=== PATIENT | female | born 1985 | race Caucasian/White ===

== ENCOUNTER 2023-02-14 16:03 | Outpatient (CLI) | payer OTHER, SELFPAY | END 2023-02-14 16:04 | disposition home or self-care (01) | PROVIDERS: PCP Internal Medicine; Visit Provider Internal Medicine | DX: R41.840 Attention and concentration deficit (principal); I10 Essential (primary) hypertension; E66.01 Morbid (severe) obesity due to excess calories; E11.9 Type 2 diabetes mellitus without complications; Z13.6 Encounter for screening for cardiovascular disorders | CPT/HCPCS: 80053; 80061; 82043; 82570; 84443 ==

== ENCOUNTER 2023-06-10 12:48 | Outpatient (CLI) | payer OTHER, SELFPAY | END 2023-06-10 12:49 | disposition home or self-care (01) | LOC: WOUND 12:49 | PROVIDERS: PCP Internal Medicine; Visit Provider Nurse Practitioner Family | DX: E11.621 Type 2 diabetes mellitus with foot ulcer (principal); L97.512 Non-pressure chronic ulcer of other part of right foot with fat layer exposed; L97.511 Non-pressure chronic ulcer of other part of right foot limited to breakdown of skin; Z89.411 Acquired absence of right great toe; Z79.4 Long term (current) use of insulin; Z79.84 Long term (current) use of oral hypoglycemic drugs | CPT/HCPCS: 97597; 99213 ==

== ENCOUNTER 2023-06-17 14:31 | Outpatient (CLI) | payer OTHER, SELFPAY | END 2023-06-17 14:32 | disposition home or self-care (01) | LOC: WOUND 14:31 | PROVIDERS: PCP Internal Medicine; Visit Provider Nurse Practitioner Family | DX: E11.621 Type 2 diabetes mellitus with foot ulcer (principal); L97.512 Non-pressure chronic ulcer of other part of right foot with fat layer exposed; Z79.4 Long term (current) use of insulin; Z79.84 Long term (current) use of oral hypoglycemic drugs | CPT/HCPCS: 97597 ==

== ENCOUNTER 2023-06-24 14:11 | Outpatient (CLI) | payer OTHER, SELFPAY | END 2023-06-24 14:12 | disposition home or self-care (01) | LOC: WOUND 14:11 | PROVIDERS: PCP Internal Medicine; Visit Provider Nurse Practitioner Family | DX: E11.621 Type 2 diabetes mellitus with foot ulcer (principal); L97.512 Non-pressure chronic ulcer of other part of right foot with fat layer exposed; Z79.4 Long term (current) use of insulin; Z79.84 Long term (current) use of oral hypoglycemic drugs | CPT/HCPCS: 97597 ==

== ENCOUNTER 2023-07-01 15:00 | Outpatient (CLI) | payer OTHER, SELFPAY ==
--- OUTSIDE RECORDS SUMMARY | 2023-07-01 15:02 | XMS_ITS | Continuity of Care Document ---
Author Name Unknown Organization [facility] Address [address] [place] [address] Phone Care Team Providers Care Obstetrics Technician Name Role Phone Avery Underwood MD Unavailable Unavailab le Allergies, Adverse Reactions, Alerts Substance Reaction Status Criticality azithromycin Active No Information vancomycin Active No Information trimethoprim Active No Information sulfamethoxazole Active No Informat ion adhesive Active No Information Medications Medication Instructions Dosage Effective Dates (start - stop) Status Comments TRAMADOL HCL (unknown strength) Not Available - Active SUMATRIPTAN (unknown strength) Not Available - Active MULTIVITAMINS (unknown strength) Not Available - Active LYRICA (unknown strength) Not Available - Active OXYCODONE HCL (unknown strength) Not Available - Active METFORMIN HCL (unknown strength) Not Available - Active MELATONIN (unknown strength) Not Available - Active LOSARTAN POTASSIUM (unknown strength) Not Available - Active LORAZEPAM (unknown strength) Not Available - Active HYDROXYZINE HCL (unknown strength) Not Available - Active GLIPIZIDE (unknown strength) Not Available - Active LEXAPRO (unknown strength) Not Available - Active JARDIANCE (unknown strength) Not Available - Active WELLBUTRIN XL (unknown strength) Not Available - Active CHILDREN'S ASPIRIN (unknown strength) Not Available - Active AMMONIUM LACTATE (unknown strength) Not Available - Active Procedures Procedure Date Postop Followup Visit Postop Followup Visit Postop Followup Visit Lami/Discectomy, Lumbar HNP - [place] 2019 Lami/Discectomy, Lumbar HNP I & D of Deep Abscess (Subfascial), Lumb ar / Sacral Postop Followup Visit Lami/Discectomy, Lumbar HNP - [place] 2019 Lami/Discectomy, Lumbar HNP Office/Outpatient Visit,[facility] 2019 Advance Directives Directive Yes / No Effective Date File Name No Information Encounters Encounter Description Practice Location Reason(s) For Visit Diagnoses Date Provider Providers Copied on Encounter [facility], [address], [place], [id number], [place] tel:[phone] [facility] No Information 0 Yasmine Smart er. [facility], [address] [place] [address], [address], [place], [address] , [place]. [phone] [facility], [address], [place], [address], [place] tel:[phone] [facility] Encounter for follow-up examination after completed treatment for conditions other than malignant neoplasm 0 Underwoodned Omeroph er. [facility], [address] [place] [address], [address], [place], [address] , [place]. [phone] Referring Provider: Mile Ni [employer] [address], [address]. tel:[phone] [facility], [address], [place], [address], [place] tel:[phone] [facility] Encounter for follow-up examination after completed treatment for conditions other than malignant neoplasm 0 Underwood Berry er. [facility], [address], [address], [place], [address] , [place]. tel:[phone] Referring Provider: Mile Ni enGene [address] [place] [address], [address]. tel:[phone] [facility], [address], [place], [address], [place] tel:[phone] [facility] Encounter for other specified surgical aftercare 0 Magnus Isi. [facility], [address], [place], [address], [place]. tel:[phone] Referring Provider: Mile Ni enGene [address] [place], [address]. tel:[phone] [facility], [address], [place], [address], [place] tel:[phone] [facility] No Information May-1 2- 0 Magnus Isi. [facility], [address] [facility] [address], [place], [address], [place]. tel:[phone] Referring Provider: Mile Ni enGene [address] [place] [address], [address]. tel:[phone] [facility], [address], [place], [address], [place] tel:[phone] [facility] No Information May-0 0 Yasmine gallego. [facility], [address] [place] [address], [address], [place], [address] , [place]. tel:[phone] Referring Provider: Mile Ni enGene [facility] [place], [address]. tel:[phone] [facility], [address], [place], [address], [place] tel:[phone] [facility] Encounter for other specified surgical aftercare Sep-3 0-202 0 Magnus Isi. [facility], [address] [place] [address] [address], [place], [address], [place]. tel:[phone] Referring Provider: Mile Ni enGene [address] [place] [address], [address]. tel:[phone] [facility], [address], [place], [address], [place] tel:[phone] [facility] No Information Sep-2 0 Magnus Snowden. [facility], [address], [place], [address], [place]. [phone] Referring Provider: Mile Ni, [employer] [address], [address]. tel:[phone] [facility], [address], [place], [address], [place] tel:[phone] [facility] No Information Sep-2 0 Yasmine gallego. [facility], [address] [place] [address], [address], [facility] [place], [address] , [place]. [phone] Referring Provider: Miel Ni, enGene [address] [place] [address], [address]. tel:[phone] Office/Outpat ient Visit,[facility], [facility], [address], [place], [address], [place] tel:[phone] [facility] Other intervertebral disc displacement, lumbar regionRadiculop athy, lumbar region Sep-1 0 Magnus Snowden. [facility], [address], [place], [address], [place]. [phone] Referring Provider: Mile Ni, enGene [address] [place] [address], [address]. tel:[phone] Family History Family Member Type Diagnosis Age At Onset No Information Payers Payer name Insurance type Covered republican ID jacquelyn yongzuri(s) [employer] [id number] Social History Type Description Quantity Date Captured Comments Sex Female Smoking Status No Information Chief Complaint And Reason For Visit No Information Reason For Referral Reason For Referral No Information History Of Present Illness Encounter Date Complaint History Of Prese nt Illness No Information Functional Status Date Functional Assessmen t No Information Instructions Date Instruction Additional Infor mation No Information Assessments Type Assessment Date No Information Patient Care Teams Name Effective Dates (start - stop) Status Members No Information
== END 2023-07-01 15:01 | disposition home or self-care (01) ==
LOC: WOUND 15:01
PROVIDERS: PCP Internal Medicine; Visit Provider Family Medicine
DX: E11.621 Type 2 diabetes mellitus with foot ulcer (principal); L97.512 Non-pressure chronic ulcer of other part of right foot with fat layer exposed; S91.301A Unspecified open wound, right foot, initial encounter; Z79.4 Long term (current) use of insulin; Z79.84 Long term (current) use of oral hypoglycemic drugs
CPT/HCPCS: 11042; 97597; 99212

== ENCOUNTER 2023-07-08 08:07 | Outpatient (CLI) | payer OTHER, SELFPAY ==
--- OUTSIDE RECORDS SUMMARY | 2023-07-08 08:09 | XMS_ITS | Continuity of Care Document ---
Author Name Unknown Organization [facility] Address [address] [place] [address] Phone Care Team Providers Care Patcher Name Role Phone Avery Underwood MD Unavailable [...] - [place] 2019 Lami/Discectomy, Lumbar HNP Office/Outpatient Visit,[facility] 2019 Advance Directives Directive Yes / No Effective Date File Name No Information Encounters Encounter Description Practice Location Reason(s) For Visit Diagnoses Date Provider Providers Copied on Encounter [facility], [address], [place], [address], [place] tel:[phone] [facility] No Information 0 Yasmine Smart er. [facility], [address] [place] [address], [address], [place], [address] , [place]. [phone] [facility], [address], [place], [address], [place] tel:[phone] [facility] Encounter for follow-up examination after completed treatment for conditions other than malignant neoplasm 0 Underwoodned Omeroph er. [facility], [address] [place] [address], [address], [place], [place], [address] , [place]. [phone] Referring Provider: Mile Ni [employer] [address], [address]. tel:[phone] [facility], [address], [place], [address], [place] tel:[phone] [facility] Encounter for follow-up examination after completed treatment for conditions other than malignant neoplasm 0 Underwood Berry er. [facility] [place], [address], [address], [place], [address] , [place]. tel:[phone] Referring Provider: Mile Ni [employer] [address] [place] [address], [address]. tel:[phone] [facility], [address], [place], [address], [place] tel:[phone] [facility] Encounter for other specified surgical aftercare 0 Magnus Isi. [facility], [address], [place], [address], [place]. tel:[phone] Referring Provider: Mile Ni [employer] [address] [place], [address]. tel:[phone] [facility], [address], [place], [address], [place] tel:[phone] [facility] No Information May-1 2- 0 Magnus Isi. [facility], [address] [facility] 600, [place], [address], [place]. tel:[phone] Referring Provider: Mile Ni [employer] [address] [place] [address], [address]. tel:[phone] [facility], [address], [place], [address], [place] tel:[phone] [facility] No Information May-0 0 Yasmine gallego. [facility], [address] [place] [address], [address], [place], [address] , [place]. tel:[phone] Referring Provider: Mile Ni [employer] [facility] [place], [address]. tel:[phone] [facility], [address], [place], [address], [place] tel:[phone] [facility] Encounter for other specified surgical aftercare Sep-3 0-202 0 Magnus Isi. [facility], [address] [place] [address] [address], [place], [address], [place]. tel:[phone] Referring Provider: Mile Ni [employer] [address] [place] [address], [address]. tel:[phone] [facility], [address], [place], [address], [place] tel:[phone] [facility] No Information Sep-2 0 Magnus Snowden. [facility], [address], [place], [address], [place]. [phone] Referring Provider: Mile Ni, [employer] [address], [address]. tel:[phone] [facility], [address], [place], [address], [place] tel:[phone] [facility] No Information Sep-2 0 Yasmine gallego. [facility], [address] [place] [address], [address], [facility] [place], [address] , [place]. [phone] Referring Provider: Mile Ni, [employer] [address] [place] [address], [address]. tel:[phone] Office/Outpat ient Visit,[facility], [facility], [address], [place], [address], [place] tel:[phone] [facility] Other intervertebral disc displacement, lumbar regionRadiculop athy, lumbar region Sep-1 0 Magnus Snowden. [facility], [address], [place], [address], [place]. [phone] Referring Provider: Mile Ni, [employer] [address] [place] [address], [address]. tel:[phone] Family History Family Member Type Diagnosis Age At Onset No Information Payers Payer name Insurance type Covered green party ID jacquelyn yongzuri(s) [employer] [id number] Social History Type Description Quantity Date Captured [...]
== END 2023-07-08 08:08 | disposition home or self-care (01) ==
LOC: WOUND 08:07
PROVIDERS: PCP Internal Medicine; Visit Provider Nurse Practitioner Family
DX: E11.621 Type 2 diabetes mellitus with foot ulcer (principal); L97.512 Non-pressure chronic ulcer of other part of right foot with fat layer exposed; Z79.4 Long term (current) use of insulin; Z79.84 Long term (current) use of oral hypoglycemic drugs
CPT/HCPCS: 97597

== ENCOUNTER 2023-07-22 08:12 | Outpatient (CLI) | payer OTHER, SELFPAY ==
--- OUTSIDE RECORDS SUMMARY | 2023-07-22 08:14 | XMS_ITS | Continuity of Care Document ---
Author Name Unknown Organization [facility] Address [address] [place] [address] Phone Care Team Providers Care Chuck Tender Name Role Phone Avery Underwood MD Unavailable [...] - [place] 2019 Lami/Discectomy, Lumbar HNP Office/Outpatient Visit,[facility] 2019 Advance Directives Directive Yes / No Effective Date File Name No Information Encounters Encounter Description Practice Location Reason(s) For Visit Diagnoses Date Provider Providers Copied on Encounter [facility], [address], [place], [address], [place] tel:[phone] [facility] No Information 0 Yasmine Smart er. [facility], [address] [place] [address], [address], [place], [address] , [place]. [phone] [facility], [address], [place], [address], [place] tel:[phone] [facility] Encounter for follow-up examination after completed treatment for conditions other than malignant neoplasm 0 Underwoodned Omeroph er. [facility], [address] [place] [address], [address], [place], [address] , [place]. [phone] Referring Provider: Mile Ni [employer] [address], [address]. tel:[phone] [facility], [address], [place], [address], [place] tel:[phone] [facility] Encounter for follow-up examination after completed treatment for conditions other than malignant neoplasm 0 Underwood Berry er. [facility] [place], [address], [address], [place], [address] , [place]. tel:[phone] Referring Provider: Mile Ni [employer] [address] [place] [address], [address]. tel:[phone] [facility], [address], [place], [address], [place] tel:[phone] [facility] Encounter for other specified surgical aftercare 0 Magnus Isi. [facility], [address], [place], [address], [place]. tel:[phone] Referring Provider: Mile Ni [employer] [address] [place], [address]. tel:[phone] [facility], [address], [place], [address], [place] tel:[phone] [facility] No Information May-1 2- 0 Magnus Isi. [facility], [address] [facility] 600, [place], [address], [place]. tel:[phone] Referring Provider: Mile Ni [employer] [address] [place] [address], [address]. tel:[phone] [facility], [address], [place], [address], [place] tel:[phone] [facility] No Information May-0 0 Yasmine gallego. [facility], [address] [place] [address], [address], [place], [address] , [place]. tel:[phone] Referring Provider: Mile Ni [employer] [facility] [place], [address]. tel:[phone] [facility], [address], [place], [address], [place] tel:[phone] [facility] Encounter for other specified surgical aftercare Sep-3 0-202 0 Magnus Isi. [facility], [address] [place] [address] [address], [place], [address], [place]. tel:[phone] Referring Provider: Mile Ni [employer] [address] [place] [address], [address]. tel:[phone] [facility], [address], [place], [address], [place] tel:[phone] [facility] No Information Sep-2 0 Magnus Snowden. [facility], [address], [place], [address], [place]. [phone] Referring Provider: Mile Ni, [employer] [address], [address]. tel:[phone] [facility], [address], [place], [address], [place] tel:[phone] [facility] No Information Sep-2 0 Yasmine gallego. [facility], [address] [place] [address], [address], [facility] [place], [address] , [place]. [phone] Referring Provider: Mile Ni, [employer] [address] [place] [address], [address]. tel:[phone] Office/Outpat ient Visit,[facility], [facility], [address], [place], [address], [place] tel:[phone] [facility] Other intervertebral disc displacement, lumbar regionRadiculop athy, lumbar region Sep-1 0 Magnus Snowden. [facility], [address], [place], [address], [place]. [phone] Referring Provider: Mile Ni, [employer] [address] [place] [address], [address]. tel:[phone] Family History Family Member Type Diagnosis Age At Onset No Information Payers Payer name Insurance type Covered constitution party ID jacquelyn yongzuri(s) [employer] [id number] Social History Type Description Quantity Date Captured [...]
== END 2023-07-22 08:13 | disposition home or self-care (01) ==
LOC: WOUND 08:12
PROVIDERS: PCP Internal Medicine; Visit Provider Nurse Practitioner Family
DX: E11.621 Type 2 diabetes mellitus with foot ulcer (principal); L97.512 Non-pressure chronic ulcer of other part of right foot with fat layer exposed; Z79.4 Long term (current) use of insulin; Z79.84 Long term (current) use of oral hypoglycemic drugs
CPT/HCPCS: 97597

== ENCOUNTER 2023-07-29 14:54 | Outpatient (CLI) | payer OTHER, SELFPAY ==
--- OUTSIDE RECORDS SUMMARY | 2023-07-29 14:56 | XMS_ITS | Continuity of Care Document ---
Author Name Unknown Organization [facility] Address [address] [place] [address] Phone Care Team Providers Care 1St Pressman On Web [employer] Name Role Phone Avery Underwood MD Unavailable [...] - [place] 2019 Lami/Discectomy, Lumbar HNP Office/Outpatient Visit,[facility] 2019 Advance Directives Directive Yes / No Effective Date File Name No Information Encounters Encounter Description Practice Location Reason(s) For Visit Diagnoses Date Provider Providers Copied on Encounter [facility], [address], [place], [address], [place] tel:[phone] [facility] No Information 0 Yasmine Smart er. [facility], [address] [place] [address], [address], [place], [address] , [place]. [phone] [facility], [address], [place], [address], [place] tel:[phone] [facility] Encounter for follow-up examination after completed treatment for conditions other than malignant neoplasm 0 Underwoodned Omeroph er. [facility], [address] [place] [address], [address], [place], [address] , [place]. [phone] Referring Provider: Mile Ni [email or web address] [address], [address]. tel:[phone] [facility], [address], [place], [address], [place] tel:[phone] [facility] Encounter for follow-up examination after completed treatment for conditions other than malignant neoplasm 0 Underwood Berry er. [facility] [place], [address], [address], [place], [address] , [place]. tel:[phone] Referring Provider: Mile Ni depict [address] [place] [address], [address]. tel:[phone] [facility], [address], [place], [address], [place] tel:[phone] [facility] Encounter for other specified surgical aftercare 0 Magnus Isi. [facility], [address], [place], [address], [place]. tel:[phone] Referring Provider: Mile Ni depict [address] [place], [address]. tel:[phone] [facility], [address], [place], [address], [place] tel:[phone] [facility] No Information May-1 2- 0 Magnus Isi. [facility], [address] [facility] 600, [place], [address], [place]. tel:[phone] Referring Provider: Mile Ni depict [address] [place] [address], [address]. tel:[phone] [facility], [address], [place], [address], [place] tel:[phone] [facility] No Information May-0 0 Yasmine gallego. [facility], [address] [place] [address], [address], [place], [address] , [place]. tel:[phone] Referring Provider: Mile Ni depict [facility] [place], [address]. tel:[phone] [facility], [address], [place], [address], [place] tel:[phone] [facility] Encounter for other specified surgical aftercare Sep-3 0-202 0 Magnus Isi. [facility], [address] [place] [address] 600, [place], [address], [place]. tel:[phone] Referring Provider: Mile Ni depict [address] [place] [address], [address]. tel:[phone] [facility], [address], [place], [address], [place] tel:[phone] [facility] No Information Sep-2 0 Magnus Snowden. [facility], [address], [place], [address], [place]. [phone] Referring Provider: Mile Ni, [email or web address] [address], [address]. tel:[phone] [facility], [address], [place], [address], [place] tel:[phone] [facility] No Information Sep-2 0 Yasmine gallego. [facility], [address] [place] [address], [address], [facility] [place], [address] , [place]. [phone] Referring Provider: Mile Ni, depict [address] [place] [address], [address]. tel:[phone] Office/Outpat ient Visit,[facility], [facility], [address], [place], [address], [place] tel:[phone] [facility] Other intervertebral disc displacement, lumbar regionRadiculop athy, lumbar region Sep-1 0 Magnus Snowden. [facility], [address], [place], [address], [place]. [phone] Referring Provider: Mile Ni, depict [address] [place] [address], [address]. tel:[phone] Family History Family Member Type Diagnosis Age At Onset No Information Payers Payer name Insurance type Covered green party ID jacquelyn yongzuri(s) [employer] [id number] Social History Type Description Quantity Date Captured [...]
== END 2023-07-29 14:55 | disposition home or self-care (01) ==
LOC: WOUND 14:54
PROVIDERS: PCP Internal Medicine; Visit Provider Family Medicine
DX: E11.621 Type 2 diabetes mellitus with foot ulcer (principal); L97.512 Non-pressure chronic ulcer of other part of right foot with fat layer exposed; Z79.4 Long term (current) use of insulin; Z79.84 Long term (current) use of oral hypoglycemic drugs
CPT/HCPCS: 11042

== ENCOUNTER 2023-08-05 08:13 | Outpatient (CLI) | payer OTHER, SELFPAY ==
--- OUTSIDE RECORDS SUMMARY | 2023-08-05 08:14 | XMS_ITS | Continuity of Care Document ---
Author Name Unknown Organization [facility] Address [address] [place] [address] Phone Care Team Providers Care Entry Driver Operator Name Role Phone Avery Underwood MD Unavailable [...] - [place] 2019 Lami/Discectomy, Lumbar HNP [facility]patient [facility] [place] Advance Directives Directive Yes / No Effective Date File Name No Information Encounters Encounter Description Practice Location Reason(s) For Visit Diagnoses Date Provider Providers Copied on Encounter [facility], [address], [place], [id number], [place] tel:[phone] [facility] No Information 0 Yasmine Smart er. [facility], [address] [place] [address], [address], [place], [address] , [place]. [phone] [facility], [address], [place], [address], [place] tel:[phone] [facility] Encounter for follow-up examination after completed treatment for conditions other than malignant neoplasm 0 Underwoodned Omeroph er. [facility], [address] [place] [address], [address], [place], [address] , [place]. [phone] Referring Provider: Mile Ni [facility] [address], [address]. tel:[phone] [facility], [address], [place], [address], [place] tel:[phone] [facility] Encounter for follow-up examination after completed treatment for conditions other than malignant neoplasm 0 Underwood Berry er. [facility] [place], [address], [address], [place], [address] , [place]. tel:[phone] Referring Provider: Mile Ni [facility] [address] [place] [address], [address]. tel:[phone] [facility], [address], [place], [address], [place] tel:[phone] [facility] Encounter for other specified surgical aftercare 0 Magnus Isi. [facility], [address], [place], [address], [place]. tel:[phone] Referring Provider: Mile Ni [facility] [address] [place], [address]. tel:[phone] [facility], [address], [place], [address], [place] tel:[phone] [facility] No Information May-1 2- 0 Magnus Isi. [facility], [address] [facility] [address], [place], [address], [place]. tel:[phone] Referring Provider: Mile Ni [facility] [address] [place] [address], [address]. tel:[phone] [facility], [address], [place], [address], [place] tel:[phone] [facility] No Information May-0 0 Yasmine gallego. [facility], [address] [place] [address], [address], [place], [address] , [place]. tel:[phone] Referring Provider: Mile Ni [facility] [place], [address]. tel:[phone] [facility], [address], [place], [address], [place] tel:[phone] [facility] Encounter for other specified surgical aftercare Sep-3 0-202 0 Magnus Isi. [facility], [address] [place] [address] [address], [place], [address], [place]. tel:[phone] Referring Provider: Mile Ni [facility] [address] [place] [address], [address]. tel:[phone] [facility], [address], [place], [address], [place] tel:[phone] [facility] No Information Sep-2 0 Magnus Snowden. [facility], [address], [place], [address], [place]. [phone] Referring Provider: Mile Ni, [facility] [address], [address]. tel:[phone] [facility], [address], [place], [address], [place] tel:[phone] [facility] No Information Sep-2 0 Yasmine gallego. [facility], [address] [place] [address], [address], [facility] [place], [address] , [place]. [phone] Referring Provider: Mile Ni, [facility] [address] [place] [address], [address]. tel:[phone] Office/Outpat ient Visit,[facility], [address], [place], [address], [place] tel:[phone] [facility] Other intervertebral disc displacement, lumbar regionRadiculop athy, lumbar region Sep-1 0 Magnus Snowden. [facility], [address], [facility] [place], [address], [place]. [phone] Referring Provider: Mile Ni, [facility] [address] [place] [address], [address]. tel:[phone] Family History Family Member Type Diagnosis Age At Onset No Information Payers Payer name Insurance type Covered alliance party ID jacquelyn yongzuri(s) [employer] [id number] Social History Type Description Quantity Date Captured [...]
== END 2023-08-05 08:14 | disposition home or self-care (01) ==
LOC: WOUND 08:13
PROVIDERS: PCP Internal Medicine; Visit Provider Nurse Practitioner Family
DX: E11.621 Type 2 diabetes mellitus with foot ulcer (principal); L97.512 Non-pressure chronic ulcer of other part of right foot with fat layer exposed; Z79.84 Long term (current) use of oral hypoglycemic drugs
CPT/HCPCS: 11042

== ENCOUNTER 2023-08-08 16:05 | Outpatient (REF) | payer OTHER, SELFPAY ==
--- OUTSIDE RECORDS SUMMARY | 2023-08-09 12:02 | XMS_ITS | Continuity of Care Document ---
Author Name Unknown Organization [facility] Address [address] [place] [address] Phone Care Team Providers Care Actionscript Developer Name Role Phone Avery Underwood MD Unavailable Unavailab le Allergies, Adverse Reactions, Alerts Substance Reaction Status Criticality azithromycin Active No Information vancomycin Active No Information trimethoprim Active No Information sulfamethoxazole Active No Informat ion adhesive Active No Information Medications Medication Instructions Dosage Effective Dates (start - stop) Status Comments AMMONIUM LACTATE (unknown strength) Not Available - Active CHILDREN'S ASPIRIN (unknown strength) Not Available - Active WELLBUTRIN XL (unknown strength) Not Available - Active JARDIANCE (unknown strength) Not Available - Active LEXAPRO (unknown strength) Not Available - Active GLIPIZIDE (unknown strength) Not Available - Active HYDROXYZINE HCL (unknown strength) Not Available - Active LORAZEPAM (unknown strength) Not Available - Active LOSARTAN POTASSIUM (unknown strength) Not Available - Active MELATONIN (unknown strength) Not Available - Active METFORMIN HCL (unknown strength) Not Available - Active OXYCODONE HCL (unknown strength) Not Available - Active LYRICA (unknown strength) Not Available - Active MULTIVITAMINS (unknown strength) Not Available - Active SUMATRIPTAN (unknown strength) Not Available - Active TRAMADOL HCL (unknown strength) Not Available - Active Procedures Procedure Date Postop Followup Visit Postop Followup Visit Postop Followup Visit Lami/Discectomy, Lumbar HNP - [place] 2019 Lami/Discectomy, Lumbar HNP I & D of Deep Abscess (Subfascial), Lumb ar / Sacral Postop Followup Visit Lami/Discectomy, Lumbar HNP - [place] 2019 Lami/Discectomy, Lumbar HNP Office/Outpatient Visit,[facility] [place] Advance Directives Directive Yes / No Effective Date File Name No Information Encounters Encounter Description Practice Location Reason(s) For Visit Diagnoses Date Provider Providers Copied on Encounter [facility], [address], [place], [address], [place] tel:[phone] [facility] No Information 0 Yasmine Smart er. [facility], [address] [place] [address], [address], [place], [address] , [place]. [phone] [facility], [address], [place], [address], [place] tel:[phone] [facility] Encounter for follow-up examination after completed treatment for conditions other than malignant neoplasm 0 Underwoodned Omeroph er. [facility], [address] [place] [address], [address], [place], [address] , [place]. [phone] Referring Provider: Mile Ni [facility] [address], [address]. tel:[phone] [facility], [address], [place], [address], [place] tel:[phone] [facility] Encounter for follow-up examination after completed treatment for conditions other than malignant neoplasm 0 Underwood Berry er. [facility] [place], [address], [address], [place], [address] , [place]. tel:[phone] Referring Provider: Mile Ni [facility] [address] [place] [address], [address]. tel:[phone] [facility], [address], [place], [address], [place] tel:[phone] [facility] Encounter for other specified surgical aftercare 0 Magnus Isi. [facility], [address], [place], [address], [place]. tel:[phone] Referring Provider: Mile Ni [facility] [address] [place], [address]. tel:[phone] [facility], [address], [place], [address], [place] tel:[phone] [facility] No Information May-1 2- 0 Magnus Isi. [facility], [address] [facility] 600, [place], [address], [place]. tel:[phone] Referring Provider: Mile Ni [facility] [address] [place] [address], [address]. tel:[phone] [facility], [address], [place], [address], [place] tel:[phone] [facility] No Information May-0 0 Yasmine gallego. [facility], [address] [place] [address], [address], [place], [address] , [place]. tel:[phone] Referring Provider: Mile Ni [facility] [place], [address]. tel:[phone] [facility], [address], [place], [address], [place] tel:[phone] [facility] Encounter for other specified surgical aftercare Sep-3 0-202 0 Magnus Isi. [facility], [address] [place] [address] [address], [place], [address], [place]. tel:[phone] Referring Provider: Mile Ni [facility] [address] [place] [address], [address]. tel:[phone] [facility], [address], [place], [address], [place] tel:[phone] [facility] No Information Sep-2 0 Magnus Snowden. [facility], [address], [place], [address], [place]. [phone] Referring Provider: Mile Ni, [facility] [address], [address]. tel:[phone] [facility], [address], [place], [address], [place] tel:[phone] [facility] No Information Sep-2 0 Yasmine gallego. [facility], [address] [place] [address], [address], [facility], [address] , [place]. [phone] Referring Provider: Mile Ni, [facility] [address] [place] [address], [address]. tel:[phone] Office/Outpat ient Visit,[facility], [address], [place], [address], [place] tel:[phone] [facility] Other intervertebral disc displacement, lumbar regionRadiculop athy, lumbar region Sep-1 0 Magnus Snowden. [facility], [address], [facility] [place], [address], [place]. [phone] Referring Provider: Mile Ni, [facility] [address] [place] [address], [address]. tel:[phone] Family History Family Member Type Diagnosis Age At Onset No Information Payers Payer name Insurance type Covered constitution party ID jacquelyn yongzuri(s) [employer] [id number] Social History Type Description Quantity Date Captured [...]
== END 2023-08-08 16:06 | disposition home or self-care (01) ==
LOC: NFLDREF 16:05
PROVIDERS: PCP Internal Medicine; Referring Provider Internal Medicine; Visit Provider Internal Medicine
DX: E11.9 Type 2 diabetes mellitus without complications (principal); I82.409 Acute embolism and thrombosis of unspecified deep veins of unspecified lower extremity; E11.29 Type 2 diabetes mellitus with other diabetic kidney complication; R80.9 Proteinuria, unspecified; E11.51 Type 2 diabetes mellitus with diabetic peripheral angiopathy without gangrene
CPT/HCPCS: 80053; 80061; 81241

== ENCOUNTER 2023-08-12 15:03 | Outpatient (CLI) | payer OTHER, SELFPAY ==
--- OUTSIDE RECORDS SUMMARY | 2023-08-12 15:05 | XMS_ITS | Continuity of Care Document ---
Author Name Unknown Organization [facility] Address [address] [place] [address] Phone Care Team Providers Care Bottle Washer Name Role Phone Avery Underwood MD Unavailable [...] - [place] 2019 Lami/Discectomy, Lumbar HNP Office[facility]Outpatient [facility] [place] Advance Directives Directive Yes / No Effective Date File Name No Information Encounters Encounter Description Practice Location Reason(s) For Visit Diagnoses Date Provider Providers Copied on Encounter [facility], [address], [place], [address], [place] tel:[phone] [facility] No Information 0 Yasmine Smart er. [facility], [address] [place] [address], [address], [place], [address] , [place]. [phone] [facility], [address], [place], [address], [place] tel:[phone] [facility] Encounter for follow-up examination after completed treatment for conditions other than malignant neoplasm 0 Underwoodned Omeroph er. [facility], [address] [place] [address], [address], [place], [address] , [place]. [phone] Referring Provider: Mile Ni [facility] [address], [address]. tel:[phone] [facility], [address], [place], [address], [place] tel:[phone] [facility] Encounter for follow-up examination after completed treatment for conditions other than malignant neoplasm 0 Underwood Berry er. [facility] [place], [address], [address], [place], [address] , [place]. tel:[phone] Referring Provider: Mile Ni [facility] [address] [place] [address], [address]. tel:[phone] [facility], [address], [place], [address], [place] tel:[phone] [facility] Encounter for other specified surgical aftercare 0 Magnus Isi. [facility], [address], [place], [address], [place]. tel:[phone] Referring Provider: Mile Ni [facility] [address] [place], [address]. tel:[phone] [facility], [address], [place], [address], [place] tel:[phone] [facility] No Information May-1 2- 0 Magnus Isi. [facility], [address] [facility] [address], [place], [address], [place]. tel:[phone] Referring Provider: Mile Ni [facility] [address] [place] [address], [address]. tel:[phone] [facility], [address], [place], [address], [place] tel:[phone] [facility] No Information May-0 0 Yasmine gallego. [facility], [address] [place] [address], [address], [place], [address] , [place]. tel:[phone] Referring Provider: Mile Ni [facility] [place], [address]. tel:[phone] [facility], [address], [place], [address], [place] tel:[phone] [facility] Encounter for other specified surgical aftercare Sep-3 0-202 0 Magnus Isi. [facility], [address] [place] [address] [address], [place], [address], [place]. tel:[phone] Referring Provider: Mile Ni [facility] [address] [place] [address], [address]. tel:[phone] [facility], [address], [place], [address], [place] tel:[phone] [facility] No Information Sep-2 0 Magnus Snowden. [facility], [address], [place], [address], [place]. [phone] Referring Provider: Mile Ni, [facility] [address], [address]. tel:[phone] [facility], [address], [place], [address], [place] tel:[phone] [facility] No Information Sep-2 0 Yasmine gallego. [facility], [address] [place] [address], [address], [facility] [place], [address] , [place]. [phone] Referring Provider: Mile Ni, [facility] [address] [place] [address], [address]. tel:[phone] Office/Outpat ient Visit,[facility], [address], [place], [address], [place] tel:[phone] [facility] Other intervertebral disc displacement, lumbar regionRadiculop athy, lumbar region Sep-1 0 Magnus Snowden. [facility], [address], [place], [address], [place]. [phone] Referring Provider: Mile Ni, [facility] [address] [place] [address], [address]. tel:[phone] Family History Family Member Type Diagnosis Age At Onset No Information Payers Payer name Insurance type Covered democrat ID jacquelyn yongzuri(s) Tamr [id number] Social History Type Description Quantity Date Captured [...]
== END 2023-08-12 15:04 | disposition home or self-care (01) ==
PROVIDERS: PCP Internal Medicine; Visit Provider Nurse Practitioner Family
DX: E11.621 Type 2 diabetes mellitus with foot ulcer (principal); E11.40 Type 2 diabetes mellitus with diabetic neuropathy, unspecified; L97.512 Non-pressure chronic ulcer of other part of right foot with fat layer exposed; L84 Corns and callosities; Z79.4 Long term (current) use of insulin; Z79.84 Long term (current) use of oral hypoglycemic drugs
CPT/HCPCS: 11042; 11055

== ENCOUNTER 2023-08-24 09:04 | Outpatient (CLI) | payer BC, SELFPAY ==
--- OUTSIDE RECORDS SUMMARY | 2023-08-24 09:09 | XMS_ITS | Continuity of Care Document ---
Author Name Unknown Organization [facility] Address [address] [place] [address] Phone Care Team Providers Care Overnight Babysitter Name Role Phone Avery Underwood MD Unavailable [...] - [place] 2019 Lami/Discectomy, Lumbar HNP Office/Outpatient Visit,[facility] [place] Advance Directives Directive Yes / No Effective Date File Name No Information Encounters Encounter Description Practice Location Reason(s) For Visit Diagnoses Date Provider Providers Copied on Encounter [facility], [address], [place], [address], [place] tel:[phone] [facility] No Information 0 Yasmine Smart er. [facility], [address] [place] [address], [address], [place], [address] , [place]. [phone] [facility], [address], [place], [address], [place] tel:[phone] [facility] Encounter for follow-up examination after completed treatment for conditions other than malignant neoplasm 0 Underwoodned Omeroph er. [facility], [address] [place] [address], [address], [place], [address] , [place]. [phone] Referring Provider: Mile Ni uiu [address], [address]. tel:[phone] [facility], [address], [place], [address], [place] tel:[phone] [facility] Encounter for follow-up examination after completed treatment for conditions other than malignant neoplasm 0 Underwood Berry er. [facility] [place], [address], [address], [place], [address] , [place]. tel:[phone] Referring Provider: Mile Ni [facility] [address] [place] [address], [address]. tel:[phone] [facility], [address], [place], [address], [place] tel:[phone] [facility] Encounter for other specified surgical aftercare 0 Magnus Isi. [facility], [address], [place], [address], [place]. tel:[phone] Referring Provider: Mile Ni [facility] [address] [place], [address]. tel:[phone] [facility], [address], [place], [address], [place] tel:[phone] [facility] No Information May-1 2- 0 Magnus Isi. [facility], [address] [facility] 600, [place], [address], [place]. tel:[phone] Referring Provider: Mile Ni [facility] [address] [place] [address], [address]. tel:[phone] [facility], [address], [place], [address], [place] tel:[phone] [facility] No Information May-0 0 Yasmine gallego. [facility], [address] [place] [address], [address], [place], [address] , [place]. tel:[phone] Referring Provider: Mile Ni [facility] [place], [address]. tel:[phone] [facility], [address], [place], [address], [place] tel:[phone] [facility] Encounter for other specified surgical aftercare Sep-3 0-202 0 Magnus Isi. [facility], [address] [place] [address] 600, [place], [address], [place]. tel:[phone] Referring Provider: Mile Ni [facility] [address] [place] [address], [address]. tel:[phone] [facility], [address], [place], [address], [place] tel:[phone] [facility] No Information Sep-2 0 Magnus Snowden. [facility], [address], [place], [address], [place]. [phone] Referring Provider: Mile Ni, uiu [address], [address]. tel:[phone] [facility], [address], [place], [address], [place] tel:[phone] [facility] No Information Sep-2 0 Yasmine gallego. [facility], [address] [place] [address], [address], [facility], [address] , [place]. [phone] Referring Provider: Mile Ni, [facility] [address] [place] [address], [address]. tel:[phone] Office/Outpat ient Visit,[facility], [address], [place], [address], [place] tel:[phone] [facility] Other intervertebral disc displacement, lumbar regionRadiculop athy, lumbar region Sep-1 0 Magnus Snowden. [facility], [address], [place], [address], [place]. [phone] Referring Provider: Mile Ni, [facility] [address] [place] [address], [address]. tel:[phone] Family History Family Member Type Diagnosis Age At Onset No Information Payers Payer name Insurance type Covered libertarian ID jacquelyn yongzuri(s) [employer] [id number] Social History Type Description Quantity Date Captured [...]
--- NOTE | 2023-08-24 10:30 | CRLHL7_ITS ---
For Patients: As a result of the Cures Act, medical imaging exams and procedure reports are released immediately into your electronic medical record. You may view this report before your referring provider. If you have questions, please contact your health care provider. Indication: CHRONIC DIABETIC ULCER OF RIGHT FOOT DETERMINED BY EXAMINATION Technique: Right foot 3 views Comparison: None Findings: Large plantar calcaneal spur. Small posterior calcaneal spur. Mild dorsal spurring at the midfoot. Amputation of the great toe. Chronic fragmentation about the 2nd MTP joint and 3rd metatarsal head. No acute fracture. 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 No evidence of acute osteomyelitis. Dictated by Marv Dotson MD @ 08/24/2023 10:44:06 AM (Electronically Signed)
--- NOTE | 2023-08-24 13:16 | P.EN_ITS ---
<Statement entered by Yvette Randhawa MD - 09/21/23 14:45> I did not care for this patient on this date or during her hospital stay
--- NOTE | 2023-08-24 13:17 | PM.WSPN ---
Progress Note: A&P Assessment and plan Plan This note will be complete in the wound clinic EMR: [employer] Time Spent With Patient Total time spent: 0 Subjective Interval history: I did not see this patient in the hospital!
== END 2023-08-24 09:05 | disposition home or self-care (01) ==
PROVIDERS: PCP Internal Medicine; Visit Provider Family Medicine
DX: E11.621 Type 2 diabetes mellitus with foot ulcer (principal); L97.512 Non-pressure chronic ulcer of other part of right foot with fat layer exposed; S91.114A Laceration without foreign body of right lesser toe(s) without damage to nail, initial encounter; Z89.411 Acquired absence of right great toe; Z79.84 Long term (current) use of oral hypoglycemic drugs
CPT/HCPCS: 73630; 97602; G0463

== ENCOUNTER 2023-09-01 08:59 | Outpatient (CLI) | payer BC, SELFPAY ==
--- OUTSIDE RECORDS SUMMARY | 2023-09-01 09:05 | XMS_ITS | Encounter Summary ---
Author Name Unknown Organization [place] Address [address] [facility] [place] [address] Care Team Providers Care Aboriginal Ceremonial Celebrant Name Role Phone Alondra Mathew MD Primary Care Provider Linden Conrad MD Unavailable Reason for Visit * Reason Comments RECHECK Follow up for 3 mth reevaluation for lymphodema. Going well for her. 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); Varicose veins of bilateral lower extremities with pain Social History Tobacco Use Types Packs/Day Years Used Date Smoking Tobacco: Never Assessed Smokeless Tobacco: Current Tobacco Cessation:Ready to Q uit: Not Asked; Counseling Given: Not Answered Comments:Vape Sex and Gender Information Value Date Recorded Sex Assigned at Female 01/12/2023 9:49 AM CDT Gender Identity Female 01/12/2023 9:49 AM CDT Sexual Orientation Straight 01/12/2023 9: 49 AM CDT COVID-19 Exposure Response Date Recorded In the last 10 days, have yo u been in contact with someone who was confirmed or suspected to have Coronavirus/COVID-19? 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 I had advised lymphedema therapy which she has been doing quite religiously. She now has figured out her own external compression regimen. She has responded very well to this and has minimal pain and edema with ongoing therapy. I explained to her that this is the cornerstone of therapy and surgical intervention will not be advised. We will give her a renewed prescription for compression stockings. She can follow-up on a as needed basis. documented in this encounter Miscellaneous Notes * Addendum Note - Alondra Spaulding RN - 04/21/2023 10:30 AM CDTAddended by: ALONDRA SPAULDING on: 04/21/2023 11:29 AM Modules accepted: Orders documented in this encounter Plan of Treatment Not on file documented as of this encounter Visit Diagnoses Diagnosis Post-thrombotic syndrome of right lower extremity- Primary Varicose veins of bilateral lower extremities with pain documented in this encounter Care Teams Aboriginal Ceremonial Celebrant Relationship Specialty Start Date End Date Alondra Mathew MD [facility] [address] [place] [address] PCP - General 01/12/23 Linden Conrad MD [address] [place] [address] Assigned Heart and Vascular Provider 01/22/23 documented as of this encounter
--- OUTSIDE RECORDS SUMMARY | 2023-09-01 09:05 | XMS_ITS | Encounter Summary ---
Author Name Unknown Organization [place] Address [facility] [place] [address] Care Team Providers Care Plant Maintenance Supervisor Name Role Phone Alondra Mathew MD Primary Care Provider Linden Conrad MD Unavailable [phone] Encounter Details Date Type Department Care Team (Latest Contact Info) Description 03/16/2023 Travel Social History Tobacco Use Types Packs/Day Years Used Date Smoking Tobacco: Former Cigarettes Smokeless Tobacco: Current Comments:Vape Sex and Gender Information Value Date Recorded Sex Assigned at Female 01/12/2023 9:49 AM CDT Gender Identity Female 01/12/2023 9:49 AM CDT Sexual Orientation Straight 01/12/2023 9: 49 AM CDT COVID-19 Exposure Response Date Recorded In the last 10 days, have yo u been in contact with someone who was confirmed or suspected to have Coronavirus/COVID-19? No / Unsure 03/16/2023 10:24 AM CDT documented as of this encounter Plan of Treatment Not on file documented as of this encounter Visit Diagnoses Not on filedocumented in this encounter Care Teams Plant Maintenance Supervisor Relationship Specialty Start Date End Date Alondra Mathew MD [facility] [address] [place] [address] PCP - General 01/12/23 Linden Conrad MD [address] [place] [address] Assigned Heart and Vascular Provider 01/22/23 documented as of this encounter
--- OUTSIDE RECORDS SUMMARY | 2023-09-01 09:05 | XMS_ITS | Referral Summary ---
Author Name Unknown Organization [place] Address [address] [place] [address] Care Team Providers Care Electronics Tester Name Role Phone Alondra Mathew MD Primary Care Provider Linden Conrad MD Unavailable [phone] Allergies Active Allergy Reactions Criticality Noted Date Comments Azithromycin 02/13/2014 Other reaction(s): Hepatic Dysfunction Fluconazole Hives,Itching,Rash Low 04/08/2003 Sulfamethoxazole-Trime thoprim Rash Low 02/13/2014 Vancomycin Other (See Comments) 04/08/2003 Other reaction(s): Red Man's Syndrome Medications Medication Sig Dispensed Refills Start Date End Date Status aspirin (ASA) 81 MG chewable tablet 0 Active buPROPion (WELLBUTRIN XL) 150 MG 24 hr tablet Take 150 mg by mouth 0 04/01/2021 Active buPROPion (WELLBUTRIN XL) 300 MG 24 hr tablet Take 1 tablet by mouth daily 0 04/01/2021 Active JARDIANCE 10 MG TABS tablet Take 10 mg by mouth every morning 0 11/13/2022 Active escitalopram (LEXAPRO) 20 MG tablet Take 30 mg by mouth 0 02/20/2021 Activ e LORazepam (ATIVAN) 0.5 MG tablet 0 Active losartan (COZAAR) 25 MG tablet 0 Active magnesium gluconate (MAGONATE) 500 (27 Mg) MG tablet 0 Active metFORMIN (GLUCOPHAGE XR) 500 MG 24 hr tablet Take 500 mg by mouth 0 02/20/2021 Active Multiple Vitamin (ONE-A-DAY ESSENTIAL) TABS Take 1 tablet by mouth daily 0 Active ondansetron (ZOFRAN) 4 MG tablet Take 8 mg by mouth 0 10/02/2021 Activ e Pregabalin (LYRICA) 200 MG capsule 0 Active OZEMPIC, 0.25 OR 0.5 MG/DOSE, 2 MG/3ML pen INJECT 0.5MG SUB-Q EVERY WEEK 0 12/24/2022 Active SUMAtriptan (IMITREX) 100 MG tablet TAKE 1 TABLET BY MOUTH NEEED FOR MIGRAINE HEADACHE. MAY REPEAT ONCE AFTER AT LEAST 2 HOURS. DO NOT EXCEED 2 DOSES IN 24 HOURS. 0 12/31/2022 Active Taurine 1000 MG CAPS 0 Acti ve amphetamine-dextroamp hetamine (ADDERALL XR) 30 MG 24 hr capsule Take 30 mg by mouth daily 0 Active Social History Tobacco Use Types Packs/Day Years Used Date Smoking Tobacco: Never Assessed Smokeless Tobacco: Current Tobacco Cessation:Ready to Q uit: Not Asked; Counseling Given: Not Answered Comments:Vape Adolescent Education Answer Date Record ed Getting School Help Needed Not on file 05/14 Sex and Gender Information Value Date Recorded Sex Assigned at Female 01/12/2023 9:49 AM CDT Gender Identity Female 01/12/2023 9:49 AM CDT Sexual Orientation Straight 01/12/2023 9: 49 AM CDT Plan of Treatment Not on file Care Teams Electronics Tester Relationship Specialty Start Date End Date Alondra Mathew MD [facility] [address] [place] [address] PCP - General 01/12/23 Linden Conrad MD [address] [place] [address] Assigned Heart and Vascular Provider 01/22/23
--- OUTSIDE RECORDS SUMMARY | 2023-09-01 09:05 | XMS_ITS | Encounter Summary ---
Author Name Unknown Organization [place] Address [facility] [facility] [place] [address] Care Team Providers Care Airport Security Screener Name Role Phone Alondra Mathew MD Primary Care Provider [phone] Linden Conrad MD Unavailable [phone] Encounter Details Date Type Department Care Team (Latest Contact Info) Description 04/21/2023 Travel Social History Tobacco Use Types Packs/Day Years Used Date Smoking Tobacco: Never Assessed Smokeless Tobacco: Current Comments:Vape Sex and Gender [...] on filedocumented in this encounter Care Teams Airport Security Screener Relationship Specialty Start Date End Date Alondra Mathew MD [facility] [address] [place] [address] PCP - General 01/12/23 Linden Conrad MD [address] [place] [address] Assigned Heart and Vascular Provider 01/22/23 documented as of this encounter
--- OUTSIDE RECORDS SUMMARY | 2023-09-01 09:05 | XMS_ITS | Encounter Summary ---
Author Name Unknown Organization [place] Address [address] [place] [address]. [place] [address] Care Team Providers Care Impregnator Name Role Phone Alondra Mathew MD Primary Care Provider Linden Conrad MD Unavailable [phone] Reason for Visit * Rehab Therapy Integrated Services (Routine: Next available opening) - Closed Specialty Diagnoses / Procedures Referred By Farzana meredith Referred To Contact Diagnoses Lymphedema due to venous insufficiency [address] [address] Referral ID Status Reason Start Date Expiration Date Visits Re quested Visits Authorized Closed 01/18/2023 08/21/2023 365 365 Encounter Details Date Type Department Care Team (Latest Contact Info) Description 03/23/2023 4:45 PM CDT Therapy Visit [address] [place] [id number] Richa Londono, OT [address] [place] [address] Lymphedema due to venous insufficiency (Primary Dx) Social History Tobacco Use Types Packs/Day Years Used Date Smoking Tobacco: Former Cigarettes Smokeless Tobacco: Current Comments:Vape Adolescent Education Answer Date Record ed [...] as of this encounter Progress Notes * Richa Londono, OT - 05/20/2023 11:01 AM CDT 03/23/23 0500 Appointment Info Treating Provider Henry Londono, OTR/L, CLT Visits Used 5 Medical Diagnosis lymphedema due to venous insufficiency OT Tx Diagnosis 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 Goal Progress not able to measure, pt didn't return for final visit but pt has visibly reduced and met goal Target Date 04/04/23 Date Met 03/23/23 OT Goal 2 Goal Identifier GCB Goal Description To reduce volume of lymphedema and risk of soft tissue fibrosis, pt will tolerate up to 23hr/day wear gradient compression bandaging (GCB) of RLE and LBK. Target Date 04/04/23 Date Met 03/23/23 Goal Progress pt indep now with GCB OT Goal 3 Goal Identifier home program Goal Description For long-term home mgmt chronic lymphedema pt/caregiver independent in home program a. GCB/GCB alternative garment for night wear b. compression garment for day wear c. ex to incr lymph flow/self-MLD. Target Date 04/04/23 Goal Progress pt indep OT Goal 4 Goal Identifier lymphedema precautions Goal Description Pt will independently verbalize the signs/symptoms of lymphedema, precautions and how to obtain a future lymphedema referral if edema persists to preserve skin integrity, prevent infection and preserve functional mobility. Target Date 04/04/23 Date Met 03/23/23 Goal Progress indep Objective Measures Objective Measures Objective Measure 1 Objective Measure 1 Objective Measure volume Details Right leg reduced by 366 ml since 02/28/23 measurement Treatment Interventions (OT) Interventions Self Care/Home Management;Therapeutic Procedure/Exercise;Manual Therapy Manual Therapy Manual Therapy Minutes (59450) 65 Manual Therapy 1 - Details quick wrap GCB, edu on compression garments MLD, NLN LE edu started, further quick wrap GCB RLE Skilled Intervention Pt has been completing quick wrap effectively, training on thigh high GCB today for at least night time option , day time job would make thigh high wrap hard. Pt needs further edu to make sure she has thigh high GCB correct, MLD performed - beginning with BL venous anles, terminus , shoulder collectors and bilateral axillary LN, inguinal, abdonimal and popliteal LN clearing. followed by light manual decongestive massage towards functional lymph nodes Right groin and then axilla, edu on compression garment options Patient Response/Progress pt is indep with quick wrap GCB Education Education Comments . pt has printed rx for thigh and knee high and Mare' contact info to scheudle fitting, gave patient info on bike shorts with knee high option , and need to schedule mare fitter by for thigh high and knee high 20-30 mm hg Plan Home program patient has been doing quick wrap for right BK but adding thigh high GCB for night time , cont with quick wrap during day below knee R leg Plan for next session reinforce quick wrap education , MLD if time Comments Comments Patient scheduled for 2 treatments prior to CDT; please ed in quick wrap for HP. Patient to try R thigh bandaging for daytime, planning to at least self-bandage thigh at night. Total Session Time Timed Code Treatment Minutes 65 Total Treatment Time (sum of timed and untimed services) 65 DISCHARGE Reason for Discharge: Patient has met all goals. Patient has failed to schedule further appointments. Equipment Issued: GCB supplies one set Discharge Plan: Patient to continue home program. Referring Provider: Linden Conrad documented in this encounter Plan of Treatment Not on file documented as of this encounter Visit Diagnoses Diagnosis Lymphedema due to venous insufficiency- Primary documented in this encounter Care Teams Impregnator Relationship Specialty Start Date End Date Alondra Mathew MD [facility] [address] [place] [address] PCP - General 01/12/23 Linden Conrad MD [address] [place] [address] Assigned Heart and Vascular Provider 01/22/23 documented as of this encounter
--- OUTSIDE RECORDS SUMMARY | 2023-09-01 09:05 | XMS_ITS | Continuity of Care Document ---
Author Name Unknown Organization [facility] Address [address] [place] [address] Phone Care Team Providers Care Food Concession Manager Name Role Phone Avery Underwood MD Unavailable [...] - [place] 2019 Lami/Discectomy, Lumbar HNP Office/Outpatient Visit,[facility] 2019 Advance Directives Directive Yes / No Effective Date File Name No Information Encounters Encounter Description Practice Location Reason(s) For Visit Diagnoses Date Provider Providers Copied on Encounter [facility], [address], [place], [place], [id number], [place] tel:[phone] [facility] No Information 0 Yasmine Smart er. [facility], [address] [place] [address], [address], [place], [place], [id number] , [place]. [phone] [facility], [address], [place], [place], [id number], [place] tel:[phone] [facility] Encounter for follow-up examination after completed treatment for conditions other than malignant neoplasm 0 Underwoodned Omeroph er. [facility], [address] [place] [address], [address], [place], [place], [id number] , [place]. [phone] Referring Provider: Mile iN sigmacare [address], [address]. tel:[phone] [facility], [address], [place], [id number], [place] tel:[phone] [facility] Encounter for follow-up examination after completed treatment for conditions other than malignant neoplasm 0 Underwood Berry er. [facility], [address], [address], [place], [place], [id number] , [place]. tel:[phone] Referring Provider: Mile Ni YingYang [address] [place] [address], [address]. tel:[phone] [facility], [address], [place], [id number], [place] tel:[phone] [facility] Encounter for other specified surgical aftercare 0 Magnus Isi. [facility], [address], [place], [address], [place]. tel:[phone] Referring Provider: Mile Ni YingYang [address] [place], [address]. tel:[phone] [facility], [address], [place], [place], [id number], [place] tel:[phone] [facility] No Information May-1 2- 0 Magnus Isi. [facility], [address] [facility] [address], [place], [address], [place]. tel:[phone] Referring Provider: Mile Ni YingYang [address] [place] [address], [address]. tel:[phone] [facility], [address], [place], [id number], [place] tel:[phone] [facility] No Information May-0 0 Yasmine gallego. [facility], [address] [place] [address], [address], [place], [id number] , [place]. tel:[phone] Referring Provider: Mile Ni YingYang [facility] [place], [address]. tel:[phone] [facility], [address], [place], [id number], [place] tel:[phone] [facility] Encounter for other specified surgical aftercare Sep-3 0-202 0 Magnus Isi. [facility], [address] [place] [address] [address], [place], [address], [place]. tel:[phone] Referring Provider: Mile Ni YingYang [address] [place] [address], [address]. tel:[phone] [facility], [address], [place], [id number], [place] tel:[phone] [facility] No Information Sep-2 0 Magnus Snowden. [facility], [address], [place], [address], [place]. [phone] Referring Provider: Mile Ni, sigmacare [address], [address]. tel:[phone] [facility], [address], [place], [id number], [place] tel:[phone] [facility] No Information Sep-2 0 Yasmine gallego. [facility], [address] [place] [address], [address], [facility] [place], [id number] , [place]. [phone] Referring Provider: Mile Ni, YingYang [address] [place] [address], [address]. tel:[phone] Office/Outpat ient Visit,[facility], [address], [place], [id number], [place] tel:[phone] [facility] Other intervertebral disc displacement, lumbar regionRadiculop athy, lumbar region Sep-1 0 Magnus Snowden. [facility], [address], [place], [address], [place]. [phone] Referring Provider: Mile Ni, YingYang [address] [place] [address], [address]. tel:[phone] Family History Family Member Type Diagnosis Age At Onset No Information Payers Payer name Insurance type Covered republican ID jacquelyn yongzuri(s) [employer] [id number] Social History Type Description Quantity Date Captured [...]
--- OUTSIDE RECORDS SUMMARY | 2023-09-01 09:05 | XMS_ITS | Clinical Summary ---
Author Name Unknown Organization [place] Address [facility] [place] [address] Care Team Providers Care Surgical Instrument Maker Name Role Phone Alondra Mathew MD Primary Care Provider Linden Conrad MD Unavailable [phone] Allergies Active Allergy Reactions Criticality Noted Date [...] 9: 49 AM CDT Plan of Treatment Health Maintenance Due Date Last Done Comments ADVANCE CARE PLANNING 1986 ANNUAL REVIEW OF HM ORDERS 1986 YEARLY PREVENTIVE VISIT 1986 IPV IMMUNIZATION (4 of 4 - 5-dose series) 03/25/1999 09/25/1998, 09/25/1998, 08/18/1998, Additional history exists HIV SCREENING 2001 HEPATITIS C SCREENING 2004 PAP 2007 HPV IMMUNIZATION (3 - 3-dose series) 06/10/2010 03/18/2010, 03/18/2010, 01/30/2007, Additional history exists PHQ-2 (once per calendar year) 2022 COVID-19 Vaccine ( - 2022- season) 2023 06/05/2021, 06/05/2021, 05/15/2021 INFLUENZA VACCINE (#1) 2023 9, 07/17/2018, 06/30/2016, Additional history exists DTAP/TDAP/TD IMMUNIZATION (4 - Td or Tdap) 11/19/2030 11/19/2020, 03/18/2010, 01/01/1998, Additional history exists HEPATITIS B IMMUNIZATION Completed 999, 02/26/1999, 02/26/1999, Additional history exists Pneumococcal Vaccine: Pediatrics (0 to 5 Years) and At-Risk Patients (6 to 64 Years) Aged Out 08/24/2016, 08/24/2016, 08/18/1998 No longer eligible based on patient's age to complete this topic MENINGITIS IMMUNIZATION Aged Out No l onger eligible based on patient's age to complete this topic RSV MONOCLONAL ANTIBODY Aged Out No l onger eligible based on patient's age to complete this topic Care Teams Surgical Instrument Maker Relationship Specialty Start Date End Date Alondra Mathew MD [facility] [address] [place] [address] PCP - General 01/12/23 Linden Conrad MD [address] [address] Assigned Heart and Vascular Provider 01/22/23
--- OUTSIDE RECORDS SUMMARY | 2023-09-01 09:05 | XMS_ITS | Encounter Summary ---
Author Name Unknown Organization [place] Address [facility] [place] [address] Care Team Providers Care Friction Paint Machine Tender Name Role Phone Alondra Mathew MD Primary Care Provider Linden Conrad MD Unavailable [phone] Encounter Details Date Type Department Care Team (Latest Contact Info) Description 03/23/2023 Travel Social History Tobacco Use Types Packs/Day [...] suspected to have Coronavirus/COVID-19? No / Unsure 03/23/2023 4:51 PM CDT documented as of this encounter Plan of Treatment Not on file documented as of this encounter Visit Diagnoses Not on filedocumented in this encounter Care Teams Friction Paint Machine Tender Relationship Specialty Start Date End Date Alondra Mathew MD [facility] [address] [place] [address] PCP - General 01/12/23 Linden Conrad MD [address] [place] [address] Assigned Heart and Vascular Provider 01/22/23 documented as of this encounter
--- OUTSIDE RECORDS SUMMARY | 2023-09-01 09:06 | XMS_ITS | Encounter Summary ---
Author Name Unknown Organization [place] Address [address] [place] [address]. [place] [address] Care Team Providers Care Financial Planning Advisor Name Role Phone Alondra Mathew MD Primary Care Provider Reason for Referral * Rehab Therapy Integrated Services (Routine: Next available opening) - Closed Specialty Diagnoses / Procedures Referred By Farzana meredith Referred To Contact Diagnoses Lymphedema due to venous insufficiency [address] [address] Referral ID Status Reason Start Date Expiration Date Visits Re quested Visits Authorized Closed 01/18/2023 08/21/2023 365 365 Question Answer Preferred Location: [facility] Scheduling Instructions: If you have not heard from the scheduling office within 2 business days, please call [phone] for [employer], for [place] and [phone] for [place]. Course of Action PT or OT Evaluation and Treatment PT/OT Treatment Diagnosis Lymphedema Comments If you have not heard from the scheduling office within 2 business days, please call [phone] for all locations, with the exception of [place], please call [phone] and [place], please call [phone]. Please be aware that coverage of these services is subject to the terms and limitations of your health insurance plan. Call member services at your health plan with any benefit or coverage questions. If you have not heard from the scheduling office within 2 business days, please call [phone] for [facility], for [place] and [phone] for [place]. Reason for Visit * Reason Comments Consult Referred by Dr. Snehal lemos at [facility] for BVV w/ pain, and swelling. R>L. DVT in right leg 12/2013. Bilateral venous comp at 8am. No hx of tx. Encounter Details Date Type Department Care Team (Latest Contact Info) Description 01/13/2023 9:30 AM CDT Office Visit [facility] [place] [address] [place] [address] Linden Conrad MD [address] [place] [address] Varicose veins of bilateral lower extremities with pain (Primary Dx); Lymphedema due to venous insufficiency Social History Tobacco Use Types Packs/Day Years Used Date Smoking Tobacco: Former Cigarettes Smokeless Tobacco: Current Tobacco Cessation:Ready to Q [...] suspected to have Coronavirus/COVID-19? No / Unsure 01/13/2023 7:52 AM CDT documented as of this encounter Patient Instructions * Patient Instructions* Lourdes Arceo - 01/13/2023 9:30 AM CDT Images from the original note were not included. Varicose Veins and Spider Veins Varicose veins are swollen, enlarged veins most often found in the legs. They are usually blue or purple in color and may bulge, twist, and stand out under the skin. Spider veins are small veins justunder your skin that can look red, blue or purple. Normally, veins return blood from the body to the heart. The leg veins have one- way valves that prevent blood from flowing backward in the vein. When the valves are weak or damaged, blood backs up inthe veins. This may cause some of the veins to swell and bulge and become varicose veins. Symptoms Varicose veins may or may not cause symptoms. If symptoms do occur, they can include: Legs that feel tired, achy, heavy, or itchy Leg swelling Leg muscle cramps Skin changes, such as discoloration, dryness, redness, or rash (in more severe cases, you may also have sores on the skin called venous leg ulcers) Risk factors There are a number of factors that increase the risk for varicose veins. These can include: Being a woman Being older Sitting or standing for long periods Being overweight Being Having a family history of varicose veins Hormones, control pills Treatment starts with simple self-help measures (see below). If these don't help, there are many procedures that can be done to shrink or remove varicose veins. Your healthcare provider can tell you more about these options, if needed. Home care Support or compression stockings will likely be prescribed. If so, be sure to wear them as directed. They may help improve blood flow. Exercising helps strengthen your leg muscles and improve blood flow. To get the most benefit, choose exercises such as walking, swimming, or cycling. Also try to exercise for at least 30 minutes on most days. Raising your legs above heart level will help relieve swelling and keep blood from pooling in veins. Try to elevate your legs for 15 to 20 minutes at the end of the day, and whenever you're relaxing.To make sure your legs are raised above heart level, prop them up on cushions or large pillows. To keep blood moving when you have to sit or stand for long periods, try these tips: At work, take walking breaks instead of coffee breaks. Walk during your lunch hour. Or try flexing your feet up and down 10 times each hour. When standing, raise yourself up and down on your toes, or rock back and forth on your heels. If you are overweight, talk with your healthcare provider about setting up a weight-loss plan. Maintaining a healthy weight can help reduce the strain on your veins. It may also improve symptoms, such as swelling and aching. If you have dryness and itching, ask your provider about special lotions that can be applied to theskin to help improve symptoms. Follow-up care Follow up with your healthcare provider, or as directed. If imaging tests were done, you'll be toldthe results and if there are any new findings that affect your care. When to seek medical advice Call your healthcare provider right away if any of these occur: Sudden, severe leg swelling, pain, or redness Symptoms worsen, or they don't improve with self-care Bleeding from any affected veins Ulcers form on the legs, ankles, or feet Fever of 100.4??F (38??C) or higher, or as advised by your provider [employer] last reviewed this educational content on 11/20/2017 ?? [id number] [employer]. All rights reserved. This information is not intended as a substitute for professional medical care. Always follow your healthcare professional's instructions. Self-Care for Spider and Varicose Veins Your healthcare provider may suggest that you try self-care. Exercising and maintaining a healthy weight may keep problem veins from getting worse. Wearing elastic stockings and elevating your legs can help improve blood flow. Taking breaks when you sit or stand helps, too. Wearing compression stockings Compression stockings gently squeeze veins so blood flows upward. If you need compression stockings, your healthcare provider can prescribe them for you. Follow your healthcare provider's advice about how and when to wear them. Compression stockings come in several different levels of pressure. Askyour healthcare provider which level of pressure would help you the most. Raising your legs above heart level will help relieve swelling and keep blood from pooling in veins. Try to elevate your legs for 15 to 20 minutes at the end of the day, and whenever you're relaxing.To make sure your legs are raised above heart level, prop them up on cushions or large pillows. To keep blood moving when you have to sit or stand for long periods, try these tips: At work, take walking breaks instead of coffee breaks. Walk during your lunch hour. Or try flexing your feet up and down 10 times each hour. When standing, raise yourself up and down on your toes, or rock back and forth on your heels. [employer] last reviewed this educational content on 06/22/2019 ?? [phone] [employer]. All rights reserved. This information is not intended as a substitute for professional medical care. Always follow your healthcare professional's instructions. Treatment Options Sclerotherapy Your healthcare provider will inject the vein with a special chemical that will quickly close the vein from the inside. This is particularly useful for spider veins and smaller varicose veins. If you have large varicose veins, surgery may be the best choice. But it will not prevent new varicose veins from forming. Surgery is most often done in a surgery center or in the office. If surgery is recommended for you, your surgery will be tailored to your needs. Varicose veins may be tied off (ligation), destroyed, or removed. Blood will then flow through the healthy veins. One or more of the following techniques may be used: Ablation (laser or radiofrequency) A tiny cut in the skin is made near the varicose vein. A small tube called a catheter is inserted into the vein. Energy or heat released from the catheter tip will make the vein cintron collapse and stick together, stopping all blood flow through the vein. Ablation (glue) A tiny cut in the skin is made near the varicose vein. A small tube called a catheter is inserted into the vein. Droplets of glue are deposited into the vein to make vein cintron collapse and stick together stopping blood flow through the vein. Microphlebectomy or ambulatory phlebectomy A special hook is used to gently take out a varicose vein through tiny incisions. Microphlebectomy may be done in your healthcare provider's office. Vein stripping and ligation (rare) In more severe cases, the surgeon may tie off and remove veins by making smaller cuts in the skin. Smaller branching veins may also be tied off or removed. Know about the risks Your healthcare provider will talk with you about the risks of surgery. These include: Bleeding or swelling A sense of numbness, burning, or tingling in areas near the procedure Edema or swelling in the legs Clots in the deep veins that may travel to the lungs Infection Scarring Inflammation related to the glue [employer] last reviewed this educational content on 06/22/2019 (Sclerotherapy image) 07/22/2019 (Radiofrequency ablation image, Microphlebectomy image) ?? [id number] [employer]. All rights reserved. This information is not intended as a substitute for professional medical care. Always follow your healthcare professional's instructions. documented in this encounter Progress Notes * Linden Conrad MD - 01/13/2023 9:30 AM CDT I had the pleasure of seeing Mrs. Elvira Burden in the vein clinic today. She is a very pleasant 37-year-old female who comes to us with pain and swelling in the right lower extremity. Patient tells me that she had an episode of extensive right lower extremity deep venous thrombosis in the year 2013. She is not sure if this was a provoked or unprovoked deep venous thrombosis but was placed on anticoagulation following that. Since that episode of deep venous thrombosis she reports that the right lower extremity has been heavier, more swollen and bigger in size. This has resulted in her developing knee and ankle pain withambulation. 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 On examination she has some varicose veins in the right lower extremity. No changes of chronic venous insufficiency. Right lower extremity is larger in girth compared to the left. Noninvasive imaging showed segmental incompetence of the great saphenous veins but there is incompetence and chronic nonocclusive deep venous thrombosis of the right popliteal and femoral veins. Diagnosis: Right lower extremity post thrombotic syndrome. Plan: I explained to her that I do not think any surgical intervention would be of any benefit to alleviate her symptoms. We will send her to lymphedema therapy for her Sl[place] lymphedema so that can be manual drainage and volume reduction and that can increase her activity level and put less stress on her knee and ankle joints. I will see her back in 3 months to reevaluate her progress. documented in this encounter Nursing Notes * Lauren Costa RN - 01/13/2023 9:30 AM CDT Patient Reported symptoms: Right leg Heaviness Some of the time Achiness Most of the time Swelling All of the time Throbbing A little of the time Itching None of the time Appearance Very noticeable Impact on work/activities Moderately reduced Left Leg Heaviness None of the time Achiness None of the time Swelling None of the time Throbbing None of the time Itching None of the time Appearance Slightly noticeable Impact on work/activities Symptoms but full able to participate documented in this encounter Plan of Treatment Scheduled Referrals Name Type Priority Associated Diagnoses Orde r Schedule Lymphedema Therapy Referral Referral Routine: Next available opening Lymphedema due to venous insufficiency Expected: 01/13/2023 (Approximate), Expires: 01/14/2024 documented as of this encounter Visit Diagnoses Diagnosis Varicose veins of bilateral lower extremities with pain- Primary Lymphedema due to venous insufficiency documented in this encounter Care Teams Financial Planning Advisor Relationship Specialty Start Date End Date Alondra Mathew MD [facility] [place] [id number] PCP - General 01/12/23 documented as of this encounter
--- OUTSIDE RECORDS SUMMARY | 2023-09-01 09:06 | XMS_ITS | Encounter Summary ---
Author Name Unknown Organization [place] Address [address] [place] [address] Care Team Providers Care Mgmt Analyst Name Role Phone Unavailable Primary Care Provider Unavailabl e Reason for Referral * Diagnostic Imaging Ultrasound (Routine) - Pending Review Specialty Diagnoses / Procedures Referred By Contac t Referred To Contact Radiology. Diagnoses Varicose veins of bilateral lower extremities with pain Procedures US Venous Competency Bilateral Shivani Conrad MD [address] [place] [address] Referral ID Status Reason Start Date Expiration Date V isits Requested Visits Authorized [id number] Pending Review 12/21/2022 12/21/2023 1 1 Encounter Details Date Type Department Care Team (Late st Contact Info) Description 12/21/2022 Orders Only [facility] [place] [address] [place] [id number] Shivani Conrad MD [address] [place] [address] Varicose veins of bilateral lower extremities with pain (Primary Dx) Social History Tobacco Use Types Packs/Day Years Used Date Smoking Tobacco: Never Assessed Sex and Gender Information Value Date Recorded Sex Assigned at Female 01/12/2023 9:49 AM CDT Gender Identity Female 01/12/2023 9:49 AM CDT Sexual Orientation Straight 01/12/2023 9: 49 AM CDT documented as of this encounter Plan of Treatment Not on file documented as of this encounter Results * US Venous Competency Bilateral (01/13/2023 9:52 AM CDT) Anatomical Region Laterality Modality Lower Extremity Ultrasound Impressions 01/18/2023 3:42 PM CDT Examined by: Adan Lund RVT Age: ??37 year old ? Reading MD: Anamaria ?? INDICATION: ??Patient is referred for varicose veins with swelling. ?? EXAM TYPE BILATERAL LOWER EXTREMITY VENOUS DUPLEX FOR VENOUS INSUFFICIENCY TECHNICAL SUMMARY ?? A duplex ultrasound study using color flow was performed, to evaluate the bilateral lower extremity veins for valvular incompetence with the patient in a steep reversed trendelenberg. ?? RIGHT: ?? The right popliteal vein is partially compressible with color flow and response to distal augmentation consistent with chronic non-occlusive thrombus. The remaining deep veins demonstrate phasic flow, compress and respond to augmentations. ?? The distal femoral and popliteal veins are incompetent. The remaining deep veins are competent and free of thrombus. The peroneal veins are not visualized. ?? The GSV demonstrates phasic flow, compresses and responds to augmentations from the saphenofemoral junction to the ankle with no evidence of thrombus. The great saphenous vein measures 15.8 mm at the saphenofemoral junction, 6.6 mm at the proximal thigh, ??and 7.7 mm at the knee. The GSV is incompetent from Mid Thigh to distal thigh and again at the proximal calf, with the greatest reflux time of 2392 milliseconds. ??The GSV gives rise to a varicose branch measuring 5.2 mm off the ??Proximal Calf that courses Lateral with a reflux time of 653 milliseconds. ? The AASV is competent ( 8.0 mm) draining into the saphenofemoral junction. ?? The Giacomini vein is competent ( 3.3 mm) communicating with the small saphenous vein at the knee level. ?? The SSV demonstrates phasic flow, compresses and responds to augmentations from the popliteal space to the ankle. ??No reflux or thrombus is seen. The saphenopopliteal junction is absent. ?? Perforators: there is no evidence of incompetent java analyst veins at any level. ? LEFT: ?? The deep veins demonstrate phasic flow, compress and respond to augmentations. ??There is no reflux or DVT. ??The peroneal veins are not visualized. ?? The GSV demonstrates phasic flow, compresses and responds to augmentations from the saphenofemoral junction to the ankle with no evidence of ?? thrombus. The great saphenous vein measures 11.3 mm at the saphenofemoral junction, 4.2 mm at the proximal thigh, and 4.0 mm at the knee. The GSV is incompetent at the distal thigh and again Proximal Calf, with the greatest reflux time of 1210 milliseconds. ?? The GSV gives rise to multiple incompetent varicose veins, the largest measures 4.2 mm off the Proximal Calf that courses Lateral with a reflux time of 1995 milliseconds. ?? The AASV is competent ( 9.5 mm) draining into the saphenofemoral junction. ?? The Giacomini vein is competent ( 1.8 mm) communicating with the small saphenous vein at the knee level. ?? The SSV demonstrates phasic flow, compresses and responds to augmentations from the popliteal space to the ankle. ??No reflux or thrombus is seen. The saphenopopliteal junction is absent. ?? Perforators: there is no evidence of incompetent java analyst veins at any level. ?? Varicose veins are noted on the lateral thigh that course towards a possible buttock java analyst measuring 5.2 mm with 1980 milliseconds of incompetence. ?? FINAL SUMMARY: 1. ??Chronic nonocclusive thrombus is noted in the right popliteal vein. ?? Distal femoral and popliteal veins are incompetent. ??Remainder of the veins are competent and free of thrombus. 2. ??Right great saphenous vein incompetence. 3. ??No evidence of deep venous thrombosis or reflux in the left lower extremity. 4. ??Left great saphenous vein incompetence. SHIVANI CONRAD M.D., FACS, RPVI Incompetence Criteria: Greater than 500 milliseconds in superficial and java analyst veins and greater than 1000 milliseconds in deep veins. ?? Narrative 01/18/2023 3:42 PM CDT Name: ??Elvira Chen Jenise ? Date: January 13, 2023 ?: 1985 Sex: female Shivani Conrad MD IMG US ORDERABLE S documented in this encounter Visit Diagnoses Diagnosis Varicose veins of bilateral lower extremities with pain- Primary Varicose veins of bilateral lower extremities with pain documented in this encounter
--- OUTSIDE RECORDS SUMMARY | 2023-09-01 09:06 | XMS_ITS | Encounter Summary ---
Author Name Unknown Organization [place] Address [address] [place] [address] Care Team Providers Care Brusher Machine Name Role Phone Alondra Mathew MD Primary Care Provider Linden Conrad MD Unavailable [phone] Reason for Referral * Rehab Therapy Physical Therapy (Routine: Next available opening) - Pending Review Specialty Diagnoses / Procedures Referred By Farzana meredith Referred To Contact Diagnoses Lymphedema due to venous insufficiency Linden Conrad MD [address] [facility] [address] [place] [address] Referral ID Status Reason Start Date Expiration Date V isits Requested Visits Authorized Pending Review 01/13/2023 01/13/2024 1 1 Question Answer Preferred Location: [facility] Scheduling Instructions: If you have not heard from the scheduling office within 2 business days, please call [phone] [facility], for [place] and [phone] for [facility] [place]. Course of Action PT or OT Evaluation and Treatment PT/OT Treatment Diagnosis Lymphedema, Phlebolymphedema, Edema Comments If you have not heard from the scheduling office within 2 business days, please call [phone] for all locations, with the exception of [place], please call [phone] and [facility] [place], please call [phone]. Please be aware that coverage of these services is subject to the terms and limitations of your health insurance plan. Call member services at your health plan with any benefit or coverage questions. If you have not heard from the scheduling office within 2 business days, please call [phone] [facility], for [place] and [phone] for [place]. Encounter Details Date Type Department Care Team (Late st Contact Info) Description 01/13/2023 Orders Only [facility] - Heart & Vascular Service Line [address] [place] [address] Linden Conrad MD [address] [facility] [address] [address] Lymphedema due to venous insufficiency (Primary Dx) [...] suspected to have Coronavirus/COVID-19? No / Unsure 02/02/2023 7:14 AM CDT documented as of this encounter Plan of Treatment Scheduled Referrals Name Type Priority Associated Diagnoses Orde r Schedule Lymphedema Therapy Referral Referral Routine: Next available opening Lymphedema due to venous insufficiency Expected: 01/13/2023 (Approximate), Expires: 01/14/2024 documented as of this encounter Visit Diagnoses Diagnosis Lymphedema due to venous insufficiency- Primary documented in this encounter Care Teams Brusher Machine Relationship Specialty Start Date End Date Alondra Mathew MD [facility] [address] [place] [address] PCP - General 01/12/23 Linden Conrad MD [address] [place] [address] Assigned Heart and Vascular Provider 01/22/23 documented as of this encounter
--- OUTSIDE RECORDS SUMMARY | 2023-09-01 09:06 | XMS_ITS | Encounter Summary ---
Author Name Unknown Organization [place] Address [address] [place] [address]. [place] [address] Care Team Providers Care Concrete Finisher Apprentice Name Role Phone Alondra Mathew MD Primary Care Provider Linden Conrad MD Unavailable [phone] Reason for Visit * Rehab Therapy Integrated Services (Routine: Next available opening) - Closed Specialty Diagnoses / Procedures Referred By Farzana t Referred To Contact Diagnoses Lymphedema due to venous insufficiency [address] [address] Referral ID Status Reason Start Date Expiration Date Visits Re quested Visits Authorized Closed 01/18/2023 08/21/2023 365 365 Encounter Details Date Type Department Care Team (Late st Contact Info) Description 02/02/2023 7:30 AM CDT Therapy Visit [facility] [address] [place] [phone] Linden Conrad MD [address] [place] [id number] Monique Miramontes, OT [address] [facility] [place] [address] Lymphedema due to venous insufficiency Social History Tobacco Use Types Packs/Day Years Used Date Smoking Tobacco: Former Cigarettes Smokeless Tobacco: Current Comments:Vape Sex and Gender Information Value Date Recorded Sex Assigned at Female 01/12/2023 9:49 AM CDT Gender Identity Female 01/12/2023 9:49 AM CDT Sexual Orientation Straight 01/12/2023 9: 49 AM CDT COVID-19 Exposure Response Date Recorded In the last 10 days, have karson fatima been in contact with someone who was confirmed or suspected to have Coronavirus/COVID-19? No / Unsure 02/02/2023 7:14 AM CDT documented as of this encounter Progress Notes * Monique Miramontes, OT - 02/02/2023 7:30 AM CDT OCCUPATIONAL THERAPY EVALUATION Type of Visit: Evaluation See electronic medical record for Abuse and Falls Screening details. 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; 04/2020, 05/2020 L4/L5 disc herniation surgery Prior diagnostic imaging/testing results: Other ultrasound Prior therapy history for the same diagnosis, illness or injury: No (patient did wear RLE compression for DVT, 2013) Prior Level of Function Transfers: Independent Ambulation: Independent ADL: Independent IADL: independent Living Environment Social support: With family members Type of home: House; Multi-level Stairs to enter the home: No Ramp: No Stairs inside the home: Yes 16 Help at home: None Equipment owned: 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 Cognitive Status Examination Orientation: Oriented to person, place and time Level of Consciousness: Alert Follows Commands and Answers Questions: 100% of the time Personal Safety and Judgement: Intact Memory: Intact EDEMA Skin Condition: Venous distention BLE; VV and varicosities Stemmer Sign: - Ulceration: No GIRTH MEASUREMENTS: Deferred for ed VOLUME LE Right LE (mL) Left LE (mL) LE Volume Comparison RLE volume greater than LLE volume % Difference Head/Neck Volume Trunk Volume Genital Volume RANGE OF MOTION: LE ROM WFL STRENGTH: UE Strength WNL PALPATION: 1+ pitting L pre-tibial and dorsum of foot, R thigh; 2+ pitting R pre-tibial and dorsum of foot ACTIVITIES OF DAILY LIVING: ind BED MOBILITY: WNL TRANSFERS: WNL SENSATION: decreased sensation to light touch RBK VASCULAR: Vascular concerns COORDINATION: WNL MUSCLE TONE: WNL Assessment & Plan CLINICAL IMPRESSIONS Medical Diagnosis: lymphedema due to venous insufficiency Treatment Diagnosis: 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 The following significant findings have been identified: Impaired activity tolerance and Pain. These identified deficits interfere with their ability to perform work tasks and community mobility as compared to previous level of function. Clinical Decision Making (Complexity): Assessment of Occupational Performance: 3-5 Performance Deficits Occupational Performance Limitations: decreased activity tolerance due to pain, decreased ability to exercise, increased risk of infection and progressive soft tissue fibrosis, limited understanding of long-term lymphedema symptom management Clinical Decision Making (Complexity): Moderate complexity PLAN OF CARE Treatment Interventions: Interventions: Self-Care/Home Management, Therapeutic Exercise, Manual Therapy Call Circuit Worker Goals OT Goal 1 Goal Identifier: volume Goal Description: For decreased risk of infection, skin breakdown/wounds & progressive soft-tissue fibrosis and improved fit of footwear, volume will be reduced by 400 mL RLE, 100 mL LBK. Target Date: 04/04/23 OT Goal 2 Goal Identifier: GCB Goal Description: To reduce volume of lymphedema and risk of soft tissue fibrosis, pt will tolerateup to 23hr/day wear gradient compression bandaging (GCB) of RLE and LBK. Target Date: 04/04/23 OT Goal 3 Goal Identifier: home program Goal Description: For long-term home mgmt chronic lymphedema pt/caregiver independent in home program a. GCB/GCB alternative garment for night wear b. compression garment for day wear c. ex to incr lymph flow/self-MLD. Target Date: 04/04/23 OT Goal 4 Goal Identifier: lymphedema precautions Goal Description: Pt will independently verbalize the signs/symptoms of lymphedema, precautions andhow to obtain a future lymphedema referral if edema persists to preserve skin integrity, prevent infection and preserve functional mobility. Target Date: 04/04/23 Frequency of Treatment: 1x/week/2, then 3x/week/3 Duration of Treatment: 12 weeks Recommended Referrals to Other Professionals: ortho MD for R knee pain; PT; patient appears to haveincreased knee pain since great toe amputation Education Assessment: Risks and benefits of evaluation/treatment have been explained. Patient/Family/caregiver agrees with Plan of Care. Evaluation Time: Signing Clinician: Monique Miramontes OT documented in this encounter Plan of Treatment Not on file documented as of this encounter Visit Diagnoses Diagnosis Lymphedema due to venous insufficiency documented in this encounter Care Teams Concrete Finisher Apprentice Relationship Specialty Start Date End Date Alondra Mathew MD [facility] [address] [place] [address] PCP - General 01/12/23 Linden Conrad MD [address] [place] [address] Assigned Heart and Vascular Provider 01/22/23 documented as of this encounter
--- OUTSIDE RECORDS SUMMARY | 2023-09-01 09:06 | XMS_ITS | Encounter Summary ---
Author Name Unknown Organization [place] Address [address] [place] [address] Care Team Providers Care Bar Supervisor Name Role Phone Alondra Mathew MD Primary Care Provider Reason for Visit * Diagnostic Imaging Ultrasound (Routine) - Pending Review Specialty Diagnoses / Procedures Referred By Contac t Referred To Contact Radiology. Diagnoses Varicose veins of bilateral lower extremities with pain Procedures US Venous Competency Bilateral Shivani Conrad MD [address] [place] [address] Referral ID Status Reason Start Date Expiration Date V isits Requested Visits Authorized [id number] Pending Review 12/21/2022 12/21/2023 1 1 Encounter Details Date Type Department Care Team (Latest Contact Info) Description 01/13/2023 8:00 AM CDT Ancillary Procedure [facility] [address] [address] [place] [id number] Shivani Conrad MD [address] [place] [id number] Varicose veins of bilateral lower extremities with [...] on file documented as of this encounter Procedures Procedure Name Priority Date/Time Associated Diagnosis Comments US VENOUS COMPETENCY BILATERAL Routine 01/13/2023 9:52 AM CDT Varicose veins of bilateral lower extremities with pain documented in this encounter Results * US Venous Competency [...] Perforators: there is no evidence of incompetent director of family service center veins at any level. ? LEFT: ?? [...] Perforators: there is no evidence of incompetent director of family service center veins at any level. ?? Varicose veins are noted on the lateral thigh that course towards a possible buttock director of family service center measuring 5.2 mm with 1980 milliseconds of [...] great saphenous vein incompetence. SHIVANI CONRAD M.D., [facility], [facility] Incompetence Criteria: Greater than 500 milliseconds in superficial and director of family service center veins and greater than 1000 milliseconds in deep veins. ?? Narrative 01/18/2023 3:42 PM CDT Name: ??Elvira Burden ? Date: January 13, 2023 ?: 1985 Sex: female Shivani Conrad MD IMG US ORDERABLE S documented in this encounter Visit Diagnoses Diagnosis Varicose veins of bilateral lower extremities with pain documented in this encounter Care Teams Bar Supervisor Relationship Specialty Start Date End Date Alondra Mathew MD [facility] [address] [place] [address] PCP - General 01/12/23 documented as of this encounter
--- OUTSIDE RECORDS SUMMARY | 2023-09-01 09:06 | XMS_ITS | Encounter Summary ---
Author Name Unknown Organization [place] Address formerly [facility] [place] [address] Care Team Providers Care Haunted History Tour Guide Name Role Phone Alondra Mathew MD Primary Care Provider Linden Conrad MD Unavailable [phone] Encounter Details Date Type Department Care Team (Latest Contact Info) Description 02/02/2023 Travel Social History Tobacco Use Types Packs/Day [...] on filedocumented in this encounter Care Teams Haunted History Tour Guide Relationship Specialty Start Date End Date Alondra Mathew MD [facility] [address] [place] [address] PCP - General 01/12/23 Linden Conrad MD [address] [place] [address] Assigned Heart and Vascular Provider 01/22/23 documented as of this encounter
--- OUTSIDE RECORDS SUMMARY | 2023-09-01 09:06 | XMS_ITS | Encounter Summary ---
Author Name Unknown Organization [place] Address [address] [place] [address] Care Team Providers Care Aerologist Name Role Phone Alondra Mathew MD Primary Care Provider Encounter Details Date Type Department Care Team (Latest Contact Info) Description 01/12/2023 Travel Social History Tobacco Use Types Packs/Day [...] suspected to have Coronavirus/COVID-19? No / Unsure 01/12/2023 1:09 PM CDT documented as of this encounter Plan of Treatment Not on file documented as of this encounter Visit Diagnoses Not on filedocumented in this encounter Care Teams Aerologist Relationship Specialty Start Date End Date Alondra Mathew MD [address] [address] PCP - General 01/12/23 documented as of this encounter
--- OUTSIDE RECORDS SUMMARY | 2023-09-01 09:06 | XMS_ITS | Encounter Summary ---
Author Name Unknown Organization [place] Address [facility] [place] [address] Care Team Providers Care Camouflage Assembler Name Role Phone Alondra Mathew MD Primary Care Provider [phone] Linden Conrad MD Unavailable Encounter Details Date Type Department Care Team (Latest Contact Info) Description 03/14/2023 Travel Social History Tobacco Use Types Packs/Day [...] suspected to have Coronavirus/COVID-19? No / Unsure 03/14/2023 4:44 PM CDT documented as of this encounter Plan of Treatment Not on file documented as of this encounter Visit Diagnoses Not on filedocumented in this encounter Care Teams Camouflage Assembler Relationship Specialty Start Date End Date Alondra Mathew MD [facility] [address] [place] [address] PCP - General 01/12/23 Linden Conrad MD [address] [place] [address] Assigned Heart and Vascular Provider 01/22/23 documented as of this encounter
--- OUTSIDE RECORDS SUMMARY | 2023-09-01 09:06 | XMS_ITS | Encounter Summary ---
Author Name Unknown Organization [place] Address [facility] [place] [address] Care Team Providers Care Night Cleaner Name Role Phone Alondra Mathew MD Primary Care Provider Linden Conrad MD Unavailable [phone] Encounter Details Date Type Department Care Team (Latest Contact Info) Description 03/02/2023 Travel Social History Tobacco Use Types Packs/Day [...] suspected to have Coronavirus/COVID-19? No / Unsure 03/02/2023 10:13 AM CDT documented as of this encounter Plan of Treatment Not on file documented as of this encounter Visit Diagnoses Not on filedocumented in this encounter Care Teams Night Cleaner Relationship Specialty Start Date End Date Alondra Mathew MD [facility] [address] [place] [address] PCP - General 01/12/23 Linden Conrad MD [address] [place] [address] Assigned Heart and Vascular Provider 01/22/23 documented as of this encounter
--- OUTSIDE RECORDS SUMMARY | 2023-09-01 09:06 | XMS_ITS | Encounter Summary ---
Author Name Unknown Organization [place] Address [address] [place] [address]. [place] [address] Care Team Providers Care Forklift Picker Name Role Phone Alondra Mathew MD Primary Care Provider Linden Conrad MD Unavailable [phone] Reason for Visit * Rehab Therapy Integrated Services (Routine: Next available opening) - Closed Specialty Diagnoses / Procedures Referred By Farzana meredith Referred To Contact Diagnoses Lymphedema due to venous insufficiency [address] [address] Referral ID Status Reason Start Date Expiration Date Visits Re quested Visits Authorized Closed 01/18/2023 08/21/2023 365 365 Encounter Details Date Type Department Care Team (Latest Contact Info) Description 02/28/2023 4:45 PM CDT Therapy Visit [address] [place] [address] Richa Londono, OT [address] [place] [address] Lymphedema due to venous insufficiency (Primary Dx) [...] suspected to have Coronavirus/COVID-19? No / Unsure 02/28/2023 4:44 PM CDT documented as of this encounter Plan of Treatment Not on file documented as of this encounter Visit Diagnoses Diagnosis Lymphedema due to venous insufficiency- Primary documented in this encounter Care Teams Forklift Picker Relationship Specialty Start Date End Date Alondra Mathew MD [facility] [address] [place] [address] PCP - General 01/12/23 Linden Conrad MD [address] [place] [address] Assigned Heart and Vascular Provider 01/22/23 documented as of this encounter
--- OUTSIDE RECORDS SUMMARY | 2023-09-01 09:06 | XMS_ITS | Encounter Summary ---
Author Name Unknown Organization [place] Address [facility] [place] [address] Care Team Providers Care Parts Finisher Name Role Phone Alondra Mathew MD Primary Care Provider Encounter Details Date Type Department Care Team (Latest Contact Info) Description 01/13/2023 Travel Social History Tobacco Use Types Packs/Day [...] on filedocumented in this encounter Care Teams Parts Finisher Relationship Specialty Start Date End Date Alondra Mathew MD [address] [address] PCP - General 01/12/23 documented as of this encounter
--- OUTSIDE RECORDS SUMMARY | 2023-09-01 09:06 | XMS_ITS | Encounter Summary ---
Author Name Unknown Organization [place] Address [address] [facility] [place] [address] Care Team Providers Care Computer Technology Teacher Name Role Phone Unavailable Primary Care Provider Unavailabl e Reason for Visit * Reason Onset Date Comments Referral 12/17/2022 Encounter Details Date Type Department Care Team (Late st Contact Info) Description 12/17/2022 Telephone [facility] [address] [place] [address] Sivakumar Orta MD [address] [address] Referral Social History Tobacco Use Types Packs/Day Years Used Date Smoking Tobacco: Never Assessed Sex and Gender Information Value Date Recorded Sex Assigned at Female 01/12/2023 9:49 AM CDT Gender Identity Female 01/12/2023 9:49 AM CDT Sexual Orientation Straight 01/12/2023 9: 49 AM CDT documented as of this encounter Miscellaneous Notes * Telephone Encounter - Vikas Rodgers MA - 12/21/2022 2:02 PM CDT Appointment made. * Telephone Encounter - Vikas Rodgers MA - 12/17/2022 10:14 AM CDT Faxed referral received from Dr. Mathew at [facility]. Left message for pt to call and schedule an appointment if interested [phone]. documented in this encounter Plan of Treatment Not on file documented as of this encounter Visit Diagnoses Not on filedocumented in this encounter
--- OUTSIDE RECORDS SUMMARY | 2023-09-01 09:06 | XMS_ITS | Encounter Summary ---
Author Name Unknown Organization [place] Address [address] [place] [address]. [place] [address] Care Team Providers Care All Around Gear Machine Operator Name Role Phone Alondra Mathew MD Primary Care Provider Linden Conrad MD Unavailable [phone] Reason for Visit * Rehab Therapy Integrated Services (Routine: Next available opening) - Closed Specialty Diagnoses / Procedures Referred By Farzana meredith Referred To Contact Diagnoses Lymphedema due to venous insufficiency [address] [address] Referral ID Status Reason Start Date Expiration Date Visits Re quested Visits Authorized Closed 01/18/2023 08/21/2023 365 365 Encounter Details Date Type Department Care Team (Latest Contact Info) Description 03/14/2023 4:45 PM CDT Therapy Visit [address] [place] [address] Richa Londono, OT [address] [place] [address] Lymphedema due to venous insufficiency (Primary Dx) [...] Primary documented in this encounter Care Teams All Around Gear Machine Operator Relationship Specialty Start Date End Date Alondra Mathew MD [facility] [address] [place] [address] PCP - General 01/12/23 Linden Conrad MD [address] [place] [address] Assigned Heart and Vascular Provider 01/22/23 documented as of this encounter
--- OUTSIDE RECORDS SUMMARY | 2023-09-01 09:06 | XMS_ITS | Encounter Summary ---
Author Name Unknown Organization [place] Address [address] [place] [address]. [place] [address] Care Team Providers Care Publicity Writer Name Role Phone Alondra Mathew MD Primary Care Provider Linden Conrad MD Unavailable [phone] Reason for Visit * Rehab Therapy Integrated Services (Routine: Next available opening) - Closed Specialty Diagnoses / Procedures Referred By Farzana t Referred To Contact Diagnoses Lymphedema due to venous insufficiency [address] [address] Referral ID Status Reason Start Date Expiration Date Visits Re quested Visits Authorized Closed 01/18/2023 08/21/2023 365 365 Encounter Details Date Type Department Care Team (Latest Contact Info) Description 03/02/2023 4:45 PM CDT Therapy Visit [facility] [address] [place] [phone] Linden Conrad MD [address] [facility] [address] [place], [place] [id number] Richa Londono, OT [address] [place] [address] Lymphedema due to venous insufficiency (Primary Dx) [...] Primary documented in this encounter Care Teams Publicity Writer Relationship Specialty Start Date End Date Alondra Mathew MD [facility] & [address] [address] PCP - General 01/12/23 Linden Conrad MD [address] [facility] [address] [place] [address] Assigned Heart and Vascular Provider 01/22/23 documented as of this encounter
--- OUTSIDE RECORDS SUMMARY | 2023-09-01 09:06 | XMS_ITS | Encounter Summary ---
Author Name Unknown Organization [place] Address [facility] [place] [address] Care Team Providers Care Polyethylene Combiner Name Role Phone Alondra Mathew MD Primary Care Provider [phone] Linden Conrad MD Unavailable [phone] Encounter Details Date Type Department Care Team (Latest Contact Info) Description 02/28/2023 Travel Social History Tobacco Use Types Packs/Day [...] on filedocumented in this encounter Care Teams Polyethylene Combiner Relationship Specialty Start Date End Date Alondra Mathew MD [facility] [address] [place] [address] PCP - General 01/12/23 Linden Conrad MD [address] [place] [address] Assigned Heart and Vascular Provider 01/22/23 documented as of this encounter
== END 2023-09-01 09:00 | disposition home or self-care (01) ==
LOC: WOUND 08:59
PROVIDERS: PCP Internal Medicine; Visit Provider Nurse Practitioner Family
DX: E11.621 Type 2 diabetes mellitus with foot ulcer (principal); L97.512 Non-pressure chronic ulcer of other part of right foot with fat layer exposed; S91.114A Laceration without foreign body of right lesser toe(s) without damage to nail, initial encounter; Z79.4 Long term (current) use of insulin; Z79.84 Long term (current) use of oral hypoglycemic drugs
CPT/HCPCS: 97597

== ENCOUNTER 2023-09-08 08:41 | Outpatient (CLI) | payer BC, SELFPAY ==
--- OUTSIDE RECORDS SUMMARY | 2023-09-08 08:43 | XMS_ITS | Encounter Summary ---
Author Name Unknown Organization [place] Address [address] [place] [address]. [place] [address] Care Team Providers Care Iron Plastic Bullet Maker Name Role Phone Alondra Mathew MD Primary Care Provider Linden Conrad MD Unavailable [phone] Reason for Visit * Rehab Therapy Integrated Services (Routine: Next available opening) - Closed Specialty Diagnoses / Procedures Referred By Farzana meredith Referred To Contact Diagnoses Lymphedema due to venous insufficiency [address] [address] Referral ID Status Reason Start Date Expiration Date Visits Re quested Visits Authorized Closed 01/18/2023 08/21/2023 365 365 Encounter Details Date Type Department Care Team (Latest Contact Info) Description 03/23/2023 4:45 PM CDT Therapy Visit [address] [place] [phone] Richa Londono, OT [address] [place] [address] Lymphedema due to venous insufficiency (Primary Dx) [...] Procedure/Exercise;Manual Therapy Manual Therapy Manual Therapy Minutes (38926) 65 Manual Therapy 1 - Details quick [...] Primary documented in this encounter Care Teams Iron Plastic Bullet Maker Relationship Specialty Start Date End Date Alondra Mathew MD [facility] [address] [place] [address] PCP - General 01/12/23 Linden Conrad MD [address] [place] [address] Assigned Heart and Vascular Provider 01/22/23 documented as of this encounter
--- OUTSIDE RECORDS SUMMARY | 2023-09-08 08:43 | XMS_ITS | Encounter Summary ---
Author Name Unknown Organization [place] Address [facility] [place] [address] Care Team Providers Care Home Care Attendant Name Role Phone Alondra Mathew MD Primary Care Provider Linden Conrad MD Unavailable [phone] Encounter Details Date Type Department Care Team [...] on filedocumented in this encounter Care Teams Home Care Attendant Relationship Specialty Start Date End Date Alondra Mathew MD [facility] [address] [place] [address] PCP - General 01/12/23 Linden Conrad MD [address] [place] [address] Assigned Heart and Vascular Provider 01/22/23 documented as of this encounter
--- OUTSIDE RECORDS SUMMARY | 2023-09-08 08:43 | XMS_ITS | Encounter Summary ---
Author Name Unknown Organization [place] Address [address] [place] [address]. [place] [address] Care Team Providers Care Lathe Puller Name Role Phone Alondra Mathew MD Primary Care Provider Linden Conrad MD Unavailable [phone] Reason for Visit * Rehab Therapy Integrated Services (Routine: Next available opening) - Closed Specialty Diagnoses / Procedures Referred By Farzana t Referred To Contact Diagnoses Lymphedema due to venous insufficiency [address] [address] Referral ID Status Reason Start Date Expiration Date Visits Re quested Visits Authorized Closed 01/18/2023 08/21/2023 365 365 Encounter Details Date Type Department Care Team (Latest Contact Info) Description 03/02/2023 4:45 PM CDT Therapy Visit [facility] [address] [place] [address] Linden Conrad MD [address] [facility] [address] [place], [place] [id number] Richa Londono, OT [address] [place] [address] Lymphedema due to venous insufficiency (Primary Dx) [...] Primary documented in this encounter Care Teams Lathe Puller Relationship Specialty Start Date End Date Alondra Mathew MD [facility] & [address] [address] PCP - General 01/12/23 Linden Conrad MD [address] [facility] [address] [place] [address] Assigned Heart and Vascular Provider 01/22/23 documented as of this encounter
--- OUTSIDE RECORDS SUMMARY | 2023-09-08 08:43 | XMS_ITS | Encounter Summary ---
Author Name Unknown Organization [place] Address formerly [facility] [place] [address] Care Team Providers Care Soap Grinder Name Role Phone Alondra Mathew MD Primary Care Provider Linden Conrad MD Unavailable [phone] Encounter Details Date Type Department Care Team [...] on filedocumented in this encounter Care Teams Soap Grinder Relationship Specialty Start Date End Date Alondra Mathew MD [facility] & [facility] [address] [place] [address] PCP - General 01/12/23 Linden Conrad MD [address] [place] [address] Assigned Heart and Vascular Provider 01/22/23 documented as of this encounter
--- OUTSIDE RECORDS SUMMARY | 2023-09-08 08:43 | XMS_ITS | Encounter Summary ---
Author Name Unknown Organization [place] Address [facility] [place] [address] Care Team Providers Care Certified Alcohol And Drug Counselor Name Role Phone Alondra Mathew MD Primary Care Provider [phone] Linden Conrad MD Unavailable [phone] Encounter Details Date Type Department Care Team [...] on filedocumented in this encounter Care Teams Certified Alcohol And Drug Counselor Relationship Specialty Start Date End Date Alondra Mathew MD [facility] & [facility] [address] [place] [address] PCP - General 01/12/23 Linden Conrad MD [address] [place] [address] Assigned Heart and Vascular Provider 01/22/23 documented as of this encounter
--- OUTSIDE RECORDS SUMMARY | 2023-09-08 08:43 | XMS_ITS | Encounter Summary ---
Author Name Unknown Organization [place] Address [facility] [place] [address] Care Team Providers Care Supervisor Filter Assembly Name Role Phone Alondra Mathew MD Primary [...] on filedocumented in this encounter Care Teams Supervisor Filter Assembly Relationship Specialty Start Date End Date Alondra Mathew MD [address] [address] PCP - General 01/12/23 documented as of this encounter
--- OUTSIDE RECORDS SUMMARY | 2023-09-08 08:43 | XMS_ITS | Referral Summary ---
Author Name Unknown Organization [place] Address [address] [place] [address] Care Team Providers Care Display Fabrication Supervisor Name Role Phone Alondra Mathew MD Primary Care Provider Linden Conrad MD Unavailable Allergies Active Allergy Reactions Criticality Noted Date [...] of Treatment Not on file Care Teams Display Fabrication Supervisor Relationship Specialty Start Date End Date Alondra Mathew MD [facility] & [facility] [address] [place] [address] PCP - General 01/12/23 Linden Conrad MD [address] [place] [address] Assigned Heart and Vascular Provider 01/22/23
--- OUTSIDE RECORDS SUMMARY | 2023-09-08 08:43 | XMS_ITS | Clinical Summary ---
Author Name Unknown Organization [place] Address [facility] [place] [address] Care Team Providers Care Air Route Traffic Controller Name Role Phone Alondra Mathew MD Primary Care Provider Linden Conrad MD Unavailable [phone] Allergies Active Allergy Reactions Criticality Noted Date [...] 06/10/2010 03/18/2010, 03/18/2010, 01/30/2007, Additional history exists COVID-19 Vaccine ( - 2022- season) 2023 06/05/2021, 06/05/2021, 05/15/2021 INFLUENZA VACCINE (#1) 2023 9, 07/17/2018, 06/30/2016, Additional history exists PHQ-2 (once per calendar year) 2023 DTAP/TDAP/TD IMMUNIZATION (4 - Td or Tdap) [...] age to complete this topic Care Teams Air Route Traffic Controller Relationship Specialty Start Date End Date Alondra Mathew MD [facility] [address] [place] [address] PCP - General 01/12/23 Linden Conrad MD [address] [address] Assigned Heart and Vascular Provider 01/22/23
--- OUTSIDE RECORDS SUMMARY | 2023-09-08 08:43 | XMS_ITS | Encounter Summary ---
Author Name Unknown Organization [place] Address [address] [place] [address]. [place] [address] Care Team Providers Care Sewer Name Role Phone Alondra Mathew MD Primary Care Provider Linden Conrad MD Unavailable [phone] Reason for Visit * Rehab Therapy Integrated Services (Routine: Next available opening) - Closed Specialty Diagnoses / Procedures Referred By Farzana meredith Referred To Contact Diagnoses Lymphedema due to venous insufficiency [address] [address] Referral ID Status Reason Start Date Expiration Date Visits Re quested Visits Authorized Closed 01/18/2023 08/21/2023 365 365 Encounter Details Date Type Department Care Team (Latest Contact Info) Description 02/28/2023 4:45 PM CDT Therapy Visit [address] [place] [address] Richa Londono, OT [address] [place] [address] Lymphedema due to venous insufficiency (Primary Dx) [...] Primary documented in this encounter Care Teams Sewer Relationship Specialty Start Date End Date Alondra Mathew MD [facility] [address] [place] [address] PCP - General 01/12/23 Linden Conrad MD [address] [place] [address] Assigned Heart and Vascular Provider 01/22/23 documented as of this encounter
--- OUTSIDE RECORDS SUMMARY | 2023-09-08 08:43 | XMS_ITS | Encounter Summary ---
Author Name Unknown Organization [place] Address [address] [place] [address]. [place] [address] Care Team Providers Care Metal Bonding Worker Name Role Phone Alondra Mathew MD Primary Care Provider Linden Conrad MD Unavailable [phone] Reason for Visit * Rehab Therapy Integrated Services (Routine: Next available opening) - Closed Specialty Diagnoses / Procedures Referred By Farzana t Referred To Contact Diagnoses Lymphedema due to venous insufficiency [address] [address] Referral ID Status Reason Start Date Expiration Date Visits Re quested Visits Authorized Closed 01/18/2023 08/21/2023 365 365 Encounter Details Date Type Department Care Team (Late st Contact Info) Description 02/02/2023 7:30 AM CDT Therapy Visit [facility] [address] [place] [address] Linden Conrad MD [address] [place] [id number] Monique Miramontes, OT [address] [facility] [place] [address] Lymphedema due to venous insufficiency Social History [...] at home: None Equipment owned: 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[employer] Hobbies/Interests: reading, computers/alyssia Patient goals for therapy: [...] Interventions: Self-Care/Home Management, Therapeutic Exercise, Manual Therapy Window Machine Operator Goals OT Goal 1 Goal Identifier: volume [...] insufficiency documented in this encounter Care Teams Metal Bonding Worker Relationship Specialty Start Date End Date Alondra Mathew MD [facility] & [facility] [address] [place] [address] PCP - General 01/12/23 Linden Conrad MD [address] [place] [address] Assigned Heart and Vascular Provider 01/22/23 documented as of this encounter
--- OUTSIDE RECORDS SUMMARY | 2023-09-08 08:43 | XMS_ITS | Encounter Summary ---
Author Name Unknown Organization [place] Address [facility] [place] [address] Care Team Providers Care Director Of Recruitment And Admissions Name Role Phone Alondra Mathew MD Primary Care Provider Linden Conrad MD Unavailable [phone] Encounter Details Date Type Department Care Team [...] on filedocumented in this encounter Care Teams Director Of Recruitment And Admissions Relationship Specialty Start Date End Date Alondra Mathew MD [facility] & [facility] [address] [place] [address] PCP - General 01/12/23 Linden Conrad MD [address] [place] [address] Assigned Heart and Vascular Provider 01/22/23 documented as of this encounter
--- OUTSIDE RECORDS SUMMARY | 2023-09-08 08:43 | XMS_ITS | Encounter Summary ---
Author Name Unknown Organization [place] Address [address] [place] [address]. [place] [address] Care Team Providers Care Wafer Batter Mixer Name Role Phone Alondra Mathew MD Primary Care Provider [phone] Linden Conrad MD Unavailable [phone] Reason for Visit * Rehab Therapy Integrated Services (Routine: Next available opening) - Closed Specialty Diagnoses / Procedures Referred By Farzana meredith Referred To Contact Diagnoses Lymphedema due to venous insufficiency [address] [address] Referral ID Status Reason Start Date Expiration Date Visits Re quested Visits Authorized Closed 01/18/2023 08/21/2023 365 365 Encounter Details Date Type Department Care Team (Latest Contact Info) Description 03/14/2023 4:45 PM CDT Therapy Visit [address] [place] [address] Richa Londono, OT [address] [place] [address] Lymphedema due to venous insufficiency (Primary Dx) [...] Primary documented in this encounter Care Teams Wafer Batter Mixer Relationship Specialty Start Date End Date Alondra Mathew MD [facility]NOTE 3[facility] [address] [place] [address] PCP - General 01/12/23 Linden Conrad MD [address] [place] [address] Assigned Heart and Vascular Provider 01/22/23 documented as of this encounter
--- OUTSIDE RECORDS SUMMARY | 2023-09-08 08:43 | XMS_ITS | Encounter Summary ---
Author Name Unknown Organization [place] Address [address] [place] [address] Care Team Providers Care Loan Associate Name Role Phone Alondra Mathew MD Primary Care Provider Reason for Visit * Diagnostic Imaging Ultrasound (Routine) - Pending Review Specialty Diagnoses / Procedures Referred By Contac t Referred To Contact Radiology. Diagnoses Varicose veins of bilateral lower extremities with pain Procedures US Venous Competency Bilateral Shivani Conrad MD [address] [place] [address] Referral ID Status Reason Start Date Expiration Date V isits Requested Visits Authorized [id number] Pending Review 12/21/2022 12/21/2023 1 1 Encounter Details Date Type Department Care Team (Latest Contact Info) Description 01/13/2023 8:00 AM CDT Ancillary Procedure [facility] [address] [address] [place] [address] Shivani Conrad MD [address] [place] [id number] Varicose veins of bilateral lower extremities with [...] Perforators: there is no evidence of incompetent patient manager veins at any level. ? LEFT: ?? [...] Perforators: there is no evidence of incompetent patient manager veins at any level. ?? Varicose veins are noted on the lateral thigh that course towards a possible buttock patient manager measuring 5.2 mm with 1980 milliseconds of [...] saphenous vein incompetence. SHIVANI CONRAD M.D., [facility], [facility] Incompetence Criteria: Greater than 500 milliseconds in superficial and patient manager veins and greater than 1000 milliseconds in deep veins. ?? Narrative 01/18/2023 3:42 PM CDT Name: ??Elvira Burden ? Date: January 13, 2023 ?: 1985 Sex: female Shivani Conrad MD IMG US ORDERABLE S documented in this encounter Visit Diagnoses Diagnosis Varicose veins of bilateral lower extremities with pain documented in this encounter Care Teams Loan Associate Relationship Specialty Start Date End Date Alondra Mathew MD [facility] & [facility] [address] [place] [address] PCP - General 01/12/23 documented as of this encounter
--- OUTSIDE RECORDS SUMMARY | 2023-09-08 08:43 | XMS_ITS | Encounter Summary ---
Author Name Unknown Organization [place] Address [facility] [place] [address] Care Team Providers Care Customer Service Representative Teacher Name Role Phone Alondra Mathew MD Primary Care Provider Linden Conrad MD Unavailable Encounter Details Date [...] on filedocumented in this encounter Care Teams Customer Service Representative Teacher Relationship Specialty Start Date End Date Alondra Mathew MD [facility] [address] [place] [address] PCP - General 01/12/23 Linden Conrad MD [address] [place] [address] Assigned Heart and Vascular Provider 01/22/23 documented as of this encounter
--- OUTSIDE RECORDS SUMMARY | 2023-09-08 08:43 | XMS_ITS | Encounter Summary ---
Author Name Unknown Organization [place] Address [address] [facility] [place] [address] Care Team Providers Care Operations Superintendent Name Role Phone Alondra Mathew MD Primary Care Provider [phone] Linden Conrad MD Unavailable Reason for Visit * Reason Comments RECHECK Follow up for 3 mth reevaluation for lymphodema. Going well for her. Encounter Details Date Type Department Care Team (Late st Contact Info) Description 04/21/2023 10:30 AM CDT Office Visit [facility] [place] [address] [place] [phone] Linden Conrad MD [address] [place] [address] Post-thrombotic syndrome of right lower extremity (Primary [...] pain documented in this encounter Care Teams Operations Superintendent Relationship Specialty Start Date End Date Alondra Mathew MD [facility] & [facility] [address] [place] [address] PCP - General 01/12/23 Linden Conrad MD [address] [place] [address] Assigned Heart and Vascular Provider 01/22/23 documented as of this encounter
--- OUTSIDE RECORDS SUMMARY | 2023-09-08 08:43 | XMS_ITS | Encounter Summary ---
Author Name Unknown Organization [place] Address [address] [facility] [place] [address] Care Team Providers Care Director Of Music Name Role Phone Alondra Mathew MD Primary Care Provider Linden Conrad MD Unavailable [phone] Reason for Referral * Rehab Therapy Physical Therapy (Routine: Next available opening) - Pending Review Specialty Diagnoses / Procedures Referred By Farzana meredith Referred To Contact Diagnoses Lymphedema due to venous insufficiency Linden Conrad MD [address] [facility] [address] [place] [address] Referral ID Status Reason Start Date Expiration Date V isits Requested Visits Authorized Pending Review 01/13/2023 01/13/2024 1 1 Question Answer Preferred Location: [facility] Scheduling Instructions: If you have not heard from the scheduling office within 2 business days, please call [phone] for [facility], for [place] and [phone] for [facility]. Course of Action PT or OT Evaluation and Treatment PT/OT Treatment Diagnosis Lymphedema, Phlebolymphedema, Edema Comments If you have not heard from the scheduling office within 2 business days, please call [phone] for all locations, with the exception of [place], please call [phone] and [facility] [place], please call [phone]. Please be aware that coverage of these services is subject to the terms and limitations of your health insurance plan. Call member services at your health plan with any benefit or coverage questions. If you have not heard from the scheduling office within 2 business days, please call [phone] for [facility], for [place] and [phone] for [place]. Encounter Details Date Type Department Care Team (Late st Contact Info) Description 01/13/2023 Orders Only [facility] - Heart & Vascular Service Line [address] [place] [address] Linden Conrad MD [address] [facility] [address] [address] Lymphedema due to venous insufficiency (Primary Dx) [...] Primary documented in this encounter Care Teams Director Of Music Relationship Specialty Start Date End Date Alondra Mathew MD [facility] & [facility] [address] [place] [address] PCP - General 01/12/23 Linden Conrad MD [address] [place] [address] Assigned Heart and Vascular Provider 01/22/23 documented as of this encounter
--- OUTSIDE RECORDS SUMMARY | 2023-09-08 08:43 | XMS_ITS | Encounter Summary ---
Author Name Unknown Organization [place] Address [facility] [place] [address] Care Team Providers Care Glaze Wiper Name Role Phone Alondra Mathew MD Primary Care Provider Linden Conrad MD Unavailable [phone] Encounter Details Date Type Department Care Team [...] on filedocumented in this encounter Care Teams Glaze Wiper Relationship Specialty Start Date End Date Alondra Mathew MD [facility] & [facility] [address] [place] [address] PCP - General 01/12/23 Linden Conrad MD [address] [place] [address] Assigned Heart and Vascular Provider 01/22/23 documented as of this encounter
--- OUTSIDE RECORDS SUMMARY | 2023-09-08 08:43 | XMS_ITS | Encounter Summary ---
Author Name Unknown Organization [place] Address [facility] [place] [address] Care Team Providers Care Manager Of Warehouse Name Role Phone Alondra Mathew MD Primary Care Provider Linden Conrad MD Unavailable [phone] Encounter Details Date Type Department Care Team [...] on filedocumented in this encounter Care Teams Manager Of Warehouse Relationship Specialty Start Date End Date Alondra Mathew MD [facility] & [facility] [address] [place] [address] PCP - General 01/12/23 Linden Conrad MD [address] [place] [address] Assigned Heart and Vascular Provider 01/22/23 documented as of this encounter
--- OUTSIDE RECORDS SUMMARY | 2023-09-08 08:44 | XMS_ITS | Continuity of Care Document ---
Author Name Unknown Organization [facility] Address [address] [place] [address] Phone Care Team Providers Care Director Of Materials Management Name Role Phone Avery Underwood MD Unavailable [...] - PA 2019 Lami/Discectomy, Lumbar HNP Office/Outpatient Visit,[facility] [place] Advance Directives Directive Yes / No Effective Date File Name No Information Encounters Encounter Description Practice Location Reason(s) For Visit Diagnoses Date Provider Providers Copied on Encounter [facility], [address], [place], [id number], [place] tel:[phone] [facility] No Information 0 Yasmine Smart er. [facility], [address] [place] [address], [address], [place], [place], [id number] , [place]. [phone] [facility], [address], [place], [id number], [place] tel:[phone] [facility] Encounter for follow-up examination after completed treatment for conditions other than malignant neoplasm 0 Underwoodned Omeroph er. [facility], [address] [place] [address], [address], [place], [place], [address] , [place]. [phone] Referring Provider: Mile Ni [facility] [address], [address]. tel:[phone] [facility], [address], [place], [place], [id number], [place] tel:[phone] [facility] Encounter for follow-up examination after completed treatment for conditions other than malignant neoplasm 0 Underwood Berry er. [facility] [place], [address], [address], [place], [place], [address] , [place]. tel:[phone] Referring Provider: Mile Ni [facility] [address] [place] [address], [address]. tel:[phone] [facility], [address], [place], [id number], [place] tel:[phone] [facility] Encounter for other specified surgical aftercare 0 Magnus Isi. [facility], [address], [place], [address], [place]. tel:[phone] Referring Provider: Mile Ni [facility] [address] [place], [address]. tel:[phone] [facility], [address], [place], [address], [place] tel:[phone] [facility] No Information May-1 2- 0 Magnus Isi. [facility], [address] [facility] [address], [place], [address], [place]. tel:[phone] Referring Provider: Mile Ni [facility] [address] [place] [address], [address]. tel:[phone] [facility], [address], [place], [address], [place] tel:[phone] [facility] No Information May-0 0 Yasmine gallego. [facility], [address] [place] [address], [address], [place], [address] , [place]. tel:[phone] Referring Provider: Mile Ni [facility] [place], [address]. tel:[phone] [facility], [address], [place], [id number], [place] tel:[phone] [facility] Encounter for other specified surgical aftercare Sep-3 0-202 0 Magnus Isi. [facility], [address] [place] [address] [address], [place], [address], [place]. tel:[phone] Referring Provider: Mile Ni [facility] [address] [place] [address], [address]. tel:[phone] [facility], [address], [place], [id number], [place] tel:[phone] [facility] No Information Sep-2 0 Magnus Snowden. [facility], [address], [place], [address], [place]. [phone] Referring Provider: Mile Ni, [facility] [address], [address]. tel:[phone] [facility], [address], [place], [id number], [place] tel:[phone] [facility] No Information Sep-2 0 Yasmine gallego. [facility], [address] [place] [address], [address], [facility] [place], [id number] , [place]. [phone] Referring Provider: Mile Ni, [facility] [address] [place] [address], [address]. tel:[phone] Office/Outpat ient Visit,[facility], [address], [place], [id number], [place] tel:[phone] [facility] Other intervertebral disc displacement, lumbar regionRadiculop athy, lumbar region Sep-1 0 Magnus Snowden. [facility], [address], [place], [address], [place]. [phone] Referring Provider: Mile Ni, [facility] [address] [place] [address], [address]. tel:[phone] Family History Family Member Type Diagnosis Age At Onset No Information Payers Payer name Insurance type Covered libertarian ID jacquelyn [id number](s) Other Machine [id number] Social History Type Description Quantity Date Captured [...]
--- OUTSIDE RECORDS SUMMARY | 2023-09-08 08:44 | XMS_ITS | Encounter Summary ---
Author Name Unknown Organization [place] Address [address] [facility] [place] [address] Care Team Providers Care Furniture Painter Name Role Phone Unavailable Primary Care Provider Unavailabl e Reason for Visit * Reason Onset Date Comments Referral 12/17/2022 Encounter Details Date Type Department Care Team (Late st Contact Info) Description 12/17/2022 Telephone [facility] [address] [place] [address] Sivakumar Orta MD [address] [id number] Referral Social History Tobacco Use Types Packs/Day [...] Faxed referral received from Dr. Mathew at [facility]. Left message for pt to call and schedule an appointment if interested [phone]. documented in this encounter Plan of Treatment Not on file documented as of this encounter Visit Diagnoses Not on filedocumented in this encounter
--- OUTSIDE RECORDS SUMMARY | 2023-09-08 08:44 | XMS_ITS | Encounter Summary ---
Author Name Unknown Organization [facility] Address [address] [place] [address] Care Team Providers Care Restrike Hammer Operator Name Role Phone Alondra Mathew MD [...] on filedocumented in this encounter Care Teams Restrike Hammer Operator Relationship Specialty Start Date End Date Alondra Mathew MD [address] [address] PCP - General 01/12/23 documented as of this encounter
--- OUTSIDE RECORDS SUMMARY | 2023-09-08 08:44 | XMS_ITS | Encounter Summary ---
Author Name Unknown Organization [facility] Address [address] [place] [address]. [place] [address] Care Team Providers Care Silk Hanger Name Role Phone Alondra Mathew MD Primary Care Provider Reason for Referral * Rehab Therapy Integrated Services (Routine: Next available opening) - Closed Specialty Diagnoses / Procedures Referred By Farzana meredith Referred To Contact Diagnoses Lymphedema due to venous insufficiency [address] [address] Referral ID Status Reason Start Date Expiration Date Visits Re quested Visits Authorized Closed 01/18/2023 08/21/2023 365 365 Question Answer Preferred Location: [facility] Services Scheduling Instructions: If you have not heard from the scheduling office within 2 business days, please call [phone] for [place], for [place] and [phone] for [place]. Course of Action PT or OT Evaluation and Treatment PT/OT Treatment Diagnosis Lymphedema Comments If you have not heard from the scheduling office within 2 business days, please call [phone] for all locations, with the exception of [place], please call [phone] and [place], please call [phone]. Please be aware that coverage of these services is subject to the terms and limitations of your health insurance plan. Call member services at your health plan with any benefit or coverage questions. If you have not heard from the scheduling office within 2 business days, please call [phone] for [facility], for [place] and [phone] for [place]. Reason for Visit * Reason Comments Consult Referred by Dr. Snehal lemos at [facility] for BVV w/ pain, and swelling. R>L. DVT in right leg 12/2013. Bilateral venous comp at 8am. No hx of tx. Encounter Details Date Type Department Care Team (Latest Contact Info) Description 01/13/2023 9:30 AM CDT Office Visit [facility] [place] [address] [place] [address] Linden Conrad MD [address] [place] [address] Varicose veins of bilateral lower extremities with [...] higher, or as advised by your provider [employer] last reviewed this educational content on 11/20/2017 ?? [id number] [employer]. All rights reserved. This information is not [...] rock back and forth on your heels. [employer] last reviewed this educational content on 06/22/2019 ?? [id number] [employer]. All rights reserved. This information is not [...] Infection Scarring Inflammation related to the glue [employer] last reviewed this educational content on 06/22/2019 (Sclerotherapy image) 07/22/2019 (Radiofrequency ablation image, Microphlebectomy image) ?? [phone] [employer]. All rights reserved. This information is not [...] insufficiency documented in this encounter Care Teams Silk Hanger Relationship Specialty Start Date End Date Alondra Mathew MD [facility] [place] [id number] PCP - General 01/12/23 documented as of this encounter
--- OUTSIDE RECORDS SUMMARY | 2023-09-08 08:44 | XMS_ITS | Encounter Summary ---
Author Name Unknown Organization [facility] Address [address] [place] [address] Care Team Providers Care Tyre Builder Name Role Phone Unavailable Primary Care Provider Unavailabl e Reason for Referral * Diagnostic Imaging Ultrasound (Routine) - Pending Review Specialty Diagnoses / Procedures Referred By Contac t Referred To Contact Radiology. Diagnoses Varicose veins of bilateral lower extremities with pain Procedures US Venous Competency Bilateral Shivani Conrad MD [address] [place] [address] Referral ID Status Reason Start Date Expiration Date V isits Requested Visits Authorized [id number] Pending Review 12/21/2022 12/21/2023 1 1 Encounter Details Date Type Department Care Team (Late st Contact Info) Description 12/21/2022 Orders Only [facility] [place] [address] [place] [phone] Shivani Conrad MD [address] [place] [address] Varicose veins of bilateral lower extremities with [...] Perforators: there is no evidence of incompetent head sulfide operator veins at any level. ? LEFT: ?? [...] Perforators: there is no evidence of incompetent head sulfide operator veins at any level. ?? Varicose veins are noted on the lateral thigh that course towards a possible buttock head sulfide operator measuring 5.2 mm with 1980 milliseconds of [...] Greater than 500 milliseconds in superficial and head sulfide operator veins and greater than 1000 milliseconds in [...]
== END 2023-09-08 08:42 | disposition home or self-care (01) ==
LOC: WOUND 08:41
PROVIDERS: PCP Internal Medicine; Visit Provider Nurse Practitioner Family
DX: E11.621 Type 2 diabetes mellitus with foot ulcer (principal); L97.512 Non-pressure chronic ulcer of other part of right foot with fat layer exposed; Z79.4 Long term (current) use of insulin; Z79.84 Long term (current) use of oral hypoglycemic drugs
CPT/HCPCS: 97597; G0463

== ENCOUNTER 2023-09-15 08:18 | Outpatient (CLI) | payer BC, SELFPAY ==
--- OUTSIDE RECORDS SUMMARY | 2023-09-15 08:22 | XMS_ITS | Encounter Summary ---
Author Name Unknown Organization [place] Address [facility] [facility] [address] [address] Care Team Providers Care Sql Server Architect Name Role Phone Alondra Mathew MD Primary Care Provider Linden Conrad MD Unavailable [phone] Encounter Details Date Type Department Care Team [...] on filedocumented in this encounter Care Teams Sql Server Architect Relationship Specialty Start Date End Date Alondra Mathew MD [facility] [address] [place] [address] PCP - General 01/12/23 Linden Conrad MD [address] [place] [address] Assigned Heart and Vascular Provider 01/22/23 documented as of this encounter
--- OUTSIDE RECORDS SUMMARY | 2023-09-15 08:22 | XMS_ITS | Encounter Summary ---
Author Name Unknown Organization [place] Address [facility] [place] [address] Care Team Providers Care Therapeutic Dietitian Name Role Phone Alondra Mathew MD Primary Care Provider Linden Conrad MD Unavailable [phone] Encounter Details Date Type Department Care Team [...] on filedocumented in this encounter Care Teams Therapeutic Dietitian Relationship Specialty Start Date End Date Alondra Mathew MD [facility] [address] [place] [address] PCP - General 01/12/23 Linden Conrad MD [address] [place] [address] Assigned Heart and Vascular Provider 01/22/23 documented as of this encounter
--- OUTSIDE RECORDS SUMMARY | 2023-09-15 08:22 | XMS_ITS | Encounter Summary ---
Author Name Unknown Organization [place] Address [address] [place] [address] Care Team Providers Care Cork Insulation Setter Name Role Phone Alondra Mathew MD Primary Care Provider Linden Conrad MD Unavailable Reason for Visit * Reason Comments RECHECK Follow up for 3 mth reevaluation for lymphodema. Going well for her. Encounter Details Date Type Department Care Team (Late st Contact Info) Description 04/21/2023 10:30 AM CDT Office Visit [facility] [place] [address] [place] [address] Linden Conrad MD [address] [place] [address] Post-thrombotic syndrome of right lower extremity (Primary [...] pain documented in this encounter Care Teams Cork Insulation Setter Relationship Specialty Start Date End Date Alondra Mathew MD [facility] [address] [place] [address] PCP - General 01/12/23 Linden Conrad MD [address] [place] [address] Assigned Heart and Vascular Provider 01/22/23 documented as of this encounter
--- OUTSIDE RECORDS SUMMARY | 2023-09-15 08:22 | XMS_ITS | Encounter Summary ---
Author Name Unknown Organization [facility] Address [address] [place] [address]. [place] [address] Care Team Providers Care Guest Experience Specialist Name Role Phone Alondra Mathew MD Primary Care Provider Linden Conrad MD Unavailable [phone] Reason for Visit * Rehab Therapy Integrated Services (Routine: Next available opening) - Closed Specialty Diagnoses / Procedures Referred By Farzana meredith Referred To Contact Diagnoses Lymphedema due to venous insufficiency [address] [address] Referral ID Status Reason Start Date Expiration Date Visits Re quested Visits Authorized Closed 01/18/2023 08/21/2023 365 365 Encounter Details Date Type Department Care Team (Latest Contact Info) Description 02/28/2023 4:45 PM CDT Therapy Visit [address] [place] [address] Richa Londono, OT [address] [place] [address] Lymphedema due to venous insufficiency (Primary Dx) [...] Primary documented in this encounter Care Teams Guest Experience Specialist Relationship Specialty Start Date End Date Alondra Mathew MD [facility] [address] [place] [address] PCP - General 01/12/23 Linden Conrad MD [address] [place] [address] Assigned Heart and Vascular Provider 01/22/23 documented as of this encounter
--- OUTSIDE RECORDS SUMMARY | 2023-09-15 08:22 | XMS_ITS | Encounter Summary ---
Author Name Unknown Organization [place] Address [facility] [place] [address] Care Team Providers Care Paving Stone Installer Name Role Phone Alondra Mathew MD Primary Care Provider [phone] Linden Conrad MD Unavailable [phone] Encounter Details Date Type Department Care Team [...] on filedocumented in this encounter Care Teams Paving Stone Installer Relationship Specialty Start Date End Date Alondra Mathew MD [facility] [address] [place] [address] PCP - General 01/12/23 Linden Conrad MD [address] [place] [address] Assigned Heart and Vascular Provider 01/22/23 documented as of this encounter
--- OUTSIDE RECORDS SUMMARY | 2023-09-15 08:22 | XMS_ITS | Encounter Summary ---
Author Name Unknown Organization [place] Address [address] [place] [address]. [place] [address] Care Team Providers Care Hose Inspector And Patcher Name Role Phone Alondra Mathew MD Primary Care Provider Linden Conrad MD Unavailable [phone] Reason for Visit * Rehab Therapy Integrated Services (Routine: Next available opening) - Closed Specialty Diagnoses / Procedures Referred By Farzana t Referred To Contact Diagnoses Lymphedema due to venous insufficiency [address] [address] Referral ID Status Reason Start Date Expiration Date Visits Re quested Visits Authorized Closed 01/18/2023 08/21/2023 365 365 Encounter Details Date Type Department Care Team (Latest Contact Info) Description 03/02/2023 4:45 PM CDT Therapy Visit [facility] [address] [place] [address] Linden Conrad MD [address] [facility] [address] [place], [place] [id number] Richa Londono, OT [address] [place] [address] Lymphedema due to venous insufficiency (Primary Dx) [...] Primary documented in this encounter Care Teams Hose Inspector And Patcher Relationship Specialty Start Date End Date Alondra Mathew MD [facility] & [address] [address] PCP - General 01/12/23 Linden Conrad MD [address] [facility] [address] [place] [address] Assigned Heart and Vascular Provider 01/22/23 documented as of this encounter
--- OUTSIDE RECORDS SUMMARY | 2023-09-15 08:22 | XMS_ITS | Encounter Summary ---
Author Name Unknown Organization [place] Address [facility] [place] [address] Care Team Providers Care Mud Analysis Operator Name Role Phone Alondra Mathew MD Primary Care Provider [phone] Linden Conrad MD Unavailable [phone] Encounter Details Date Type Department Care Team [...] on filedocumented in this encounter Care Teams Mud Analysis Operator Relationship Specialty Start Date End Date Alondra Mathew MD [facility] [address] [place] [address] PCP - General 01/12/23 Linden Conrad MD [address] [place] [address] Assigned Heart and Vascular Provider 01/22/23 documented as of this encounter
--- OUTSIDE RECORDS SUMMARY | 2023-09-15 08:22 | XMS_ITS | Encounter Summary ---
Author Name Unknown Organization [place] Address [facility] [place] [address] Care Team Providers Care Pharmacy District Manager Name Role Phone Alondra Mathew MD Primary Care Provider Linden Conrad MD Unavailable [phone] Encounter Details Date Type Department Care Team [...] on filedocumented in this encounter Care Teams Pharmacy District Manager Relationship Specialty Start Date End Date Alondra Mathew MD [facility] & [facility] [address] [place] [address] PCP - General 01/12/23 Linden Conrad MD [address] [place] [address] Assigned Heart and Vascular Provider 01/22/23 documented as of this encounter
--- OUTSIDE RECORDS SUMMARY | 2023-09-15 08:22 | XMS_ITS | Encounter Summary ---
Author Name Unknown Organization [place] Address [facility] [place] [address] Care Team Providers Care Principal System Software Engineer Name Role Phone Alondra Mathew MD Primary Care Provider Linden Conrad MD Unavailable [phone] Encounter Details Date Type Department Care Team [...] on filedocumented in this encounter Care Teams Principal System Software Engineer Relationship Specialty Start Date End Date Alondra Mathew MD [facility] [address] [place] [address] PCP - General 01/12/23 Linden Conrad MD [address] [place] [address] Assigned Heart and Vascular Provider 01/22/23 documented as of this encounter
--- OUTSIDE RECORDS SUMMARY | 2023-09-15 08:22 | XMS_ITS | Referral Summary ---
Author Name Unknown Organization [place] Address [facility] [place] [address] Care Team Providers Care Home Health Cna Name Role Phone Alondra Mathew MD Primary Care Provider Linden Conrad MD Unavailable [phone] Allergies Active Allergy Reactions Criticality Noted Date [...] of Treatment Not on file Care Teams Home Health Cna Relationship Specialty Start Date End Date Alondra Mathew MD [facility] [address] [place] [address] PCP - General 01/12/23 Linden Conrad MD [address] [place] [address] Assigned Heart and Vascular Provider 01/22/23
--- OUTSIDE RECORDS SUMMARY | 2023-09-15 08:22 | XMS_ITS | Encounter Summary ---
Author Name Unknown Organization [place] Address [address] [place] [address]. [place] [address] Care Team Providers Care Mender Knit Goods Name Role Phone Alondra Mathew MD Primary Care Provider Linden Conrad MD Unavailable [phone] Reason for Visit * Rehab Therapy Integrated Services (Routine: Next available opening) - Closed Specialty Diagnoses / Procedures Referred By Farzana meredith Referred To Contact Diagnoses Lymphedema due to venous insufficiency [address] [address] Referral ID Status Reason Start Date Expiration Date Visits Re quested Visits Authorized Closed 01/18/2023 08/21/2023 365 365 Encounter Details Date Type Department Care Team (Latest Contact Info) Description 03/23/2023 4:45 PM CDT Therapy Visit [address] [place] [phone] Richa Londono, OT [address] [place] [address] Lymphedema due to venous insufficiency (Primary Dx) [...] Procedure/Exercise;Manual Therapy Manual Therapy Manual Therapy Minutes (44122) 65 Manual Therapy 1 - Details quick [...] Primary documented in this encounter Care Teams Mender Knit Goods Relationship Specialty Start Date End Date Alondra Mathew MD [facility] [address] [place] [address] PCP - General 01/12/23 Linden Conrad MD [address] [place] [address] Assigned Heart and Vascular Provider 01/22/23 documented as of this encounter
--- OUTSIDE RECORDS SUMMARY | 2023-09-15 08:22 | XMS_ITS | Encounter Summary ---
Author Name Unknown Organization [facility] Address [address] [place] [address]. [place] [address] Care Team Providers Care Disassembler Product Name Role Phone Alondra Mathew MD Primary Care Provider Linden Conrad MD Unavailable [phone] Reason for Visit * Rehab Therapy Integrated Services (Routine: Next available opening) - Closed Specialty Diagnoses / Procedures Referred By Farzana meredith Referred To Contact Diagnoses Lymphedema due to venous insufficiency [address] [address] Referral ID Status Reason Start Date Expiration Date Visits Re quested Visits Authorized Closed 01/18/2023 08/21/2023 365 365 Encounter Details Date Type Department Care Team (Latest Contact Info) Description 03/14/2023 4:45 PM CDT Therapy Visit [address] [place] [address] Richa Londono, OT [address] [place] [address] Lymphedema due to venous insufficiency (Primary Dx) [...] Primary documented in this encounter Care Teams Disassembler Product Relationship Specialty Start Date End Date Alondra Mathew MD [facility] [address] [place] [address] PCP - General 01/12/23 Linden Conrad MD [address] [place] [address] Assigned Heart and Vascular Provider 01/22/23 documented as of this encounter
--- OUTSIDE RECORDS SUMMARY | 2023-09-15 08:22 | XMS_ITS | Encounter Summary ---
Author Name Unknown Organization [place] Address [facility] [place] [address] Care Team Providers Care Claims Investigator Name Role Phone Alondra Mathew MD Primary Care Provider Linden Conrad MD Unavailable [phone] Encounter Details Date Type Department Care Team [...] on filedocumented in this encounter Care Teams Claims Investigator Relationship Specialty Start Date End Date Alondra Mathew MD [facility] [address] [place] [address] PCP - General 01/12/23 Linden Conrad MD [address] [place] [address] Assigned Heart and Vascular Provider 01/22/23 documented as of this encounter
--- OUTSIDE RECORDS SUMMARY | 2023-09-15 08:22 | XMS_ITS | Clinical Summary ---
Author Name Unknown Organization [place] Address [facility]0 [place] [address] Care Team Providers Care Tso Name Role Phone Alondra Mathew MD Primary Care Provider Linden Conrad MD Unavailable [phone] Allergies Active Allergy Reactions Criticality Noted Date [...] age to complete this topic Care Teams Tso Relationship Specialty Start Date End Date Alondra Mathew MD [facility] [address] [place] [address] PCP - General 01/12/23 Linden Conrad MD [address] [address] Assigned Heart and Vascular Provider 01/22/23
--- OUTSIDE RECORDS SUMMARY | 2023-09-15 08:23 | XMS_ITS | Encounter Summary ---
Author Name Unknown Organization [place] Address [address] [place] [address] Care Team Providers Care Biometrics Consultant Name Role Phone Alondra Mathew MD Primary [...] on filedocumented in this encounter Care Teams Biometrics Consultant Relationship Specialty Start Date End Date Alondra Mathew MD [address] [address] PCP - General 01/12/23 documented as of this encounter
--- OUTSIDE RECORDS SUMMARY | 2023-09-15 08:23 | XMS_ITS | Encounter Summary ---
Author Name Unknown Organization [place] Address [address] [place] [address] Care Team Providers Care Concrete Form Setter And Finisher Name Role Phone Unavailable Primary Care Provider Unavailabl e Reason for Referral * Diagnostic Imaging Ultrasound (Routine) - Pending Review Specialty Diagnoses / Procedures Referred By Contac t Referred To Contact Radiology. Diagnoses Varicose veins of bilateral lower extremities with pain Procedures US Venous Competency Bilateral Shivani Conrad MD [address] [place] [address] Referral ID Status Reason Start Date Expiration Date V isits Requested Visits Authorized [id number] Pending Review 12/21/2022 12/21/2023 1 1 Encounter Details Date Type Department Care Team (Late st Contact Info) Description 12/21/2022 Orders Only [facility] [place] [address] [place] [id number] Shivani Conrad MD [address] [place] [address] Varicose veins of bilateral lower extremities with [...] Perforators: there is no evidence of incompetent professor of vegetable science veins at any level. ? LEFT: ?? [...] Perforators: there is no evidence of incompetent professor of vegetable science veins at any level. ?? Varicose veins are noted on the lateral thigh that course towards a possible buttock professor of vegetable science measuring 5.2 mm with 1980 milliseconds of [...] Greater than 500 milliseconds in superficial and professor of vegetable science veins and greater than 1000 milliseconds in [...]
--- OUTSIDE RECORDS SUMMARY | 2023-09-15 08:23 | XMS_ITS | Encounter Summary ---
Author Name Unknown Organization [place] Address [address] [place] [address] Care Team Providers Care Reference Archivist Name Role Phone Alondra Mathew MD Primary Care Provider Reason for Visit * Diagnostic Imaging Ultrasound (Routine) - Pending Review Specialty Diagnoses / Procedures Referred By Contac t Referred To Contact Radiology. Diagnoses Varicose veins of bilateral lower extremities with pain Procedures US Venous Competency Bilateral Shivani Conrad MD [address] [place] [address] Referral ID Status Reason Start Date Expiration Date V isits Requested Visits Authorized [id number] Pending Review 12/21/2022 12/21/2023 1 1 Encounter Details Date Type Department Care Team (Latest Contact Info) Description 01/13/2023 8:00 AM CDT Ancillary Procedure [facility] [address] [address] [place] [phone] Shivani Conrad MD [address] [place] [id number] Varicose veins of bilateral lower extremities with [...] Perforators: there is no evidence of incompetent metal furrer veins at any level. ? LEFT: ?? [...] Perforators: there is no evidence of incompetent metal furrer veins at any level. ?? Varicose veins are noted on the lateral thigh that course towards a possible buttock metal furrer measuring 5.2 mm with 1980 milliseconds of [...] great saphenous vein incompetence. SHIVANI CONRAD M.D., [facility], [facility] Incompetence Criteria: Greater than 500 milliseconds in superficial and metal furrer veins and greater than 1000 milliseconds in deep veins. ?? Narrative 01/18/2023 3:42 PM CDT Name: ??Elvira Burden ? Date: January 13, 2023 ?: 1985 Sex: female Shivani Conrad MD IMG US ORDERABLE S documented in this encounter Visit Diagnoses Diagnosis Varicose veins of bilateral lower extremities with pain documented in this encounter Care Teams Reference Archivist Relationship Specialty Start Date End Date Alondra Mathew MD [facility] [address] [place] [address] PCP - General 01/12/23 documented as of this encounter
--- OUTSIDE RECORDS SUMMARY | 2023-09-15 08:23 | XMS_ITS | Encounter Summary ---
Author Name Unknown Organization [place] Address [facility] [place] [address] Care Team Providers Care Domestic Technician Name Role Phone Alondra Mathew MD Primary [...] on filedocumented in this encounter Care Teams Domestic Technician Relationship Specialty Start Date End Date Alondra Mathew MD [address] [address] PCP - General 01/12/23 documented as of this encounter
--- OUTSIDE RECORDS SUMMARY | 2023-09-15 08:23 | XMS_ITS | Encounter Summary ---
Author Name Unknown Organization [place] Address [address] [place] [address]. [place] [address] Care Team Providers Care Film Waxer Name Role Phone Alondra Mathew MD Primary Care Provider Reason for Referral * Rehab Therapy Integrated Services (Routine: Next available opening) - Closed Specialty Diagnoses / Procedures Referred By Farzana meredith Referred To Contact Diagnoses Lymphedema due to venous insufficiency [address] [address] Referral ID Status Reason Start Date Expiration Date Visits Re quested Visits Authorized Closed 01/18/2023 08/21/2023 365 365 Question Answer Preferred Location: [facility] Services Scheduling Instructions: If you have not heard from the scheduling office within 2 business days, please call [phone] for [employer], for [place] and [phone] for [employer]. Course of Action PT or OT Evaluation and Treatment PT/OT Treatment Diagnosis Lymphedema Comments If you have not heard from the scheduling office within 2 business days, please call [phone] for all locations, with the exception of [place], please call [phone] and [place], please call [phone]. Please be aware that coverage of these services is subject to the terms and limitations of your health insurance plan. Call member services at your health plan with any benefit or coverage questions. If you have not heard from the scheduling office within 2 business days, please call [phone] for [facility], for [place] and [phone] for [place]. Reason for Visit * Reason Comments Consult Referred by Dr. Snehal lemos at [facility] for BVV w/ pain, and swelling. R>L. DVT in right leg 12/2013. Bilateral venous comp at 8am. No hx of tx. Encounter Details Date Type Department Care Team (Latest Contact Info) Description 01/13/2023 9:30 AM CDT Office Visit [facility] [place] [address] [place] [address] Linden Conrad MD [address] [place] [address] Varicose veins of bilateral lower extremities with [...] higher, or as advised by your provider [employer] last reviewed this educational content on 11/20/2017 ?? [id number] [employer]. All rights reserved. This information is not [...] rock back and forth on your heels. [employer] last reviewed this educational content on 06/22/2019 ?? [id number] [employer]. All rights reserved. This information is not [...] Infection Scarring Inflammation related to the glue [employer] last reviewed this educational content on 06/22/2019 (Sclerotherapy image) 07/22/2019 (Radiofrequency ablation image, Microphlebectomy image) ?? [id number] [employer]. All rights reserved. This information is not [...] insufficiency documented in this encounter Care Teams Film Waxer Relationship Specialty Start Date End Date Alondra Mathew MD [facility] & [place] [id number] PCP - General 01/12/23 documented as of this encounter
--- OUTSIDE RECORDS SUMMARY | 2023-09-15 08:23 | XMS_ITS | Continuity of Care Document ---
Author Name Unknown Organization [facility] Address [address] [place] [address] Phone Care Team Providers Care Supervisor Denture Department Name Role Phone Avery Underwood MD Unavailable [...] - [place] 2019 Lami/Discectomy, Lumbar HNP Office/Outpatient Visit,[facility] Advance Directives Directive Yes / No Effective Date File Name No Information Encounters Encounter Description Practice Location Reason(s) For Visit Diagnoses Date Provider Providers Copied on Encounter [facility], [address], [place], [place], [id number], [place] tel:[phone] [facility] No Information 0 Yasmine Smart er. [facility], [address] [place] [address], [address], [place], [id number] , [place]. [phone] [facility], [address], [place], [place], [id number], [place] tel:[phone] [facility] Encounter for follow-up examination after completed treatment for conditions other than malignant neoplasm 0 Underwoodned Omeroph er. [facility], [address] [place] [address], [address], [place], [place], [id number] , [place]. [phone] Referring Provider: Mile Ni YuMe [address], [address]. tel:[phone] [facility], [address], [place], [place], [id number], [place] tel:[phone] [facility] Encounter for follow-up examination after completed treatment for conditions other than malignant neoplasm 0 Underwood Berry er. [facility], [address], [address], [place], [place], [address] , [place]. tel:[phone] Referring Provider: Mile Ni [facility] [address] [place] [address], [address]. tel:[phone] [facility], [address], [place], [place], [id number], [place] tel:[phone] [facility] Encounter for other specified surgical aftercare 0 Magnus Isi. [facility], [address], [place], [address], [place]. tel:[phone] Referring Provider: Mile Ni [facility] [address] [place], [address]. tel:[phone] [facility], [address], [place], [place], [id number], [place] tel:[phone] [facility] No Information May-1 2- 0 Magnus Isi. [facility], [address] [facility] [address], [place], [address], [place]. tel:[phone] Referring Provider: Mile Ni [facility] [address] [place] [address], [address]. tel:[phone] [facility], [address], [place], [id number], [place] tel:[phone] [facility] No Information May-0 0 Yasmine gallego. [facility], [address] [place] [address], [address], [place], [place], [address] , [place]. tel:[phone] Referring Provider: Mile Ni [facility] [place], [address]. tel:[phone] [facility], [address], [place], [place], [id number], [place] tel:[phone] [facility] Encounter for other specified surgical aftercare Sep-3 0-202 0 Magnus Isi. [facility], [address] [place] [address] [address], [place], [address], [place]. tel:[phone] Referring Provider: Mile Ni [facility] [address] [place] [address], [address]. tel:[phone] [facility], [address], [place], [place], [address], [place] tel:[phone] [facility] No Information Sep-2 0 Magnus Snowden. [facility], [address], [place], [address], [place]. [phone] Referring Provider: Mile Ni, Yu[employer] [address], [address]. tel:[phone] [facility], [address], [place], [id number], [place] tel:[phone] [facility] No Information Sep-2 0 Yasmine gallego. [facility], [address] [place] [address], [address], [facility] [place], [id number] , [place]. [phone] Referring Provider: Mile Ni, [facility] [address] [place] [address], [address]. tel:[phone] Office/Outpat ient Visit,[facility], [facility], [address], [place], [id number], [place] tel:[phone] [facility] Other intervertebral disc displacement, lumbar regionRadiculop athy, lumbar region Sep-1 0 Magnus Snowden. [facility], [address], [place], [address], [place]. [phone] Referring Provider: Mile Ni, [facility] [address] [place] [address], [address]. tel:[phone] Family History Family Member Type Diagnosis Age At Onset No Information Payers Payer name Insurance type Covered republican ID jacquelyn yongzuri(s) [employer] [id number] Social History Type Description Quantity Date Captured [...]
--- OUTSIDE RECORDS SUMMARY | 2023-09-15 08:23 | XMS_ITS | Encounter Summary ---
Author Name Unknown Organization [place] Address [address] [facility] [place] [address] Care Team Providers Care Bag Machine Operator Helper Name Role Phone Unavailable Primary Care Provider Unavailabl e Reason for Visit * Reason Onset Date Comments Referral 12/17/2022 Encounter Details Date Type Department Care Team (Late st Contact Info) Description 12/17/2022 Telephone [facility] [address] [place] [address] Sivakumar Orta MD [address] [address] Referral Social History Tobacco Use Types Packs/Day [...] Faxed referral received from Dr. Mathew at [facility]. Left message for pt to call and schedule an appointment if interested [phone]. documented in this encounter Plan of Treatment Not on file documented as of this encounter Visit Diagnoses Not on filedocumented in this encounter
--- OUTSIDE RECORDS SUMMARY | 2023-09-15 08:23 | XMS_ITS | Encounter Summary ---
Author Name Unknown Organization [place] Address [address] [facility] [place] [address] Care Team Providers Care Maintenance Superintendent Name Role Phone Alondra Mathew MD Primary Care Provider Linden Conrad MD Unavailable Reason for Referral * Rehab Therapy Physical Therapy (Routine: Next available opening) - Pending Review Specialty Diagnoses / Procedures Referred By Farzana meredith Referred To Contact Diagnoses Lymphedema due to venous insufficiency Linden Conrad MD [address] [facility] [address] [place] [address] Referral ID Status Reason Start Date Expiration Date V isits Requested Visits Authorized Pending Review 01/13/2023 01/13/2024 1 1 Question Answer Preferred Location: [facility] Scheduling Instructions: If you have not heard from the scheduling office within 2 business days, please call [phone] for [facility], for [place] and [phone] for [facility] [place]. Course of Action PT or OT Evaluation and Treatment PT/OT Treatment Diagnosis Lymphedema, Phlebolymphedema, Edema Comments If you have not heard from the scheduling office within 2 business days, please call [phone] for all locations, with the exception of [place], please call [phone] and [facility] [place], please call [phone]. Please be aware that coverage of these services is subject to the terms and limitations of your health insurance plan. Call member services at your health plan with any benefit or coverage questions. If you have not heard from the scheduling office within 2 business days, please call [phone] for [facility], for [place] and [phone] for [place]. Encounter Details Date Type Department Care Team (Late st Contact Info) Description 01/13/2023 Orders Only [facility] Services - Heart & Vascular Service Line [address] [place] [address] Linden Conrad MD [address] [facility] [address] [address] [address] Lymphedema due to venous insufficiency (Primary Dx) [...] Primary documented in this encounter Care Teams Maintenance Superintendent Relationship Specialty Start Date End Date Alondra Mathew MD [facility] [address] [place] [address] PCP - General 01/12/23 Linden Conrad MD [address] [place] [address] Assigned Heart and Vascular Provider 01/22/23 documented as of this encounter
--- OUTSIDE RECORDS SUMMARY | 2023-09-15 08:23 | XMS_ITS | Encounter Summary ---
Author Name Unknown Organization [place] Address [address] [place] [address]. [place] [address] Care Team Providers Care Assistant Research Scientist Name Role Phone Alondra Mathew MD Primary Care Provider Linden Conrad MD Unavailable [phone] Reason for Visit * Rehab Therapy Integrated Services (Routine: Next available opening) - Closed Specialty Diagnoses / Procedures Referred By Farzana t Referred To Contact Diagnoses Lymphedema due to venous insufficiency [address] [address] Referral ID Status Reason Start Date Expiration Date Visits Re quested Visits Authorized Closed 01/18/2023 08/21/2023 365 365 Encounter Details Date Type Department Care Team (Late st Contact Info) Description 02/02/2023 7:30 AM CDT Therapy Visit [facility] [address] [place] [phone] Linden Conrad MD [address] [place] [address] Monique Miramontes, OT [address] [facility] [place] [address] Lymphedema due to venous insufficiency Social History [...] at home: None Equipment owned: 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[employer] Hobbies/Interests: reading, computers/[place] Patient goals for therapy: [...] Interventions: Self-Care/Home Management, Therapeutic Exercise, Manual Therapy Laundry Machine Tender Goals OT Goal 1 Goal Identifier: volume [...] insufficiency documented in this encounter Care Teams Assistant Research Scientist Relationship Specialty Start Date End Date Alondra Mathew MD [facility] [address] [place] [address] PCP - General 01/12/23 Linden Conrad MD [address] [place] [address] Assigned Heart and Vascular Provider 01/22/23 documented as of this encounter
== END 2023-09-15 08:19 | disposition home or self-care (01) ==
LOC: WOUND 08:18
PROVIDERS: PCP Internal Medicine; Visit Provider Nurse Practitioner Family
DX: E11.621 Type 2 diabetes mellitus with foot ulcer (principal); L97.512 Non-pressure chronic ulcer of other part of right foot with fat layer exposed; Z79.4 Long term (current) use of insulin; Z79.84 Long term (current) use of oral hypoglycemic drugs
CPT/HCPCS: 97597

== ENCOUNTER 2023-09-16 08:04 | Outpatient (CLI) | payer BC, SELFPAY ==
--- OUTSIDE RECORDS SUMMARY | 2023-09-16 08:06 | XMS_ITS | Clinical Summary ---
Author Name Unknown Organization [place] Address [facility] [place] [address] Care Team Providers Care Electrical Discharge Machine Operator Name Role Phone Alondra Mathew MD Primary Care Provider Linden Conrad MD Unavailable [phone] Allergies Active Allergy Reactions Criticality Noted Date [...] age to complete this topic Care Teams Electrical Discharge Machine Operator Relationship Specialty Start Date End Date Alondra Mathew MD [facility] [address] [place] [address] PCP - General 01/12/23 Linden Conrad MD [address] [address] Assigned Heart and Vascular Provider 01/22/23
--- OUTSIDE RECORDS SUMMARY | 2023-09-16 08:06 | XMS_ITS | Encounter Summary ---
Author Name Unknown Organization [place] Address [address] [place] [address]. [place] [address] Care Team Providers Care Quality Assurance Clerk Name Role Phone Alondra Mathew MD Primary Care Provider [phone] Linden Conrad MD Unavailable [phone] Reason for Visit * Rehab Therapy Integrated Services (Routine: Next available opening) - Closed Specialty Diagnoses / Procedures Referred By Farzana meredith Referred To Contact Diagnoses Lymphedema due to venous insufficiency [address] [address] Referral ID Status Reason Start Date Expiration Date Visits Re quested Visits Authorized Closed 01/18/2023 08/21/2023 365 365 Encounter Details Date Type Department Care Team (Latest Contact Info) Description 03/23/2023 4:45 PM CDT Therapy Visit [address] [place] [phone] Richa Londono, OT [address] [place] [address] Lymphedema due to venous insufficiency (Primary Dx) [...] Procedure/Exercise;Manual Therapy Manual Therapy Manual Therapy Minutes (64259) 65 Manual Therapy 1 - Details quick [...] Primary documented in this encounter Care Teams Quality Assurance Clerk Relationship Specialty Start Date End Date Alondra Mathew MD [facility] [address] [place] [address] PCP - General 01/12/23 Linden Conrad MD [address] [place] [address] Assigned Heart and Vascular Provider 01/22/23 documented as of this encounter
--- OUTSIDE RECORDS SUMMARY | 2023-09-16 08:06 | XMS_ITS | Encounter Summary ---
Author Name Unknown Organization [place] Address [address] [place] [address] Care Team Providers Care Plumber Apprentice Name Role Phone Alondra Mathew MD Primary Care Provider Linden Conrad MD Unavailable Reason for Visit * Reason Comments RECHECK Follow up for 3 mth reevaluation for lymphodema. Going well for her. Encounter Details Date Type Department Care Team (Late st Contact Info) Description 04/21/2023 10:30 AM CDT Office Visit [facility] [place] [address] [place] [phone] Linden Conrad MD [address] [place] [address] Post-thrombotic syndrome of right lower extremity (Primary [...] pain documented in this encounter Care Teams Plumber Apprentice Relationship Specialty Start Date End Date Alondra Mathew MD [facility] [address] [place] [address] PCP - General 01/12/23 Linden Conrad MD [address] [place] [address] Assigned Heart and Vascular Provider 01/22/23 documented as of this encounter
--- OUTSIDE RECORDS SUMMARY | 2023-09-16 08:06 | XMS_ITS | Encounter Summary ---
Author Name Unknown Organization [place] Address [facility] [place] [address] Care Team Providers Care Superintendent Building Name Role Phone Alondra Mathew MD Primary Care Provider Linden Conrad MD Unavailable [phone] Encounter Details Date Type Department Care Team [...] on filedocumented in this encounter Care Teams Superintendent Building Relationship Specialty Start Date End Date Alondra Mathew MD [facility] [address] [place] [address] PCP - General 01/12/23 Linden Conrad MD [address] [place] [address] Assigned Heart and Vascular Provider 01/22/23 documented as of this encounter
--- OUTSIDE RECORDS SUMMARY | 2023-09-16 08:06 | XMS_ITS | Encounter Summary ---
Author Name Unknown Organization [place] Address [facility] [place] [address] Care Team Providers Care Manager Global Name Role Phone Alondra Mathew MD Primary Care Provider Linden Conrad MD Unavailable [phone] Encounter Details Date Type Department Care Team [...] filedocumented in this encounter Care Teams Manager Global Relationship Specialty Start Date End Date Alondra Mathew MD [facility] [address] [place] [address] PCP - General 01/12/23 Linden Conrad MD [address] [place] [id number] Assigned Heart and Vascular Provider 01/22/23 documented as of this encounter
--- OUTSIDE RECORDS SUMMARY | 2023-09-16 08:06 | XMS_ITS | Encounter Summary ---
Author Name Unknown Organization [place] Address [facility] [place] [address] Care Team Providers Care Real Estate Intern Name Role Phone Alondra Mathew MD Primary Care Provider Linden Conrad MD Unavailable [phone] Encounter Details Date Type Department Care Team [...] on filedocumented in this encounter Care Teams Real Estate Intern Relationship Specialty Start Date End Date Alondra Mathew MD [facility] [address] [place] [address] PCP - General 01/12/23 Linden Conrad MD [address] [place] [id number] Assigned Heart and Vascular Provider 01/22/23 documented as of this encounter
--- OUTSIDE RECORDS SUMMARY | 2023-09-16 08:06 | XMS_ITS | Referral Summary ---
Author Name Unknown Organization [place] Address [address] [place] [address] Care Team Providers Care Development Intern Name Role Phone Alondra Mathew MD Primary Care Provider Linden Conrad MD Unavailable [phone] Allergies Active Allergy Reactions Criticality Noted Date [...] of Treatment Not on file Care Teams Development Intern Relationship Specialty Start Date End Date Alondra Mathew MD [facility] [address] [place] [address] PCP - General 01/12/23 Linden Conrad MD [address] [place] [id number] Assigned Heart and Vascular Provider 01/22/23
--- OUTSIDE RECORDS SUMMARY | 2023-09-16 08:06 | XMS_ITS | Encounter Summary ---
Author Name Unknown Organization [place] Address [facility] [place] [address] Care Team Providers Care Assistant Teacher Name Role Phone Alondra Mathew MD Primary Care Provider [phone] Linden Conrad MD Unavailable [phone] Encounter Details Date Type Department Care Team [...] on filedocumented in this encounter Care Teams Assistant Teacher Relationship Specialty Start Date End Date Alondra Mathew MD [facility] [address] [place] [address] PCP - General 01/12/23 Linden Conrad MD [address] [place] [address] Assigned Heart and Vascular Provider 01/22/23 documented as of this encounter
--- OUTSIDE RECORDS SUMMARY | 2023-09-16 08:06 | XMS_ITS | Continuity of Care Document ---
Author Name Unknown Organization [facility] Address [address] [place] [address] Phone Care Team Providers Care Business Systems Architect Name Role Phone Avery Underwood MD Unavailable [...] - [place] 2019 Lami/Discectomy, Lumbar HNP Office/Outpatient Visit,[facility] 2019 Advance Directives Directive Yes / No Effective Date File Name No Information Encounters Encounter Description Practice Location Reason(s) For Visit Diagnoses Date Provider Providers Copied on Encounter [facility], [address], [place], [id number], [place] tel:[phone] [facility] No Information 0 Yasmine Smart er. [facility], [address] [place] [address], [address], [place], [place], [id number] , [place]. [phone] [facility], [address], [place], [id number], [place] tel:[phone] [facility] Encounter for follow-up examination after completed treatment for conditions other than malignant neoplasm 0 Underwoodned Omeroph er. [facility], [address] [place] [address], [address], [place], [place], [id number] , [place]. [phone] Referring Provider: Mile Ni [employer] [address], [address]. tel:[phone] [facility], [address], [place], [address], [place] tel:[phone] [facility] Encounter for follow-up examination after completed treatment for conditions other than malignant neoplasm 0 Underwood Berry er. [facility], [address], [address], [place], [address] , [place]. tel:[phone] Referring Provider: Mile Ni [employer] [address] [place] [address], [address]. tel:[phone] [facility], [address], [place], [place], [address], [place] tel:[phone] [facility] Encounter for other specified surgical aftercare 0 Magnus Isi. [facility], [address], [place], [address], [place]. tel:[phone] Referring Provider: Mile Ni [employer] [address] [place], [address]. tel:[phone] [facility], [address], [place], [address], [place] tel:[phone] [facility] No Information May-1 2- 0 Magnus Isi. [facility], [address] [facility] [address], [place], [address], [place]. tel:[phone] Referring Provider: Mile Ni [employer] [address] [place] [address], [address]. tel:[phone] [facility], [address], [place], [id number], [place] tel:[phone] [facility] No Information May-0 0 Yasmine gallego. [facility], [address] [place] [address], [address], [place], [address] , [place]. tel:[phone] Referring Provider: Mile Ni [employer] [facility] [place], [address]. tel:[phone] [facility], [address], [place], [address], [place] tel:[phone] [facility] Encounter for other specified surgical aftercare Sep-3 0-202 0 Magnus Isi. [facility], [address] [place] [address] [address], [place], [address], [place]. tel:[phone] Referring Provider: Mile Ni [employer] [address] [place] [address], [address]. tel:[phone] [facility], [address], [place], [address], [place] tel:[phone] [facility] No Information Sep-2 0 Magnus Snowden. [facility], [address], [place], [address], [place]. [phone] Referring Provider: Mile Ni, [employer] [address], [address]. tel:[phone] [facility], [address], [place], [id number], [place] tel:[phone] [facility] No Information Sep-2 0 Yasmine gallego. [facility], [address] [place] [address], [address], [facility] [place], [address] , [place]. [phone] Referring Provider: Mile Ni, [employer] [address] [place] [address], [address]. tel:[phone] Office/Outpat ient Visit,[facility], [facility], [address], [place], [id number], [place] tel:[phone] [facility] Other intervertebral disc displacement, lumbar regionRadiculop athy, lumbar region Sep-1 0 Magnus Snowden. [facility], [address], [place], [address], [place]. [phone] Referring Provider: Mile Ni, [employer] [address] [place] [address], [address]. tel:[phone] Family History Family Member Type Diagnosis Age At Onset No Information Payers Payer name Insurance type Covered democrat ID jacquelyn yongzuri(s) Hobobe [id number] Social History Type Description Quantity Date Captured [...]
--- OUTSIDE RECORDS SUMMARY | 2023-09-16 08:07 | XMS_ITS | Encounter Summary ---
Author Name Unknown Organization [place] Address [address] [place] [address]. [place] [address] Care Team Providers Care General Production Worker Name Role Phone Alondra Mathew MD Primary Care Provider Linden Conrad MD Unavailable [phone] Reason for Visit * Rehab Therapy Integrated Services (Routine: Next available opening) - Closed Specialty Diagnoses / Procedures Referred By Farzana meredith Referred To Contact Diagnoses Lymphedema due to venous insufficiency [address] [address] Referral ID Status Reason Start Date Expiration Date Visits Re quested Visits Authorized Closed 01/18/2023 08/21/2023 365 365 Encounter Details Date Type Department Care Team (Latest Contact Info) Description 02/28/2023 4:45 PM CDT Therapy Visit [address] [place] [address] Richa Londono, OT [address] [place] [address] Lymphedema due to venous insufficiency (Primary Dx) [...] Primary documented in this encounter Care Teams General Production Worker Relationship Specialty Start Date End Date Alondra Mathew MD [facility] [address] [place] [address] PCP - General 01/12/23 Linden Conrad MD [address] [place] [address] Assigned Heart and Vascular Provider 01/22/23 documented as of this encounter
--- OUTSIDE RECORDS SUMMARY | 2023-09-16 08:07 | XMS_ITS | Encounter Summary ---
Author Name Unknown Organization [place] Address [address] [facility] [place] [address] Care Team Providers Care Industrial Sociologist Name Role Phone Alondra Mathew MD Primary Care Provider Linden Conrad MD Unavailable [phone] Reason for Referral * Rehab Therapy Physical Therapy (Routine: Next available opening) - Pending Review Specialty Diagnoses / Procedures Referred By Farzana meredith Referred To Contact Diagnoses Lymphedema due to venous insufficiency Linden Conrad MD [address] [facility] [address] [place] [address] Referral ID Status Reason Start Date Expiration Date V isits Requested Visits Authorized Pending Review 01/13/2023 01/13/2024 1 1 Question Answer Preferred Location: [facility] Scheduling Instructions: If you have not heard from the scheduling office within 2 business days, please call [phone] for [facility], for [place] and [phone] for [facility]. Course of Action PT or OT Evaluation and Treatment PT/OT Treatment Diagnosis Lymphedema, Phlebolymphedema, Edema Comments If you have not heard from the scheduling office within 2 business days, please call [phone] for all locations, with the exception of [place], please call [phone] and [facility], please call [phone]. Please be aware that coverage of these services is subject to the terms and limitations of your health insurance plan. Call member services at your health plan with any benefit or coverage questions. If you have not heard from the scheduling office within 2 business days, please call [phone] for [facility], for [place] and [phone] for [place]. Encounter Details Date Type Department Care Team (Late st Contact Info) Description 01/13/2023 Orders Only [facility] - Heart & Vascular Service Line [address] [place] [address] Linden Conrad MD [address] [facility] [address] [address] Lymphedema due to venous insufficiency (Primary Dx) [...] Primary documented in this encounter Care Teams Industrial Sociologist Relationship Specialty Start Date End Date Alondra Mathew MD [facility] [address] [place] [address] PCP - General 01/12/23 Linden Conrad MD [address] [place] [address] Assigned Heart and Vascular Provider 01/22/23 documented as of this encounter
--- OUTSIDE RECORDS SUMMARY | 2023-09-16 08:07 | XMS_ITS | Encounter Summary ---
Author Name Unknown Organization [place] Address [facility] [place] [address] Care Team Providers Care Human Resources Trainer Name Role Phone Alondra Mathew MD Primary Care Provider Linden Conrad MD Unavailable [phone] Encounter Details Date Type Department Care Team [...] on filedocumented in this encounter Care Teams Human Resources Trainer Relationship Specialty Start Date End Date Alondra Mathew MD [facility] [address] [place] [address] PCP - General 01/12/23 Linden Conrad MD [address] [place] [id number] Assigned Heart and Vascular Provider 01/22/23 documented as of this encounter
--- OUTSIDE RECORDS SUMMARY | 2023-09-16 08:07 | XMS_ITS | Encounter Summary ---
Author Name Unknown Organization [place] Address [address] [place] [address]. [place] [address] Care Team Providers Care Metal Die Finisher Name Role Phone Alondra Mathew MD Primary Care Provider [phone] Linden Conrad MD Unavailable [phone] Reason for Visit * Rehab Therapy Integrated Services (Routine: Next available opening) - Closed Specialty Diagnoses / Procedures Referred By Farzana t Referred To Contact Diagnoses Lymphedema due to venous insufficiency [address] [address] Referral ID Status Reason Start Date Expiration Date Visits Re quested Visits Authorized Closed 01/18/2023 08/21/2023 365 365 Encounter Details Date Type Department Care Team (Latest Contact Info) Description 03/02/2023 4:45 PM CDT Therapy Visit [facility] [address] [place] [address] Linden Conrad MD [address] [facility] [address] [place], [place] [id number] Richa Londono, OT [address] [place] [address] Lymphedema due to venous insufficiency (Primary Dx) [...] Primary documented in this encounter Care Teams Metal Die Finisher Relationship Specialty Start Date End Date Alondra Mathew MD [facility] & [address] [address] PCP - General 01/12/23 Linden Conrad MD [address] [facility] [address] [place] [address] Assigned Heart and Vascular Provider 01/22/23 documented as of this encounter
--- OUTSIDE RECORDS SUMMARY | 2023-09-16 08:07 | XMS_ITS | Encounter Summary ---
Author Name Unknown Organization [place] Address [address] [place] [address] Care Team Providers Care Funeral Home Assistant Name Role Phone Alondra Mathew MD Primary Care Provider Reason for Visit * Diagnostic Imaging Ultrasound (Routine) - Pending Review Specialty Diagnoses / Procedures Referred By Contac t Referred To Contact Radiology. Diagnoses Varicose veins of bilateral lower extremities with pain Procedures US Venous Competency Bilateral Shivani Conrad MD [address] [place] [address] Referral ID Status Reason Start Date Expiration Date V isits Requested Visits Authorized [id number] Pending Review 12/21/2022 12/21/2023 1 1 Encounter Details Date Type Department Care Team (Latest Contact Info) Description 01/13/2023 8:00 AM CDT Ancillary Procedure [facility] [address] [address] [place] [phone] Shivani Conrad MD [address] [place] [id number] Varicose veins of bilateral lower extremities with [...] Perforators: there is no evidence of incompetent mill tender veins at any level. ? LEFT: ?? [...] Perforators: there is no evidence of incompetent mill tender veins at any level. ?? Varicose veins are noted on the lateral thigh that course towards a possible buttock mill tender measuring 5.2 mm with 1980 milliseconds of [...] great saphenous vein incompetence. SHIVANI CONRAD M.D., [facility], [facility] Incompetence Criteria: Greater than 500 milliseconds in superficial and mill tender veins and greater than 1000 milliseconds in deep veins. ?? Narrative 01/18/2023 3:42 PM CDT Name: ??Elvira Burden ? Date: January 13, 2023 ?: 1985 Sex: female Shivani Conrad MD IMG US ORDERABLE S documented in this encounter Visit Diagnoses Diagnosis Varicose veins of bilateral lower extremities with pain documented in this encounter Care Teams Funeral Home Assistant Relationship Specialty Start Date End Date Alondra Mathew MD [facility] [address] [place] [address] PCP - General 01/12/23 documented as of this encounter
--- OUTSIDE RECORDS SUMMARY | 2023-09-16 08:07 | XMS_ITS | Encounter Summary ---
Author Name Unknown Organization [place] Address [facility] [place] [address] Care Team Providers Care Bridge Repair Crew Person Name Role Phone Alondra Mathew MD Primary Care Provider Linden Conrad MD Unavailable [phone] Encounter Details Date Type Department Care Team [...] on filedocumented in this encounter Care Teams Bridge Repair Crew Person Relationship Specialty Start Date End Date Alondra Mathew MD [facility] [address] [place] [address] PCP - General 01/12/23 Linden Cornad MD [address] [place] [address] Assigned Heart and Vascular Provider 01/22/23 documented as of this encounter
--- OUTSIDE RECORDS SUMMARY | 2023-09-16 08:07 | XMS_ITS | Encounter Summary ---
Author Name Unknown Organization [place] Address [address] [place] [address] Care Team Providers Care Box Stacker Name Role Phone Alondra Mathew MD Primary [...] on filedocumented in this encounter Care Teams Box Stacker Relationship Specialty Start Date End Date Alondra Mathew MD [address] [address] PCP - General 01/12/23 documented as of this encounter
--- OUTSIDE RECORDS SUMMARY | 2023-09-16 08:07 | XMS_ITS | Encounter Summary ---
Author Name Unknown Organization [place] Address [address] [place] [address]. [place] [address] Care Team Providers Care Towel Hemmer Name Role Phone Alondra Mathew MD Primary Care Provider Linden Conrad MD Unavailable [phone] Reason for Visit * Rehab Therapy Integrated Services (Routine: Next available opening) - Closed Specialty Diagnoses / Procedures Referred By Farzana t Referred To Contact Diagnoses Lymphedema due to venous insufficiency [address] [address] Referral ID Status Reason Start Date Expiration Date Visits Re quested Visits Authorized Closed 01/18/2023 08/21/2023 365 365 Encounter Details Date Type Department Care Team (Late st Contact Info) Description 02/02/2023 7:30 AM CDT Therapy Visit [facility] [address] [place] [phone] Linden Conrad MD [address] [place] [address] Monique Miramontes, OT [address] [facility] [place] [address] Lymphedema due to venous insufficiency Social History [...] at home: None Equipment owned: 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[employer] Hobbies/Interests: reading, computers/alyssia Patient goals for therapy: [...] Interventions: Self-Care/Home Management, Therapeutic Exercise, Manual Therapy Medical Insurance Collector Goals OT Goal 1 Goal Identifier: volume [...] insufficiency documented in this encounter Care Teams Towel Hemmer Relationship Specialty Start Date End Date Alondra Mathew MD [facility] [address] [place] [address] PCP - General 01/12/23 Linden Conrad MD [address] [place] [address] Assigned Heart and Vascular Provider 01/22/23 documented as of this encounter
--- OUTSIDE RECORDS SUMMARY | 2023-09-16 08:07 | XMS_ITS | Encounter Summary ---
Author Name Unknown Organization [place] Address [address] [place] [address] Care Team Providers Care Pet House Sitter Name Role Phone Unavailable Primary Care Provider Unavailabl e Reason for Referral * Diagnostic Imaging Ultrasound (Routine) - Pending Review Specialty Diagnoses / Procedures Referred By Contac t Referred To Contact Radiology. Diagnoses Varicose veins of bilateral lower extremities with pain Procedures US Venous Competency Bilateral Shivani Conrad MD [address] [place] [id number] Referral ID Status Reason Start Date Expiration Date V isits Requested Visits Authorized [id number] Pending Review 12/21/2022 12/21/2023 1 1 Encounter Details Date Type Department Care Team (Late st Contact Info) Description 12/21/2022 Orders Only [facility] [place] [address] [place] [address] Shivani Conrad MD [address] [place] [address] Varicose veins of bilateral lower extremities with [...] Perforators: there is no evidence of incompetent nougat cutter machine veins at any level. ? LEFT: ?? [...] Perforators: there is no evidence of incompetent nougat cutter machine veins at any level. ?? Varicose veins are noted on the lateral thigh that course towards a possible buttock nougat cutter machine measuring 5.2 mm with 1980 milliseconds of [...] Greater than 500 milliseconds in superficial and nougat cutter machine veins and greater than 1000 milliseconds in [...]
--- OUTSIDE RECORDS SUMMARY | 2023-09-16 08:07 | XMS_ITS | Encounter Summary ---
Author Name Unknown Organization [place] Address [facility] [place] [address] Care Team Providers Care Trip Rider Name Role Phone Alondra Mathew MD Primary Care Provider Linden Conrad MD Unavailable [phone] Encounter Details Date Type Department Care Team [...] on filedocumented in this encounter Care Teams Trip Rider Relationship Specialty Start Date End Date Alondra Mathew MD [facility] [address] [place] [address] PCP - General 01/12/23 Linden Conrad MD [address] [place] [address] Assigned Heart and Vascular Provider 01/22/23 documented as of this encounter
--- OUTSIDE RECORDS SUMMARY | 2023-09-16 08:07 | XMS_ITS | Encounter Summary ---
Author Name Unknown Organization [place] Address [address] [facility] [place] [address] Care Team Providers Care Hammerer Name Role Phone Unavailable Primary Care Provider Unavailabl e Reason for Visit * Reason Onset Date Comments Referral 12/17/2022 Encounter Details Date Type Department Care Team (Late st Contact Info) Description 12/17/2022 Telephone [facility] [address] [place] [address] Sivakumar Orta MD [address] [address] Referral Social History Tobacco Use Types Packs/Day [...] Faxed referral received from Dr. Mathew at [facility]. Left message for pt to call and schedule an appointment if interested [phone]. documented in this encounter Plan of Treatment Not on file documented as of this encounter Visit Diagnoses Not on filedocumented in this encounter
--- OUTSIDE RECORDS SUMMARY | 2023-09-16 08:07 | XMS_ITS | Encounter Summary ---
Author Name Unknown Organization [place] Address [address] [place] [address]. [place] [address] Care Team Providers Care Mental Health Tech Name Role Phone Alondra Mathew MD Primary Care Provider [phone] Reason for Referral * Rehab Therapy Integrated Services (Routine: Next available opening) - Closed Specialty Diagnoses / Procedures Referred By Farzana meredith Referred To Contact Diagnoses Lymphedema due to venous insufficiency [address] [address] Referral ID Status Reason Start Date Expiration Date Visits Re quested Visits Authorized Closed 01/18/2023 08/21/2023 365 365 Question Answer Preferred Location: [facility] Scheduling Instructions: If you have not heard from the scheduling office within 2 business days, please call [phone] for [place], for [place] and [phone] [place]. Course of Action PT or OT Evaluation and Treatment PT/OT Treatment Diagnosis Lymphedema Comments If you have not heard from the scheduling office within 2 business days, please call [phone] for all locations, with the exception of [place], please call [phone] [place], please call [phone]. Please be aware that coverage of these services is subject to the terms and limitations of your health insurance plan. Call member services at your health plan with any benefit or coverage questions. If you have not heard from the scheduling office within 2 business days, please call [phone] for [facility], for [place] and [phone] for [place]. Reason for Visit * Reason Comments Consult Referred by Dr. Snehal lemos at [facility] for BVV w/ pain, and swelling. R>L. DVT in right leg 12/2013. Bilateral venous comp at 8am. No hx of tx. Encounter Details Date Type Department Care Team (Latest Contact Info) Description 01/13/2023 9:30 AM CDT Office Visit [facility] [place] [address] [place] [address] Linden Conrad MD [address] [place] [address] Varicose veins of bilateral lower extremities with [...] higher, or as advised by your provider [employer] last reviewed this educational content on 11/20/2017 ?? 8232-9955 [employer]. All rights reserved. This information is not [...] rock back and forth on your heels. [employer] last reviewed this educational content on 06/22/2019 ?? 9131-2169 [employer]. All rights reserved. This information is not [...] Infection Scarring Inflammation related to the glue [employer] last reviewed this educational content on 06/22/2019 (Sclerotherapy image) 07/22/2019 (Radiofrequency ablation image, Microphlebectomy image) ?? [id number] [employer]. All rights reserved. This information is not [...] insufficiency documented in this encounter Care Teams Mental Health Tech Relationship Specialty Start Date End Date Alondra Mathew MD [facility] [place] [id number] PCP - General 01/12/23 documented as of this encounter
--- OUTSIDE RECORDS SUMMARY | 2023-09-16 08:07 | XMS_ITS | Encounter Summary ---
Author Name Unknown Organization [place] Address [address] [place] [address]. [place] [address] Care Team Providers Care Bolting Machine Operator Name Role Phone Alondra Mathew MD Primary Care Provider Linden Conrad MD Unavailable [phone] Reason for Visit * Rehab Therapy Integrated Services (Routine: Next available opening) - Closed Specialty Diagnoses / Procedures Referred By Farzana meredith Referred To Contact Diagnoses Lymphedema due to venous insufficiency [address] [address] Referral ID Status Reason Start Date Expiration Date Visits Re quested Visits Authorized Closed 01/18/2023 08/21/2023 365 365 Encounter Details Date Type Department Care Team (Latest Contact Info) Description 03/14/2023 4:45 PM CDT Therapy Visit [address] [place] [address] Richa Londono, OT [address] [place] [address] Lymphedema due to venous insufficiency (Primary Dx) [...] Primary documented in this encounter Care Teams Bolting Machine Operator Relationship Specialty Start Date End Date Alondra Mathew MD [facility] [address] [place] [address] PCP - General 01/12/23 Linden Conrad MD [address] [place] [address] Assigned Heart and Vascular Provider 01/22/23 documented as of this encounter
--- OUTSIDE RECORDS SUMMARY | 2023-09-16 08:07 | XMS_ITS | Encounter Summary ---
Author Name Unknown Organization [place] Address [facility] [place] [address] Care Team Providers Care Road Design Engineer Name Role Phone Alondra Mathew MD [...] on filedocumented in this encounter Care Teams Road Design Engineer Relationship Specialty Start Date End Date Alondra Mathew MD [address] [address] PCP - General 01/12/23 documented as of this encounter
--- NOTE | 2023-09-16 08:15 | CRLHL7_ITS ---
For Patients: As a result of the Century Cures Act, medical imaging exams and procedure reports are released immediately into your electronic medical record. You may view this report before your referring provider. If you have questions, please contact your health care provider. INDICATION : Chronic diabetic foot ulcer. History of amputation of the great toe. COMPARISON: 24 August 2023 plain film. TECHNIQUE: Axial, coronal and sagittal T1 and STIR right foot. FINDINGS: Chronic appearing amputation of the 1st toe at the MTP joint. Normal appearance of the soft tissue stump. Normal marrow signal and morphology of the metatarsal. Chronic destructive arthropathy at the 2nd and 3rd MCP joints suggests neuropathic arthropathy. Multiple fragments are sclerotic. No obvious septic arthritis or osteomyelitis. Small joint effusion associated with the 2nd MTP arthropathy. No significant marrow signal abnormality appreciated in the toes. Anatomic alignment at the midfoot with normal Lisfranc ligament. Moderate fatty atrophy of intrinsic muscles. Tenosynovitis of the flexor tendons to the 2nd and 3rd toe through the metatarsal midfoot. IMPRESSION: No osteomyelitis. 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 Dictated by Gabe Cronin MD @ 09/16/2023 4:19:00 PM (Electronically Signed)
== END 2023-09-16 08:05 | disposition home or self-care (01) ==
LOC: MRI 08:05
PROVIDERS: PCP Internal Medicine; Visit Provider Nurse Practitioner Family
DX: E11.621 Type 2 diabetes mellitus with foot ulcer (principal); E11.610 Type 2 diabetes mellitus with diabetic neuropathic arthropathy
CPT/HCPCS: 73718

== ENCOUNTER 2023-09-22 08:10 | Outpatient (CLI) | payer BC, SELFPAY ==
--- OUTSIDE RECORDS SUMMARY | 2023-09-22 08:13 | XMS_ITS | Referral Summary ---
Author Name Unknown Organization [place] Address [address] [place] [address] Care Team Providers Care Senior Stereo Compiler Team Lead Name Role Phone Alondra Mathew MD Primary Care Provider Linden Conrad MD Unavailable [phone] Allergies Active Allergy Reactions Criticality Noted Date [...] of Treatment Not on file Care Teams Senior Stereo Compiler Team Lead Relationship Specialty Start Date End Date Alondra Mathew MD [facility] [address] [place] [address] PCP - General 01/12/23 Linden Conrad MD [address] [place] [address] Assigned Heart and Vascular Provider 01/22/23
--- OUTSIDE RECORDS SUMMARY | 2023-09-22 08:13 | XMS_ITS | Clinical Summary ---
Author Name Unknown Organization [place] Address [facility], [address] [place] [address] Care Team Providers Care Venetian Blind Worker Name Role Phone Alondra Mathew MD Primary Care Provider Linden Conrad MD Unavailable [phone] Allergies Active Allergy Reactions Criticality Noted Date [...] 1985 ANNUAL REVIEW OF HM ORDERS 1986 GLUCOSE 1986 YEARLY PREVENTIVE VISIT 1986 IPV IMMUNIZATION [...] age to complete this topic Care Teams Venetian Blind Worker Relationship Specialty Start Date End Date Alondra Mathew MD [facility] [address] [place] [address] PCP - General 01/12/23 Linden Conrad MD [address] [place] [address] Assigned Heart and Vascular Provider 01/22/23
--- OUTSIDE RECORDS SUMMARY | 2023-09-22 08:13 | XMS_ITS | Continuity of Care Document ---
Author Name Unknown Organization [facility] Address [address] [place] [address] Phone Care Team Providers Care Security Installation Sales Technician Name Role Phone Avery Underwood MD [...] - [place] 2019 Lami/Discectomy, Lumbar HNP Office/Outpatient Visit,[facility] 2019 Advance Directives Directive Yes / No Effective Date File Name No Information Encounters Encounter Description Practice Location Reason(s) For Visit Diagnoses Date Provider Providers Copied on Encounter [facility], [address], [place], [id number], [place] tel:[phone] [facility] No Information 0 Yasmine Smart er. [facility], [address] [place] [address], [address], [place], [place], [id number] , [place]. [phone] [facility], [address], [place], [id number], [place] tel:[phone] [facility] Encounter for follow-up examination after completed treatment for conditions other than malignant neoplasm 0 Underwoodned Omeroph er. [facility], [address] [place] [address], [address], [place], [place], [id number] , [place]. [phone] Referring Provider: Mile Ni [email or web address] [address], [address]. tel:[phone] [facility], [address], [place], [id number], [place] tel:[phone] [facility] Encounter for follow-up examination after completed treatment for conditions other than malignant neoplasm 0 Underwood Berry er. [facility] [place], [address], [address], [place], [place], [address] , [place]. tel:[phone] Referring Provider: Mile Ni [employer] [address] [place] [address], [address]. tel:[phone] [facility], [address], [place], [id number], [place] tel:[phone] [facility] Encounter for other specified surgical aftercare 0 Magnus Isi. [facility], [address], [place], [address], [place]. tel:[phone] Referring Provider: Mile Ni [employer] [address] [place], [address]. tel:[phone] [facility], [address], [place], [address], [place] tel:[phone] No Information May-1 2- 0 Magnus Isi. [facility], [address] [facility] [address], [place], [address], [place]. tel:[phone] Referring Provider: Mile Ni [employer] [address] [place] [address], [address]. tel:[phone] [facility], [address], [place], [id number], [place] tel:[phone] No Information May-0 0 Yasmine gallego. [facility], [address] [place] [address], [address], [place], [id number] , [place]. tel:[phone] Referring Provider: Mile Ni [employer] [facility] [place], [address]. tel:[phone] [facility], [address], [place], [id number], [place] tel:[phone] [facility] Encounter for other specified surgical aftercare Sep-3 0-202 0 Magnus Isi. [facility], [address] [place] [address] [address], [place], [address], [place]. tel:[phone] Referring Provider: Mile Ni [employer] [address] [place] [address], [address]. tel:[phone] [facility], [address], [place], [address], [place] tel:[phone] No Information Sep-2 0 Magnus Snowden. [facility], [address], [place], [address], [place]. [phone] Referring Provider: Mile Ni, [employer] [address], [address]. tel:[phone] [facility], [address], [place], [id number], [place] tel:[phone] No Information Sep-2 0 Yasmine gallego. [facility], [address] [place] [address], [address], [facility] [place], [id number] , [place]. [phone] Referring Provider: Mile Ni, [employer] [address] [place] [address], [address]. tel:[phone] Office/Outpat ient Visit,[facility], [address], [place], [id number], [place] tel:[phone] [facility] Other intervertebral disc displacement, lumbar regionRadiculop athy, lumbar region Sep-1 0 Magnus Snowden. [facility], [address], [place], [address], [place]. [phone] Referring Provider: Mile Ni, [employer] [address] [place] [address], [address]. tel:[phone] Family History Family Member Type Diagnosis Age At Onset No Information Payers Payer name Insurance type Covered libertarian ID jacquelyn yongzuri(s) [employer] [id number] Social History Type Description Quantity Date Captured [...]
--- OUTSIDE RECORDS SUMMARY | 2023-09-22 08:14 | XMS_ITS | Encounter Summary ---
Author Name Unknown Organization [place] Address [address] [place] [address] Care Team Providers Care Tearer Name Role Phone Alondra Mathew MD Primary Care Provider Reason for Visit * Diagnostic Imaging Ultrasound (Routine) - Pending Review Specialty Diagnoses / Procedures Referred By Contac t Referred To Contact Radiology. Diagnoses Varicose veins of bilateral lower extremities with pain Procedures US Venous Competency Bilateral Shivani Conrad MD [address] [place] [address] Referral ID Status Reason Start Date Expiration Date V isits Requested Visits Authorized [id number] Pending Review 12/21/2022 12/21/2023 1 1 Encounter Details Date Type Department Care Team (Latest Contact Info) Description 01/13/2023 8:00 AM CDT Ancillary Procedure [facility] [address] [address] [place] [address] Shivani Conrad MD [address] [place] [id number] Varicose veins of bilateral lower extremities with [...] Perforators: there is no evidence of incompetent chemical unit operator veins at any level. ? LEFT: [...] Perforators: there is no evidence of incompetent chemical unit operator veins at any level. ?? Varicose veins are noted on the lateral thigh that course towards a possible buttock chemical unit operator measuring 5.2 mm with 1980 milliseconds [...] great saphenous vein incompetence. SHIVANI CONRAD M.D., [facility], [facility] Incompetence Criteria: Greater than 500 milliseconds in superficial and chemical unit operator veins and greater than 1000 milliseconds in deep veins. ?? Narrative 01/18/2023 3:42 PM CDT Name: ??Elvira Burden ? Date: January 13, 2023 ?: 1985 Sex: female Shivani Conrad MD IMG US ORDERABLE S documented in this encounter Visit Diagnoses Diagnosis Varicose veins of bilateral lower extremities with pain documented in this encounter Care Teams Tearer Relationship Specialty Start Date End Date Alondra Mathew MD [facility] [address] [place] [address] PCP - General 01/12/23 documented as of this encounter
--- OUTSIDE RECORDS SUMMARY | 2023-09-22 08:14 | XMS_ITS | Encounter Summary ---
Author Name Unknown Organization [place] Address [address] [place] [address] Care Team Providers Care Window Glazier Helper Name Role Phone Unavailable Primary Care Provider Unavailabl e Reason for Visit * Reason Onset Date Comments Referral 12/17/2022 Encounter Details Date Type Department Care Team (Late st Contact Info) Description 12/17/2022 Telephone [facility] [address] [place] [address] Sivakumar Orta MD [address] [address] Referral Social History Tobacco Use Types Packs/Day [...] Faxed referral received from Dr. Mathew at [facility]. Left message for pt to call and schedule an appointment if interested [phone]. documented in this encounter Plan of Treatment Not on file documented as of this encounter Visit Diagnoses Not on filedocumented in this encounter
--- OUTSIDE RECORDS SUMMARY | 2023-09-22 08:14 | XMS_ITS | Encounter Summary ---
Author Name Unknown Organization [place] Address [address] [facility] [place] [address] Care Team Providers Care Naval Marine Engineer Name Role Phone Alondra Mathew MD Primary Care Provider Linden Conrad MD Unavailable Reason for Visit * Reason Comments RECHECK Follow up for 3 mth reevaluation for lymphodema. Going well for her. Encounter Details Date Type Department Care Team (Late st Contact Info) Description 04/21/2023 10:30 AM CDT Office Visit [facility] [place] [address] [place] [address] Linden Conrad MD [address] [place] [address] Post-thrombotic syndrome of right lower extremity (Primary [...] pain documented in this encounter Care Teams Naval Marine Engineer Relationship Specialty Start Date End Date Alondra Mathew MD [facility] [address] [place] [address] PCP - General 01/12/23 Linden Conrad MD [address] [place] [address] Assigned Heart and Vascular Provider 01/22/23 documented as of this encounter
--- OUTSIDE RECORDS SUMMARY | 2023-09-22 08:14 | XMS_ITS | Encounter Summary ---
Author Name Unknown Organization [place] Address [address] [place] [address] Care Team Providers Care Button Sawyer Name Role Phone Alondra Mathew MD Primary [...] on filedocumented in this encounter Care Teams Button Sawyer Relationship Specialty Start Date End Date Alondra Mathew MD [address] [address] PCP - General 01/12/23 documented as of this encounter
--- OUTSIDE RECORDS SUMMARY | 2023-09-22 08:14 | XMS_ITS | Encounter Summary ---
Author Name Unknown Organization [place] Address [facility] [place] [address] Care Team Providers Care Maintenance Of Way Supervisor Name Role Phone Alondra Mathew MD Primary Care Provider [phone] Linden Conrad MD Unavailable [phone] Encounter Details Date Type Department Care Team [...] on filedocumented in this encounter Care Teams Maintenance Of Way Supervisor Relationship Specialty Start Date End Date Alondra Mathew MD [facility] [address] [place] [address] PCP - General 01/12/23 Linden Conrad MD [address] [place] [address] Assigned Heart and Vascular Provider 01/22/23 documented as of this encounter
--- OUTSIDE RECORDS SUMMARY | 2023-09-22 08:14 | XMS_ITS | Encounter Summary ---
Author Name Unknown Organization [place] Address [address] [place] [address]. [place] [address] Care Team Providers Care Wood Tank Builder Name Role Phone Alondra Mathew MD Primary Care Provider Reason for Referral * Rehab Therapy Integrated Services (Routine: Next available opening) - Closed Specialty Diagnoses / Procedures Referred By Farzana meredith Referred To Contact Diagnoses Lymphedema due to venous insufficiency [address] [address] Referral ID Status Reason Start Date Expiration Date Visits Re quested Visits Authorized Closed 01/18/2023 08/21/2023 365 365 Question Answer Preferred Location: [facility] Scheduling Instructions: If you have not heard from the scheduling office within 2 business days, please call [phone] for [employer], for [place] and [phone] for [place]. Course of Action PT or OT Evaluation and Treatment PT/OT Treatment Diagnosis Lymphedema Comments If you have not heard from the scheduling office within 2 business days, please call [phone] for all locations, with the exception of [place], please call [phone] and [place], please call [phone]. Please be aware that coverage of these services is subject to the terms and limitations of your health insurance plan. Call member services at your health plan with any benefit or coverage questions. If you have not heard from the scheduling office within 2 business days, please call [phone] for [facility], for [place] and [phone] for [place]. Reason for Visit * Reason Comments Consult Referred by Dr. Snehal lemos at [facility] for BVV w/ pain, and swelling. R>L. DVT in right leg 12/2013. Bilateral venous comp at 8am. No hx of tx. Encounter Details Date Type Department Care Team (Latest Contact Info) Description 01/13/2023 9:30 AM CDT Office Visit [facility] [place] [address] [place] [address] Linden Conrad MD [address] [place] [address] Varicose veins of bilateral lower extremities with [...] higher, or as advised by your provider [employer] last reviewed this educational content on 11/20/2017 ?? 7720-2297 [employer]. All rights reserved. This information is not [...] rock back and forth on your heels. [employer] last reviewed this educational content on 06/22/2019 ?? 4088-3650 [employer]. All rights reserved. This information is not [...] Infection Scarring Inflammation related to the glue [employer] last reviewed this educational content on 06/22/2019 (Sclerotherapy image) 07/22/2019 (Radiofrequency ablation image, Microphlebectomy image) ?? [id number] [employer]. All rights reserved. This information is not [...] insufficiency documented in this encounter Care Teams Wood Tank Builder Relationship Specialty Start Date End Date Alondra Mathew MD [facility] & [place] [id number] PCP - General 01/12/23 documented as of this encounter
--- OUTSIDE RECORDS SUMMARY | 2023-09-22 08:14 | XMS_ITS | Encounter Summary ---
Author Name Unknown Organization [place] Address [facility] [place] [address] Care Team Providers Care Acquisition Consultant Name Role Phone Alondra Mathew MD Primary Care Provider Linden Conrad MD Unavailable [phone] Encounter Details Date Type Department Care Team [...] on filedocumented in this encounter Care Teams Acquisition Consultant Relationship Specialty Start Date End Date Alondra Mathew MD [facility] [address] [place] [address] PCP - General 01/12/23 Linden Conrad MD [address] [place] [address] Assigned Heart and Vascular Provider 01/22/23 documented as of this encounter
--- OUTSIDE RECORDS SUMMARY | 2023-09-22 08:14 | XMS_ITS | Encounter Summary ---
Author Name Unknown Organization [place] Address [address] [place] [address]. [place] [address] Care Team Providers Care Spa Attendant Name Role Phone Alondra Mathew MD Primary Care Provider Linden Conrad MD Unavailable [phone] Reason for Visit * Rehab Therapy Integrated Services (Routine: Next available opening) - Closed Specialty Diagnoses / Procedures Referred By Farzana t Referred To Contact Diagnoses Lymphedema due to venous insufficiency [address] [address] Referral ID Status Reason Start Date Expiration Date Visits Re quested Visits Authorized Closed 01/18/2023 08/21/2023 365 365 Encounter Details Date Type Department Care Team (Latest Contact Info) Description 03/02/2023 4:45 PM CDT Therapy Visit [facility] [address] [place] [address] Linden Conrad MD [address] [facility] [address] [place], [place] [id number] Richa Londono, OT [address] [place] [address] Lymphedema due to venous insufficiency (Primary Dx) [...] Primary documented in this encounter Care Teams Spa Attendant Relationship Specialty Start Date End Date Alondra Mathew MD [facility] & [address] [address] PCP - General 01/12/23 Linden Conrad MD [address] [facility] [address] [place] [address] Assigned Heart and Vascular Provider 01/22/23 documented as of this encounter
--- OUTSIDE RECORDS SUMMARY | 2023-09-22 08:14 | XMS_ITS | Encounter Summary ---
Author Name Unknown Organization [place] Address [address] [place] [address] Care Team Providers Care Operating Room Manager Name Role Phone Unavailable Primary Care Provider Unavailabl e Reason for Referral * Diagnostic Imaging Ultrasound (Routine) - Pending Review Specialty Diagnoses / Procedures Referred By Contac t Referred To Contact Radiology. Diagnoses Varicose veins of bilateral lower extremities with pain Procedures US Venous Competency Bilateral Shivani Conrad MD [address] [place] [address] Referral ID Status Reason Start Date Expiration Date V isits Requested Visits Authorized [id number] Pending Review 12/21/2022 12/21/2023 1 1 Encounter Details Date Type Department Care Team (Late st Contact Info) Description 12/21/2022 Orders Only [facility] [place] [address] [place] [address] Shivani Conrad MD [address] [place] [address] Varicose veins of bilateral lower extremities with [...] Perforators: there is no evidence of incompetent cement railroad car loader veins at any level. ? LEFT: ?? [...] Perforators: there is no evidence of incompetent cement railroad car loader veins at any level. ?? Varicose veins are noted on the lateral thigh that course towards a possible buttock cement railroad car loader measuring 5.2 mm with 1980 milliseconds of [...] Greater than 500 milliseconds in superficial and cement railroad car loader veins and greater than 1000 milliseconds in deep veins. ?? Narrative 01/18/2023 3:42 PM CDT Name: ??Elvira Chen Jenise ? Date: January 13, 2023 ?: 1985 Sex: female Shivani Conard MD IMG US ORDERABLE S documented in this encounter Visit Diagnoses Diagnosis Varicose veins of bilateral lower extremities with pain- Primary Varicose veins of bilateral lower extremities with pain documented in this encounter
--- OUTSIDE RECORDS SUMMARY | 2023-09-22 08:14 | XMS_ITS | Encounter Summary ---
Author Name Unknown Organization [place] Address [facility] [place] [address] Care Team Providers Care Grab Jack Worker Name Role Phone Alondra Mathew MD [...] on filedocumented in this encounter Care Teams Grab Jack Worker Relationship Specialty Start Date End Date Alondra Mathew MD [address] [address] PCP - General 01/12/23 documented as of this encounter
--- OUTSIDE RECORDS SUMMARY | 2023-09-22 08:14 | XMS_ITS | Encounter Summary ---
Author Name Unknown Organization [place] Address [address] [place] [address]. [place] [address] Care Team Providers Care Supervisor Forming Department Name Role Phone Alondra Mathew MD Primary Care Provider [phone] Linden Conrad MD Unavailable [phone] Reason for Visit * Rehab Therapy Integrated Services (Routine: Next available opening) - Closed Specialty Diagnoses / Procedures Referred By Farzana meredith Referred To Contact Diagnoses Lymphedema due to venous insufficiency [address] [address] Referral ID Status Reason Start Date Expiration Date Visits Re quested Visits Authorized Closed 01/18/2023 08/21/2023 365 365 Encounter Details Date Type Department Care Team (Latest Contact Info) Description 02/28/2023 4:45 PM CDT Therapy Visit [address] [place] [address] Richa Londono, OT [address] [place] [address] Lymphedema due to venous insufficiency (Primary Dx) [...] Primary documented in this encounter Care Teams Supervisor Forming Department Relationship Specialty Start Date End Date Alondra Mathew MD [facility] [address] [place] [address] PCP - General 01/12/23 Linden Conrad MD [address] [place] [address] Assigned Heart and Vascular Provider 01/22/23 documented as of this encounter
--- OUTSIDE RECORDS SUMMARY | 2023-09-22 08:14 | XMS_ITS | Encounter Summary ---
Author Name Unknown Organization [place] Address [facility] [place] [address] Care Team Providers Care Screen Tender Helper Name Role Phone Alondra Mathew MD Primary Care Provider Linden Conrad MD Unavailable [phone] Encounter Details Date Type Department Care Team [...] on filedocumented in this encounter Care Teams Screen Tender Helper Relationship Specialty Start Date End Date Alondra Mathew MD [facility] [address] [place] [address] PCP - General 01/12/23 Linden Conrad MD [address] [place] [address] Assigned Heart and Vascular Provider 01/22/23 documented as of this encounter
--- OUTSIDE RECORDS SUMMARY | 2023-09-22 08:14 | XMS_ITS | Encounter Summary ---
Author Name Unknown Organization [place] Address [address] [place] [address]. [place] [address] Care Team Providers Care Intellectual Property Counsel Name Role Phone Alondra Mathew MD Primary Care Provider Linden Conrad MD Unavailable [phone] Reason for Visit * Rehab Therapy Integrated Services (Routine: Next available opening) - Closed Specialty Diagnoses / Procedures Referred By Farzana t Referred To Contact Diagnoses Lymphedema due to venous insufficiency [address] [address] Referral ID Status Reason Start Date Expiration Date Visits Re quested Visits Authorized Closed 01/18/2023 08/21/2023 365 365 Encounter Details Date Type Department Care Team (Late st Contact Info) Description 02/02/2023 7:30 AM CDT Therapy Visit 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[employer] Hobbies/Interests: reading, computers/[employer] Patient goals for therapy: [...] Interventions: Self-Care/Home Management, Therapeutic Exercise, Manual Therapy Quantitative Manager Goals OT Goal 1 Goal Identifier: volume [...] insufficiency documented in this encounter Care Teams Intellectual Property Counsel Relationship Specialty Start Date End Date Alondra Mathew MD [facility] [address] [place] [address] PCP - General 01/12/23 Linden Conrad MD [address] [place] [address] Assigned Heart and Vascular Provider 01/22/23 documented as of this encounter
--- OUTSIDE RECORDS SUMMARY | 2023-09-22 08:14 | XMS_ITS | Encounter Summary ---
Author Name Unknown Organization [place] Address [address] [place] [address]. [place] [address] Care Team Providers Care Plumber Apprentice Name Role Phone Alondra Mathew MD Primary Care Provider Linden Conrad MD Unavailable [phone] Reason for Visit * Rehab Therapy Integrated Services (Routine: Next available opening) - Closed Specialty Diagnoses / Procedures Referred By Farzana meredith Referred To Contact Diagnoses Lymphedema due to venous insufficiency [address] [address] Referral ID Status Reason Start Date Expiration Date Visits Re quested Visits Authorized Closed 01/18/2023 08/21/2023 365 365 Encounter Details Date Type Department Care Team (Latest Contact Info) Description 03/14/2023 4:45 PM CDT Therapy Visit [address] [place] [address] Richa Londono, OT [address] [place] [address] Lymphedema due to venous insufficiency (Primary Dx) [...] Primary documented in this encounter Care Teams Plumber Apprentice Relationship Specialty Start Date End Date Alondra Mathew MD [facility] [address] [place] [address] PCP - General 01/12/23 Linden Conrad MD [address] [place] [address] Assigned Heart and Vascular Provider 01/22/23 documented as of this encounter
--- OUTSIDE RECORDS SUMMARY | 2023-09-22 08:14 | XMS_ITS | Encounter Summary ---
Author Name Unknown Organization [place] Address [address] [facility] [place] [address] Care Team Providers Care Water Aerobics Instructor Name Role Phone Alondra Mathew MD Primary Care Provider Linden Conrad MD Unavailable [phone] Reason for Referral * Rehab Therapy Physical Therapy (Routine: Next available opening) - Pending Review Specialty Diagnoses / Procedures Referred By Farzana meredith Referred To Contact Diagnoses Lymphedema due to venous insufficiency Linden Conrad MD [address] [facility] [address] [place] [address] Referral ID Status Reason Start Date Expiration Date V isits Requested Visits Authorized Pending Review 01/13/2023 01/13/2024 1 1 Question Answer Preferred Location: [place] [facility] Scheduling Instructions: If you have not heard from the scheduling office within 2 business days, please call [phone] for [facility], for [place] and [phone] for [facility]. Course of Action PT or OT Evaluation and Treatment PT/OT Treatment Diagnosis Lymphedema, Phlebolymphedema, Edema Comments If you have not heard from the scheduling office within 2 business days, please call [phone] for all locations, with the exception of [place], please call [phone] and [facility], please call [phone]. Please be aware that coverage of these services is subject to the terms and limitations of your health insurance plan. Call member services at your health plan with any benefit or coverage questions. If you have not heard from the scheduling office within 2 business days, please call [phone] for [facility], for [place] and [phone] for [place]. Encounter Details Date Type Department Care Team (Late st Contact Info) Description 01/13/2023 Orders Only [facility] - Heart & Vascular Service Line [address] [place] [address] Linden Conrad MD [address] [facility] [address] [address] Lymphedema due to venous insufficiency (Primary Dx) [...] Primary documented in this encounter Care Teams Water Aerobics Instructor Relationship Specialty Start Date End Date Alondra Mathew MD [facility] [address] [place] [address] PCP - General 01/12/23 Linden Conrad MD [address] [place] [address] Assigned Heart and Vascular Provider 01/22/23 documented as of this encounter
--- OUTSIDE RECORDS SUMMARY | 2023-09-22 08:14 | XMS_ITS | Encounter Summary ---
Author Name Unknown Organization [place] Address [facility] [place] [address] Care Team Providers Care Greeting Card Writer Name Role Phone Alondra Mathew MD Primary Care Provider Linden Conrad MD Unavailable [phone] Encounter Details Date Type Department Care Team [...] on filedocumented in this encounter Care Teams Greeting Card Writer Relationship Specialty Start Date End Date Alondra Mathew MD [facility] [address] [place] [address] PCP - General 01/12/23 Linden Conrad MD [address] [place] [address] Assigned Heart and Vascular Provider 01/22/23 documented as of this encounter
--- OUTSIDE RECORDS SUMMARY | 2023-09-22 08:14 | XMS_ITS | Encounter Summary ---
Author Name Unknown Organization [place] Address [facility] [place] [address] Care Team Providers Care Industrial Eng Name Role Phone Alondra Mathew MD Primary Care Provider Linden Conrad MD Unavailable [phone] Encounter Details Date Type Department Care Team [...] on filedocumented in this encounter Care Teams Industrial Eng Relationship Specialty Start Date End Date Alondra Mathew MD [facility] [address] [place] [address] PCP - General 01/12/23 Linden Conrad MD [address] [place] [address] Assigned Heart and Vascular Provider 01/22/23 documented as of this encounter
--- OUTSIDE RECORDS SUMMARY | 2023-09-22 08:14 | XMS_ITS | Encounter Summary ---
Author Name Unknown Organization [place] Address [facility] [place] [address] Care Team Providers Care Event Planning Intern Name Role Phone Alondra Mathew MD Primary Care Provider Linden Conrad MD Unavailable [phone] Encounter Details Date Type Department Care Team [...] on filedocumented in this encounter Care Teams Event Planning Intern Relationship Specialty Start Date End Date Alondra Mathew MD [facility] & [facility] [address] [place] [address] PCP - General 01/12/23 Linden Conrad MD [address] [place] [address] Assigned Heart and Vascular Provider 01/22/23 documented as of this encounter
--- OUTSIDE RECORDS SUMMARY | 2023-09-22 08:14 | XMS_ITS | Encounter Summary ---
Author Name Unknown Organization [place] Address [address] [place] [address]. [place] [address] Care Team Providers Care Senior Java Architect Name Role Phone Alondra Mathew MD Primary Care Provider Linden Conrad MD Unavailable [phone] Reason for Visit * Rehab Therapy Integrated Services (Routine: Next available opening) - Closed Specialty Diagnoses / Procedures Referred By Farzana meredith Referred To Contact Diagnoses Lymphedema due to venous insufficiency [address] [address] Referral ID Status Reason Start Date Expiration Date Visits Re quested Visits Authorized Closed 01/18/2023 08/21/2023 365 365 Encounter Details Date Type Department Care Team (Latest Contact Info) Description 03/23/2023 4:45 PM CDT Therapy Visit [address] [place] [address] Richa Londono, OT [address] [place] [address] Lymphedema due to venous insufficiency (Primary Dx) [...] Procedure/Exercise;Manual Therapy Manual Therapy Manual Therapy Minutes (04445) 65 Manual Therapy 1 - Details quick [...] Primary documented in this encounter Care Teams Senior Java Architect Relationship Specialty Start Date End Date Alondra Mathew MD [facility] [address] [place] [address] PCP - General 01/12/23 Linden Conrad MD [address] [place] [address] Assigned Heart and Vascular Provider 01/22/23 documented as of this encounter
--- OUTSIDE RECORDS SUMMARY | 2023-09-22 08:14 | XMS_ITS | Encounter Summary ---
Author Name Unknown Organization [place] Address [facility] [place] [address] Care Team Providers Care Physical Sciences Instructor Name Role Phone Alondra Mathew MD Primary Care Provider [phone] Linden Conrad MD Unavailable [phone] Encounter Details Date Type Department Care Team [...] on filedocumented in this encounter Care Teams Physical Sciences Instructor Relationship Specialty Start Date End Date Alondra Mathew MD [facility] [address] [place] [address] PCP - General 01/12/23 Linden Conrad MD [address] [place] [address] Assigned Heart and Vascular Provider 01/22/23 documented as of this encounter
== END 2023-09-22 08:11 | disposition home or self-care (01) ==
PROVIDERS: PCP Internal Medicine; Visit Provider Nurse Practitioner Family
DX: E11.621 Type 2 diabetes mellitus with foot ulcer (principal); L97.518 Non-pressure chronic ulcer of other part of right foot with other specified severity; Z79.4 Long term (current) use of insulin; Z79.84 Long term (current) use of oral hypoglycemic drugs
CPT/HCPCS: 97597

== ENCOUNTER 2023-10-06 08:10 | Outpatient (CLI) | payer BC, SELFPAY ==
--- OUTSIDE RECORDS SUMMARY | 2023-10-06 08:12 | XMS_ITS | Encounter Summary ---
Author Name Unknown Organization [place] Address [address] [facility] [place] [address] Care Team Providers Care Foundry Metallurgist Name Role Phone Alondra Mathew MD Primary Care Provider Linden Conrad MD Unavailable [phone] Reason for Visit * Reason Comments RECHECK Follow up for 3 mth reevaluation for lymphodema. Going well for her. Encounter Details Date Type Department Care Team (Late st Contact Info) Description 04/21/2023 10:30 AM CDT Office Visit [facility] [place] [address] [place] [address] Linden Conrad MD [address] [place] [address] Post-thrombotic syndrome of right lower extremity (Primary [...] pain documented in this encounter Care Teams Foundry Metallurgist Relationship Specialty Start Date End Date Alondra Mathew MD [facility] [address] [place] [address] PCP - General 01/12/23 Linden Conrad MD [address] [place] [address] Assigned Heart and Vascular Provider 01/22/23 documented as of this encounter
--- OUTSIDE RECORDS SUMMARY | 2023-10-06 08:12 | XMS_ITS | Encounter Summary ---
Author Name Unknown Organization [place] Address [address] [place] [address]. [place] [address] Care Team Providers Care Cell Operator Name Role Phone Alondra Mathew MD Primary Care Provider Reason for Referral * Rehab Therapy Integrated Services (Routine: Next available opening) - Closed Specialty Diagnoses / Procedures Referred By Farzana meredith Referred To Contact Diagnoses Lymphedema due to venous insufficiency [address] [address] Referral ID Status Reason Start Date Expiration Date Visits Re quested Visits Authorized Closed 01/18/2023 08/21/2023 365 365 Question Answer Preferred Location: [facility] Services Scheduling Instructions: If you have not heard from the scheduling office within 2 business days, please call [phone] for [email or web address], for [place] and [phone] for [place]. Course of Action PT or OT Evaluation and Treatment PT/OT Treatment Diagnosis Lymphedema Comments If you have not heard from the scheduling office within 2 business days, please call [phone] for all locations, with the exception of [place], please call [phone] and [place], please call [phone]. Please be aware that coverage of these services is subject to the terms and limitations of your health insurance plan. Call member services at your health plan with any benefit or coverage questions. If you have not heard from the scheduling office within 2 business days, please call [phone] for [facility], for [place] and [phone] for [place]. Reason for Visit * Reason Comments Consult Referred by Dr. Snehal lemos at [facility] for BVV w/ pain, and swelling. R>L. DVT in right leg 12/2013. Bilateral venous comp at 8am. No hx of tx. Encounter Details Date Type Department Care Team (Latest Contact Info) Description 01/13/2023 9:30 AM CDT Office Visit [facility] [place] [address] [place] [address] Linden Conrad MD [address] [place] [address] Varicose veins of bilateral lower extremities with [...] higher, or as advised by your provider [employer] last reviewed this educational content on 11/20/2017 ?? [id number] [employer]. All rights reserved. This information is not [...] rock back and forth on your heels. [employer] last reviewed this educational content on 06/22/2019 ?? [phone] [employer]. All rights reserved. This information is not [...] Infection Scarring Inflammation related to the glue [employer] last reviewed this educational content on 06/22/2019 (Sclerotherapy image) 07/22/2019 (Radiofrequency ablation image, Microphlebectomy image) ?? [phone] [employer]. All rights reserved. This information is not [...] insufficiency documented in this encounter Care Teams Cell Operator Relationship Specialty Start Date End Date Alondra Mathew MD [facility] [place] [id number] PCP - General 01/12/23 documented as of this encounter
--- OUTSIDE RECORDS SUMMARY | 2023-10-06 08:12 | XMS_ITS | Encounter Summary ---
Author Name Unknown Organization [place] Address [facility] [place] [address] Care Team Providers Care Riveter Portable Machine Name Role Phone Alondra Mathew MD Primary Care Provider [phone] Linden Conrad MD Unavailable [phone] Encounter Details Date Type Department Care Team [...] on filedocumented in this encounter Care Teams Riveter Portable Machine Relationship Specialty Start Date End Date Alondra Mathew MD [facility] [address] [place] [address] PCP - General 01/12/23 Linden Conrad MD [address] [place] [address] Assigned Heart and Vascular Provider 01/22/23 documented as of this encounter
--- OUTSIDE RECORDS SUMMARY | 2023-10-06 08:12 | XMS_ITS | Encounter Summary ---
Author Name Unknown Organization [place] Address [address] [place] [address] Care Team Providers Care Patternmaker Hand Name Role Phone Alondra aMthew MD Primary Care Provider [phone] Reason for Visit * Diagnostic Imaging Ultrasound (Routine) - Pending Review Specialty Diagnoses / Procedures Referred By Contac t Referred To Contact Radiology. Diagnoses Varicose veins of bilateral lower extremities with pain Procedures US Venous Competency Bilateral Shivani Conrad MD [address] [place] [address] Referral ID Status Reason Start Date Expiration Date V isits Requested Visits Authorized [id number] Pending Review 12/21/2022 12/21/2023 1 1 Encounter Details Date Type Department Care Team (Latest Contact Info) Description 01/13/2023 8:00 AM CDT Ancillary Procedure [facility] [address] [place] [address] [place] [address] Shivani Conrad MD [address] [place] [address] Varicose veins of bilateral lower extremities with [...] Perforators: there is no evidence of incompetent monument setter veins at any level. ? LEFT: ?? [...] Perforators: there is no evidence of incompetent monument setter veins at any level. ?? Varicose veins are noted on the lateral thigh that course towards a possible buttock monument setter measuring 5.2 mm with 1980 milliseconds of [...] great saphenous vein incompetence. SHIVANI CONRAD M.D., [facility], [facility] Incompetence Criteria: Greater than 500 milliseconds in superficial and monument setter veins and greater than 1000 milliseconds in deep veins. ?? Narrative 01/18/2023 3:42 PM CDT Name: ??Elvira Burden ? Date: January 13, 2023 ?: 1985 Sex: female Shivani Conrad MD IMG US ORDERABLE S documented in this encounter Visit Diagnoses Diagnosis Varicose veins of bilateral lower extremities with pain documented in this encounter Care Teams Patternmaker Hand Relationship Specialty Start Date End Date Alondra Mathew MD [facility] [address] [place] [address] PCP - General 01/12/23 documented as of this encounter
--- OUTSIDE RECORDS SUMMARY | 2023-10-06 08:12 | XMS_ITS | Encounter Summary ---
Author Name Unknown Organization [place] Address [address] [place] [address] Care Team Providers Care Die Out Worker Name Role Phone Unavailable Primary Care Provider Unavailabl e Reason for Referral * Diagnostic Imaging Ultrasound (Routine) - Pending Review Specialty Diagnoses / Procedures Referred By Contac t Referred To Contact Radiology. Diagnoses Varicose veins of bilateral lower extremities with pain Procedures US Venous Competency Bilateral Shivani Conrad MD [address] [place] [address] Referral ID Status Reason Start Date Expiration Date V isits Requested Visits Authorized [id number] Pending Review 12/21/2022 12/21/2023 1 1 Encounter Details Date Type Department Care Team (Late st Contact Info) Description 12/21/2022 Orders Only [facility] [place] [address] [place] [address] Shivani Conrad MD [address] [place] [address] Varicose veins of bilateral lower extremities with [...] Perforators: there is no evidence of incompetent lumber cutter veins at any level. ? LEFT: ?? [...] Perforators: there is no evidence of incompetent lumber cutter veins at any level. ?? Varicose veins are noted on the lateral thigh that course towards a possible buttock lumber cutter measuring 5.2 mm with 1980 milliseconds of [...] Greater than 500 milliseconds in superficial and lumber cutter veins and greater than 1000 milliseconds in [...]
--- OUTSIDE RECORDS SUMMARY | 2023-10-06 08:12 | XMS_ITS | Encounter Summary ---
Author Name Unknown Organization [place] Address [facility] [place] [address] Care Team Providers Care Gore Cutter Name Role Phone Alondra Mathew MD Primary Care Provider Linden Conrad MD Unavailable [phone] Encounter Details Date Type Department Care Team [...] on filedocumented in this encounter Care Teams Gore Cutter Relationship Specialty Start Date End Date Alondra Mathew MD [facility] [address] [place] [address] PCP - General 01/12/23 Linden Conrad MD [address] [place] [address] Assigned Heart and Vascular Provider 01/22/23 documented as of this encounter
--- OUTSIDE RECORDS SUMMARY | 2023-10-06 08:12 | XMS_ITS | Encounter Summary ---
Author Name Unknown Organization [place] Address [facility] [place] [address] Care Team Providers Care Cad Developer Name Role Phone Alondra Mathew MD Primary Care Provider Linden Conrad MD Unavailable [phone] Encounter Details Date Type Department Care Team [...] on filedocumented in this encounter Care Teams Cad Developer Relationship Specialty Start Date End Date Alondra Mathew MD [facility] [address] [place] [address] PCP - General 01/12/23 Linden Conrad MD [address] [place] [address] Assigned Heart and Vascular Provider 01/22/23 documented as of this encounter
--- OUTSIDE RECORDS SUMMARY | 2023-10-06 08:12 | XMS_ITS | Encounter Summary ---
Author Name Unknown Organization [place] Address [facility] [place] [address] Care Team Providers Care Aids Counselor Name Role Phone Alondra Mathew MD Primary Care Provider Linden Conrad MD Unavailable [phone] Encounter Details Date Type Department Care Team [...] on filedocumented in this encounter Care Teams Aids Counselor Relationship Specialty Start Date End Date Alondra Mathew MD [facility] [address] [place] [address] PCP - General 01/12/23 Linden Conrad MD [address] [place] [address] Assigned Heart and Vascular Provider 01/22/23 documented as of this encounter
--- OUTSIDE RECORDS SUMMARY | 2023-10-06 08:12 | XMS_ITS | Referral Summary ---
Author Name Unknown Organization [place] Address [address] [place] [address] Care Team Providers Care Real Estate Appraiser Supervisor Name Role Phone Alondra Mathew MD Primary Care Provider [phone] Linden Conrad MD Unavailable [phone] Allergies Active Allergy Reactions Criticality Noted Date [...] of Treatment Not on file Care Teams Real Estate Appraiser Supervisor Relationship Specialty Start Date End Date Alodnra Mathew MD [facility] [address] [place] [address] PCP - General 01/12/23 Linden Conrad MD [address] [place] [address] Assigned Heart and Vascular Provider 01/22/23
--- OUTSIDE RECORDS SUMMARY | 2023-10-06 08:12 | XMS_ITS | Encounter Summary ---
Author Name Unknown Organization [place] Address [address] [place] [address]. [place] [address] Care Team Providers Care Resin Maker Name Role Phone Alondra Mathew MD Primary Care Provider [phone] Linden Conrad MD Unavailable [phone] Reason for Visit * Rehab Therapy Integrated Services (Routine: Next available opening) - Closed Specialty Diagnoses / Procedures Referred By Farzana meredith Referred To Contact Diagnoses Lymphedema due to venous insufficiency [address] [address] Referral ID Status Reason Start Date Expiration Date Visits Re quested Visits Authorized Closed 01/18/2023 08/21/2023 365 365 Encounter Details Date Type Department Care Team (Latest Contact Info) Description 02/28/2023 4:45 PM CDT Therapy Visit [address] [place] [address] Richa Londono, OT [address] [place] [address] Lymphedema due to venous insufficiency (Primary Dx) [...] Primary documented in this encounter Care Teams Resin Maker Relationship Specialty Start Date End Date Alondra Mathew MD [facility] [address] [place] [address] PCP - General 01/12/23 Linden Conrad MD [address] [place] [address] Assigned Heart and Vascular Provider 01/22/23 documented as of this encounter
--- OUTSIDE RECORDS SUMMARY | 2023-10-06 08:12 | XMS_ITS | Encounter Summary ---
Author Name Unknown Organization [place] Address [address] [facility] [place] [address] Care Team Providers Care Plate Shop Helper Name Role Phone Alondra Mathew MD Primary Care Provider [phone] Linden Conrad MD Unavailable [phone] Reason for Referral * Rehab Therapy Physical Therapy (Routine: Next available opening) - Pending Review Specialty Diagnoses / Procedures Referred By Farzana meredith Referred To Contact Diagnoses Lymphedema due to venous insufficiency Linden Conrad MD [address] [facility] [address] [place] [address] Referral ID Status Reason Start Date Expiration Date V isits Requested Visits Authorized Pending Review 01/13/2023 01/13/2024 1 1 Question Answer Preferred Location: [facility] Scheduling Instructions: If you have not heard from the scheduling office within 2 business days, please call [phone] for [facility], for [place] and [phone] [facility]. Course of Action PT or OT Evaluation and Treatment PT/OT Treatment Diagnosis Lymphedema, Phlebolymphedema, Edema Comments If you have not heard from the scheduling office within 2 business days, please call [phone] for all locations, with the exception of [place], please call [phone] [facility], please call [phone]. Please be aware that coverage of these services is subject to the terms and limitations of your health insurance plan. Call member services at your health plan with any benefit or coverage questions. If you have not heard from the scheduling office within 2 business days, please call [phone] for [facility], for [place] and [phone] for [place]. Encounter Details Date Type Department Care Team (Late st Contact Info) Description 01/13/2023 Orders Only [facility] - Heart & Vascular Service Line [address] [place] [address] Linden Conrad MD [address] [facility] [address] [address] Lymphedema due to venous insufficiency (Primary Dx) [...] Primary documented in this encounter Care Teams Plate Shop Helper Relationship Specialty Start Date End Date Alondra Mathew MD [facility] [address] [place] [address] PCP - General 01/12/23 Linden Conrad MD [address] [place] [address] Assigned Heart and Vascular Provider 01/22/23 documented as of this encounter
--- OUTSIDE RECORDS SUMMARY | 2023-10-06 08:12 | XMS_ITS | Encounter Summary ---
Author Name Unknown Organization [place] Address [facility] [place] [address] Care Team Providers Care Receiving Barn Custodian Name Role Phone Alondra Mathew MD Primary Care Provider [phone] Linden Conrad MD Unavailable [phone] Encounter Details Date Type Department Care Team [...] on filedocumented in this encounter Care Teams Receiving Barn Custodian Relationship Specialty Start Date End Date Alondra Mathew MD [facility] [address] [place] [address] PCP - General 01/12/23 Linden Conrad MD [address] [place] [address] Assigned Heart and Vascular Provider 01/22/23 documented as of this encounter
--- OUTSIDE RECORDS SUMMARY | 2023-10-06 08:12 | XMS_ITS | Continuity of Care Document ---
Author Name Unknown Organization [facility] Address [address] [place] [address] Phone Care Team Providers Care Quality Assurance Name Role Phone Avery Underwood MD Unavailable [...] 2019 Lami/Discectomy, Lumbar HNP Office/Outpatient Visit,[facility] 2019 Advance Directives Directive Yes / No Effective Date File Name No Information Encounters Encounter Description Practice Location Reason(s) For Visit Diagnoses Date Provider Providers Copied on Encounter [facility], [address], [place], [place], [id number], [place] tel:[phone] [facility] No Information 0 Yasmine Smart er. [facility], [address] [place] [address], [address], [place], [id number] , [place]. [phone] [facility], [address], [place], [place], [id number], [place] tel:[phone] [facility] Encounter for follow-up examination after completed treatment for conditions other than malignant neoplasm 0 Underwoodned Omeroph er. [facility], [address] [place] [address], [address], [place], [id number] , [place]. [phone] Referring Provider: Mile Ni [employer] [address], [address]. tel:[phone] [facility], [address], [place], [id number], [place] tel:[phone] [facility] Encounter for follow-up examination after completed treatment for conditions other than malignant neoplasm 0 Underwood Berry er. [facility], [address], [address], [place], [place], [address] , [place]. tel:[phone] Referring Provider: Mile Ni [employer] [address] [place] [address], [address]. tel:[phone] [facility], [address], [place], [place], [id number], [place] tel:[phone] [facility] Encounter for other specified surgical aftercare 0 Magnus Isi. [facility], [address], [place], [address], [place]. tel:[phone] Referring Provider: Mile Ni [employer] [address] [place], [address]. tel:[phone] [facility], [address], [place], [id number], [place] tel:[phone] [facility] No Information May-1 2- 0 Magnus Isi. [facility], [address] [facility] [address], [place], [address], [place]. tel:[phone] Referring Provider: Mile Ni [employer] [address] [place] [address], [address]. tel:[phone] [facility], [address], [place], [address], [place] tel:[phone] [facility] No Information May-0 0 Yasmine gallego. [facility], [address] [place] [address], [address], [place], [address] , [place]. tel:[phone] Referring Provider: Mile Ni [employer] [facility] [place], [address]. tel:[phone] [facility], [address], [place], [address], [place] tel:[phone] [facility] Encounter for other specified surgical aftercare Sep-3 0-202 0 Magnus Isi. [facility], [address] [place] [address] [address], [place], [address], [place]. tel:[phone] Referring Provider: Mile Ni [employer] [address] [place] [address], [address]. tel:[phone] [facility], [address], [place], [address], [place] tel:[phone] [facility] No Information Sep-2 0 Magnus Snowden. [facility], [address], [place], [address], [place]. [phone] Referring Provider: Mile Ni, [employer] [address], [address]. tel:[phone] [facility], [address], [place], [id number], [place] tel:[phone] [facility] No Information Sep-2 0 Yasmine gallego. [facility], [address] [place] [address], [address], [facility] [place], [id number] , [place]. [phone] Referring Provider: Mile Ni, [employer] [address] [place] [address], [address]. tel:[phone] Office/Outpat ient Visit,[facility], [address], [place], [id number], [place] tel:[phone] [facility] Other intervertebral disc displacement, lumbar regionRadiculop athy, lumbar region Sep-1 0 Magnus Snowden. [facility], [address], [place], [address], [place]. [phone] Referring Provider: Mile Ni, [employer] [address] [place] [address], [address]. tel:[phone] Family History Family Member Type Diagnosis Age At Onset No Information Payers Payer name Insurance type Covered democrat ID jacquelyn ynogzuri(s) [employer] [id number] Social History Type Description Quantity Date Captured [...]
--- OUTSIDE RECORDS SUMMARY | 2023-10-06 08:12 | XMS_ITS | Encounter Summary ---
Author Name Unknown Organization [place] Address [facility] [place] [address] Care Team Providers Care Merchandise Planning Manager Name Role Phone Alondra Mathew MD Primary Care Provider [phone] Encounter Details Date Type Department Care Team [...] on filedocumented in this encounter Care Teams Merchandise Planning Manager Relationship Specialty Start Date End Date Alondra Mathew MD [address] [address] PCP - General 01/12/23 documented as of this encounter
--- OUTSIDE RECORDS SUMMARY | 2023-10-06 08:12 | XMS_ITS | Encounter Summary ---
Author Name Unknown Organization [place] Address [address] [place] [address]. [place] [address] Care Team Providers Care Nuclear Medicine Supervisor Name Role Phone Alondra Mathew MD Primary Care Provider Linden Conrad MD Unavailable [phone] Reason for Visit * Rehab Therapy Integrated Services (Routine: Next available opening) - Closed Specialty Diagnoses / Procedures Referred By Farzana t Referred To Contact Diagnoses Lymphedema due to venous insufficiency [address] [address] Referral ID Status Reason Start Date Expiration Date Visits Re quested Visits Authorized Closed 01/18/2023 08/21/2023 365 365 Encounter Details Date Type Department Care Team (Late st Contact Info) Description 02/02/2023 7:30 AM CDT Therapy Visit [facility] [address] [place] [address] Linden Conrad MD [address] [place] [address] Monique Miramontes, OT [address] [facility] [place] [address] Lymphedema due to venous insufficiency Social History [...] at home: None Equipment owned: 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[employer] Hobbies/Interests: reading, computers/alyssia Patient goals for therapy: [...] Interventions: Self-Care/Home Management, Therapeutic Exercise, Manual Therapy Piercing Machine Operator Goals OT Goal 1 Goal [...] insufficiency documented in this encounter Care Teams Nuclear Medicine Supervisor Relationship Specialty Start Date End Date Alondra Mathew MD [facility] [address] [place] [address] PCP - General 01/12/23 Linden Conrad MD [address] [place] [address] Assigned Heart and Vascular Provider 01/22/23 documented as of this encounter
--- OUTSIDE RECORDS SUMMARY | 2023-10-06 08:12 | XMS_ITS | Encounter Summary ---
Author Name Unknown Organization [place] Address [facility] [place] [address] Care Team Providers Care Grazing Examiner Name Role Phone Alondra Mathew MD Primary Care Provider Linden Conrad MD Unavailable [phone] Encounter Details Date Type Department Care Team [...] on filedocumented in this encounter Care Teams Grazing Examiner Relationship Specialty Start Date End Date Alondra Mathew MD [facility] [address] [place] [address] PCP - General 01/12/23 Linden Conrad MD [address] [place] [address] Assigned Heart and Vascular Provider 01/22/23 documented as of this encounter
--- OUTSIDE RECORDS SUMMARY | 2023-10-06 08:12 | XMS_ITS | Encounter Summary ---
Author Name Unknown Organization [place] Address [address] [place] [address] Care Team Providers Care Buttonhole Tacker Name Role Phone Alondra Mathew MD Primary [...] on filedocumented in this encounter Care Teams Buttonhole Tacker Relationship Specialty Start Date End Date Alondra Mathew MD [address] [address] PCP - General 01/12/23 documented as of this encounter
--- OUTSIDE RECORDS SUMMARY | 2023-10-06 08:12 | XMS_ITS | Encounter Summary ---
Author Name Unknown Organization [place] Address [address] [place] [address]. [place] [address] Care Team Providers Care Varnisher Apprentice Name Role Phone Alondra Mathew MD Primary Care Provider Linden Conrad MD Unavailable [phone] Reason for Visit * Rehab Therapy Integrated Services (Routine: Next available opening) - Closed Specialty Diagnoses / Procedures Referred By Farzana t Referred To Contact Diagnoses Lymphedema due to venous insufficiency [address] [address] Referral ID Status Reason Start Date Expiration Date Visits Re quested Visits Authorized Closed 01/18/2023 08/21/2023 365 365 Encounter Details Date Type Department Care Team (Latest Contact Info) Description 03/02/2023 4:45 PM CDT Therapy Visit [facility] [address] [place] [address] Linden Conrad MD [address] [facility] [address] [place], [place] [id number] Richa Lnodono, OT [address] [place] [address] Lymphedema due to venous insufficiency (Primary Dx) [...] Primary documented in this encounter Care Teams Varnisher Apprentice Relationship Specialty Start Date End Date Alondra Mathew MD [facility] & [address] [address] PCP - General 01/12/23 Linden Conrad MD [address] [facility] [address] [place] [address] Assigned Heart and Vascular Provider 01/22/23 documented as of this encounter
--- OUTSIDE RECORDS SUMMARY | 2023-10-06 08:12 | XMS_ITS | Encounter Summary ---
Author Name Unknown Organization [place] Address [address] [place] [address]. [place] [address] Care Team Providers Care Food Service Kitchen Supervisor Name Role Phone Alondra Mathew MD Primary Care Provider Linden Cornad MD Unavailable [phone] Reason for Visit * Rehab Therapy Integrated Services (Routine: Next available opening) - Closed Specialty Diagnoses / Procedures Referred By Farzana meredith Referred To Contact Diagnoses Lymphedema due to venous insufficiency [address] [address] Referral ID Status Reason Start Date Expiration Date Visits Re quested Visits Authorized Closed 01/18/2023 08/21/2023 365 365 Encounter Details Date Type Department Care Team (Latest Contact Info) Description 03/14/2023 4:45 PM CDT Therapy Visit [address] [place] [address] Richa Londono, OT [address] [place] [address] Lymphedema due to venous insufficiency (Primary Dx) [...] Primary documented in this encounter Care Teams Food Service Kitchen Supervisor Relationship Specialty Start Date End Date Alondra Mathew MD [facility] [address] [place] [address] PCP - General 01/12/23 Linden Conrad MD [address] [place] [address] Assigned Heart and Vascular Provider 01/22/23 documented as of this encounter
--- OUTSIDE RECORDS SUMMARY | 2023-10-06 08:12 | XMS_ITS | Encounter Summary ---
Author Name Unknown Organization [place] Address [address] [place] [address]. [place] [address] Care Team Providers Care Nurse Plastics Name Role Phone Alondra Mathew MD Primary Care Provider Linden Conrad MD Unavailable [phone] Reason for Visit * Rehab Therapy Integrated Services (Routine: Next available opening) - Closed Specialty Diagnoses / Procedures Referred By Farzana meredith Referred To Contact Diagnoses Lymphedema due to venous insufficiency [address] [address] Referral ID Status Reason Start Date Expiration Date Visits Re quested Visits Authorized Closed 01/18/2023 08/21/2023 365 365 Encounter Details Date Type Department Care Team (Latest Contact Info) Description 03/23/2023 4:45 PM CDT Therapy Visit [address] [place] [address] Richa Londono, OT [address] [place] [address] Lymphedema due to venous insufficiency (Primary Dx) [...] Procedure/Exercise;Manual Therapy Manual Therapy Manual Therapy Minutes (666[address]) 65 Manual Therapy 1 - Details quick [...] Primary documented in this encounter Care Teams Nurse Plastics Relationship Specialty Start Date End Date Alondra Mathew MD [facility] [address] [place] [address] PCP - General 01/12/23 Linden Conrad MD [address] [place] [address] Assigned Heart and Vascular Provider 01/22/23 documented as of this encounter
--- OUTSIDE RECORDS SUMMARY | 2023-10-06 08:12 | XMS_ITS | Encounter Summary ---
Author Name Unknown Organization [place] Address [facility] [address] Care Team Providers Care Road Inspector Name Role Phone Alondra Mathew MD Primary Care Provider Linden Conrad MD Unavailable [phone] Encounter Details Date Type Department Care Team [...] filedocumented in this encounter Care Teams Road Inspector Relationship Specialty Start Date End Date Alondra Mathew MD [facility] [address] [place] [address] PCP - General 01/12/23 Linden Conrad MD [address] [place] [address] Assigned Heart and Vascular Provider 01/22/23 documented as of this encounter
--- OUTSIDE RECORDS SUMMARY | 2023-10-06 08:12 | XMS_ITS | Clinical Summary ---
Author Name Unknown Organization [place] Address [facility] [place] [address] Care Team Providers Care Special Makeup Fx Artist Instructor Name Role Phone Alondra Mathew MD Primary Care Provider [phone] Linden Conrad MD Unavailable [phone] Allergies Active Allergy Reactions Criticality Noted Date [...] exists PHQ-2 (once per calendar year) 2023 GLUCOSE 07/31/2024 07/31/2021 DTAP/TDAP/TD IMMUNIZATION (4 - Td or Tdap) [...] age to complete this topic Care Teams Special Makeup Fx Artist Instructor Relationship Specialty Start Date End Date Alondra Mathew MD [facility] [address] [place] [address] PCP - General 01/12/23 Linden Conrad MD [address] [place] [address] Assigned Heart and Vascular Provider 01/22/23
--- OUTSIDE RECORDS SUMMARY | 2023-10-06 08:13 | XMS_ITS | Encounter Summary ---
Author Name Unknown Organization [place] Address [address] [facility] [place] [address] Care Team Providers Care Washer And Capper Machine Operator Name Role Phone Unavailable Primary Care Provider Unavailabl e Reason for Visit * Reason Onset Date Comments Referral 12/17/2022 Encounter Details Date Type Department Care Team (Late st Contact Info) Description 12/17/2022 Telephone [facility] [address] [place] [address] Sivakumar Orta MD [address] [address] Referral Social History Tobacco Use Types Packs/Day [...] Faxed referral received from Dr. Mathew at [facility]. Left message for pt to call and schedule an appointment if interested [phone]. documented in this encounter Plan of Treatment Not on file documented as of this encounter Visit Diagnoses Not on filedocumented in this encounter
== END 2023-10-06 08:11 | disposition home or self-care (01) ==
LOC: WOUND 08:10
PROVIDERS: PCP Internal Medicine; Visit Provider Family Medicine
DX: E11.621 Type 2 diabetes mellitus with foot ulcer (principal); L97.512 Non-pressure chronic ulcer of other part of right foot with fat layer exposed; L84 Corns and callosities; Z79.4 Long term (current) use of insulin; Z79.84 Long term (current) use of oral hypoglycemic drugs
CPT/HCPCS: 11042

== ENCOUNTER 2023-10-13 07:59 | Outpatient (CLI) | payer BC, SELFPAY | END 2023-10-13 08:00 | disposition home or self-care (01) | LOC: WOUND 07:59 | PROVIDERS: PCP Internal Medicine; Visit Provider Nurse Practitioner Family | DX: E11.621 Type 2 diabetes mellitus with foot ulcer (principal); L97.512 Non-pressure chronic ulcer of other part of right foot with fat layer exposed; Z79.4 Long term (current) use of insulin; Z79.84 Long term (current) use of oral hypoglycemic drugs | CPT/HCPCS: 97597 ==

== ENCOUNTER 2023-10-20 07:59 | Outpatient (CLI) | payer BC, SELFPAY | END 2023-10-20 08:00 | disposition home or self-care (01) | LOC: WOUND 07:59 | PROVIDERS: PCP Internal Medicine; Visit Provider Family Medicine | DX: E11.621 Type 2 diabetes mellitus with foot ulcer (principal); L97.512 Non-pressure chronic ulcer of other part of right foot with fat layer exposed; Z79.4 Long term (current) use of insulin; Z79.84 Long term (current) use of oral hypoglycemic drugs | CPT/HCPCS: 97597 ==

== ENCOUNTER 2023-10-27 07:58 | Outpatient (CLI) | payer BC, SELFPAY | END 2023-10-27 07:59 | disposition home or self-care (01) | LOC: WOUND 07:58 | PROVIDERS: PCP Internal Medicine; Visit Provider Nurse Practitioner Family | DX: E11.621 Type 2 diabetes mellitus with foot ulcer (principal); L97.518 Non-pressure chronic ulcer of other part of right foot with other specified severity; Z79.4 Long term (current) use of insulin; Z79.84 Long term (current) use of oral hypoglycemic drugs | CPT/HCPCS: 97597 ==

== ENCOUNTER 2023-11-03 07:55 | Outpatient (CLI) | payer BC, SELFPAY | END 2023-11-03 07:56 | disposition home or self-care (01) | LOC: WOUND 07:55 | PROVIDERS: PCP Internal Medicine; Visit Provider Nurse Practitioner Family | DX: E11.621 Type 2 diabetes mellitus with foot ulcer (principal); L97.512 Non-pressure chronic ulcer of other part of right foot with fat layer exposed; Z79.4 Long term (current) use of insulin; Z79.84 Long term (current) use of oral hypoglycemic drugs | CPT/HCPCS: 97597 ==

== ENCOUNTER 2023-11-17 08:22 | Outpatient (CLI) | payer BC, SELFPAY | END 2023-11-17 08:23 | disposition home or self-care (01) | LOC: WOUND 08:22 | PROVIDERS: PCP Internal Medicine; Visit Provider Physician Assistant | DX: E11.621 Type 2 diabetes mellitus with foot ulcer (principal); L97.512 Non-pressure chronic ulcer of other part of right foot with fat layer exposed; Z79.4 Long term (current) use of insulin; Z79.84 Long term (current) use of oral hypoglycemic drugs | CPT/HCPCS: 97597 ==

== ENCOUNTER 2023-12-01 08:25 | Outpatient (CLI) | payer BC, SELFPAY ==
--- OUTSIDE RECORDS SUMMARY | 2023-12-01 08:27 | XMS_ITS | Referral Summary ---
Author Name Unknown Organization [facility] Address [address] 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 Medications Medication Sig Dispensed Refills Start Date End Date Status aspirin (ASA) 81 MG chewable tablet Active buPROPion (WELLBUTRIN XL) 150 MG 24 hr tablet Take 150 mg by mouth 04/01/2021 Active buPROPion (WELLBUTRIN XL) 300 MG 24 hr tablet Take 1 tablet by mouth daily 04/01/2021 Active JARDIANCE 10 MG TABS tablet Take 10 mg by mouth every morning 11/13/2022 Active escitalopram (LEXAPRO) 20 MG tablet Take 30 mg by mouth 02/20/2021 Activ e LORazepam (ATIVAN) 0.5 MG tablet Active losartan (COZAAR) 25 MG tablet Active magnesium gluconate (MAGONATE) 500 (27 Mg) MG tablet Active metFORMIN (GLUCOPHAGE XR) 500 MG 24 hr tablet Take 500 mg by mouth 02/20/2021 Active Multiple Vitamin (ONE-A-DAY ESSENTIAL) TABS Take 1 tablet by mouth daily Active ondansetron (ZOFRAN) 4 MG tablet Take 8 mg by mouth 10/02/2021 Activ e Pregabalin (LYRICA) 200 MG capsule Active OZEMPIC, 0.25 OR 0.5 MG/DOSE, 2 MG/3ML pen INJECT 0.5MG SUB-Q EVERY WEEK 12/24/2022 Active SUMAtriptan (IMITREX) 100 MG tablet TAKE 1 TABLET BY MOUTH NEEED FOR MIGRAINE HEADACHE. MAY REPEAT ONCE AFTER AT LEAST 2 HOURS. DO NOT EXCEED 2 DOSES IN 24 HOURS. 12/31/2022 Active Taurine 1000 MG CAPS Acti ve amphetamine-dextroamp hetamine (ADDERALL XR) 30 MG 24 hr capsule Take 30 mg by mouth daily Active Social History Tobacco Use Types Packs/Day [...] CDT Plan of Treatment Not on file Procedures Procedure Name Priority Date/Time Associated Diagnosis Comments COMPREHENSIVE METABOLIC PANEL Routine 07/31/2021 3:50 PM REAL ESTATE JOB TITLES Hyperlipidemia, unspecified [ICD-10-CM] Other secondary hypertension [ICD-10-CM] from Last 3 Months or Most Recently Relevant to Health Maintenance Results * (ABNORMAL) Comprehensive metabolic panel (07/31/2021 3:50 PM REAL ESTATE JOB TITLES) Sodium 137 136 - 145 mmol/L 07/31/2021 11:49 PM REAL ESTATE JOB TITLES [facility] Potassium 4.0 3.5 - 5.0 mmol/L 07/31/2021 11:49 PM REAL ESTATE JOB TITLES [facility] Chloride 104 98 - 107 mmol/L 07/31/2021 11:49 PM REAL ESTATE JOB TITLES [facility] Carbon Dioxide (CO2) 23 22 - 31 mmol/L 07/31/2021 11:49 PM REAL ESTATE JOB TITLES [facility] Anion Gap 10 5 - 18 mmol/L 07/31/2021 11:49 PM REAL ESTATE JOB TITLES [facility] Urea Nitrogen 20 8 - 22 mg/dL 07/31/2021 11:49 PM REAL ESTATE JOB TITLES [facility] Creatinine 1.08 0.60 - 1.10 mg/dL 07/31/2021 11:49 PM REAL ESTATE JOB TITLES [facility] Calcium 9.0 8.5 - 10.5 mg/dL 07/31/2021 11:49 PM REAL ESTATE JOB TITLES [facility] Glucose 262(H) 70 - 125 mg/dL 07/31/2021 11:49 PM REAL ESTATE JOB TITLES [facility] Alkaline Phosphatase 130(H) 45 - 120 U/L 07/31/2021 11:49 PM REAL ESTATE JOB TITLES [facility] AST 39 0 - 40 U/L 07/31/2021 11:49 PM REAL ESTATE JOB TITLES [facility] ALT 46(H) 0 - 45 U/L 07/31/2021 11:49 PM REAL ESTATE JOB TITLES [facility] Protein Total 7.2 6.0 - 8.0 g/dL 07/31/2021 11:49 PM REAL ESTATE JOB TITLES [facility] Albumin 3.8 3.5 - 5.0 g/dL 07/31/2021 11:49 PM REAL ESTATE JOB TITLES [facility] Bilirubin Total 0.6 0.0 - 1.0 mg/dL 07/31/2021 11:49 PM REAL ESTATE JOB TITLES [facility] GFR Estimate 67 >60 mL/min/1.7 3m2 07/31/2021 11:49 PM REAL ESTATE JOB TITLES [facility] Comment:As of March 01, 2021, eGFR is calculated by the CKD-EPI creatinine equation, without race adjustment. eGFR can be influenced by muscle mass, exercise, and diet. The reported eGFR is an estimation only and is only applicable if the renal function is stable. Blood BLOOD SPECIMEN / Unknown Client Draw / Unknown 07/31/2021 3:50 PM REAL ESTATE JOB TITLES 07/31/2021 10:19 PM REAL ESTATE JOB TITLES Josy Acuña MD LAB - BLOOD ORDER [facility] [address] [address] [phone] from Last 3 Months or Most Recently Relevant to Health Maintenance Care Teams Air Hammer Stripper Relationship Specialty Start Date End Date Alondra Mathew MD [facility] [address] [place] [address] PCP - General 01/12/23 Linden Conrad MD [address] [place] [address] Assigned Heart and Vascular Provider 01/22/23
--- OUTSIDE RECORDS SUMMARY | 2023-12-01 08:27 | XMS_ITS | Continuity of Care Document ---
Author Name Unknown Organization [facility] Address [address] [place] [address] Phone Care Team Providers Care Poultry Breeder Name Role Phone Avery Underwood MD Unavailable [...] - [place] 2019 Lami/Discectomy, Lumbar HNP Office/Outpatient Visit,[facility] 2019 Advance Directives Directive Yes / No Effective Date File Name No Information Encounters Encounter Description Practice Location Reason(s) For Visit Diagnoses Date Provider Providers Copied on Encounter [facility], [address], [place], [id number], [place] tel:[phone] [facility] No Information 0 Yasmine Smart er. [facility], [address] [place] [address], [address], [place], [place], [address] , [place]. [phone] [facility], [address], [place], [address], [place] tel:[phone] [facility] Encounter for follow-up examination after completed treatment for conditions other than malignant neoplasm 0 Underwoodned Omeroph er. [facility], [address] [place] [address], [address], [place], [address] , [place]. [phone] Referring Provider: Mile Ni [facility] [address], [address]. tel:[phone] [facility], [address], [place], [address], [place] tel:[phone] [facility] Encounter for follow-up examination after completed treatment for conditions other than malignant neoplasm 0 Underwood Berry er. [facility], [address], [address], [place], [address] , [place]. tel:[phone] Referring Provider: Mile Ni [email or web address] [address] [place] [address], [address]. tel:[phone] [facility], [address], [place], [address], [place] tel:[phone] [facility] Encounter for other specified surgical aftercare 0 Magnus Isi. [facility], [address], [place], [address], [place]. tel:[phone] Referring Provider: Mile Ni [email or web address] [address] [place], [address]. tel:[phone] [facility], [address], [place], [address], [place] tel:[phone] [facility] No Information May-1 2- 0 Magnus Isi. [facility], [address] [facility] [address], [place], [address], [place]. tel:[phone] Referring Provider: Mile Ni [email or web address] [address] [place] [address], [address]. tel:[phone] [facility], [address], [place], [address], [place] tel:[phone] [facility] No Information May-0 0 Yasmine gallego. [facility], [address] [place] [address], [address], [place], [address] , [place]. tel:[phone] Referring Provider: iMle Ni [email or web address] [place], [address]. tel:[phone] [facility], [address], [place], [address], [place] tel:[phone] [facility] Encounter for other specified surgical aftercare Sep-3 0-202 0 Magnus Isi. [facility], [address] [place] [address] [address], [place], [address], [place]. tel:[phone] Referring Provider: Mile Ni [email or web address] [address] [place] [address], [address]. tel:[phone] [facility], [address], [place], [address], [place] tel:[phone] [facility] No Information Sep-2 0 Magnus Snowden. [facility], [address], [place], [address], [place]. [phone] Referring Provider: Mile Ni, [facility] [address], [address]. tel:[phone] [facility], [address], [place], [address], [place] tel:[phone] [facility] No Information Sep-2 0 Yasmine gallego. [facility], [address] [place] [address], [address], [facility] [place], [address] , [place]. [phone] Referring Provider: Mile Ni, [email or web address] [address] [place] [address], [address]. tel:[phone] Office/Outpat ient Visit,[facility], [address], [place], [address], [place] tel:[phone] [facility] Other intervertebral disc displacement, lumbar regionRadiculop athy, lumbar region Sep-1 0 Magnus Snowden. [facility], [address], [facility] [place], [address], [place]. [phone] Referring Provider: Mile Ni, [email or web address] [address] [place] [address], [address]. tel:[phone] Family History Family Member Type Diagnosis Age At Onset No Information Payers Payer name Insurance type Covered libertarian ID jacquelyn yongzuri(s) [employer] [id number] Social History Type Description Quantity Date Captured [...]
--- OUTSIDE RECORDS SUMMARY | 2023-12-01 08:27 | XMS_ITS | Clinical Summary ---
Author Name Unknown Organization [place] Address [facility] [place] [address] Care Team Providers Care Field Cane Scaler Helper Name Role Phone Alondra Mathew MD [...] 01/30/2007, Additional history exists COVID-19 Vaccine ( season) 2023 06/05/2021, 06/05/2021, 05/15/2021 INFLUENZA VACCINE [...] on patient's age to complete this topic Procedures Procedure Name Priority Date/Time Associated Diagnosis Comments COMPREHENSIVE METABOLIC PANEL Routine 07/31/2021 3:50 PM TEXTILE KNITTER Hyperlipidemia, unspecified [ICD-10-CM] Other secondary hypertension [ICD-10-CM] from Last 3 Months or Most Recently Relevant to Health Maintenance Results * (ABNORMAL) Comprehensive metabolic panel (07/31/2021 3:50 PM TEXTILE KNITTER) Sodium 137 136 - 145 mmol/L 07/31/2021 11:49 PM TEXTILE KNITTER [facility] Potassium 4.0 3.5 - 5.0 mmol/L 07/31/2021 11:49 PM TEXTILE KNITTER [facility] Chloride 104 98 - 107 mmol/L 07/31/2021 11:49 PM TEXTILE KNITTER [facility] Carbon Dioxide (CO2) 23 22 - 31 mmol/L 07/31/2021 11:49 PM TEXTILE KNITTER [facility] Anion Gap 10 5 - 18 mmol/L 07/31/2021 11:49 PM TEXTILE KNITTER [facility] Urea Nitrogen 20 8 - 22 mg/dL 07/31/2021 11:49 PM TEXTILE KNITTER [facility] Creatinine 1.08 0.60 - 1.10 mg/dL 07/31/2021 11:49 PM TEXTILE KNITTER [facility] Calcium 9.0 8.5 - 10.5 mg/dL 07/31/2021 11:49 PM TEXTILE KNITTER [facility] Glucose 262(H) 70 - 125 mg/dL 07/31/2021 11:49 PM TEXTILE KNITTER [facility] Alkaline Phosphatase 130(H) 45 - 120 U/L 07/31/2021 11:49 PM TEXTILE KNITTER [facility] AST 39 0 - 40 U/L 07/31/2021 11:49 PM TEXTILE KNITTER [facility] ALT 46(H) 0 - 45 U/L 07/31/2021 11:49 PM TEXTILE KNITTER [facility] Protein Total 7.2 6.0 - 8.0 g/dL 07/31/2021 11:49 PM TEXTILE KNITTER [facility] Albumin 3.8 3.5 - 5.0 g/dL 07/31/2021 11:49 PM TEXTILE KNITTER [facility] Bilirubin Total 0.6 0.0 - 1.0 mg/dL 07/31/2021 11:49 PM TEXTILE KNITTER [facility] GFR Estimate 67 >60 mL/min/1.7 3m2 07/31/2021 11:49 PM TEXTILE KNITTER [facility] Comment:As of March 01, 2021, eGFR is calculated by the CKD-EPI creatinine equation, without race adjustment. eGFR can be influenced by muscle mass, exercise, and diet. The reported eGFR is an estimation only and is only applicable if the renal function is stable. Blood BLOOD SPECIMEN / Unknown Client Draw / Unknown 07/31/2021 3:50 PM TEXTILE KNITTER 07/31/2021 10:19 PM TEXTILE KNITTER Josy Acuña MD LAB - BLOOD ORDER [facility] [address] [address], [facility] [phone] from Last 3 Months or Most Recently Relevant to Health Maintenance Care Teams Field Cane Scaler Helper Relationship Specialty Start Date End Date Alondra Mathew MD [facility] [address] [place] [address] PCP - General 01/12/23 Linden Conrad MD [address] [place] [address] Assigned Heart and Vascular Provider 01/22/23
== END 2023-12-01 08:26 | disposition home or self-care (01) ==
LOC: WOUND 08:26
PROVIDERS: PCP Internal Medicine; Visit Provider Nurse Practitioner Family
DX: E11.621 Type 2 diabetes mellitus with foot ulcer (principal); L97.512 Non-pressure chronic ulcer of other part of right foot with fat layer exposed; M79.671 Pain in right foot; Z79.4 Long term (current) use of insulin; Z79.84 Long term (current) use of oral hypoglycemic drugs
CPT/HCPCS: 11042; 87070; G0463

== ENCOUNTER 2023-12-01 09:05 | Outpatient (CLI) | payer BC, SELFPAY ==
--- OUTSIDE RECORDS SUMMARY | 2023-12-01 09:07 | XMS_ITS | Continuity of Care Document ---
Author Name Unknown Organization [facility] Address [address] [place] [address] Phone Care Team Providers Care Rehab/Pre Vocational Counselor Name Role Phone Avery Underwood MD Unavailable [...] - [place] 2019 Lami/Discectomy, Lumbar HNP Office/Outpatient Visit,[facility] 2019 Advance Directives Directive Yes / No Effective Date File Name No Information Encounters Encounter Description Practice Location Reason(s) For Visit Diagnoses Date Provider Providers Copied on Encounter [facility], [address], [place], [address], [place] tel:[phone] [facility] No Information 0 Yasmine Smart er. [facility], [address] [place] [address], [address], [place], [address] , [place]. [phone] [facility], [address], [place], [address], [place] tel:[phone] [facility] Encounter for follow-up examination after completed treatment for conditions other than malignant neoplasm 0 Underwoodned Omeroph er. [facility], [address] [place] [address], [address], [place], [address] , [place]. [phone] Referring Provider: Mile Ni bulletn. [address], [address]. tel:[phone] [facility], [address], [place], [address], [place] tel:[phone] [facility] Encounter for follow-up examination after completed treatment for conditions other than malignant neoplasm 0 Underwood Berry er. [facility], [address], [address], [place], [address] , [place]. tel:[phone] Referring Provider: Mile Ni j-Grab [address] [place] [address], [address]. tel:[phone] [facility], [address], [place], [address], [place] tel:[phone] [facility] Encounter for other specified surgical aftercare 0 Magnus Isi. [facility], [address], [place], [address], [place]. tel:[phone] Referring Provider: Mile Ni j-Grab [address] [place], [address]. tel:[phone] [facility], [address], [place], [address], [place] tel:[phone] [facility] No Information May-1 2- 0 Magnus Isi. [facility], [address] [facility] [address], [place], [address], [place]. tel:[phone] Referring Provider: Mile Ni j-Grab [address] [place] [address], [address]. tel:[phone] [facility], [address], [place], [address], [place] tel:[phone] [facility] No Information May-0 0 Yasmine gallego. [facility], [address] [place] [address], [address], [place], [address] , [place]. tel:[phone] Referring Provider: Mile Ni j-Grab [facility] [place], [address]. tel:[phone] [facility], [address], [place], [address], [place] tel:[phone] [facility] Encounter for other specified surgical aftercare Sep-3 0-202 0 Magnus Isi. [facility], [address] [place] [address] [address], [place], [address], [place]. tel:[phone] Referring Provider: Mlie Ni j-Grab [address] [place] [address], [address]. tel:[phone] [facility], [address], [place], [address], [place] tel:[phone] [facility] No Information Sep-2 0 Magnus Snowden. [facility], [address], [place], [address], [place]. [phone] Referring Provider: Mile Ni, bulletn. [address], [address]. tel:[phone] [facility], [address], [place], [address], [place] tel:[phone] [facility] No Information Sep-2 0 Yasmine gallego. [facility], [address] [place] [address], [address], [facility] [place], [address] , [place]. [phone] Referring Provider: Mile Ni, j-Grab [address] [place] [address], [address]. tel:[phone] Office/Outpat ient Visit,[facility], [address], [place], [address], [place] tel:[phone] [facility] Other intervertebral disc displacement, lumbar regionRadiculop athy, lumbar region Sep-1 0 Magnus Snowden. [facility], [address], [place], [address], [place]. [phone] Referring Provider: Mile Ni, j-Grab [address] [place] [address], [address]. tel:[phone] Family History Family Member Type Diagnosis Age At Onset No Information Payers Payer name Insurance type Covered democrat ID jacquelyn yongzuri(s) [employer] [id number] Social History Type Description Quantity Date Captured [...]
--- OUTSIDE RECORDS SUMMARY | 2023-12-01 09:08 | XMS_ITS | Clinical Summary ---
Author Name Unknown Organization [place] Address Replaced by [facility] [place] [address] Care Team Providers Care Agricultural And Forestry Supervisor Name Role Phone Alondra Mathew MD Primary Care Provider Linden Conrad MD Unavailable [phone] Allergies Active Allergy Reactions Criticality Noted Date [...] COMPREHENSIVE METABOLIC PANEL Routine 07/31/2021 3:50 PM DRY WALL APPLICATOR Hyperlipidemia, unspecified [ICD-10-CM] Other secondary hypertension [ICD-10-CM] from Last 3 Months or Most Recently Relevant to Health Maintenance Results * (ABNORMAL) Comprehensive metabolic panel (07/31/2021 3:50 PM DRY WALL APPLICATOR) Sodium 137 136 - 145 mmol/L 07/31/2021 11:49 PM DRY WALL APPLICATOR [facility] Potassium 4.0 3.5 - 5.0 mmol/L 07/31/2021 11:49 PM DRY WALL APPLICATOR [facility] Chloride 104 98 - 107 mmol/L 07/31/2021 11:49 PM DRY WALL APPLICATOR [facility] Carbon Dioxide (CO2) 23 22 - 31 mmol/L 07/31/2021 11:49 PM DRY WALL APPLICATOR [facility] Anion Gap 10 5 - 18 mmol/L 07/31/2021 11:49 PM DRY WALL APPLICATOR [facility] Urea Nitrogen 20 8 - 22 mg/dL 07/31/2021 11:49 PM DRY WALL APPLICATOR [facility] Creatinine 1.08 0.60 - 1.10 mg/dL 07/31/2021 11:49 PM DRY WALL APPLICATOR [facility] Calcium 9.0 8.5 - 10.5 mg/dL 07/31/2021 11:49 PM DRY WALL APPLICATOR [facility] Glucose 262(H) 70 - 125 mg/dL 07/31/2021 11:49 PM DRY WALL APPLICATOR [facility] Alkaline Phosphatase 130(H) 45 - 120 U/L 07/31/2021 11:49 PM DRY WALL APPLICATOR [facility] AST 39 0 - 40 U/L 07/31/2021 11:49 PM DRY WALL APPLICATOR [facility] ALT 46(H) 0 - 45 U/L 07/31/2021 11:49 PM DRY WALL APPLICATOR [facility] Protein Total 7.2 6.0 - 8.0 g/dL 07/31/2021 11:49 PM DRY WALL APPLICATOR [facility] Albumin 3.8 3.5 - 5.0 g/dL 07/31/2021 11:49 PM DRY WALL APPLICATOR [facility] Bilirubin Total 0.6 0.0 - 1.0 mg/dL 07/31/2021 11:49 PM DRY WALL APPLICATOR [facility] GFR Estimate 67 >60 mL/min/1.7 3m2 07/31/2021 11:49 PM DRY WALL APPLICATOR [facility] Comment:As of March 01, 2021, eGFR is calculated by the CKD-EPI creatinine equation, without race adjustment. eGFR can be influenced by muscle mass, exercise, and diet. The reported eGFR is an estimation only and is only applicable if the renal function is stable. Blood BLOOD SPECIMEN / Unknown Client Draw / Unknown 07/31/2021 3:50 PM DRY WALL APPLICATOR 07/31/2021 10:19 PM DRY WALL APPLICATOR Josy Acuña MD LAB - BLOOD ORDER [facility] [address] [address], [facility] [phone] from Last 3 Months or Most Recently Relevant to Health Maintenance Care Teams Agricultural And Forestry Supervisor Relationship Specialty Start Date End Date Alondra Mathew MD [facility] [address] [place] [address] PCP - General 01/12/23 Linden Conrad MD [address] [place] [address] Assigned Heart and Vascular Provider 01/22/23
--- OUTSIDE RECORDS SUMMARY | 2023-12-01 09:08 | XMS_ITS | Referral Summary ---
Author Name Unknown Organization [place] Address [address] [place] [address] Care Team Providers Care Drum Carrier Name Role Phone Alondra Mathew MD Primary Care Provider Linden Conrad MD Unavailable [phone] Allergies Active Allergy Reactions Criticality Noted Date [...] COMPREHENSIVE METABOLIC PANEL Routine 07/31/2021 3:50 PM ALUMINUM SIDING MECHANIC Hyperlipidemia, unspecified [ICD-10-CM] Other secondary hypertension [ICD-10-CM] from Last 3 Months or Most Recently Relevant to Health Maintenance Results * (ABNORMAL) Comprehensive metabolic panel (07/31/2021 3:50 PM ALUMINUM SIDING MECHANIC) Sodium 137 136 - 145 mmol/L 07/31/2021 11:49 PM ALUMINUM SIDING MECHANIC [facility] Potassium 4.0 3.5 - 5.0 mmol/L 07/31/2021 11:49 PM ALUMINUM SIDING MECHANIC [facility] Chloride 104 98 - 107 mmol/L 07/31/2021 11:49 PM ALUMINUM SIDING MECHANIC [facility] Carbon Dioxide (CO2) 23 22 - 31 mmol/L 07/31/2021 11:49 PM ALUMINUM SIDING MECHANIC [facility] Anion Gap 10 5 - 18 mmol/L 07/31/2021 11:49 PM ALUMINUM SIDING MECHANIC [facility] Urea Nitrogen 20 8 - 22 mg/dL 07/31/2021 11:49 PM ALUMINUM SIDING MECHANIC [facility] Creatinine 1.08 0.60 - 1.10 mg/dL 07/31/2021 11:49 PM ALUMINUM SIDING MECHANIC [facility] Calcium 9.0 8.5 - 10.5 mg/dL 07/31/2021 11:49 PM ALUMINUM SIDING MECHANIC [facility] Glucose 262(H) 70 - 125 mg/dL 07/31/2021 11:49 PM ALUMINUM SIDING MECHANIC [facility] Alkaline Phosphatase 130(H) 45 - 120 U/L 07/31/2021 11:49 PM ALUMINUM SIDING MECHANIC [facility] AST 39 0 - 40 U/L 07/31/2021 11:49 PM ALUMINUM SIDING MECHANIC [facility] ALT 46(H) 0 - 45 U/L 07/31/2021 11:49 PM ALUMINUM SIDING MECHANIC [facility] Protein Total 7.2 6.0 - 8.0 g/dL 07/31/2021 11:49 PM ALUMINUM SIDING MECHANIC [facility] Albumin 3.8 3.5 - 5.0 g/dL 07/31/2021 11:49 PM ALUMINUM SIDING MECHANIC [facility] Bilirubin Total 0.6 0.0 - 1.0 mg/dL 07/31/2021 11:49 PM ALUMINUM SIDING MECHANIC [facility] GFR Estimate 67 >60 mL/min/1.7 3m2 07/31/2021 11:49 PM ALUMINUM SIDING MECHANIC [facility] Comment:As of March 01, 2021, eGFR is calculated by the CKD-EPI creatinine equation, without race adjustment. eGFR can be influenced by muscle mass, exercise, and diet. The reported eGFR is an estimation only and is only applicable if the renal function is stable. Blood BLOOD SPECIMEN / Unknown Client Draw / Unknown 07/31/2021 3:50 PM ALUMINUM SIDING MECHANIC 07/31/2021 10:19 PM ALUMINUM SIDING MECHANIC Josy Acuña MD LAB - BLOOD ORDER [facility] [address] [address] [phone] from Last 3 Months or Most Recently Relevant to Health Maintenance Care Teams Drum Carrier Relationship Specialty Start Date End Date Alondra Mathew MD [facility] [address] [place] [address] PCP - General 01/12/23 Linden Conrad MD [address] [place] [address] Assigned Heart and Vascular Provider 01/22/23
--- NOTE | 2023-12-01 09:30 | XR_ITS ---
Patient: DIALLO LI Facility:?[facility] Patient ID:?[id number] Site Patient ID:?[id number]. Site :?1986 Study:?XRay-Extremity Right FOOT 3V-12/01/2023 9:33:35 AM Ordering Physician:NOLVIA Final Report: Indication: None pressure ulcer Technique: Right foot 3 views Comparison: MRI 09/16/2023, radiographs 08/24/2023 Findings: Chronic hypertrophic and destructive changes to the 2nd and 3rd MTP joints with multiple chronic ossicles. First metatarsal head appears intact. No soft tissue gas. No acute fracture. Midfoot alignment normal. Spurring at the dorsal midfoot and plantar calcaneal spur. 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 No evidence of acute osteomyelitis. Dictated by Marv Dotson MD @ 12/01/2023 11:18:54 AM Signed by:?Marv Dotson MD @12/01/2023 11:18:54 AM (Electronic Signature)
== END 2023-12-01 09:06 | disposition home or self-care (01) ==
LOC: RAD 09:06
PROVIDERS: PCP Internal Medicine; Visit Provider Nurse Practitioner Family
DX: L97.512 Non-pressure chronic ulcer of other part of right foot with fat layer exposed (principal)
CPT/HCPCS: 73630; 87070

== ENCOUNTER 2023-12-15 07:58 | Outpatient (CLI) | payer BC, SELFPAY | END 2023-12-15 07:59 | disposition home or self-care (01) | LOC: WOUND 07:58 | PROVIDERS: PCP Internal Medicine; Visit Provider Nurse Practitioner Family | DX: E11.621 Type 2 diabetes mellitus with foot ulcer (principal); L97.512 Non-pressure chronic ulcer of other part of right foot with fat layer exposed; Z79.4 Long term (current) use of insulin; Z79.84 Long term (current) use of oral hypoglycemic drugs | CPT/HCPCS: 97602; G0463 ==

== ENCOUNTER 2023-12-29 08:01 | Outpatient (CLI) | payer BC, SELFPAY ==
--- OUTSIDE RECORDS SUMMARY | 2023-12-29 08:03 | XMS_ITS | Referral Summary ---
Author Name Unknown Organization [facility] Address [address] [place] [address] Care Team Providers Care Hot Water Heater Installer Name Role Phone Alondra Mathew MD [...] COMPREHENSIVE METABOLIC PANEL Routine 07/31/2021 3:50 PM CARBON CAPTURE POWER PLANT ENGINEER Hyperlipidemia, unspecified [ICD-10-CM] Other secondary hypertension [ICD-10-CM] from Last 3 Months or Most Recently Relevant to Health Maintenance Results * (ABNORMAL) Comprehensive metabolic panel (07/31/2021 3:50 PM CARBON CAPTURE POWER PLANT ENGINEER) Sodium 137 136 - 145 mmol/L 07/31/2021 11:49 PM CARBON CAPTURE POWER PLANT ENGINEER [facility] Potassium 4.0 3.5 - 5.0 mmol/L 07/31/2021 11:49 PM CARBON CAPTURE POWER PLANT ENGINEER [facility] Chloride 104 98 - 107 mmol/L 07/31/2021 11:49 PM CARBON CAPTURE POWER PLANT ENGINEER [facility] Carbon Dioxide (CO2) 23 22 - 31 mmol/L 07/31/2021 11:49 PM CARBON CAPTURE POWER PLANT ENGINEER [facility] Anion Gap 10 5 - 18 mmol/L 07/31/2021 11:49 PM CARBON CAPTURE POWER PLANT ENGINEER [facility] Urea Nitrogen 20 8 - 22 mg/dL 07/31/2021 11:49 PM CARB[employer] CAPTURE POWER PLANT ENGINEER [facility] Creatinine 1.08 0.60 - 1.10 mg/dL 07/31/2021 11:49 PM CARBON CAPTURE POWER PLANT ENGINEER [facility] Calcium 9.0 8.5 - 10.5 mg/dL 07/31/2021 11:49 PM CARBON CAPTURE POWER PLANT ENGINEER [facility] Glucose 262(H) 70 - 125 mg/dL 07/31/2021 11:49 PM CARBON CAPTURE POWER PLANT ENGINEER [facility] Alkaline Phosphatase 130(H) 45 - 120 U/L 07/31/2021 11:49 PM CARBON CAPTURE POWER PLANT ENGINEER [facility] AST 39 0 - 40 U/L 07/31/2021 11:49 PM CARBON CAPTURE POWER PLANT ENGINEER [facility] ALT 46(H) 0 - 45 U/L 07/31/2021 11:49 PM CARBON CAPTURE POWER PLANT ENGINEER [facility] Protein Total 7.2 6.0 - 8.0 g/dL 07/31/2021 11:49 PM CARBON CAPTURE POWER PLANT ENGINEER [facility] Albumin 3.8 3.5 - 5.0 g/dL 07/31/2021 11:49 PM CARBON CAPTURE POWER PLANT ENGINEER [facility] Bilirubin Total 0.6 0.0 - 1.0 mg/dL 07/31/2021 11:49 PM CARBON CAPTURE POWER PLANT ENGINEER [facility] GFR Estimate 67 >60 mL/min/1.7 3m2 07/31/2021 11:49 PM CARBON CAPTURE POWER PLANT ENGINEER [facility] Comment:As of March 01, 2021, eGFR is calculated by the CKD-EPI creatinine equation, without race adjustment. eGFR can be influenced by muscle mass, exercise, and diet. The reported eGFR is an estimation only and is only applicable if the renal function is stable. Blood BLOOD SPECIMEN / Unknown Client Draw / Unknown 07/31/2021 3:50 PM CAR[employer] PLANT ENGINEER 07/31/2021 10:19 PM CAR[employer] CAP[employer]OWER PLANT ENGINEER Josy Acuña MD LAB - BLOOD ORDER [facility] [address] [id number] [phone] from Last 3 Months or Most Recently Relevant to Health Maintenance Care Teams Hot Water Heater Installer Relationship Specialty Start Date End Date Alondra Mathew MD [facility] [address] [place] [address] PCP - General 01/12/23 Linden Conrad MD [address] [place] [address] Assigned Heart and Vascular Provider 01/22/23
--- OUTSIDE RECORDS SUMMARY | 2023-12-29 08:03 | XMS_ITS | Clinical Summary ---
Author Name Unknown Organization [facility] Address [facility] [place] [address] Care Team Providers Care Beauty Operator Name Role Phone Alondra Mathew MD Primary Care Provider [phone] Linden Conrad MD Unavailable [phone] Allergies Active Allergy Reactions Criticality Noted Date [...] Vaccine ( season) 2023 06/05/2021, 06/05/2021, 05/15/2021 PHQ-2 (once per calendar year) 2023 INFLUENZA VACCINE (Season Ended) 2024 05/04/2019, 07/17/2018, 06/30/2016, Additional history exists GLUCOSE 07/31/2024 07/31/2021 DTAP/TDAP/TD IMMUNIZATION (4 - [...] COMPREHENSIVE METABOLIC PANEL Routine 07/31/2021 3:50 PM SILVER PLATER Hyperlipidemia, unspecified [ICD-10-CM] Other secondary hypertension [ICD-10-CM] from Last 3 Months or Most Recently Relevant to Health Maintenance Results * (ABNORMAL) Comprehensive metabolic panel (07/31/2021 3:50 PM SILVER PLATER) Sodium 137 136 - 145 mmol/L 07/31/2021 11:49 PM SILVER PLATER [facility] Potassium 4.0 3.5 - 5.0 mmol/L 07/31/2021 11:49 PM SILVER PLATER [facility] Chloride 104 98 - 107 mmol/L 07/31/2021 11:49 PM SILVER PLATER [facility] Carbon Dioxide (CO2) 23 22 - 31 mmol/L 07/31/2021 11:49 PM SILVER PLATER [facility] Anion Gap 10 5 - 18 mmol/L 07/31/2021 11:49 PM SILVER PLATER [facility] Urea Nitrogen 20 8 - 22 mg/dL 07/31/2021 11:49 PM SILVER PLATER [facility] Creatinine 1.08 0.60 - 1.10 mg/dL 07/31/2021 11:49 PM SILVER PLATER [facility] Calcium 9.0 8.5 - 10.5 mg/dL 07/31/2021 11:49 PM SILVER PLATER [facility] Glucose 262(H) 70 - 125 mg/dL 07/31/2021 11:49 PM SILVER PLATER [facility] Alkaline Phosphatase 130(H) 45 - 120 U/L 07/31/2021 11:49 PM SILVER PLATER [facility] AST 39 0 - 40 U/L 07/31/2021 11:49 PM SILVER PLATER [facility] ALT 46(H) 0 - 45 U/L 07/31/2021 11:49 PM SILVER PLATER [facility] Protein Total 7.2 6.0 - 8.0 g/dL 07/31/2021 11:49 PM SILVER PLATER [facility] Albumin 3.8 3.5 - 5.0 g/dL 07/31/2021 11:49 PM SILVER PLATER [facility] Bilirubin Total 0.6 0.0 - 1.0 mg/dL 07/31/2021 11:49 PM SILVER PLATER [facility] GFR Estimate 67 >60 mL/min/1.7 3m2 07/31/2021 11:49 PM SILVER PLATER [facility] Comment:As of March 01, 2021, eGFR is calculated by the CKD-EPI creatinine equation, without race adjustment. eGFR can be influenced by muscle mass, exercise, and diet. The reported eGFR is an estimation only and is only applicable if the renal function is stable. Blood BLOOD SPECIMEN / Unknown Client Draw / Unknown 07/31/2021 3:50 PM SILVER PLATER 07/31/2021 10:19 PM SILVER PLATER Josy Acuña MD LAB - BLOOD ORDER K[facility] [id number] [place] [address] from Last 3 Months or Most Recently Relevant to Health Maintenance Care Teams Beauty Operator Relationship Specialty Start Date End Date Alondra Mathew MD [facility] [address] [place] [address] PCP - General 01/12/23 Linden Conrad MD [address] [place] [address] Assigned Heart and Vascular Provider 01/22/23
--- OUTSIDE RECORDS SUMMARY | 2023-12-29 08:03 | XMS_ITS | Continuity of Care Document ---
Author Name Unknown Organization [facility] Address [address] [place] [address] Phone Care Team Providers Care Braiding Machine Operator Name Role Phone Avery Underwood MD [...] PA 2019 Lami/Discectomy, Lumbar HNP Office/Outpatient Visit,[facility] 2019 Advance Directives Directive Yes / No Effective Date File Name No Information Encounters Encounter Description Practice Location Reason(s) For Visit Diagnoses Date Provider Providers Copied on Encounter [facility], [address], [place], [id number], [place] tel:[phone] [facility] No Information 0 Yasmine Smart er. [facility], [address] [place] [address], [address], [place], [id number] , [place]. [phone] [facility], [address], [place], [id number], [place] tel:[phone] [facility] Encounter for follow-up examination after completed treatment for conditions other than malignant neoplasm 0 Underwoodned Omeroph er. [facility], [address] [place] [address], [address], [place], [address] , [place]. [phone] Referring Provider: Mile Ni LettuceThinner [address], [address]. tel:[phone] [facility], [address], [place], [address], [place] tel:[phone] [facility] Encounter for follow-up examination after completed treatment for conditions other than malignant neoplasm 0 Underwood Berry er. [facility], [address], [address], [place], [address] , [place]. tel:[phone] Referring Provider: Mile Ni Octoshape [address] [place] [address], [address]. tel:[phone] [facility], [address], [place], [address], [place] tel:[phone] [facility] Encounter for other specified surgical aftercare 0 Magnus Isi. [facility], [address], [place], [address], [place]. tel:[phone] Referring Provider: Mile Ni Octoshape [address] [place], [address]. tel:[phone] [facility], [address], [place], [address], [place] tel:[phone] [facility] No Information May-1 2- 0 Magnus Isi. [facility], [address] [facility] [address], [place], [address], [place]. tel:[phone] Referring Provider: Mile Ni Octoshape [address] [place] [address], [address]. tel:[phone] [facility], [address], [place], [address], [place] tel:[phone] [facility] No Information May-0 0 Yasmine gallego. [facility], [address] [place] [address], [address], [place], [place], [address] , [place]. tel:[phone] Referring Provider: Mile Ni Octoshape [facility] [place], [address]. tel:[phone] [facility], [address], [place], [address], [place] tel:[phone] [facility] Encounter for other specified surgical aftercare Sep-3 0-202 0 Magnus Isi. [facility], [address] [place] [address] [address], [place], [address], [place]. tel:[phone] Referring Provider: Mile Ni Octoshape [address] [place] [address], [address]. tel:[phone] [facility], [address], [place], [address], [place] tel:[phone] [facility] No Information Sep-2 0 Magnus Snowden. [facility], [address], [place], [address], [place]. [phone] Referring Provider: Mile Ni, LettuceThinner [address], [address]. tel:[phone] [facility], [address], [place], [id number], [place] tel:[phone] [facility] No Information Sep-2 0 Yasmine gallego. [facility], [address] [place] [address], [address], [facility], [id number] , [place]. [phone] Referring Provider: Mile Ni, Octoshape [address] [place] [address], [address]. tel:[phone] Office/Outpat ient Visit,[facility], [facility], [address], [place], [id number], [place] tel:[phone] [facility] Other intervertebral disc displacement, lumbar regionRadiculop athy, lumbar region Sep-1 0 Magnus Snowden. [facility], [address], [place], [address], [place]. [phone] Referring Provider: Mile Ni, Octoshape [address] [place] [address], [address]. tel:[phone] Family History Family Member Type Diagnosis Age At Onset No Information Payers Payer name Insurance type Covered constitution party ID jacquelyn yongzuri(s) [employer] [id number] Social History Type Description Quantity Date Captured [...]
== END 2023-12-29 08:02 | disposition home or self-care (01) ==
LOC: WOUND 08:01
PROVIDERS: PCP Internal Medicine; Visit Provider Nurse Practitioner Family
DX: E11.621 Type 2 diabetes mellitus with foot ulcer (principal); L97.512 Non-pressure chronic ulcer of other part of right foot with fat layer exposed; Z79.84 Long term (current) use of oral hypoglycemic drugs
CPT/HCPCS: G0463

== ENCOUNTER 2024-01-12 09:05 | Outpatient (CLI) | payer BC, SELFPAY ==
--- OUTSIDE RECORDS SUMMARY | 2024-01-31 12:42 | XMS_ITS | Clinical Summary ---
Author Organization [facility] Address [address] [place] [address] [place] [address] Care Team Providers Care Mail Deliverer Name Role Phone Alondra Mathew MD Primary Care Provider [phone] Linden Conrad MD Unavailable [phone] Allergies Active Allergy Reactions Criticality Noted Date [...] COMPREHENSIVE METABOLIC PANEL Routine 07/31/2021 3:50 PM SKIING INSTRUCTOR Hyperlipidemia, unspecified [ICD-10-CM] Other secondary hypertension [ICD-10-CM] from Last 3 Months or Most Recently Relevant to Health Maintenance Results * (ABNORMAL) Comprehensive metabolic panel (07/31/2021 3:50 PM SKIING INSTRUCTOR) Sodium 137 136 - 145 mmol/L 07/31/2021 11:49 PM SKIING INSTRUCTOR [facility] Potassium 4.0 3.5 - 5.0 mmol/L 07/31/2021 11:49 PM SKIING INSTRUCTOR [facility] Chloride 104 98 - 107 mmol/L 07/31/2021 11:49 PM SKIING INSTRUCTOR [facility] Carbon Dioxide (CO2) 23 22 - 31 mmol/L 07/31/2021 11:49 PM SKIING INSTRUCTOR [facility] Anion Gap 10 5 - 18 mmol/L 07/31/2021 11:49 PM SKIING INSTRUCTOR [facility] Urea Nitrogen 20 8 - 22 mg/dL 07/31/2021 11:49 PM SKIING INSTRUCTOR [facility] Creatinine 1.08 0.60 - 1.10 mg/dL 07/31/2021 11:49 PM SKIING INSTRUCTOR [facility] Calcium 9.0 8.5 - 10.5 mg/dL 07/31/2021 11:49 PM SKIING INSTRUCTOR [facility] Glucose 262(H) 70 - 125 mg/dL 07/31/2021 11:49 PM SKIING INSTRUCTOR [facility] Alkaline Phosphatase 130(H) 45 - 120 U/L 07/31/2021 11:49 PM SKIING INSTRUCTOR [facility] AST 39 0 - 40 U/L 07/31/2021 11:49 PM SKIING INSTRUCTOR [facility] ALT 46(H) 0 - 45 U/L 07/31/2021 11:49 PM SKIING INSTRUCTOR [facility] Protein Total 7.2 6.0 - 8.0 g/dL 07/31/2021 11:49 PM SKIING INSTRUCTOR [facility] Albumin 3.8 3.5 - 5.0 g/dL 07/31/2021 11:49 PM SKIING INSTRUCTOR [facility] Bilirubin Total 0.6 0.0 - 1.0 mg/dL 07/31/2021 11:49 PM SKIING INSTRUCTOR [facility] GFR Estimate 67 >60 mL/min/1.7 3m2 07/31/2021 11:49 PM SKIING INSTRUCTOR [facility] Comment:As of March 01, 2021, eGFR is calculated by the CKD-EPI creatinine equation, without race adjustment. eGFR can be influenced by muscle mass, exercise, and diet. The reported eGFR is an estimation only and is only applicable if the renal function is stable. Blood BLOOD SPECIMEN / Unknown Client Draw / Unknown 07/31/2021 3:50 PM SKIING INSTRUCTOR 07/31/2021 10:19 PM SKIING INSTRUCTOR Josy Acuña MD LAB - BLOOD ORDER [facility] [address] [address], [facility] [phone] from Last 3 Months or Most Recently Relevant to Health Maintenance Care Teams Mail Deliverer Relationship Specialty Start Date End Date Alondra Mathew MD [facility] & [address] [address] PCP - General 01/12/23 Linden Conrad MD [address] [place] [address] Assigned Heart and Vascular Provider 01/22/23
--- OUTSIDE RECORDS SUMMARY | 2024-01-31 12:42 | XMS_ITS | Continuity of Care Document ---
Author Organization [facility] Address [address] [place] [address] Phone Care Team Providers Care Pipe Machine Operator Name Role Phone Avery Underwood [...] - PA 2019 Lami/Discectomy, Lumbar HNP Office/Outpatient Visit,[facility] 2019 Advance Directives Directive Yes / No Effective Date File Name No Information Encounters Encounter Description Practice Location Reason(s) For Visit Diagnoses Date Provider Providers Copied on Encounter [facility], [address], [place], [address], [place] tel:[phone] [facility] No Information 0 Yasmine Smart er. [facility], [address] [place] [address], [address], [place], [address] , [place]. tel:[phone] [facility], [address], [place], [address], [place] tel:[phone] [facility] Encounter for follow-up examination after completed treatment for conditions other than malignant neoplasm 0 Underwood Berry er. [facility], [address] [place] [address], [address], [place], [address] , [place]. [phone] Referring Provider: Mile Ni Splother [address] [place] [address], [address]. tel:[phone] [facility], [address], [place], [address], [place] tel:[phone] [facility] Encounter for follow-up examination after completed treatment for conditions other than malignant neoplasm 0 Yasmine Berry er. [facility], [address], [address], [place], [address] , [place]. [phone] Referring Provider: Mile Ni Splother [address] [place], [address]. tel:[phone] [facility], [address], [place], [address], [place] tel:[phone] [facility] Encounter for other specified surgical aftercare 0 Magnus Isi. [facility], [address], [place], [address], [place]. tel:[phone] Referring Provider: Mile Ni Splother [address] [place], [address]. tel:[phone] [facility], [address], [place], [address], [place] tel:[phone] [facility] No Information May-1 2-202 0 Magnus Isi. [facility], [address], [place], [address], [place]. tel:[phone] Referring Provider: Mile Ni Splother [address] [place] [address], [address]. tel:[phone] [facility], [address], [place], [address], [place] tel:[phone] [facility] No Information May-0 6-202 0 Yasmine Smart . [facility], [address] [place] [address], [address], [place], [address] , [place]. tel:[phone] Referring Provider: Mile Ni Splother [address] [place] [address], [address]. tel:[phone] [facility], [address], [place], [address], [place] tel:[phone] [facility] Encounter for other specified surgical aftercare Sep-3 0-202 0 Magnus Isi. [facility], [address], [place], [address], [place]. tel:[phone] Referring Provider: Mile Ni Splother [address] [place] [address], [address]. tel:[phone] [facility], [address], [place], [address], [place] tel:[phone] [facility] No Information Sep-2 2-202 0 Magnustamy Snowden. [facility], [address], [place], [address], [place]. [phone] Referring Provider: Mile Ni, [employer] [address], [address]. tel:[phone] [facility], [address], [place], [address], [place] tel:[phone] [facility] No Information Sep-2 0 Yasmine gallego. [facility], [address], [address], [facility] [place], [address] , [place]. [phone] Referring Provider: Mile Ni, Splother [address] [place] [address], [address]. tel:[phone] Office/Outpat ient Visit,[facility], [address], [facility], [address], [place] tel:[phone] [facility] Other intervertebral disc displacement, lumbar regionRadiculop athy, lumbar region Sep- 0 Magnus Snowden. [facility], [address], [place], [address], [place]. [phone] Referring Provider: Mile Ni, Splother [address] [place] [address], [address]. tel:[phone] Family History Family Member Type Diagnosis Age At Onset No Information Payers Payer name Insurance type Covered constitution party ID Ruchi alonzo(s) [employer] [id number] Social History Type Description Quantity Date Captured [...]
--- OUTSIDE RECORDS SUMMARY | 2024-01-31 12:43 | XMS_ITS | Referral Summary ---
Author Organization [facility] Address [facility] [place] [address] Care Team Providers Care Geological Specialist Name Role Phone Alondra Mathew MD Primary Care Provider Linden Conrad MD Unavailable [phone] Allergies Active Allergy Reactions Criticality Noted Date [...] COMPREHENSIVE METABOLIC PANEL Routine 07/31/2021 3:50 PM JOCKEY VALET Hyperlipidemia, unspecified [ICD-10-CM] Other secondary hypertension [ICD-10-CM] from Last 3 Months or Most Recently Relevant to Health Maintenance Results * (ABNORMAL) Comprehensive metabolic panel (07/31/2021 3:50 PM JOCKEY VALET) Pathologist [facility] Sodium 137 136 - 145 mmol/L 07/31/2021 11:49 PM JOCKEY VALET [facility] Potassium 4.0 3.5 - 5.0 mmol/L 07/31/2021 11:49 PM JOCKEY VALET [facility] Chloride 104 98 - 107 mmol/L 07/31/2021 11:49 PM JOCKEY VALET [facility] Carbon Dioxide (CO2) 23 22 - 31 mmol/L 07/31/2021 11:49 PM JOCKEY VALET [facility] Anion Gap 10 5 - 18 mmol/L 07/31/2021 11:49 PM JOCKEY VALET [facility] Urea Nitrogen 20 8 - 22 mg/dL 07/31/2021 11:49 PM JOCKEY VALET [facility] Creatinine 1.08 0.60 - 1.10 mg/dL 07/31/2021 11:49 PM JOCKEY VALET [facility] Calcium 9.0 8.5 - 10.5 mg/dL 07/31/2021 11:49 PM JOCKEY VALET [facility] Glucose 262(H) 70 - 125 mg/dL 07/31/2021 11:49 PM JOCKEY VALET [facility] Alkaline Phosphatase 130(H) 45 - 120 U/L 07/31/2021 11:49 PM JOCKEY VALET [facility] AST 39 0 - 40 U/L 07/31/2021 11:49 PM JOCKEY VALET [facility] ALT 46(H) 0 - 45 U/L 07/31/2021 11:49 PM JOCKEY VALET [facility] Protein Total 7.2 6.0 - 8.0 g/dL 07/31/2021 11:49 PM JOCKEY VALET [facility] Albumin 3.8 3.5 - 5.0 g/dL 07/31/2021 11:49 PM JOCKEY VALET [facility] Bilirubin Total 0.6 0.0 - 1.0 mg/dL 07/31/2021 11:49 PM JOCKEY VALET [facility] GFR Estimate 67 >60 mL/min/1.7 3m2 07/31/2021 11:49 PM JOCKEY VALET [facility] Comment:As of March 01, 2021, eGFR is calculated by the CKD-EPI creatinine equation, without race adjustment. eGFR can be influenced by muscle mass, exercise, and diet. The reported eGFR is an estimation only and is only applicable if the renal function is stable. Blood BLOOD SPECIMEN / Unknown Client Draw / Unknown 07/31/2021 3:50 PM JOCKEY VALET 07/31/2021 10:19 PM JOCKEY VALET Josy Acuña MD LAB - BLOOD ORDER [facility] [address] [address] [phone] from Last 3 Months or Most Recently Relevant to Health Maintenance Care Teams Geological Specialist Relationship Specialty Start Date End Date Alondra Mathew MD [facility] [address] [place] [address] PCP - General 01/12/23 Linden Conrad MD [address] [place] [id number] Assigned Heart and Vascular Provider 01/22/23
== END 2024-01-12 09:06 | disposition home or self-care (01) ==
LOC: NFLDREF 01-31 12:40
PROVIDERS: PCP Internal Medicine; Referring Provider Internal Medicine; Visit Provider Internal Medicine
DX: E11.9 Type 2 diabetes mellitus without complications (principal)
CPT/HCPCS: 80053; 80061; 82043; 82570

== ENCOUNTER 2024-01-23 13:07 | Outpatient (CLI) | payer BC, SELFPAY ==
--- OUTSIDE RECORDS SUMMARY | 2024-01-23 13:08 | XMS_ITS | Clinical Summary ---
Author Organization [facility] Address [address] [place] [address] [place] [address] Care Team Providers Care Nnp Name Role Phone Alondra Mathew MD Primary Care Provider Linden Conrad MD Unavailable [phone] Allergies Active Allergy Reactions Criticality Noted Date [...] COMPREHENSIVE METABOLIC PANEL Routine 07/31/2021 3:50 PM APRON MAN Hyperlipidemia, unspecified [ICD-10-CM] Other secondary hypertension [ICD-10-CM] from Last 3 Months or Most Recently Relevant to Health Maintenance Results * (ABNORMAL) Comprehensive metabolic panel (07/31/2021 3:50 PM APRON MAN) Sodium 137 136 - 145 mmol/L 07/31/2021 11:49 PM APRON MAN [facility] Potassium 4.0 3.5 - 5.0 mmol/L 07/31/2021 11:49 PM APRON MAN [facility] Chloride 104 98 - 107 mmol/L 07/31/2021 11:49 PM APRON MAN [facility] Carbon Dioxide (CO2) 23 22 - 31 mmol/L 07/31/2021 11:49 PM APRON MAN [facility] Anion Gap 10 5 - 18 mmol/L 07/31/2021 11:49 PM APRON MAN [facility] Urea Nitrogen 20 8 - 22 mg/dL 07/31/2021 11:49 PM APRON MAN [facility] Creatinine 1.08 0.60 - 1.10 mg/dL 07/31/2021 11:49 PM APRON MAN [facility] Calcium 9.0 8.5 - 10.5 mg/dL 07/31/2021 11:49 PM APRON MAN [facility] Glucose 262(H) 70 - 125 mg/dL 07/31/2021 11:49 PM APRON MAN [facility] Alkaline Phosphatase 130(H) 45 - 120 U/L 07/31/2021 11:49 PM APRON MAN [facility] AST 39 0 - 40 U/L 07/31/2021 11:49 PM APRON MAN [facility] ALT 46(H) 0 - 45 U/L 07/31/2021 11:49 PM APRON MAN [facility] Protein Total 7.2 6.0 - 8.0 g/dL 07/31/2021 11:49 PM APRON MAN [facility] Albumin 3.8 3.5 - 5.0 g/dL 07/31/2021 11:49 PM APRON MAN [facility] Bilirubin Total 0.6 0.0 - 1.0 mg/dL 07/31/2021 11:49 PM APRON MAN [facility] GFR Estimate 67 >60 mL/min/1.7 3m2 07/31/2021 11:49 PM APRON MAN [facility] Comment:As of March 01, 2021, eGFR is calculated by the CKD-EPI creatinine equation, without race adjustment. eGFR can be influenced by muscle mass, exercise, and diet. The reported eGFR is an estimation only and is only applicable if the renal function is stable. Blood BLOOD SPECIMEN / Unknown Client Draw / Unknown 07/31/2021 3:50 PM APRON MAN 07/31/2021 10:19 PM APRON MAN Josy Acuña MD LAB - BLOOD ORDER [facility] [address] [address], [facility] [phone] from Last 3 Months or Most Recently Relevant to Health Maintenance Care Teams Nnp Relationship Specialty Start Date End Date Alondra Mathew MD [facility] & [address] [address] PCP - General 01/12/23 Linden Conrad MD [address] [place] [address] Assigned Heart and Vascular Provider 01/22/23
--- OUTSIDE RECORDS SUMMARY | 2024-01-23 13:08 | XMS_ITS | Referral Summary ---
Author Organization [facility] Address [facility] [place] [address] Care Team Providers Care Account Executive Name Role Phone Alondra Mathew MD Primary Care Provider [phone] Linden Conrad MD Unavailable [phone] Allergies Active Allergy Reactions Criticality Noted Date [...] COMPREHENSIVE METABOLIC PANEL Routine 07/31/2021 3:50 PM POLICY ADVISER Hyperlipidemia, unspecified [ICD-10-CM] Other secondary hypertension [ICD-10-CM] from Last 3 Months or Most Recently Relevant to Health Maintenance Results * (ABNORMAL) Comprehensive metabolic panel (07/31/2021 3:50 PM POLICY ADVISER) Pathologist [facility] Sodium 137 136 - 145 mmol/L 07/31/2021 11:49 PM POLICY ADVISER [facility] Potassium 4.0 3.5 - 5.0 mmol/L 07/31/2021 11:49 PM POLICY ADVISER [facility] Chloride 104 98 - 107 mmol/L 07/31/2021 11:49 PM POLICY ADVISER [facility] Carbon Dioxide (CO2) 23 22 - 31 mmol/L 07/31/2021 11:49 PM POLICY ADVISER [facility] Anion Gap 10 5 - 18 mmol/L 07/31/2021 11:49 PM POLICY ADVISER [facility] Urea Nitrogen 20 8 - 22 mg/dL 07/31/2021 11:49 PM POLICY ADVISER [facility] Creatinine 1.08 0.60 - 1.10 mg/dL 07/31/2021 11:49 PM POLICY ADVISER [facility] Calcium 9.0 8.5 - 10.5 mg/dL 07/31/2021 11:49 PM POLICY ADVISER [facility] Glucose 262(H) 70 - 125 mg/dL 07/31/2021 11:49 PM POLICY ADVISER [facility] Alkaline Phosphatase 130(H) 45 - 120 U/L 07/31/2021 11:49 PM POLICY ADVISER [facility] AST 39 0 - 40 U/L 07/31/2021 11:49 PM POLICY ADVISER [facility] ALT 46(H) 0 - 45 U/L 07/31/2021 11:49 PM POLICY ADVISER [facility] Protein Total 7.2 6.0 - 8.0 g/dL 07/31/2021 11:49 PM POLICY ADVISER [facility] Albumin 3.8 3.5 - 5.0 g/dL 07/31/2021 11:49 PM POLICY ADVISER [facility] Bilirubin Total 0.6 0.0 - 1.0 mg/dL 07/31/2021 11:49 PM POLICY ADVISER [facility] GFR Estimate 67 >60 mL/min/1.7 3m2 07/31/2021 11:49 PM POLICY ADVISER [facility] Comment:As of March 01, 2021, eGFR is calculated by the CKD-EPI creatinine equation, without race adjustment. eGFR can be influenced by muscle mass, exercise, and diet. The reported eGFR is an estimation only and is only applicable if the renal function is stable. Blood BLOOD SPECIMEN / Unknown Client Draw / Unknown 07/31/2021 3:50 PM POLICY ADVISER 07/31/2021 10:19 PM POLICY ADVISER Josy Acuña MD LAB - BLOOD ORDER [facility] [address] [address] [phone] from Last 3 Months or Most Recently Relevant to Health Maintenance Care Teams Account Executive Relationship Specialty Start Date End Date Alondra Mathew MD [facility] [address] [place] [address] PCP - General 01/12/23 Linden Conrad MD [address] [place] [address] Assigned Heart and Vascular Provider 01/22/23
--- OUTSIDE RECORDS SUMMARY | 2024-01-23 13:08 | XMS_ITS | Continuity of Care Document ---
Author Organization [facility] Address [address] [place] [address] Phone Care Team Providers Care Spiral Weaver Name Role Phone Avery Underwood MD Unavailable [...] - PA 2019 Lami/Discectomy, Lumbar HNP Office/Outpatient Visit,[facility] 2019 Advance Directives Directive Yes / No Effective Date File Name No Information Encounters Encounter Description Practice Location Reason(s) For Visit Diagnoses Date Provider Providers Copied on Encounter [facility], [address], [place], [id number], [place] tel:[phone] [facility] No Information 0 Yasmine Smart er. [facility], [address] [place] [address], [address], [place], [address] , [place]. [phone] [facility], [address], [place], [address], [place] tel:[phone] [facility] Encounter for follow-up examination after completed treatment for conditions other than malignant neoplasm 0 Underwood Berry er. [facility], [address] [place] [address], [address], [place], [address] , [place]. [phone] Referring Provider: Mile Ni [facility] [address] [place] [address], [address]. tel:[phone] [facility], [address], [place], [place], [address], [place] tel:[phone] [facility] Encounter for follow-up examination after completed treatment for conditions other than malignant neoplasm 0 Yasmine Berry er. [facility] [place], [address], [address], [place], [address] , [place]. tel: [phone] Referring Provider: Mile Ni [facility] [address] [place], [address]. tel:[phone] [facility], [address], [place], [address], [place] tel:[phone] [facility] Encounter for other specified surgical aftercare 0 Magnus Isi. [facility], [address], [place], [address], [place]. tel:[phone] Referring Provider: Mile Ni [facility] [address] [place], [address]. tel:[phone] [facility], [address], [place], [address], [place] tel:[phone] [facility] No Information May-1 2-202 0 Magnus Isi. [facility], [address], [place], [address], [place]. tel:[phone] Referring Provider: Mile Ni [facility] [address] [place] [address], [address]. tel:[phone] [facility], [address], [place], [address], [place] tel:[phone] [facility] No Information May-0 6-202 0 Yasmine Smart . [facility], [address] [place] [address], [address], [place], [address] , [place]. tel:[phone] Referring Provider: Mile Ni [facility] [address] [place] [address], [address]. tel:[phone] [facility], [address], [place], [address], [place] tel:[phone] [facility] - [facility] Encounter for other specified surgical aftercare Sep-3 0-202 0 Magnus Isi. [facility], [address] [facility] [address], [place], [address], [place]. tel:[phone] Referring Provider: Mile Ni [facility] [address] [place] [address], [address]. tel:[phone] [facility], [address], [place], [address], [place] tel:[phone] [facility] No Information Sep-2 2-202 0 Magnustamy Snowden. [facility], [address], [place], [address], [place]. [phone] Referring Provider: Mile Ni, Trul[place] [address], [address]. tel:[phone] [facility], [address], [place], [address], [place] tel:[phone] [facility] No Information Sep-2 0 Yasmine gallego. [facility], [address] [facility] [address], [address], [facility] [place], [address] , [place]. [phone] Referring Provider: Mile Ni, [facility] [address] [place] [address], [address]. tel:[phone] Office/Outpat ient Visit,[facility], [address], [facility] [place], [address], [place] tel:[phone] [facility] - [facility] Other intervertebral disc displacement, lumbar regionRadiculop athy, lumbar region Sep- 0 Magnus Snowden. [facility], [address], [facility] [place], [address], [place]. [phone] Referring Provider: Mile Ni, [facility] [address] [place] [address], [address]. tel:[phone] Family History Family Member Type Diagnosis Age At Onset No Information Payers Payer name Insurance type Covered alliance party ID Ruchi alonzo(s) [email or web address] [id number] Social History Type Description Quantity Date Captured [...]
== END 2024-01-23 13:08 | disposition home or self-care (01) ==
LOC: WOUND 13:07
PROVIDERS: PCP Internal Medicine; Visit Provider Nurse Practitioner Family
DX: E11.621 Type 2 diabetes mellitus with foot ulcer (principal); L97.518 Non-pressure chronic ulcer of other part of right foot with other specified severity; Z79.84 Long term (current) use of oral hypoglycemic drugs
CPT/HCPCS: G0463

== ENCOUNTER 2024-04-04 14:05 | Outpatient (CLI) | payer BC, SELFPAY ==
--- OUTSIDE RECORDS SUMMARY | 2024-04-04 14:07 | XMS_ITS | Clinical Summary ---
Author Organization [facility] Address [address] [place] [address] [place] [address] Care Team Providers Care Skip Tracer Name Role Phone Alondra Mathew MD Primary Care Provider Linden Conrad MD Unavailable [phone] Allergies Active Allergy Reactions Criticality Noted Date [...] 03/18/2010, 01/30/2007, Additional history exists COVID-19 Vaccine (2022- season) 2023 06/05/2021, 06/05/2021, 05/15/2021 PHQ-2 (once per calendar year) 2023 INFLUENZA VACCINE (#1) 2024 9, 07/17/2018, 06/30/2016, Additional history exists GLUCOSE 07/31/2024 [...] COMPREHENSIVE METABOLIC PANEL Routine 07/31/2021 3:50 PM MONITORING TECH Hyperlipidemia, unspecified [ICD-10-CM] Other secondary hypertension [ICD-10-CM] from Last 3 Months or Most Recently Relevant to Health Maintenance Results * (ABNORMAL) Comprehensive metabolic panel (07/31/2021 3:50 PM MONITORING TECH) Sodium 137 136 - 145 mmol/L 07/31/2021 11:49 PM MONITORING TECH [facility] Potassium 4.0 3.5 - 5.0 mmol/L 07/31/2021 11:49 PM MONITORING TECH [facility] Chloride 104 98 - 107 mmol/L 07/31/2021 11:49 PM MONITORING TECH [facility] Carbon Dioxide (CO2) 23 22 - 31 mmol/L 07/31/2021 11:49 PM MONITORING TECH [facility] Anion Gap 10 5 - 18 mmol/L 07/31/2021 11:49 PM MONITORING TECH [facility] Urea Nitrogen 20 8 - 22 mg/dL 07/31/2021 11:49 PM MONITORING TECH [facility] Creatinine 1.08 0.60 - 1.10 mg/dL 07/31/2021 11:49 PM MONITORING TECH [facility] Calcium 9.0 8.5 - 10.5 mg/dL 07/31/2021 11:49 PM MONITORING TECH [facility] Glucose 262(H) 70 - 125 mg/dL 07/31/2021 11:49 PM MONITORING TECH [facility] Alkaline Phosphatase 130(H) 45 - 120 U/L 07/31/2021 11:49 PM MONITORING TECH [facility] AST 39 0 - 40 U/L 07/31/2021 11:49 PM MONITORING TECH [facility] ALT 46(H) 0 - 45 U/L 07/31/2021 11:49 PM MONITORING TECH [facility] Protein Total 7.2 6.0 - 8.0 g/dL 07/31/2021 11:49 PM MONITORING TECH [facility] Albumin 3.8 3.5 - 5.0 g/dL 07/31/2021 11:49 PM MONITORING TECH [facility] Bilirubin Total 0.6 0.0 - 1.0 mg/dL 07/31/2021 11:49 PM MONITORING TECH [facility] GFR Estimate 67 >60 mL/min/1.7 3m2 07/31/2021 11:49 PM MONITORING TECH [facility] Comment:As of March 01, 2021, eGFR is calculated by the CKD-EPI creatinine equation, without race adjustment. eGFR can be influenced by muscle mass, exercise, and diet. The reported eGFR is an estimation only and is only applicable if the renal function is stable. Blood BLOOD SPECIMEN / Unknown Client Draw / Unknown 07/31/2021 3:50 PM MONITORING TECH 07/31/2021 10:19 PM MONITORING TECH Josy Acuña MD LAB - BLOOD ORDER [facility] [address] [address], [facility] [phone] from Last 3 Months or Most Recently Relevant to Health Maintenance Care Teams Skip Tracer Relationship Specialty Start Date End Date Alondra Mathew MD [facility] [address] [place] [address] PCP - General 01/12/23 Linden Conrad MD [address] [place] [address] Assigned Heart and Vascular Provider 01/22/23
--- OUTSIDE RECORDS SUMMARY | 2024-04-04 14:07 | XMS_ITS | Referral Summary ---
Author Organization [facility] Address [facility] [place] [address] Care Team Providers Care Rn Endocrinology Name Role Phone Alondra Mathew MD Primary Care Provider Linden Conrad MD Unavailable [phone] Allergies Active Allergy Reactions Criticality Noted Date [...] COMPREHENSIVE METABOLIC PANEL Routine 07/31/2021 3:50 PM SECURITY PROGRAM MANAGER Hyperlipidemia, unspecified [ICD-10-CM] Other secondary hypertension [ICD-10-CM] from Last 3 Months or Most Recently Relevant to Health Maintenance Results * (ABNORMAL) Comprehensive metabolic panel (07/31/2021 3:50 PM SECURITY PROGRAM MANAGER) Pathologist [facility] Sodium 137 136 - 145 mmol/L 07/31/2021 11:49 PM SECURITY PROGRAM MANAGER [facility] Potassium 4.0 3.5 - 5.0 mmol/L 07/31/2021 11:49 PM SECURITY PROGRAM MANAGER [facility] Chloride 104 98 - 107 mmol/L 07/31/2021 11:49 PM SECURITY PROGRAM MANAGER [facility] Carbon Dioxide (CO2) 23 22 - 31 mmol/L 07/31/2021 11:49 PM SECURITY PROGRAM MANAGER [facility] Anion Gap 10 5 - 18 mmol/L 07/31/2021 11:49 PM SECURITY PROGRAM MANAGER [facility] Urea Nitrogen 20 8 - 22 mg/dL 07/31/2021 11:49 PM SECURITY PROGRAM MANAGER [facility] Creatinine 1.08 0.60 - 1.10 mg/dL 07/31/2021 11:49 PM SECURITY PROGRAM MANAGER [facility] Calcium 9.0 8.5 - 10.5 mg/dL 07/31/2021 11:49 PM SECURITY PROGRAM MANAGER [facility] Glucose 262(H) 70 - 125 mg/dL 07/31/2021 11:49 PM SECURITY PROGRAM MANAGER [facility] Alkaline Phosphatase 130(H) 45 - 120 U/L 07/31/2021 11:49 PM SECURITY PROGRAM MANAGER [facility] AST 39 0 - 40 U/L 07/31/2021 11:49 PM SECURITY PROGRAM MANAGER [facility] ALT 46(H) 0 - 45 U/L 07/31/2021 11:49 PM SECURITY PROGRAM MANAGER [facility] Protein Total 7.2 6.0 - 8.0 g/dL 07/31/2021 11:49 PM SECURITY PROGRAM MANAGER [facility] Albumin 3.8 3.5 - 5.0 g/dL 07/31/2021 11:49 PM SECURITY PROGRAM MANAGER [facility] Bilirubin Total 0.6 0.0 - 1.0 mg/dL 07/31/2021 11:49 PM SECURITY PROGRAM MANAGER [facility] GFR Estimate 67 >60 mL/min/1.7 3m2 07/31/2021 11:49 PM SECURITY PROGRAM MANAGER [facility] Comment:As of March 01, 2021, eGFR is calculated by the CKD-EPI creatinine equation, without race adjustment. eGFR can be influenced by muscle mass, exercise, and diet. The reported eGFR is an estimation only and is only applicable if the renal function is stable. Blood BLOOD SPECIMEN / Unknown Client Draw / Unknown 07/31/2021 3:50 PM SECURITY PROGRAM MANAGER 07/31/2021 10:19 PM SECURITY PROGRAM MANAGER Josy Acuña MD LAB - BLOOD ORDER [facility] [address] [address] [phone] from Last 3 Months or Most Recently Relevant to Health Maintenance Care Teams Rn Endocrinology Relationship Specialty Start Date End Date Alondra Mathew MD [facility] [address] [place] [address] PCP - General 01/12/23 Linden Conrad MD [address] [place] [id number] Assigned Heart and Vascular Provider 01/22/23
--- OUTSIDE RECORDS SUMMARY | 2024-04-04 14:07 | XMS_ITS | Continuity of Care Document ---
Author Organization [facility] Address [address] [place] [address] Phone Care Team Providers Care Medication Reconciliation Technician Name Role Phone Avery Underwood MD [...] - [place] 2019 Lami/Discectomy, Lumbar HNP Office/Outpatient Visit,[facility] Advance Directives Directive Yes / No Effective Date File Name No Information Encounters Encounter Description Practice Location Reason(s) For Visit Diagnoses Date Provider Providers Copied on Encounter [facility], [address], [place], [address], [place] tel:[phone] [facility] No Information [address] [facility], [address] [place] [address], [address], [place], [address] , [place]. tel:[phone] [facility], [address], [place], [address], [place] tel:[phone] [facility] Encounter for follow-up examination after completed treatment for conditions other than malignant neoplasm [address] [facility], [address] [place] [address], [address], [place], [place], [address] , [place]. [phone] Referring Provider: Mile Ni [employer] [address] [place] [address], [address]. tel:[phone] [facility], [address], [place], [address], [place] tel:[phone] [facility] Encounter for follow-up examination after completed treatment for conditions other than malignant neoplasm [address] [facility] [place], [address], [address], [place], [address] , [place]. [phone] Referring Provider: Mile Ni [employer] [address] [place], [address]. tel:[phone] [facility], [address], [place], [address], [place] tel:[phone] [facility] Encounter for other specified surgical aftercare [address] [facility], [address], [place], [address], [place]. tel:[phone] Referring Provider: Mile Ni [employer] [address] [place], [address]. tel:[phone] [facility], [address], [place], [address], [place] tel:[phone] [facility] No Information May-1 2-[address] [facility], [address], [place], [address], [place]. tel:[phone] Referring Provider: Mile Ni [employer] [address] [place] [address], [address]. tel:[phone] [facility], [address], [place], [address], [place] tel:[phone] [facility] No Information May-0 6-[address] [facility], [address] [place] [address], [address], [place], [address] , [place]. tel:[phone] Referring Provider: Mile Ni [employer] [address] [place] [address], [address]. tel:[phone] [facility], [address], [place], [address], [place] tel:[phone] [facility] Encounter for other specified surgical aftercare Sep-3 0-[address] [facility], [address] [facility] [address], [place], [address], [place]. tel:[phone] Referring Provider: Mile Ni [employer] [address] [place] [address], [address]. tel:[phone] [facility], [address], [place], [address], [place] tel:[phone] [facility] No Information Sep-2 2-[address] [facility], [address], [place], [address], [place]. [phone] Referring Provider: Mile Ni, [employer] [address], [address]. tel:[phone] [facility], [address], [place], [address], [place] tel:[phone] [facility] No Information Sep-[address] [facility], [address], [address], [facility] [place], [address] , [place]. [phone] Referring Provider: Mile Ni, [employer] [address] [place] [address], [address]. tel:[phone] Office/Outpat ient Visit,[facility], [address], [facility], [address], [place] tel:[phone] [facility] Other intervertebral disc displacement, lumbar regionRadiculop athy, lumbar region Sep- [address] [facility], [address], [place], [address], [place]. [phone] Referring Provider: Mile Ni, [employer] [address] [place] [address], [address]. tel:[phone] Family History Family Member Type Diagnosis Age At Onset No Information Payers Payer name Insurance type Covered alliance party ID Ruchi alonzo(s) [employer] [id number] Social History Type Description Quantity Date Captured [...]
== END 2024-04-04 14:06 | disposition home or self-care (01) ==
LOC: WOUND 14:05
PROVIDERS: PCP Internal Medicine; Visit Provider Surgery
DX: E11.621 Type 2 diabetes mellitus with foot ulcer (principal); E11.40 Type 2 diabetes mellitus with diabetic neuropathy, unspecified; L97.515 Non-pressure chronic ulcer of other part of right foot with muscle involvement without evidence of necrosis; Z89.411 Acquired absence of right great toe; A52.16 Charcot's arthropathy (tabetic); Z79.4 Long term (current) use of insulin; Z79.84 Long term (current) use of oral hypoglycemic drugs; Z94.81 Bone marrow transplant status
CPT/HCPCS: 11042; 87070; 87186; G0463

== ENCOUNTER 2024-04-04 15:37 | Outpatient (CLI) | payer BC, SELFPAY ==
--- OUTSIDE RECORDS SUMMARY | 2024-04-04 15:38 | XMS_ITS | Continuity of Care Document ---
Author Organization [facility] Address [address] [place] [address] Phone Care Team Providers Care Paint Mixer Name Role Phone Avery Underwood MD Unavailable [...] 2019 Lami/Discectomy, Lumbar HNP Office/Outpatient Visit,[facility] 2019 Advance Directives Directive Yes / No Effective Date File Name No Information Encounters Encounter Description Practice Location Reason(s) For Visit Diagnoses Date Provider Providers Copied on Encounter [facility], [address], [place], [id number], [place] tel:[phone] [facility] No Information 0 Yasmine Smart er. [facility], [address] [place] [address], [address], [place], [address] , [place]. tel:[phone] [facility], [address], [place], [address], [place] tel:[phone] [facility] Encounter for follow-up examination after completed treatment for conditions other than malignant neoplasm 0 Underwood Berry er. [facility], [address] [place] [address], [address], [place], [address] , [place]. [phone] Referring Provider: Mile Ni Ium [address] [place] [address], [address]. tel:[phone] [facility], [address], [place], [address], [place] tel:[phone] [facility] Encounter for follow-up examination after completed treatment for conditions other than malignant neoplasm 0 Yasmine Berry er. [facility], [address], [address], [place], [address] , [place]. [phone] Referring Provider: Mile Ni Ium [address] [place], [address]. tel:[phone] [facility], [address], [place], [address], [place] tel:[phone] [facility] Encounter for other specified surgical aftercare 0 Magnus Isi. [facility], [address], [place], [address], [place]. tel:[phone] Referring Provider: Mile Ni Ium [address] [place], [address]. tel:[phone] [facility], [address], [place], [address], [place] tel:[phone] [facility] No Information May-1 2-202 0 Magnus Isi. [facility], [address], [place], [address], [place]. tel:[phone] Referring Provider: Mile Ni Ium [address] [place] [address], [address]. tel:[phone] [facility], [address], [place], [address], [place] tel:[phone] [facility] No Information May-0 6-202 0 Yasmine Smart . [facility], [address] [place] [address], [address], [place], [address] , [place]. tel:[phone] Referring Provider: Mile Ni Ium [address] [place] [address], [address]. tel:[phone] [facility], [address], [place], [address], [place] tel:[phone] [facility] Encounter for other specified surgical aftercare Sep-3 0-202 0 Magnus Isi. [facility], [address], [place], [address], [place]. tel:[phone] Referring Provider: Mile iN Ium [address] [place] [address], [address]. tel:[phone] [facility], [address], [place], [address], [place] tel:[phone] [facility] No Information Sep-2 2-202 0 Magnustamy Snowden. [facility], [address], [place], [address], [place]. [phone] Referring Provider: Mile Ni, [employer] [address], [address]. tel:[phone] [facility], [address], [place], [address], [place] tel:[phone] [facility] No Information Sep-2 0 Yasmine gallego. [facility], [address], [address], [facility] [place], [address] , [place]. [phone] Referring Provider: Mile Ni, Ium [address] [place] [address], [address]. tel:[phone] Office/Outpat ient Visit,[facility], [facility], [address], [facility], [address], [place] tel:[phone] [facility] Other intervertebral disc displacement, lumbar regionRadiculop athy, lumbar region Sep- 0 Magnus Snowden. [facility], [address], [place], [address], [place]. [phone] Referring Provider: Mile Ni, Ium [address] [place] [address], [address]. tel:[phone] Family History Family Member Type Diagnosis Age At Onset No Information Payers Payer name Insurance type Covered constitution party ID Ruchi alonzo(s) Crisp [id number] Social History Type Description Quantity Date Captured [...]
--- OUTSIDE RECORDS SUMMARY | 2024-04-04 15:38 | XMS_ITS | Clinical Summary ---
Author Organization [place] Address [address] [place] [address] [place] [address] Care Team Providers Care Sr. Pricing Analyst Name Role Phone Alnodra Mathew MD Primary Care Provider [phone] Linden Conrad MD Unavailable [phone] Allergies Active Allergy Reactions Criticality Noted Date [...] COMPREHENSIVE METABOLIC PANEL Routine 07/31/2021 3:50 PM BRAZING MACHINE OPERATOR HELPER Hyperlipidemia, unspecified [ICD-10-CM] Other secondary hypertension [ICD-10-CM] from Last 3 Months or Most Recently Relevant to Health Maintenance Results * (ABNORMAL) Comprehensive metabolic panel (07/31/2021 3:50 PM BRAZING MACHINE OPERATOR HELPER) Sodium 137 136 - 145 mmol/L 07/31/2021 11:49 PM BRAZING MACHINE OPERATOR HELPER [facility] Potassium 4.0 3.5 - 5.0 mmol/L 07/31/2021 11:49 PM BRAZING MACHINE OPERATOR HELPER [facility] Chloride 104 98 - 107 mmol/L 07/31/2021 11:49 PM BRAZING MACHINE OPERATOR HELPER [facility] Carbon Dioxide (CO2) 23 22 - 31 mmol/L 07/31/2021 11:49 PM BRAZING MACHINE OPERATOR HELPER [facility] Anion Gap 10 5 - 18 mmol/L 07/31/2021 11:49 PM BRAZING MACHINE OPERATOR HELPER [facility] Urea Nitrogen 20 8 - 22 mg/dL 07/31/2021 11:49 PM BRAZING MACHINE OPERATOR HELPER [facility] Creatinine 1.08 0.60 - 1.10 mg/dL 07/31/2021 11:49 PM BRAZING MACHINE OPERATOR HELPER [facility] Calcium 9.0 8.5 - 10.5 mg/dL 07/31/2021 11:49 PM BRAZING MACHINE OPERATOR HELPER [facility] Glucose 262(H) 70 - 125 mg/dL 07/31/2021 11:49 PM BRAZING MACHINE OPERATOR HELPER [facility] Alkaline Phosphatase 130(H) 45 - 120 U/L 07/31/2021 11:49 PM BRAZING MACHINE OPERATOR HELPER [facility] AST 39 0 - 40 U/L 07/31/2021 11:49 PM BRAZING MACHINE OPERATOR HELPER [facility] ALT 46(H) 0 - 45 U/L 07/31/2021 11:49 PM BRAZING MACHINE OPERATOR HELPER [facility] Protein Total 7.2 6.0 - 8.0 g/dL 07/31/2021 11:49 PM BRAZING MACHINE OPERATOR HELPER [facility] Albumin 3.8 3.5 - 5.0 g/dL 07/31/2021 11:49 PM BRAZING MACHINE OPERATOR HELPER [facility] Bilirubin Total 0.6 0.0 - 1.0 mg/dL 07/31/2021 11:49 PM BRAZING MACHINE OPERATOR HELPER [facility] GFR Estimate 67 >60 mL/min/1.7 3m2 07/31/2021 11:49 PM BRAZING MACHINE OPERATOR HELPER [facility] Comment:As of March 01, 2021, eGFR is calculated by the CKD-EPI creatinine equation, without race adjustment. eGFR can be influenced by muscle mass, exercise, and diet. The reported eGFR is an estimation only and is only applicable if the renal function is stable. Blood BLOOD SPECIMEN / Unknown Client Draw / Unknown 07/31/2021 3:50 PM BRAZING MACHINE OPERATOR HELPER 07/31/2021 10:19 PM BRAZING MACHINE OPERATOR HELPER Josy Acuña MD LAB - BLOOD ORDER [facility] [address] [address], [facility] [phone] from Last 3 Months or Most Recently Relevant to Health Maintenance Care Teams Sr. Pricing Analyst Relationship Specialty Start Date End Date Alondra Mathew MD [facility] [address] [place] [address] PCP - General 01/12/23 Linden Conrad MD [address] [place] [address] Assigned Heart and Vascular Provider 01/22/23
--- OUTSIDE RECORDS SUMMARY | 2024-04-04 15:38 | XMS_ITS | Referral Summary ---
Author Organization [place] Address Formerly [facility] [place] [address] Care Team Providers Care Rivet Thrower Name Role Phone Alondra Mathew MD Primary Care Provider Linden Conrad MD Unavailable [phone] Allergies Active Allergy Reactions Criticality Noted Date [...] COMPREHENSIVE METABOLIC PANEL Routine 07/31/2021 3:50 PM EVENT SALES REPRESENTATIVE Hyperlipidemia, unspecified [ICD-10-CM] Other secondary hypertension [ICD-10-CM] from Last 3 Months or Most Recently Relevant to Health Maintenance Results * (ABNORMAL) Comprehensive metabolic panel (07/31/2021 3:50 PM EVENT SALES REPRESENTATIVE) Pathologist [facility] Sodium 137 136 - 145 mmol/L 07/31/2021 11:49 PM EVENT SALES REPRESENTATIVE [facility] Potassium 4.0 3.5 - 5.0 mmol/L 07/31/2021 11:49 PM EVENT SALES REPRESENTATIVE [facility] Chloride 104 98 - 107 mmol/L 07/31/2021 11:49 PM EVENT SALES REPRESENTATIVE [facility] Carbon Dioxide (CO2) 23 22 - 31 mmol/L 07/31/2021 11:49 PM EVENT SALES REPRESENTATIVE [facility] Anion Gap 10 5 - 18 mmol/L 07/31/2021 11:49 PM EVENT SALES REPRESENTATIVE [facility] Urea Nitrogen 20 8 - 22 mg/dL 07/31/2021 11:49 PM EVENT SALES REPRESENTATIVE [facility] Creatinine 1.08 0.60 - 1.10 mg/dL 07/31/2021 11:49 PM EVENT SALES REPRESENTATIVE [facility] Calcium 9.0 8.5 - 10.5 mg/dL 07/31/2021 11:49 PM EVENT SALES REPRESENTATIVE [facility] Glucose 262(H) 70 - 125 mg/dL 07/31/2021 11:49 PM EVENT SALES REPRESENTATIVE [facility] Alkaline Phosphatase 130(H) 45 - 120 U/L 07/31/2021 11:49 PM EVENT SALES REPRESENTATIVE [facility] AST 39 0 - 40 U/L 07/31/2021 11:49 PM EVENT SALES REPRESENTATIVE [facility] ALT 46(H) 0 - 45 U/L 07/31/2021 11:49 PM EVENT SALES REPRESENTATIVE [facility] Protein Total 7.2 6.0 - 8.0 g/dL 07/31/2021 11:49 PM EVENT SALES REPRESENTATIVE [facility] Albumin 3.8 3.5 - 5.0 g/dL 07/31/2021 11:49 PM EVENT SALES REPRESENTATIVE [facility] Bilirubin Total 0.6 0.0 - 1.0 mg/dL 07/31/2021 11:49 PM EVENT SALES REPRESENTATIVE [facility] GFR Estimate 67 >60 mL/min/1.7 3m2 07/31/2021 11:49 PM EVENT SALES REPRESENTATIVE [facility] Comment:As of March 01, 2021, eGFR is calculated by the CKD-EPI creatinine equation, without race adjustment. eGFR can be influenced by muscle mass, exercise, and diet. The reported eGFR is an estimation only and is only applicable if the renal function is stable. Blood BLOOD SPECIMEN / Unknown Client Draw / Unknown 07/31/2021 3:50 PM EVENT SALES REPRESENTATIVE 07/31/2021 10:19 PM EVENT SALES REPRESENTATIVE Josy Acuña MD LAB - BLOOD ORDER [facility] [address] [address] [phone] from Last 3 Months or Most Recently Relevant to Health Maintenance Care Teams Rivet Thrower Relationship Specialty Start Date End Date Alondra Mathew MD [facility] [address] [place] [address] PCP - General 01/12/23 Linden Conrad MD [address] [place] [address] Assigned Heart and Vascular Provider 01/22/23
--- NOTE | 2024-04-04 15:45 | CRLHL7_ITS ---
For Patients: As a result of the Cures Act, medical imaging exams and procedure reports are released immediately into your electronic medical record. You may view this report before your referring provider. If you have questions, please contact your health care provider. 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 Soft tissue swelling about the stump noted without soft tissue gas or underlying cortical destruction/periostitis. Multiple chronic ossicles are present associated with the 2nd and 3rd metatarsophalangeal joints. No acute fracture. Midfoot alignment is maintained with dorsal spurring. Large plantar calcaneal spur. Impression: No evidence of osteomyelitis. Dictated by Marv Dotson MD @ 04/05/2024 12:43:12 PM (Electronically Signed)
== END 2024-04-04 15:38 | disposition home or self-care (01) ==
LOC: RAD 15:37
PROVIDERS: PCP Internal Medicine; Visit Provider Surgery
DX: L97.505 Non-pressure chronic ulcer of other part of unspecified foot with muscle involvement without evidence of necrosis (principal)
CPT/HCPCS: 73630; 87070

== ENCOUNTER 2024-04-11 15:46 | Outpatient (CLI) | payer BC, SELFPAY ==
--- OUTSIDE RECORDS SUMMARY | 2024-04-11 15:49 | XMS_ITS | Clinical Summary ---
Author Organization [place] Address [address] [place] [address] [place] [address] Care Team Providers Care Sap Basis Name Role Phone Alondra Mathew MD Primary [...] COMPREHENSIVE METABOLIC PANEL Routine 07/31/2021 3:50 PM ACCIDENT REPORT CLERK Hyperlipidemia, unspecified [ICD-10-CM] Other secondary hypertension [ICD-10-CM] from Last 3 Months or Most Recently Relevant to Health Maintenance Results * (ABNORMAL) Comprehensive metabolic panel (07/31/2021 3:50 PM ACCIDENT REPORT CLERK) Sodium 137 136 - 145 mmol/L 07/31/2021 11:49 PM ACCIDENT REPORT CLERK [facility] Potassium 4.0 3.5 - 5.0 mmol/L 07/31/2021 11:49 PM ACCIDENT REPORT CLERK [facility] Chloride 104 98 - 107 mmol/L 07/31/2021 11:49 PM ACCIDENT REPORT CLERK [facility] Carbon Dioxide (CO2) 23 22 - 31 mmol/L 07/31/2021 11:49 PM ACCIDENT REPORT CLERK [facility] Anion Gap 10 5 - 18 mmol/L 07/31/2021 11:49 PM ACCIDENT REPORT CLERK [facility] Urea Nitrogen 20 8 - 22 mg/dL 07/31/2021 11:49 PM ACCIDENT REPORT CLERK [facility] Creatinine 1.08 0.60 - 1.10 mg/dL 07/31/2021 11:49 PM ACCIDENT REPORT CLERK [facility] Calcium 9.0 8.5 - 10.5 mg/dL 07/31/2021 11:49 PM ACCIDENT REPORT CLERK [facility] Glucose 262(H) 70 - 125 mg/dL 07/31/2021 11:49 PM ACCIDENT REPORT CLERK [facility] Alkaline Phosphatase 130(H) 45 - 120 U/L 07/31/2021 11:49 PM ACCIDENT REPORT CLERK [facility] AST 39 0 - 40 U/L 07/31/2021 11:49 PM ACCIDENT REPORT CLERK [facility] ALT 46(H) 0 - 45 U/L 07/31/2021 11:49 PM ACCIDENT REPORT CLERK [facility] Protein Total 7.2 6.0 - 8.0 g/dL 07/31/2021 11:49 PM ACCIDENT REPORT CLERK [facility] Albumin 3.8 3.5 - 5.0 g/dL 07/31/2021 11:49 PM ACCIDENT REPORT CLERK [facility] Bilirubin Total 0.6 0.0 - 1.0 mg/dL 07/31/2021 11:49 PM ACCIDENT REPORT CLERK [facility] GFR Estimate 67 >60 mL/min/1.7 3m2 07/31/2021 11:49 PM ACCIDENT REPORT CLERK [facility] Comment:As of March 01, 2021, eGFR is calculated by the CKD-EPI creatinine equation, without race adjustment. eGFR can be influenced by muscle mass, exercise, and diet. The reported eGFR is an estimation only and is only applicable if the renal function is stable. Blood BLOOD SPECIMEN / Unknown Client Draw / Unknown 07/31/2021 3:50 PM ACCIDENT REPORT CLERK 07/31/2021 10:19 PM ACCIDENT REPORT CLERK Josy Acuña MD LAB - BLOOD ORDER [facility] [address] [address], [facility] [phone] from Last 3 Months or Most Recently Relevant to Health Maintenance Care Teams Sap Basis Relationship Specialty Start Date End Date Alondra Mathew MD [facility] [address] [place] [address] PCP - General 01/12/23 Linden Conrad MD [address] [place] [address] Assigned Heart and Vascular Provider 01/22/23
--- OUTSIDE RECORDS SUMMARY | 2024-04-11 15:49 | XMS_ITS | Continuity of Care Document ---
Author Organization [facility] Address [address] [place] [address] Phone Care Team Providers Care Head Of Marketing Adometry Name Role Phone Avery Underwood MD Unavailable [...] PA 2019 Lami/Discectomy, Lumbar HNP Office/Outpatient Visit,[facility] 2019 Advance Directives Directive Yes / No Effective Date File Name No Information Encounters Encounter Description Practice Location Reason(s) For Visit Diagnoses Date Provider Providers Copied on Encounter [facility], [address], [place], [address], [place] tel:[phone] [facility] No Information 0 Yasmine Smart er. [facility], [address] [place] [address], [address], [place], [place], [address] , [place]. [phone] [facility], [address], [place], [address], [place] tel:[phone] [facility] Encounter for follow-up examination after completed treatment for conditions other than malignant neoplasm 0 Underwood Berry er. [facility], [address] [place] [address], [address], [place], [address] , [place]. [phone] Referring Provider: Mile Ni IgnitAd [address] [place] [address], [address]. tel:[phone] [facility], [address], [place], [address], [place] tel:[phone] [facility] Encounter for follow-up examination after completed treatment for conditions other than malignant neoplasm 0 Yasmine Berry er. [facility], [address], [address], [place], [address] , [place]. [phone] Referring Provider: Mile Ni [facility] [address] [place], [address]. tel:[phone] [facility], [address], [place], [address], [place] tel:[phone] [facility] Encounter for other specified surgical aftercare 0 Magnus Isi. [facility], [address], [place], [address], [place]. tel:[phone] Referring Provider: Mile Ni [facility]it[address] [place], [address]. tel:[phone] [facility], [address], [place], [address], [place] tel:[phone] [facility] No Information May-1 2-202 0 Magnus Isi. [facility], [address], [place], [address], [place]. tel:[phone] Referring Provider: Mile Ni IgnitAd [address] [place] [address], [address]. tel:[phone] [facility], [address], [place], [address], [place] tel:[phone] [facility] No Information May-0 6-202 0 Yasmine Smart . [facility], [address] [place] [address], [address], [place], [address] , [place]. tel:[phone] Referring Provider: Mile Ni IgnitAd [address] [place] [address], [address]. tel:[phone] [facility], [address], [place], [address], [place] tel:[phone] [facility] Encounter for other specified surgical aftercare Sep-3 0-202 0 Magnus Isi. [facility], [address], [place], [address], [place]. tel:[phone] Referring Provider: Mile Ni IgnitAd [address] [place] [address], [address]. tel:[phone] [facility], [address], [place], [address], [place] tel:[phone] [facility] No Information Sep-2 2-202 0 Magnustamy Snowden. [facility], [address], [place], [address], [place]. [phone] Referring Provider: Mile Ni, [employer] [address], [address]. tel:[phone] [facility], [address], [place], [address], [place] tel:[phone] [facility] No Information Sep-2 0 Yasmine gallego. [facility], [address], [address], [facility] [place], [address] , [place]. [phone] Referring Provider: Mile Ni, [employer] [address] [place] [address], [address]. tel:[phone] Office/Outpat ient Visit,[facility], [address], [facility], [address], [place] tel:[phone] [facility] Other intervertebral disc displacement, lumbar regionRadiculop athy, lumbar region Sep- 0 Magnus Snowden. [facility], [address], [place], [address], [place]. [phone] Referring Provider: Mile Ni, [employer] [address] [place] [address], [address]. tel:[phone] Family History Family Member Type Diagnosis Age At Onset No Information Payers Payer name Insurance type Covered libertarian ID Ruchi alonzo(s) [employer] [id number] Social History Type Description Quantity Date Captured [...]
--- OUTSIDE RECORDS SUMMARY | 2024-04-11 15:49 | XMS_ITS | Referral Summary ---
Author Organization [place] Address [facility] [place] [address] Care Team Providers Care Form Grader Name Role Phone Alondra Mathew MD Primary Care Provider Linden Conrad MD Unavailable [phone] Allergies Active Allergy Reactions Criticality Noted Date [...] COMPREHENSIVE METABOLIC PANEL Routine 07/31/2021 3:50 PM PAD MACHINE OFFBEARER Hyperlipidemia, unspecified [ICD-10-CM] Other secondary hypertension [ICD-10-CM] from Last 3 Months or Most Recently Relevant to Health Maintenance Results * (ABNORMAL) Comprehensive metabolic panel (07/31/2021 3:50 PM PAD MACHINE OFFBEARER) Pathologist [facility] Sodium 137 136 - 145 mmol/L 07/31/2021 11:49 PM PAD MACHINE OFFBEARER [facility] Potassium 4.0 3.5 - 5.0 mmol/L 07/31/2021 11:49 PM PAD MACHINE OFFBEARER [facility] Chloride 104 98 - 107 mmol/L 07/31/2021 11:49 PM PAD MACHINE OFFBEARER [facility] Carbon Dioxide (CO2) 23 22 - 31 mmol/L 07/31/2021 11:49 PM PAD MACHINE OFFBEARER [facility] Anion Gap 10 5 - 18 mmol/L 07/31/2021 11:49 PM PAD MACHINE OFFBEARER [facility] Urea Nitrogen 20 8 - 22 mg/dL 07/31/2021 11:49 PM PAD MACHINE OFFBEARER [facility] Creatinine 1.08 0.60 - 1.10 mg/dL 07/31/2021 11:49 PM PAD MACHINE OFFBEARER [facility] Calcium 9.0 8.5 - 10.5 mg/dL 07/31/2021 11:49 PM PAD MACHINE OFFBEARER [facility] Glucose 262(H) 70 - 125 mg/dL 07/31/2021 11:49 PM PAD MACHINE OFFBEARER [facility] Alkaline Phosphatase 130(H) 45 - 120 U/L 07/31/2021 11:49 PM PAD MACHINE OFFBEARER [facility] AST 39 0 - 40 U/L 07/31/2021 11:49 PM PAD MACHINE OFFBEARER [facility] ALT 46(H) 0 - 45 U/L 07/31/2021 11:49 PM PAD MACHINE OFFBEARER [facility] Protein Total 7.2 6.0 - 8.0 g/dL 07/31/2021 11:49 PM PAD MACHINE OFFBEARER [facility] Albumin 3.8 3.5 - 5.0 g/dL 07/31/2021 11:49 PM PAD MACHINE OFFBEARER [facility] Bilirubin Total 0.6 0.0 - 1.0 mg/dL 07/31/2021 11:49 PM PAD MACHINE OFFBEARER [facility] GFR Estimate 67 >60 mL/min/1.7 3m2 07/31/2021 11:49 PM PAD MACHINE OFFBEARER [facility] Comment:As of March 01, 2021, eGFR is calculated by the CKD-EPI creatinine equation, without race adjustment. eGFR can be influenced by muscle mass, exercise, and diet. The reported eGFR is an estimation only and is only applicable if the renal function is stable. Blood BLOOD SPECIMEN / Unknown Client Draw / Unknown 07/31/2021 3:50 PM PAD MACHINE OFFBEARER 07/31/2021 10:19 PM PAD MACHINE OFFBEARER Josy Acuña MD LAB - BLOOD ORDER [facility] [address] [address] [phone] from Last 3 Months or Most Recently Relevant to Health Maintenance Care Teams Form Grader Relationship Specialty Start Date End Date Alondra Mathew MD [facility] [address] [place] [address] PCP - General 01/12/23 Linden Conrad MD [address] [place] [address] Assigned Heart and Vascular Provider 01/22/23
== END 2024-04-11 15:47 | disposition home or self-care (01) ==
LOC: WOUND 15:46
PROVIDERS: PCP Internal Medicine; Visit Provider Surgery
DX: E11.621 Type 2 diabetes mellitus with foot ulcer (principal); E11.40 Type 2 diabetes mellitus with diabetic neuropathy, unspecified; L97.512 Non-pressure chronic ulcer of other part of right foot with fat layer exposed; I89.0 Lymphedema, not elsewhere classified; Z89.411 Acquired absence of right great toe; Z79.4 Long term (current) use of insulin; Z79.84 Long term (current) use of oral hypoglycemic drugs
CPT/HCPCS: 97597

== ENCOUNTER 2024-04-19 14:42 | Outpatient (CLI) | payer BC, SELFPAY | END 2024-04-19 14:43 | disposition home or self-care (01) | LOC: WOUND 14:42 | PROVIDERS: PCP Internal Medicine; Visit Provider Nurse Practitioner Family | DX: E11.621 Type 2 diabetes mellitus with foot ulcer (principal); E11.40 Type 2 diabetes mellitus with diabetic neuropathy, unspecified; L97.512 Non-pressure chronic ulcer of other part of right foot with fat layer exposed; Z89.411 Acquired absence of right great toe | CPT/HCPCS: 11042 ==

== ENCOUNTER 2024-04-26 15:10 | Outpatient (CLI) | payer BC, SELFPAY ==
--- OUTSIDE RECORDS SUMMARY | 2024-04-26 15:12 | XMS_ITS | Referral Summary ---
Author Organization [place] Address [facility] [place] [address] Care Team Providers Care Dress Draper Name Role Phone Alondra Mathew MD Primary Care Provider Linden Conrad MD Unavailable [phone] Allergies Active Allergy Reactions Criticality Noted Date [...] COMPREHENSIVE METABOLIC PANEL Routine 07/31/2021 3:50 PM DIRECTOR BIOLOGY Hyperlipidemia, unspecified [ICD-10-CM] Other secondary hypertension [ICD-10-CM] from Last 3 Months or Most Recently Relevant to Health Maintenance Results * (ABNORMAL) Comprehensive metabolic panel (07/31/2021 3:50 PM DIRECTOR BIOLOGY) Pathologist [facility] Sodium 137 136 - 145 mmol/L 07/31/2021 11:49 PM DIRECTOR BIOLOGY [facility] Potassium 4.0 3.5 - 5.0 mmol/L 07/31/2021 11:49 PM DIRECTOR BIOLOGY [facility] Chloride 104 98 - 107 mmol/L 07/31/2021 11:49 PM DIRECTOR BIOLOGY [facility] Carbon Dioxide (CO2) 23 22 - 31 mmol/L 07/31/2021 11:49 PM DIRECTOR BIOLOGY [facility] Anion Gap 10 5 - 18 mmol/L 07/31/2021 11:49 PM DIRECTOR BIOLOGY [facility] Urea Nitrogen 20 8 - 22 mg/dL 07/31/2021 11:49 PM DIRECTOR BIOLOGY [facility] Creatinine 1.08 0.60 - 1.10 mg/dL 07/31/2021 11:49 PM DIRECTOR BIOLOGY [facility] Calcium 9.0 8.5 - 10.5 mg/dL 07/31/2021 11:49 PM DIRECTOR BIOLOGY [facility] Glucose 262(H) 70 - 125 mg/dL 07/31/2021 11:49 PM DIRECTOR BIOLOGY [facility] Alkaline Phosphatase 130(H) 45 - 120 U/L 07/31/2021 11:49 PM DIRECTOR BIOLOGY [facility] AST 39 0 - 40 U/L 07/31/2021 11:49 PM DIRECTOR BIOLOGY [facility] ALT 46(H) 0 - 45 U/L 07/31/2021 11:49 PM DIRECTOR BIOLOGY [facility] Protein Total 7.2 6.0 - 8.0 g/dL 07/31/2021 11:49 PM DIRECTOR BIOLOGY [facility] Albumin 3.8 3.5 - 5.0 g/dL 07/31/2021 11:49 PM DIRECTOR BIOLOGY [facility] Bilirubin Total 0.6 0.0 - 1.0 mg/dL 07/31/2021 11:49 PM DIRECTOR BIOLOGY [facility] GFR Estimate 67 >60 mL/min/1.7 3m2 07/31/2021 11:49 PM DIRECTOR BIOLOGY [facility] Comment:As of March 01, 2021, eGFR is calculated by the CKD-EPI creatinine equation, without race adjustment. eGFR can be influenced by muscle mass, exercise, and diet. The reported eGFR is an estimation only and is only applicable if the renal function is stable. Blood BLOOD SPECIMEN / Unknown Client Draw / Unknown 07/31/2021 3:50 PM DIRECTOR BIOLOGY 07/31/2021 10:19 PM DIRECTOR BIOLOGY Josy Acuña MD LAB - BLOOD ORDER KAY[facility] [address] [address] [phone] from Last 3 Months or Most Recently Relevant to Health Maintenance Care Teams Dress Draper Relationship Specialty Start Date End Date Alondra Mathew MD [facility] [address] [place] [address] PCP - General 01/12/23 Linden Conrad MD [address] [place] [id number] Assigned Heart and Vascular Provider 01/22/23
--- OUTSIDE RECORDS SUMMARY | 2024-04-26 15:12 | XMS_ITS | Clinical Summary ---
Author Organization [place] Address [address] [place] [address] [place] [address] Care Team Providers Care Time Study Observer Name Role Phone Alondra Mathew MD Primary Care Provider Linden Conrad MD Unavailable [phone] Allergies Active Allergy Reactions Criticality Noted Date [...] HM ORDERS 1986 YEARLY PREVENTIVE VISIT 1986 HIV SCREENING 2001 HEPATITIS C SCREENING 2004 PAP 2007 HPV IMMUNIZATION (3 - 3-dose series) 06/10/2010 03/18/2010, 01/30/2007 PHQ-2 (once per calendar year) 2023 COVID-19 Vaccine (3 - season) 2024 06/05/2021, 05/15/2021 INFLUENZA VACCINE (#1) 2024 9, 07/17/2018, 06/30/2016, Additional history exists GLUCOSE 07/31/2024 07/31/2021 DTAP/TDAP/TD IMMUNIZATION (4 - Td or Tdap) 11/19/2030 11/19/2020, 03/18/2010, 01/01/1998, Additional history exists HEPATITIS B IMMUNIZATION Completed 999, 09/25/1998, 08/18/1998 Pneumococcal Vaccine: Pediatrics (0 to 5 Years) [...] COMPREHENSIVE METABOLIC PANEL Routine 07/31/2021 3:50 PM DESIGN ENGINEER AGRICULTURAL EQUIPMENT Hyperlipidemia, unspecified [ICD-10-CM] Other secondary hypertension [ICD-10-CM] from Last 3 Months or Most Recently Relevant to Health Maintenance Results * (ABNORMAL) Comprehensive metabolic panel (07/31/2021 3:50 PM DESIGN ENGINEER AGRICULTURAL EQUIPMENT) Sodium 137 136 - 145 mmol/L 07/31/2021 11:49 PM DESIGN ENGINEER AGRICULTURAL EQUIPMENT [facility] Potassium 4.0 3.5 - 5.0 mmol/L 07/31/2021 11:49 PM DESIGN ENGINEER AGRICULTURAL EQUIPMENT [facility] Chloride 104 98 - 107 mmol/L 07/31/2021 11:49 PM DESIGN ENGINEER AGRICULTURAL EQUIPMENT [facility] Carbon Dioxide (CO2) 23 22 - 31 mmol/L 07/31/2021 11:49 PM DESIGN ENGINEER AGRICULTURAL EQUIPMENT [facility] Anion Gap 10 5 - 18 mmol/L 07/31/2021 11:49 PM DESIGN ENGINEER AGRICULTURAL EQUIPMENT [facility] Urea Nitrogen 20 8 - 22 mg/dL 07/31/2021 11:49 PM DESIGN ENGINEER AGRICULTURAL EQUIPMENT [facility] Creatinine 1.08 0.60 - 1.10 mg/dL 07/31/2021 11:49 PM DESIGN ENGINEER AGRICULTURAL EQUIPMENT [facility] Calcium 9.0 8.5 - 10.5 mg/dL 07/31/2021 11:49 PM DESIGN ENGINEER AGRICULTURAL EQUIPMENT [facility] Glucose 262(H) 70 - 125 mg/dL 07/31/2021 11:49 PM DESIGN ENGINEER AGRICULTURAL EQUIPMENT [facility] Alkaline Phosphatase 130(H) 45 - 120 U/L 07/31/2021 11:49 PM DESIGN ENGINEER AGRICULTURAL EQUIPMENT [facility] AST 39 0 - 40 U/L 07/31/2021 11:49 PM DESIGN ENGINEER AGRICULTURAL EQUIPMENT [facility] ALT 46(H) 0 - 45 U/L 07/31/2021 11:49 PM DESIGN ENGINEER AGRICULTURAL EQUIPMENT [facility] Protein Total 7.2 6.0 - 8.0 g/dL 07/31/2021 11:49 PM DESIGN ENGINEER AGRICULTURAL EQUIPMENT [facility] Albumin 3.8 3.5 - 5.0 g/dL 07/31/2021 11:49 PM DESIGN ENGINEER AGRICULTURAL EQUIPMENT [facility] Bilirubin Total 0.6 0.0 - 1.0 mg/dL 07/31/2021 11:49 PM DESIGN ENGINEER AGRICULTURAL EQUIPMENT [facility] GFR Estimate 67 >60 mL/min/1.7 3m2 07/31/2021 11:49 PM DESIGN ENGINEER AGRICULTURAL EQUIPMENT [facility] Comment:As of March 01, 2021, eGFR is calculated by the CKD-EPI creatinine equation, without race adjustment. eGFR can be influenced by muscle mass, exercise, and diet. The reported eGFR is an estimation only and is only applicable if the renal function is stable. Blood BLOOD SPECIMEN / Unknown Client Draw / Unknown 07/31/2021 3:50 PM DESIGN ENGINEER AGRICULTURAL EQUIPMENT 07/31/2021 10:19 PM DESIGN ENGINEER AGRICULTURAL EQUIPMENT Josy Acuña MD LAB - BLOOD ORDER [facility] [address] [place] [address], [facility] [phone] from Last 3 Months or Most Recently Relevant to Health Maintenance Care Teams Time Study Observer Relationship Specialty Start Date End Date Alondra Mathew MD [facility] [address] [place] [address] PCP - General 01/12/23 Linden Conrad MD [address] [place] [id number] Assigned Heart and Vascular Provider 01/22/23
--- OUTSIDE RECORDS SUMMARY | 2024-04-26 15:12 | XMS_ITS | Continuity of Care Document ---
Author Organization [facility] Address [address] [place] [address] Phone Care Team Providers Care Sewing Inspector Name Role Phone Avery Underwood MD Unavailable [...] Lami/Discectomy, Lumbar HNP Office/Outpatient Visit,[facility] 2019 Advance Directives Directive Yes / No Effective Date File Name No Information Encounters Encounter Description Practice Location Reason(s) For Visit Diagnoses Date Provider Providers Copied on Encounter [facility], [address], [place], [id number], [place] tel:[phone] [facility] No Information 0 Yasmine Smart er. [facility], [address] [place] [address], [address], [place], [address] , [place]. tel:[phone] [facility], [address], [place], [place], [address], [place] tel:[phone] [facility] Encounter for follow-up examination after completed treatment for conditions other than malignant neoplasm 0 Underwood Berry er. [facility], [address] [place] [address], [address], [place], [place], [address] , [place]. [phone] Referring Provider: Mile Ni Powered Now [address] [place] [address], [address]. tel:[phone] [facility], [address], [place], [place], [address], [place] tel:[phone] [facility] Encounter for follow-up examination after completed treatment for conditions other than malignant neoplasm 0 Yasmine Berry er. [facility] [place], [address], [address], [place], [place], [address] , [place]. [phone] Referring Provider: Mile Ni Powered Now [address] [place], [address]. tel:[phone] [facility], [address], [place], [address], [place] tel:[phone] [facility] Encounter for other specified surgical aftercare 0 Magnus Isi. [facility], [address], [place], [address], [place]. tel:[phone] Referring Provider: Mile Ni Powered Now [address] [place], [address]. tel:[phone] [facility], [address], [place], [id number], [place] tel:[phone] [facility] No Information May-1 2-202 0 Magnus Isi. [facility], [address], [place], [address], [place]. tel:[phone] Referring Provider: Mile Ni Powered Now [address] [place] [address], [address]. tel:[phone] [facility], [address], [place], [address], [place] tel:[phone] [facility] No Information May-0 6-202 0 Yasmine Smart . [facility], [address] [place] [address], [address], [place], [place], [address] , [place]. tel:[phone] Referring Provider: Mile Ni Powered Now [address] [place] [address], [address]. tel:[phone] [facility], [address], [place], [address], [place] tel:[phone] [facility] Encounter for other specified surgical aftercare Sep-3 0-202 0 Magnus Isi. [facility], [address], [place], [address], [place]. tel:[phone] Referring Provider: Mile Ni Powered Now [address] [place] [address], [address]. tel:[phone] [facility], [address], [place], [address], [place] tel:[phone] [facility] No Information Sep-2 2-202 0 Magnustamy Snowden. [facility], [address], [place], [address], [place]. [phone] Referring Provider: Mile Ni, [employer] [address], [address]. tel:[phone] [facility], [address], [place], [address], [place] tel:[phone] [facility] No Information Sep-2 0 Yasmine gallego. [facility], [address], [address], [facility] [place], [address] , [place]. [phone] Referring Provider: Mile Ni, Powered Now [address] [place] [address], [address]. tel:[phone] Office/Outpat ient Visit,[facility], [address], [facility], [address], [place] tel:[phone] [facility] Other intervertebral disc displacement, lumbar regionRadiculop athy, lumbar region Sep- 0 Magnus Snowden. [facility], [address], [place], [address], [place]. [phone] Referring Provider: Mile Ni, Powered Now [address] [place] [address], [address]. tel:[phone] Family History Family Member Type Diagnosis Age At Onset No Information Payers Payer name Insurance type Covered republican ID Ruchi alonzo(s) [employer] [id number] Social History Type Description Quantity Date Captured [...]
== END 2024-04-26 15:11 | disposition home or self-care (01) ==
LOC: WOUND 15:10
PROVIDERS: PCP Internal Medicine; Visit Provider Surgery
DX: E11.621 Type 2 diabetes mellitus with foot ulcer (principal); E11.40 Type 2 diabetes mellitus with diabetic neuropathy, unspecified; I89.0 Lymphedema, not elsewhere classified; L97.518 Non-pressure chronic ulcer of other part of right foot with other specified severity; Z89.411 Acquired absence of right great toe; Z79.4 Long term (current) use of insulin; Z79.84 Long term (current) use of oral hypoglycemic drugs
CPT/HCPCS: G0463

== ENCOUNTER 2024-05-02 15:23 | Outpatient (CLI) | payer BC, SELFPAY ==
--- OUTSIDE RECORDS SUMMARY | 2024-05-02 15:24 | XMS_ITS | Continuity of Care Document ---
Author Organization [facility] Address [address] [place] [address] Phone Care Team Providers Care Gameplay Engineer Name Role Phone Avery Underwood MD Unavailable [...] - [place] 2019 Lami/Discectomy, Lumbar HNP Office/Outpatient Visit,[facility] 2019 Advance Directives Directive Yes / No Effective Date File Name No Information Encounters Encounter Description Practice Location Reason(s) For Visit Diagnoses Date Provider Providers Copied on Encounter [facility], [address], [place], [place], [id number], [place] tel:[phone] [facility] No Information 0 Yasmine Smart er. [facility], [address] [place] [address], [address], [place], [address] , [place]. tel:[phone] [facility], [address], [place], [address], [place] tel:[phone] [facility] Encounter for follow-up examination after completed treatment for conditions other than malignant neoplasm 0 Underwood Berry er. [facility] [place], [address] [place] [address], [address], [place], [place], [address] , [place]. [phone] Referring Provider: Mile Ni Wish [address] [place] [address], [address]. tel:[phone] [facility], [address], [place], [address], [place] tel:[phone] [facility] Encounter for follow-up examination after completed treatment for conditions other than malignant neoplasm 0 Yasmine Berry er. [facility] [place], [address], [address], [place], [address] , [place]. [phone] Referring Provider: Mile Ni Wish [address] [place], [address]. tel:[phone] [facility], [address], [place], [address], [place] tel:[phone] [facility] Encounter for other specified surgical aftercare 0 Magnus Isi. [facility], [address], [place], [address], [place]. tel:[phone] Referring Provider: Mile Ni Wish [address] [place], [address]. tel:[phone] [facility], [address], [place], [address], [place] tel:[phone] [facility] No Information May-1 2-202 0 Magnus Isi. [facility], [address], [place], [address], [place]. tel:[phone] Referring Provider: Mile Ni Wish [address] [place] [address], [address]. tel:[phone] [facility], [address], [place], [address], [place] tel:[phone] [facility] No Information May-0 6-202 0 Yasmine Smart . [facility], [address] [place] [address], [address], [place], [address] , [place]. tel:[phone] Referring Provider: Mile Ni Wish [address] [place] [address], [address]. tel:[phone] [facility], [address], [place], [address], [place] tel:[phone] [facility] Encounter for other specified surgical aftercare Sep-3 0-202 0 Magnus Isi. [facility], [address], [place], [address], [place]. tel:[phone] Referring Provider: Mile Ni Wish [address] [place] [address], [address]. tel:[phone] [facility], [address], [place], [address], [place] tel:[phone] [facility] No Information Sep-2 2-202 0 Magnustamy Snowden. [facility], [address], [place], [address], [place]. [phone] Referring Provider: Mile Ni, [employer] [address], [address]. tel:[phone] [facility], [address], [place], [address], [place] tel:[phone] [facility] No Information Sep-2 0 Yasmine gallego. [facility], [address], [address], [facility] [place], [address] , [place]. [phone] Referring Provider: Mile Ni, Wish [address] [place] [address], [address]. tel:[phone] Office/Outpat ient Visit,[facility], [address], [facility], [address], [place] tel:[phone] [facility] Other intervertebral disc displacement, lumbar regionRadiculop athy, lumbar region Sep- 0 Magnus Snowden. [facility], [address], [facility] [place], [address], [place]. [phone] Referring Provider: Miel Ni, Wish [address] [place] [address], [address]. tel:[phone] Family History Family Member Type Diagnosis Age At Onset No Information Payers Payer name Insurance type Covered constitution party ID Ruchi alonzo(s) [employer] [id number] Social History Type Description Quantity Date Captured [...]
--- OUTSIDE RECORDS SUMMARY | 2024-05-02 15:24 | XMS_ITS | Clinical Summary ---
Author Organization [place] Address [address] [place] [address] [place] [address] Care Team Providers Care Manager Meat Name Role Phone Alondra Mathew MD Primary Care Provider Linden Conrad MD Unavailable [phone] Allergies Active Allergy Reactions Criticality Noted Date [...] COMPREHENSIVE METABOLIC PANEL Routine 07/31/2021 3:50 PM CORRECTIONAL COUNSELOR/CASE MANAGER Hyperlipidemia, unspecified [ICD-10-CM] Other secondary hypertension [ICD-10-CM] from Last 3 Months or Most Recently Relevant to Health Maintenance Results * (ABNORMAL) Comprehensive metabolic panel (07/31/2021 3:50 PM CORRECTIONAL COUNSELOR/CASE MANAGER) Sodium 137 136 - 145 mmol/L 07/31/2021 11:49 PM CORRECTIONAL COUNSELOR/CASE MANAGER [facility] Potassium 4.0 3.5 - 5.0 mmol/L 07/31/2021 11:49 PM CORRECTIONAL COUNSELOR/CASE MANAGER [facility] Chloride 104 98 - 107 mmol/L 07/31/2021 11:49 PM CORRECTIONAL COUNSELOR/CASE MANAGER [facility] Carbon Dioxide (CO2) 23 22 - 31 mmol/L 07/31/2021 11:49 PM CORRECTIONAL COUNSELOR/CASE MANAGER [facility] Anion Gap 10 5 - 18 mmol/L 07/31/2021 11:49 PM CORRECTIONAL COUNSELOR/CASE MANAGER [facility] Urea Nitrogen 20 8 - 22 mg/dL 07/31/2021 11:49 PM CORRECTIONAL COUNSELOR/CASE MANAGER [facility] Creatinine 1.08 0.60 - 1.10 mg/dL 07/31/2021 11:49 PM CORRECTIONAL COUNSELOR/CASE MANAGER [facility] Calcium 9.0 8.5 - 10.5 mg/dL 07/31/2021 11:49 PM CORRECTIONAL COUNSELOR/CASE MANAGER [facility] Glucose 262(H) 70 - 125 mg/dL 07/31/2021 11:49 PM CORRECTIONAL COUNSELOR/CASE MANAGER [facility] Alkaline Phosphatase 130(H) 45 - 120 U/L 07/31/2021 11:49 PM CORRECTIONAL COUNSELOR/CASE MANAGER [facility] AST 39 0 - 40 U/L 07/31/2021 11:49 PM CORRECTIONAL COUNSELOR/CASE MANAGER [facility] ALT 46(H) 0 - 45 U/L 07/31/2021 11:49 PM CORRECTIONAL COUNSELOR/CASE MANAGER [facility] Protein Total 7.2 6.0 - 8.0 g/dL 07/31/2021 11:49 PM CORRECTIONAL COUNSELOR/CASE MANAGER [facility] Albumin 3.8 3.5 - 5.0 g/dL 07/31/2021 11:49 PM CORRECTIONAL COUNSELOR/CASE MANAGER [facility] Bilirubin Total 0.6 0.0 - 1.0 mg/dL 07/31/2021 11:49 PM CORRECTIONAL COUNSELOR/CASE MANAGER [facility] GFR Estimate 67 >60 mL/min/1.7 3m2 07/31/2021 11:49 PM CORRECTIONAL COUNSELOR/CASE MANAGER [facility] Comment:As of March 01, 2021, eGFR is calculated by the CKD-EPI creatinine equation, without race adjustment. eGFR can be influenced by muscle mass, exercise, and diet. The reported eGFR is an estimation only and is only applicable if the renal function is stable. Blood BLOOD SPECIMEN / Unknown Client Draw / Unknown 07/31/2021 3:50 PM CORRECTIONAL COUNSELOR/CASE MANAGER 07/31/2021 10:19 PM CORRECTIONAL COUNSELOR/CASE MANAGER Josy Acuña MD LAB - BLOOD ORDER [facility] [address] [place] [address], [facility] [phone] from Last 3 Months or Most Recently Relevant to Health Maintenance Care Teams Manager Meat Relationship Specialty Start Date End Date Alondra Mathew MD [facility] [address] [place] [address] PCP - General 01/12/23 Linden Conrad MD [address] [place] [id number] Assigned Heart and Vascular Provider 01/22/23
--- OUTSIDE RECORDS SUMMARY | 2024-05-02 15:25 | XMS_ITS | Referral Summary ---
Author Organization [place] Address [facility] [place] [address] Care Team Providers Care Javascript Engineer Name Role Phone Alondra Mathew MD Primary Care Provider Linden Conrad MD Unavailable [phone] Allergies Active Allergy Reactions Criticality Noted Date [...] COMPREHENSIVE METABOLIC PANEL Routine 07/31/2021 3:50 PM MAGAZINE WRITER Hyperlipidemia, unspecified [ICD-10-CM] Other secondary hypertension [ICD-10-CM] from Last 3 Months or Most Recently Relevant to Health Maintenance Results * (ABNORMAL) Comprehensive metabolic panel (07/31/2021 3:50 PM MAGAZINE WRITER) Pathologist [facility] Sodium 137 136 - 145 mmol/L 07/31/2021 11:49 PM MAGAZINE WRITER [facility] Potassium 4.0 3.5 - 5.0 mmol/L 07/31/2021 11:49 PM MAGAZINE WRITER [facility] Chloride 104 98 - 107 mmol/L 07/31/2021 11:49 PM MAGAZINE WRITER [facility] Carbon Dioxide (CO2) 23 22 - 31 mmol/L 07/31/2021 11:49 PM MAGAZINE WRITER [facility] Anion Gap 10 5 - 18 mmol/L 07/31/2021 11:49 PM MAGAZINE WRITER [facility] Urea Nitrogen 20 8 - 22 mg/dL 07/31/2021 11:49 PM MAGAZINE WRITER [facility] Creatinine 1.08 0.60 - 1.10 mg/dL 07/31/2021 11:49 PM MAGAZINE WRITER [facility] Calcium 9.0 8.5 - 10.5 mg/dL 07/31/2021 11:49 PM MAGAZINE WRITER [facility] Glucose 262(H) 70 - 125 mg/dL 07/31/2021 11:49 PM MAGAZINE WRITER [facility] Alkaline Phosphatase 130(H) 45 - 120 U/L 07/31/2021 11:49 PM MAGAZINE WRITER [facility] AST 39 0 - 40 U/L 07/31/2021 11:49 PM MAGAZINE WRITER [facility] ALT 46(H) 0 - 45 U/L 07/31/2021 11:49 PM MAGAZINE WRITER [facility] Protein Total 7.2 6.0 - 8.0 g/dL 07/31/2021 11:49 PM MAGAZINE WRITER [facility] Albumin 3.8 3.5 - 5.0 g/dL 07/31/2021 11:49 PM MAGAZINE WRITER [facility] Bilirubin Total 0.6 0.0 - 1.0 mg/dL 07/31/2021 11:49 PM MAGAZINE WRITER [facility] GFR Estimate 67 >60 mL/min/1.7 3m2 07/31/2021 11:49 PM MAGAZINE WRITER [facility] Comment:As of March 01, 2021, eGFR is calculated by the CKD-EPI creatinine equation, without race adjustment. eGFR can be influenced by muscle mass, exercise, and diet. The reported eGFR is an estimation only and is only applicable if the renal function is stable. Blood BLOOD SPECIMEN / Unknown Client Draw / Unknown 07/31/2021 3:50 PM MAGAZINE WRITER 07/31/2021 10:19 PM MAGAZINE WRITER Joys Acuña MD LAB - BLOOD ORDER KAY[facility] [address] [address] [phone] from Last 3 Months or Most Recently Relevant to Health Maintenance Care Teams Javascript Engineer Relationship Specialty Start Date End Date Alondra Mathew MD [facility] [address] [place] [address] PCP - General 01/12/23 Linden Conrad MD [address] [place] [id number] Assigned Heart and Vascular Provider 01/22/23
== END 2024-05-02 15:24 | disposition home or self-care (01) ==
LOC: WOUND 15:23
PROVIDERS: PCP Internal Medicine; Visit Provider Surgery
DX: E11.621 Type 2 diabetes mellitus with foot ulcer (principal); E11.40 Type 2 diabetes mellitus with diabetic neuropathy, unspecified; L97.512 Non-pressure chronic ulcer of other part of right foot with fat layer exposed; I89.0 Lymphedema, not elsewhere classified; Z89.411 Acquired absence of right great toe
CPT/HCPCS: 97597

== ENCOUNTER 2024-05-09 15:24 | Outpatient (CLI) | payer BC, SELFPAY ==
--- OUTSIDE RECORDS SUMMARY | 2024-05-09 15:26 | XMS_ITS | Continuity of Care Document ---
Author Organization [facility] Address [address] [place] [address] Phone Care Team Providers Care Print Line Inspector Name Role Phone Avery Underwood MD [...] Lami/Discectomy, Lumbar HNP Office/Outpatient Visit,[facility] [place] Advance Directives Directive Yes / No Effective Date File Name No Information Encounters Encounter Description Practice Location Reason(s) For Visit Diagnoses Date Provider Providers Copied on Encounter [facility], [address], [place], [id number], [place] tel:[phone] [facility] No Information 0 Yasmine Smart er. [facility], [address] [place] [address], [address], [place], [address] , [place]. tel:[phone] [facility], [address], [place], [address], [place] tel:[phone] [facility] Encounter for follow-up examination after completed treatment for conditions other than malignant neoplasm 0 Underwood Berry er. [facility], [address] [place] [address], [address], [place], [address] , [place]. [phone] Referring Provider: Mile Ni [email or web address] [address] [place] [address], [address]. tel:[phone] [facility], [address], [place], [address], [place] tel:[phone] [facility] Encounter for follow-up examination after completed treatment for conditions other than malignant neoplasm 0 Yasmine Berry er. [facility], [address], [address], [place], [address] , [place]. [phone] Referring Provider: Mile Ni [email or web address] [address] [place], [address]. tel:[phone] [facility], [address], [place], [address], [place] tel:[phone] [facility] Encounter for other specified surgical aftercare 0 Magnus Isi. [facility], [address], [place], [address], [place]. tel:[phone] Referring Provider: Mile Ni [email or web address] [address] [place], [address]. tel:[phone] [facility], [address], [place], [address], [place] tel:[phone] [facility] No Information May-1 2-202 0 Magnus Isi. [facility], [address], [place], [address], [place]. tel:[phone] Referring Provider: Mile Ni [email or web address] [address] [place] [address], [address]. tel:[phone] [facility], [address], [place], [address], [place] tel:[phone] [facility] No Information May-0 6-202 0 Yasmine Smart . [facility], [address] [place] [address], [address], [place], [address] , [place]. tel:[phone] Referring Provider: Mile Ni [email or web address] [address] [place] [address], [address]. tel:[phone] [facility], [address], [place], [address], [place] tel:[phone] [facility] Encounter for other specified surgical aftercare Sep-3 0-202 0 Magnus Isi. [facility], [address], [place], [address], [place]. tel:[phone] Referring Provider: Mile Ni [email or web address] [address] [place] [address], [address]. tel:[phone] [facility], [address], [place], [address], [place] tel:[phone] [facility] No Information Sep-2 2-202 0 Magnustamy Snowden. [facility], [address], [place], [address], [place]. [phone] Referring Provider: Mile Ni, [employer] [address], [address]. tel:[phone] [facility], [address], [place], [address], [place] tel:[phone] [facility] No Information Sep-2 0 Yasmine gallego. [facility], [address], [address], [facility] [place], [address] , [place]. [phone] Referring Provider: Mile Ni, [email or web address] [address] [place] [address], [address]. tel:[phone] Office/Outpat ient Visit,[facility], [facility], [address], [facility] [facility], [address], [place] tel:[phone] [facility] Other intervertebral disc displacement, lumbar regionRadiculop athy, lumbar region Sep- 0 Magnus Snowden. [facility], [address], [place], [address], [place]. [phone] Referring Provider: Mile Ni, [email or web address] [address] [place] [address], [address]. tel:[phone] Family History Family Member Type Diagnosis Age At Onset No Information Payers Payer name Insurance type Covered alliance party ID Ruchi alonzo(s) [employer] [id number] Social History Type Description Quantity Date Captured [...]
--- OUTSIDE RECORDS SUMMARY | 2024-05-09 15:26 | XMS_ITS | Referral Summary ---
Author Organization [facility] Address [facility] [place] [address] Care Team Providers Care Card Placer Name Role Phone Alondra Mathew MD Primary Care Provider Linden Conrad MD Unavailable [phone] Allergies Active Allergy Reactions Criticality Noted Date [...] COMPREHENSIVE METABOLIC PANEL Routine 07/31/2021 3:50 PM GUM DIPPER Hyperlipidemia, unspecified [ICD-10-CM] Other secondary hypertension [ICD-10-CM] from Last 3 Months or Most Recently Relevant to Health Maintenance Results * (ABNORMAL) Comprehensive metabolic panel (07/31/2021 3:50 PM GUM DIPPER) Pathologist [facility] Sodium 137 136 - 145 mmol/L 07/31/2021 11:49 PM GUM DIPPER [facility] Potassium 4.0 3.5 - 5.0 mmol/L 07/31/2021 11:49 PM GUM DIPPER [facility] Chloride 104 98 - 107 mmol/L 07/31/2021 11:49 PM GUM DIPPER [facility] Carbon Dioxide (CO2) 23 22 - 31 mmol/L 07/31/2021 11:49 PM GUM DIPPER [facility] Anion Gap 10 5 - 18 mmol/L 07/31/2021 11:49 PM GUM DIPPER [facility] Urea Nitrogen 20 8 - 22 mg/dL 07/31/2021 11:49 PM GUM DIPPER [facility] Creatinine 1.08 0.60 - 1.10 mg/dL 07/31/2021 11:49 PM GUM DIPPER [facility] Calcium 9.0 8.5 - 10.5 mg/dL 07/31/2021 11:49 PM GUM DIPPER [facility] Glucose 262(H) 70 - 125 mg/dL 07/31/2021 11:49 PM GUM DIPPER [facility] Alkaline Phosphatase 130(H) 45 - 120 U/L 07/31/2021 11:49 PM GUM DIPPER [facility] AST 39 0 - 40 U/L 07/31/2021 11:49 PM GUM DIPPER [facility] ALT 46(H) 0 - 45 U/L 07/31/2021 11:49 PM GUM DIPPER [facility] Protein Total 7.2 6.0 - 8.0 g/dL 07/31/2021 11:49 PM GUM DIPPER [facility] Albumin 3.8 3.5 - 5.0 g/dL 07/31/2021 11:49 PM GUM DIPPER [facility] Bilirubin Total 0.6 0.0 - 1.0 mg/dL 07/31/2021 11:49 PM GUM DIPPER [facility] GFR Estimate 67 >60 mL/min/1.7 3m2 07/31/2021 11:49 PM GUM DIPPER [facility] Comment:As of March 01, 2021, eGFR is calculated by the CKD-EPI creatinine equation, without race adjustment. eGFR can be influenced by muscle mass, exercise, and diet. The reported eGFR is an estimation only and is only applicable if the renal function is stable. Blood BLOOD SPECIMEN / Unknown Client Draw / Unknown 07/31/2021 3:50 PM GUM DIPPER 07/31/2021 10:19 PM GUM DIPPER Josy Acuña MD LAB - BLOOD ORDER [facility] [address] [address] [phone] from Last 3 Months or Most Recently Relevant to Health Maintenance Care Teams Card Placer Relationship Specialty Start Date End Date Alondra Mathew MD [facility] [address] [place] [address] PCP - General 01/12/23 Linden Conrad MD [address] [place] [id number] Assigned Heart and Vascular Provider 01/22/23
--- OUTSIDE RECORDS SUMMARY | 2024-05-09 15:26 | XMS_ITS | Clinical Summary ---
Author Organization [facility] Address [address] [place] [address] [place] [address] Care Team Providers Care Liquefaction And Regasification Helper Name Role Phone Alondra Mathew MD Primary Care Provider Linden Conrad MD Unavailable [phone] Allergies Active Allergy Reactions Criticality Noted Date [...] (once per calendar year) 2023 COVID-19 Vaccine ( season) 2024 06/05/2021, 05/15/2021 INFLUENZA VACCINE (#1) [...] COMPREHENSIVE METABOLIC PANEL Routine 07/31/2021 3:50 PM ADMINISTRATOR SOCIAL WELFARE Hyperlipidemia, unspecified [ICD-10-CM] Other secondary hypertension [ICD-10-CM] from Last 3 Months or Most Recently Relevant to Health Maintenance Results * (ABNORMAL) Comprehensive metabolic panel (07/31/2021 3:50 PM ADMINISTRATOR [employer] WELFARE) Sodium 137 136 - 145 mmol/L 07/31/2021 11:49 PM ADMINISTRATOR SOCIAL WELFARE [facility] Potassium 4.0 3.5 - 5.0 mmol/L 07/31/2021 11:49 PM ADMINISTRATOR SOC[employer] WELF[employer] [facility] Chloride 104 98 - 107 mmol/L 07/31/2021 11:49 PM ADMINISTRATOR [employer] WELF[employer] [facility] Carbon Dioxide (CO2) 23 22 - 31 mmol/L 07/31/2021 11:49 PM ADMINISTR[employer] WELF[employer] [facility] Anion Gap 10 5 - 18 mmol/L 07/31/2021 11:49 PM ADMINISTR[employer] WELF[employer] [facility] Urea Nitrogen 20 8 - 22 mg/dL 07/31/2021 11:49 PM ADMINISTRATOR [employer]EL[employer] [facility] Creatinine 1.08 0.60 - 1.10 mg/dL 07/31/2021 11:49 PM ADMINISTRATOR [employer]ELF[employer] [facility] Calcium 9.0 8.5 - 10.5 mg/dL 07/31/2021 11:49 PM ADMINISTR[employer]EL[employer] [facility] Glucose 262(H) 70 - 125 mg/dL 07/31/2021 11:49 PM ADMINISTR[employer]EL[employer] [facility] Alkaline Phosphatase 130(H) 45 - 120 U/L 07/31/2021 11:49 PM ADMINISTR[employer]EL[employer] [facility] AST 39 0 - 40 U/L 07/31/2021 11:49 PM ADMINISTR[employer]EL[employer] [facility] ALT 46(H) 0 - 45 U/L 07/31/2021 11:49 PM ADMINISTR[employer] [facility] Protein Total 7.2 6.0 - 8.0 g/dL 07/31/2021 11:49 PM ADMINISTR[employer] [facility] Albumin 3.8 3.5 - 5.0 g/dL 07/31/2021 11:49 PM ADMINISTR[employer] [facility] Bilirubin Total 0.6 0.0 - 1.0 mg/dL 07/31/2021 11:49 PM AD[employer]ISTR[employer] [facility] GFR Estimate 67 >60 mL/min/1.7 3m2 07/31/2021 11:49 PM ADMINISTR[employer]EL[employer] [facility] Comment:As of March 01, 2021, eGFR is calculated by the CKD-EPI creatinine equation, without race adjustment. eGFR can be influenced by muscle mass, exercise, and diet. The reported eGFR is an estimation only and is only applicable if the renal function is stable. Blood BLOOD SPECIMEN / Unknown Client Draw / Unknown 07/31/2021 3:50 PM ADMINISTRATOR [employer]ELF[employer] 07/31/2021 10:19 PM ADMINISTRATOR [employer]ELF[employer] Josy Acuña MD LAB - BLOOD ORDER [facility] [address] [place] [address], [facility] [phone] from Last 3 Months or Most Recently Relevant to Health Maintenance Care Teams Liquefaction And Regasification Helper Relationship Specialty Start Date End Date Alondra Mathew MD [facility] [address] [place] [address] PCP - General 01/12/23 Linden Conrad MD [address] [place] [id number] Assigned Heart and Vascular Provider 01/22/23
== END 2024-05-09 15:25 | disposition home or self-care (01) ==
LOC: WOUND 15:24
PROVIDERS: PCP Internal Medicine; Visit Provider Surgery
DX: E11.621 Type 2 diabetes mellitus with foot ulcer (principal); E11.40 Type 2 diabetes mellitus with diabetic neuropathy, unspecified; L97.512 Non-pressure chronic ulcer of other part of right foot with fat layer exposed; Z89.411 Acquired absence of right great toe; Z79.4 Long term (current) use of insulin; Z79.84 Long term (current) use of oral hypoglycemic drugs
CPT/HCPCS: 97597

== ENCOUNTER 2024-05-23 15:01 | Outpatient (CLI) | payer BC, SELFPAY ==
--- OUTSIDE RECORDS SUMMARY | 2024-05-23 15:02 | XMS_ITS | Referral Summary ---
Author Organization [place] Address [facility]0 [place] [address] Care Team Providers Care Store Loss Prevention Manager Name Role Phone Alondra Mathew MD Primary Care Provider Linden Conrad MD Unavailable [phone] Allergies Active Allergy Reactions Criticality Noted Date [...] COMPREHENSIVE METABOLIC PANEL Routine 07/31/2021 3:50 PM HUMAN RESOURCE STATISTICIAN Hyperlipidemia, unspecified [ICD-10-CM] Other secondary hypertension [ICD-10-CM] from Last 3 Months or Most Recently Relevant to Health Maintenance Results * (ABNORMAL) Comprehensive metabolic panel (07/31/2021 3:50 PM HUMAN RESOURCE STATISTICIAN) Pathologist [facility] Sodium 137 136 - 145 mmol/L 07/31/2021 11:49 PM HUMAN RESOURCE STATISTICIAN [facility] Potassium 4.0 3.5 - 5.0 mmol/L 07/31/2021 11:49 PM HUMAN RESOURCE STATISTICIAN [facility] Chloride 104 98 - 107 mmol/L 07/31/2021 11:49 PM HUMAN RESOURCE STATISTICIAN [facility] Carbon Dioxide (CO2) 23 22 - 31 mmol/L 07/31/2021 11:49 PM HUMAN RESOURCE STATISTICIAN [facility] Anion Gap 10 5 - 18 mmol/L 07/31/2021 11:49 PM HUMAN RESOURCE STATISTICIAN [facility] Urea Nitrogen 20 8 - 22 mg/dL 07/31/2021 11:49 PM HUMAN RESOURCE STATISTICIAN [facility] Creatinine 1.08 0.60 - 1.10 mg/dL 07/31/2021 11:49 PM HUMAN RESOURCE STATISTICIAN [facility] Calcium 9.0 8.5 - 10.5 mg/dL 07/31/2021 11:49 PM HUMAN RESOURCE STATISTICIAN [facility] Glucose 262(H) 70 - 125 mg/dL 07/31/2021 11:49 PM HUMAN RESOURCE STATISTICIAN [facility] Alkaline Phosphatase 130(H) 45 - 120 U/L 07/31/2021 11:49 PM HUMAN RESOURCE STATISTICIAN [facility] AST 39 0 - 40 U/L 07/31/2021 11:49 PM HUMAN RESOURCE STATISTICIAN [facility] ALT 46(H) 0 - 45 U/L 07/31/2021 11:49 PM HUMAN RESOURCE STATISTICIAN [facility] Protein Total 7.2 6.0 - 8.0 g/dL 07/31/2021 11:49 PM HUMAN RESOURCE STATISTICIAN [facility] Albumin 3.8 3.5 - 5.0 g/dL 07/31/2021 11:49 PM HUMAN RESOURCE STATISTICIAN [facility] Bilirubin Total 0.6 0.0 - 1.0 mg/dL 07/31/2021 11:49 PM HUMAN RESOURCE STATISTICIAN [facility] GFR Estimate 67 >60 mL/min/1.7 3m2 07/31/2021 11:49 PM HUMAN RESOURCE STATISTICIAN [facility] Comment:As of March 01, 2021, eGFR is calculated by the CKD-EPI creatinine equation, without race adjustment. eGFR can be influenced by muscle mass, exercise, and diet. The reported eGFR is an estimation only and is only applicable if the renal function is stable. Blood BLOOD SPECIMEN / Unknown Client Draw / Unknown 07/31/2021 3:50 PM HUMAN RESOURCE STATISTICIAN 07/31/2021 10:19 PM HUMAN RESOURCE STATISTICIAN Josy Acuña MD LAB - BLOOD ORDER [facility] [address] [address] [phone] from Last 3 Months or Most Recently Relevant to Health Maintenance Care Teams Store Loss Prevention Manager Relationship Specialty Start Date End Date Alondra Mathew MD [facility] [address] [place] [address] PCP - General 01/12/23 Linden Conrad MD [address] [place] [id number] Assigned Heart and Vascular Provider 01/22/23
--- OUTSIDE RECORDS SUMMARY | 2024-05-23 15:02 | XMS_ITS | Clinical Summary ---
Author Organization [facility] Address [address] [place] [address] [place] [address] Care Team Providers Care Medical Asst Name Role Phone Alondra Mathew MD Primary [...] COMPREHENSIVE METABOLIC PANEL Routine 07/31/2021 3:50 PM FISH BONING MACHINE FEEDER Hyperlipidemia, unspecified [ICD-10-CM] Other secondary hypertension [ICD-10-CM] from Last 3 Months or Most Recently Relevant to Health Maintenance Results * (ABNORMAL) Comprehensive metabolic panel (07/31/2021 3:50 PM FISH BONING MACHINE FEEDER) Sodium 137 136 - 145 mmol/L 07/31/2021 11:49 PM FISH BONING MACHINE FEEDER [facility] Potassium 4.0 3.5 - 5.0 mmol/L 07/31/2021 11:49 PM FISH BONING MACHINE FEEDER [facility] Chloride 104 98 - 107 mmol/L 07/31/2021 11:49 PM FISH BONING MACHINE FEEDER [facility] Carbon Dioxide (CO2) 23 22 - 31 mmol/L 07/31/2021 11:49 PM FISH BONING MACHINE FEEDER [facility] Anion Gap 10 5 - 18 mmol/L 07/31/2021 11:49 PM FISH BONING MACHINE FEEDER [facility] Urea Nitrogen 20 8 - 22 mg/dL 07/31/2021 11:49 PM FISH BONING MACHINE FEEDER [facility] Creatinine 1.08 0.60 - 1.10 mg/dL 07/31/2021 11:49 PM FISH BONING MACHINE FEEDER [facility] Calcium 9.0 8.5 - 10.5 mg/dL 07/31/2021 11:49 PM FISH BONING MACHINE FEEDER [facility] Glucose 262(H) 70 - 125 mg/dL 07/31/2021 11:49 PM FISH BONING MACHINE FEEDER [facility] Alkaline Phosphatase 130(H) 45 - 120 U/L 07/31/2021 11:49 PM FISH BONING MACHINE FEEDER [facility] AST 39 0 - 40 U/L 07/31/2021 11:49 PM FISH BONING MACHINE FEEDER [facility] ALT 46(H) 0 - 45 U/L 07/31/2021 11:49 PM FISH BONING MACHINE FEEDER [facility] Protein Total 7.2 6.0 - 8.0 g/dL 07/31/2021 11:49 PM FISH BONING MACHINE FEEDER [facility] Albumin 3.8 3.5 - 5.0 g/dL 07/31/2021 11:49 PM FISH BONING MACHINE FEEDER [facility] Bilirubin Total 0.6 0.0 - 1.0 mg/dL 07/31/2021 11:49 PM FISH BONING MACHINE FEEDER [facility] GFR Estimate 67 >60 mL/min/1.7 3m2 07/31/2021 11:49 PM FISH BONING MACHINE FEEDER [facility] Comment:As of March 01, 2021, eGFR is calculated by the CKD-EPI creatinine equation, without race adjustment. eGFR can be influenced by muscle mass, exercise, and diet. The reported eGFR is an estimation only and is only applicable if the renal function is stable. Blood BLOOD SPECIMEN / Unknown Client Draw / Unknown 07/31/2021 3:50 PM FISH BONING MACHINE FEEDER 07/31/2021 10:19 PM FISH BONING MACHINE FEEDER Josy Acuña MD LAB - BLOOD ORDER [facility] [address] [place] [address], [facility] [phone] from Last 3 Months or Most Recently Relevant to Health Maintenance Care Teams Medical Asst Relationship Specialty Start Date End Date Alondra Mathew MD [facility] [address] [place] [address] PCP - General 01/12/23 Linden Conrad MD [address] [place] [id number] Assigned Heart and Vascular Provider 01/22/23
--- OUTSIDE RECORDS SUMMARY | 2024-05-23 15:02 | XMS_ITS | Continuity of Care Document ---
Author Organization [facility] Address [address] [place] [address] Phone Care Team Providers Care Conservation Specialist Name Role Phone Avery Underwood MD Unavailable [...] 2019 Lami/Discectomy, Lumbar HNP Office/Outpatient Visit,[facility] [place] Advance Directives Directive Yes / No Effective Date File Name No Information Encounters Encounter Description Practice Location Reason(s) For Visit Diagnoses Date Provider Providers Copied on Encounter [facility], [address], [place], [id number], [place] tel:[phone] [facility] No Information 0 Yasmine Smart er. [facility], [address] [place] [address], [address], [place], [address] , [place]. tel:[phone] [facility], [address], [place], [address], [place] tel:[phone] [facility] Encounter for follow-up examination after completed treatment for conditions other than malignant neoplasm 0 Underwood Berry er. [facility] [place], [address] [place] [address], [address], [place], [address] , [place]. [phone] Referring Provider: Mile Ni [email or web address] [address] [place] [address], [address]. tel:[phone] [facility], [address], [place], [address], [place] tel:[phone] [facility] Encounter for follow-up examination after completed treatment for conditions other than malignant neoplasm 0 Yasmine Berry er. [facility] [place], [address], [address], [place], [address] , [place]. [phone] Referring Provider: Mile Ni [email or web address] [address] [place], [address]. tel:[phone] [facility], [address], [place], [address], [place] tel:[phone] [facility] Encounter for other specified surgical aftercare 0 Magnus Isi. [facility], [address], [place], [address], [place]. tel:[phone] Referring Provider: Mile Ni [email or web address] [address] [place], [address]. tel:[phone] [facility], [address], [place], [address], [place] tel:[phone] [facility] No Information May-1 2-202 0 Magnus Isi. [facility], [address], [place], [address], [place]. tel:[phone] Referring Provider: Mile Ni [email or web address] [address] [place] [address], [address]. tel:[phone] [facility], [address], [place], [address], [place] tel:[phone] [facility] No Information May-0 6-202 0 Yasmine Smart . [facility], [address] [place] [address], [address], [place], [address] , [place]. tel:[phone] Referring Provider: Mile Ni [email or web address] [address] [place] [address], [address]. tel:[phone] [facility], [address], [place], [address], [place] tel:[phone] [facility] Encounter for other specified surgical aftercare Sep-3 0-202 0 Magnus Isi. [facility], [address], [place], [address], [place]. tel:[phone] Referring Provider: Mile Ni [email or web address] [address] [place] [address], [address]. tel:[phone] [facility], [address], [place], [address], [place] tel:[phone] [facility] No Information Sep-2 2-202 0 Magnustamy Snowden. [facility], [address], [place], [address], [place]. [phone] Referring Provider: Mile Ni, [employer] [address], [address]. tel:[phone] [facility], [address], [place], [address], [place] tel:[phone] [facility] No Information Sep-2 0 Yasmine gallego. [facility], [address], [address], [facility] [place], [address] , [place]. [phone] Referring Provider: Mile Ni, [email or web address] [address] [place] [address], [address]. tel:[phone] Office/Outpat ient Visit,[facility], [facility], [address], [place] [facility], [address], [place] tel:[phone] [facility] Other intervertebral disc displacement, lumbar regionRadiculop athy, lumbar region Sep- 0 Magnus Snowden. [facility], [address], [place], [address], [place]. [phone] Referring Provider: Mile Ni, [email or web address] [address] [place] [address], [address]. tel:[phone] Family History Family Member Type Diagnosis Age At Onset No Information Payers Payer name Insurance type Covered alliance party ID Ruchi alonzo(s) [employer] [id number] Social History Type Description Quantity Date Captured [...]
== END 2024-05-23 15:02 | disposition home or self-care (01) ==
LOC: WOUND 15:01
PROVIDERS: PCP Internal Medicine; Visit Provider Surgery
DX: E11.621 Type 2 diabetes mellitus with foot ulcer (principal); E11.40 Type 2 diabetes mellitus with diabetic neuropathy, unspecified; L97.512 Non-pressure chronic ulcer of other part of right foot with fat layer exposed; Z89.411 Acquired absence of right great toe; Z79.4 Long term (current) use of insulin; Z79.84 Long term (current) use of oral hypoglycemic drugs
CPT/HCPCS: 97597

== ENCOUNTER 2024-05-30 14:39 | Outpatient (CLI) | payer BC, SELFPAY ==
--- OUTSIDE RECORDS SUMMARY | 2024-05-30 14:41 | XMS_ITS | Clinical Summary ---
Author Organization [place] Address [address] [place] [address] [place] [address] Care Team Providers Care Scroll Saw Operator Name Role Phone Alondra Mathew MD Primary Care Provider Linden Conrad MD Unavailable [phone] Allergies Active Allergy Reactions Criticality Noted Date [...] 11/19/2030 11/19/2020, 03/18/2010, 01/01/1998, Additional history exists RSV VACCINE (1 - 1-dose 75+ series) 2061 HEPATITIS B IMMUNIZATION Completed 999, 09/25/1998, 08/18/1998 [...] COMPREHENSIVE METABOLIC PANEL Routine 07/31/2021 3:50 PM SUPPLY CHAIN DEVELOPMENT MANAGER Hyperlipidemia, unspecified [ICD-10-CM] Other secondary hypertension [ICD-10-CM] from Last 3 Months or Most Recently Relevant to Health Maintenance Results * (ABNORMAL) Comprehensive metabolic panel (07/31/2021 3:50 PM SUPPLY CHAIN DEVELOPMENT MANAGER) Sodium 137 136 - 145 mmol/L 07/31/2021 11:49 PM SUPPLY CHAIN DEVELOPMENT MANAGER [facility] Potassium 4.0 3.5 - 5.0 mmol/L 07/31/2021 11:49 PM SUPPLY CHAIN DEVELOPMENT MANAGER [facility] Chloride 104 98 - 107 mmol/L 07/31/2021 11:49 PM SUPPLY CHAIN DEVELOPMENT MANAGER [facility] Carbon Dioxide (CO2) 23 22 - 31 mmol/L 07/31/2021 11:49 PM SUPPLY CHAIN DEVELOPMENT MANAGER [facility] Anion Gap 10 5 - 18 mmol/L 07/31/2021 11:49 PM SUPPLY CHAIN DEVELOPMENT MANAGER [facility] Urea Nitrogen 20 8 - 22 mg/dL 07/31/2021 11:49 PM SUPPLY CHAIN DEVELOPMENT MANAGER [facility] Creatinine 1.08 0.60 - 1.10 mg/dL 07/31/2021 11:49 PM SUPPLY CHAIN DEVELOPMENT MANAGER [facility] Calcium 9.0 8.5 - 10.5 mg/dL 07/31/2021 11:49 PM SUPPLY CHAIN DEVELOPMENT MANAGER [facility] Glucose 262(H) 70 - 125 mg/dL 07/31/2021 11:49 PM SUPPLY CHAIN DEVELOPMENT MANAGER [facility] Alkaline Phosphatase 130(H) 45 - 120 U/L 07/31/2021 11:49 PM SUPPLY CHAIN DEVELOPMENT MANAGER [facility] AST 39 0 - 40 U/L 07/31/2021 11:49 PM SUPPLY CHAIN DEVELOPMENT MANAGER [facility] ALT 46(H) 0 - 45 U/L 07/31/2021 11:49 PM SUPPLY CHAIN DEVELOPMENT MANAGER [facility] Protein Total 7.2 6.0 - 8.0 g/dL 07/31/2021 11:49 PM SUPPLY CHAIN DEVELOPMENT MANAGER [facility] Albumin 3.8 3.5 - 5.0 g/dL 07/31/2021 11:49 PM SUPPLY CHAIN DEVELOPMENT MANAGER [facility] Bilirubin Total 0.6 0.0 - 1.0 mg/dL 07/31/2021 11:49 PM SUPPLY CHAIN DEVELOPMENT MANAGER [facility] GFR Estimate 67 >60 mL/min/1.7 3m2 07/31/2021 11:49 PM SUPPLY CHAIN DEVELOPMENT MANAGER [facility] Comment:As of March 01, 2021, eGFR is calculated by the CKD-EPI creatinine equation, without race adjustment. eGFR can be influenced by muscle mass, exercise, and diet. The reported eGFR is an estimation only and is only applicable if the renal function is stable. Blood BLOOD SPECIMEN / Unknown Client Draw / Unknown 07/31/2021 3:50 PM SUPPLY CHAIN DEVELOPMENT MANAGER 07/31/2021 10:19 PM SUPPLY CHAIN DEVELOPMENT MANAGER Josy Acuña MD LAB - BLOOD ORDER KAYLENE [facility] [address] [phone] from Last 3 Months or Most Recently Relevant to Health Maintenance Care Teams Scroll Saw Operator Relationship Specialty Start Date End Date Alondra Mathew MD [facility] [address] [place] [address] PCP - General 01/12/23 Linden Conrad MD [address] [place] [id number] Assigned Heart and Vascular Provider 01/22/23
--- OUTSIDE RECORDS SUMMARY | 2024-05-30 14:41 | XMS_ITS | Referral Summary ---
Author Organization [place] Address [facility] [place] [address] Care Team Providers Care Electric Trucker Name Role Phone Alondra Mathew MD Primary Care Provider Linden Conrad MD Unavailable [phone] Allergies Active Allergy Reactions Criticality Noted Date [...] COMPREHENSIVE METABOLIC PANEL Routine 07/31/2021 3:50 PM LANDSCAPE GARDENER Hyperlipidemia, unspecified [ICD-10-CM] Other secondary hypertension [ICD-10-CM] from Last 3 Months or Most Recently Relevant to Health Maintenance Results * (ABNORMAL) Comprehensive metabolic panel (07/31/2021 3:50 PM LANDSCAPE GARDENER) Pathologist [facility] Sodium 137 136 - 145 mmol/L 07/31/2021 11:49 PM LANDSCAPE GARDENER [facility] Potassium 4.0 3.5 - 5.0 mmol/L 07/31/2021 11:49 PM LANDSCAPE GARDENER [facility] Chloride 104 98 - 107 mmol/L 07/31/2021 11:49 PM LANDSCAPE GARDENER [facility] Carbon Dioxide (CO2) 23 22 - 31 mmol/L 07/31/2021 11:49 PM LANDSCAPE GARDENER [facility] Anion Gap 10 5 - 18 mmol/L 07/31/2021 11:49 PM LANDSCAPE GARDENER [facility] Urea Nitrogen 20 8 - 22 mg/dL 07/31/2021 11:49 PM LANDSCAPE GARDENER [facility] Creatinine 1.08 0.60 - 1.10 mg/dL 07/31/2021 11:49 PM LANDSCAPE GARDENER [facility] Calcium 9.0 8.5 - 10.5 mg/dL 07/31/2021 11:49 PM LANDSCAPE GARDENER [facility] Glucose 262(H) 70 - 125 mg/dL 07/31/2021 11:49 PM LANDSCAPE GARDENER [facility] Alkaline Phosphatase 130(H) 45 - 120 U/L 07/31/2021 11:49 PM LANDSCAPE GARDENER [facility] AST 39 0 - 40 U/L 07/31/2021 11:49 PM LANDSCAPE GARDENER [facility] ALT 46(H) 0 - 45 U/L 07/31/2021 11:49 PM LANDSCAPE GARDENER [facility] Protein Total 7.2 6.0 - 8.0 g/dL 07/31/2021 11:49 PM LANDSCAPE GARDENER [facility] Albumin 3.8 3.5 - 5.0 g/dL 07/31/2021 11:49 PM LANDSCAPE GARDENER [facility] Bilirubin Total 0.6 0.0 - 1.0 mg/dL 07/31/2021 11:49 PM LANDSCAPE GARDENER [facility] GFR Estimate 67 >60 mL/min/1.7 3m2 07/31/2021 11:49 PM LANDSCAPE GARDENER [facility] Comment:As of March 01, 2021, eGFR is calculated by the CKD-EPI creatinine equation, without race adjustment. eGFR can be influenced by muscle mass, exercise, and diet. The reported eGFR is an estimation only and is only applicable if the renal function is stable. Blood BLOOD SPECIMEN / Unknown Client Draw / Unknown 07/31/2021 3:50 PM LANDSCAPE GARDENER 07/31/2021 10:19 PM LANDSCAPE GARDENER Josy Acuña MD LAB - BLOOD ORDER [facility] [address] [address] [phone] from Last 3 Months or Most Recently Relevant to Health Maintenance Care Teams Electric Trucker Relationship Specialty Start Date End Date Alondra Mathew MD [facility] [address] [place] [address] PCP - General 01/12/23 Linden Conrad MD [address] [place] [id number] Assigned Heart and Vascular Provider 01/22/23
--- OUTSIDE RECORDS SUMMARY | 2024-05-30 14:41 | XMS_ITS | Continuity of Care Document ---
Author Organization [facility] Address [address] [place] [address] Phone Care Team Providers Care Cementer Hand Name Role Phone Avery Underwood MD Unavailable [...] - [place] 2019 Lami/Discectomy, Lumbar HNP Office/Outpatient Visit,[facility] 2019 Advance Directives Directive Yes / No Effective Date File Name No Information Encounters Encounter Description Practice Location Reason(s) For Visit Diagnoses Date Provider Providers Copied on Encounter [facility], [address], [place], [place], [id number], [place] tel:[phone] [facility] No Information 0 Yasmine Smart er. [facility], [address] [place] [address], [address], [place], [place], [id number] , [place]. tel:[phone] [facility], [address], [place], [place], [id number], [place] tel:[phone] [facility] Encounter for follow-up examination after completed treatment for conditions other than malignant neoplasm 0 Underwood Berry er. [facility] [place], [address] [place] [address], [address], [place], [place], [id number] , [place]. [phone] Referring Provider: Mile Ni Nodality [address] [place] [address], [address]. tel:[phone] [facility], [address], [place], [place], [id number], [place] tel:[phone] [facility] Encounter for follow-up examination after completed treatment for conditions other than malignant neoplasm 0 Yasmine Berry er. [facility] [place], [address], [address], [place], [place], [address] , [place]. [phone] Referring Provider: Mile Ni [address] [place], [address]. tel:[phone] [facility], [address], [place], [id number], [place] tel:[phone] [facility] Encounter for other specified surgical aftercare 0 Magnus Isi. [facility], [address], [place], [address], [place]. tel:[phone] Referring Provider: Mile [address] [place], [address]. tel:[phone] [facility], [address], [place], [place], [id number], [place] tel:[phone] [facility] No Information May-1 2-202 0 Magnus Isi. [facility], [address], [place], [address], [place]. tel:[phone] Referring Provider: Mile Ni Nod[address] [place] [address], [address]. tel:[phone] [facility], [address], [place], [id number], [place] tel:[phone] [facility] No Information May-0 6-202 0 Yasmine Smart . [facility], [address] [place] [address], [address], [place], [place], [address] , [place]. tel:[phone] Referring Provider: Mile Ni Nod[address] [place] [address], [address]. tel:[phone] [facility], [address], [place], [id number], [place] tel:[phone] [facility] Encounter for other specified surgical aftercare Sep-3 0-202 0 Magnus Isi. [facility], [address], [place], [address], [place]. tel:[phone] Referring Provider: Mile Ni Nodality [address] [place] [address], [address]. tel:[phone] [facility], [address], [place], [id number], [place] tel:[phone] [facility] No Information Sep-2 2-202 0 Magnustamy Snowden. [facility], [address], [place], [address], [place]. [phone] Referring Provider: Mile Ni, [employer] [address], [address]. tel:[phone] [facility], [address], [place], [place], [address], [place] tel:[phone] [facility] No Information Sep-2 0 Yasmine gallego. [facility], [address], [address], [facility] [place], [id number] , [place]. [phone] Referring Provider: Mile Ni, [employer] [address] [place] [address], [address]. tel:[phone] Office/Outpat ient Visit,[facility], [address], [facility] [place], [id number], [place] tel:[phone] [facility] Other intervertebral disc displacement, lumbar regionRadiculop athy, lumbar region Sep- 0 Magnus Snowden. [facility], [address], [place], [address], [place]. [phone] Referring Provider: Mile Ni, [employer] [address] [place] [address]. tel:[phone] Family History Family Member Type Diagnosis Age At Onset No Information Payers Payer name Insurance type Covered republican ID Ruchi alonzo(s) [employer] [id number] Social History Type Description Quantity Date Captured [...]
== END 2024-05-30 14:40 | disposition home or self-care (01) ==
LOC: WOUND 14:39
PROVIDERS: PCP Internal Medicine; Visit Provider Surgery
DX: E11.621 Type 2 diabetes mellitus with foot ulcer (principal); E11.40 Type 2 diabetes mellitus with diabetic neuropathy, unspecified; L97.512 Non-pressure chronic ulcer of other part of right foot with fat layer exposed; A52.16 Charcot's arthropathy (tabetic); Z89.411 Acquired absence of right great toe; Z79.4 Long term (current) use of insulin
CPT/HCPCS: 97597

== ENCOUNTER 2024-06-13 14:48 | Outpatient (CLI) | payer BC, SELFPAY ==
--- OUTSIDE RECORDS SUMMARY | 2024-06-13 14:50 | XMS_ITS | Clinical Summary ---
Author Organization [place] Address [address] [place] [address] 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 Medications aspirin (ASA) 81 MG chewable tablet Active buPROPion (WELLBUTRIN XL) 150 MG 24 hr tablet Take 150 mg by mouth 04/01/2021 Active buPROPion (WELLBUTRIN XL) 300 MG 24 hr tablet Take 1 tablet by mouth daily 04/01/2021 Active JARDIANCE 10 MG TABS tablet Take 10 mg by mouth every morning 11/13/2022 Active escitalopram (LEXAPRO) 20 MG tablet Take 30 mg by mouth 02/20/2021 Active LORazepam (ATIVAN) 0.5 MG tablet Active losartan (COZAAR) 25 MG tablet Active magnesium gluconate (MAGONATE) 500 (27 Mg) MG tablet Active metFORMIN (GLUCOPHAGE XR) 500 MG 24 hr tablet Take 500 mg by mouth 02/20/2021 Active Multiple Vitamin (ONE-A-DAY ESSENTIAL) TABS Take 1 tablet by mouth daily Active ondansetron (ZOFRAN) 4 MG tablet Take 8 mg by mouth 10/02/2021 Active Pregabalin (LYRICA) 200 MG capsule Active OZEMPIC, 0.25 OR 0.5 MG/DOSE, 2 MG/3ML pen INJECT 0.5MG SUB-Q EVERY WEEK 12/24/2022 Active SUMAtriptan (IMITREX) 100 MG tablet TAKE 1 TABLET BY MOUTH NEEED FOR MIGRAINE HEADACHE. MAY REPEAT ONCE AFTER AT LEAST 2 HOURS. DO NOT EXCEED 2 DOSES IN 24 HOURS. 12/31/2022 Active Taurine 1000 MG CAPS Active amphetamine-dex troamphetamine (ADDERALL XR) 30 MG 24 hr capsule Take 30 mg by mouth daily Active Social History Tobacco Use Types Packs/Day Years Used Date Smoking Tobacco: Never Assessed Smokeless Tobacco: Current Tobacco Cessation:Ready to Q uit: Not Asked; Counseling Given: Not Answered Comments:Vape Adolescent Education Answer Date Record ed Getting School Help Needed Not on file 05/14 Comments Unknown Sex and Gender Information Value Date Recorded Sex Assigned at Female 01/12/2023 9:49 AM CDT Legal Sex Female 3:51 PM MEDICAL COLLECTIONS Gender Identity Female 01/12/2023 9:49 AM CDT [...] COMPREHENSIVE METABOLIC PANEL Routine 07/31/2021 3:50 PM MEDICAL COLLECTIONS Hyperlipidemia, unspecified [ICD-10-CM] Other secondary hypertension [ICD-10-CM] from Last 3 Months or Most Recently Relevant to Health Maintenance Results * (ABNORMAL) Comprehensive metabolic panel (07/31/2021 3:50 PM MEDICAL COLLECTIONS) Sodium 137 136 - 145 mmol/L 07/31/2021 11:49 PM MEDICAL COLLECTIONS [facility] Potassium 4.0 3.5 - 5.0 mmol/L 07/31/2021 11:49 PM MEDICAL COLLECTIONS [facility] Chloride 104 98 - 107 mmol/L 07/31/2021 11:49 PM MEDICAL COLLECTIONS [facility] Carbon Dioxide (CO2) 23 22 - 31 mmol/L 07/31/2021 11:49 PM MEDICAL COLLECTIONS [facility] Anion Gap 10 5 - 18 mmol/L 07/31/2021 11:49 PM MEDICAL COLLECTIONS [facility] Urea Nitrogen 20 8 - 22 mg/dL 07/31/2021 11:49 PM MEDICAL COLLECTIONS [facility] Creatinine 1.08 0.60 - 1.10 mg/dL 07/31/2021 11:49 PM MEDICAL COLLECTIONS [facility] Calcium 9.0 8.5 - 10.5 mg/dL 07/31/2021 11:49 PM MEDICAL COLLECTIONS [facility] Glucose 262(H) 70 - 125 mg/dL 07/31/2021 11:49 PM MEDICAL COLLECTIONS [facility] Alkaline Phosphatase 130(H) 45 - 120 U/L 07/31/2021 11:49 PM MEDICAL COLLECTIONS [facility] AST 39 0 - 40 U/L 07/31/2021 11:49 PM MEDICAL COLLECTIONS [facility] ALT 46(H) 0 - 45 U/L 07/31/2021 11:49 PM MEDICAL COLLECTIONS [facility] Protein Total 7.2 6.0 - 8.0 g/dL 07/31/2021 11:49 PM MEDICAL COLLECTIONS [facility] Albumin 3.8 3.5 - 5.0 g/dL 07/31/2021 11:49 PM MEDICAL COLLECTIONS [facility] Bilirubin Total 0.6 0.0 - 1.0 mg/dL 07/31/2021 11:49 PM MEDICAL COLLECTIONS [facility] GFR Estimate 67 >60 mL/min/1.7 3m2 07/31/2021 11:49 PM MEDICAL COLLECTIONS [facility] Comment:As of March 01, 2021, eGFR is calculated by the CKD-EPI creatinine equation, without race adjustment. eGFR can be influenced by muscle mass, exercise, and diet. The reported eGFR is an estimation only and is only applicable if the renal function is stable. Blood BLOOD SPECIMEN / Unknown Client Draw / Unknown 07/31/2021 3:50 PM MEDICAL COLLECTIONS 07/31/2021 10:19 PM MEDICAL COLLECTIONS us Josy Acuña MD LAB - BLOOD ORDERABLES Fi nal Result [facility] [address] [address], [facility] [phone] from Last 3 Months or Most Recently Relevant to Health Maintenance Insurance [facility] Care Teams Supervisor Ovens Relationship Specialty Start Date End Date Alondra Mathew MD [facility] & [address] [address] PCP - General 01/12/23 Linden Conrad MD [address] [place] [id number] Assigned Heart and Vascular Provider 01/22/23
--- OUTSIDE RECORDS SUMMARY | 2024-06-13 14:50 | XMS_ITS | Referral Summary ---
Author Organization [place] Address [facility] [place] [address] Care Team Providers Care Metallurgist Process Name Role Phone Alondra Mathew MD Primary Care Provider Linden Conrad MD Unavailable [phone] Allergies Active Allergy Reactions Criticality Noted Date [...] AM CDT Legal Sex Female 3:51 PM CIRCUIT TESTER Gender Identity Female 01/12/2023 9:49 AM CDT Sexual Orientation Straight 01/12/2023 9: 49 AM CDT Plan of Treatment Not on file Procedures Procedure Name Priority Date/Time Associated Diagnosis Comments COMPREHENSIVE METABOLIC PANEL Routine 07/31/2021 3:50 PM CIRCUIT TESTER Hyperlipidemia, unspecified [ICD-10-CM] Other secondary hypertension [ICD-10-CM] from Last 3 Months or Most Recently Relevant to Health Maintenance Results * (ABNORMAL) Comprehensive metabolic panel (07/31/2021 3:50 PM CIRCUIT TESTER) Sodium 137 136 - 145 mmol/L 07/31/2021 11:49 PM CIRCUIT TESTER [facility] Potassium 4.0 3.5 - 5.0 mmol/L 07/31/2021 11:49 PM CIRCUIT TESTER [facility] Chloride 104 98 - 107 mmol/L 07/31/2021 11:49 PM CIRCUIT TESTER [facility] Carbon Dioxide (CO2) 23 22 - 31 mmol/L 07/31/2021 11:49 PM CIRCUIT TESTER [facility] Anion Gap 10 5 - 18 mmol/L 07/31/2021 11:49 PM CIRCUIT TESTER [facility] Urea Nitrogen 20 8 - 22 mg/dL 07/31/2021 11:49 PM CIRCUIT TESTER [facility] Creatinine 1.08 0.60 - 1.10 mg/dL 07/31/2021 11:49 PM CIRCUIT TESTER [facility] Calcium 9.0 8.5 - 10.5 mg/dL 07/31/2021 11:49 PM CIRCUIT TESTER [facility] Glucose 262(H) 70 - 125 mg/dL 07/31/2021 11:49 PM CIRCUIT TESTER [facility] Alkaline Phosphatase 130(H) 45 - 120 U/L 07/31/2021 11:49 PM CIRCUIT TESTER [facility] AST 39 0 - 40 U/L 07/31/2021 11:49 PM CIRCUIT TESTER [facility] ALT 46(H) 0 - 45 U/L 07/31/2021 11:49 PM CIRCUIT TESTER [facility] Protein Total 7.2 6.0 - 8.0 g/dL 07/31/2021 11:49 PM CIRCUIT TESTER [facility] Albumin 3.8 3.5 - 5.0 g/dL 07/31/2021 11:49 PM CIRCUIT TESTER [facility] Bilirubin Total 0.6 0.0 - 1.0 mg/dL 07/31/2021 11:49 PM CIRCUIT TESTER [facility] GFR Estimate 67 >60 mL/min/1.7 3m2 07/31/2021 11:49 PM CIRCUIT TESTER [facility] Comment:As of March 01, 2021, eGFR is calculated by the CKD-EPI creatinine equation, without race adjustment. eGFR can be influenced by muscle mass, exercise, and diet. The reported eGFR is an estimation only and is only applicable if the renal function is stable. Blood BLOOD SPECIMEN / Unknown Client Draw / Unknown 07/31/2021 3:50 PM CIRCUIT TESTER 07/31/2021 10:19 PM CIRCUIT TESTER us Josy Acuña MD LAB - BLOOD ORDERABLES Fi nal Result [facility] [address] [place] [address], [facility] [phone] from Last 3 Months or Most Recently Relevant to Health Maintenance Insurance [facility] CHOICE Care Teams Metallurgist Process Relationship Specialty Start Date End Date Alondra Mathew MD [facility] & [address] [address] PCP - General 01/12/23 Linden Conrad MD [address] [place] [id number] Assigned Heart and Vascular Provider 01/22/23
--- OUTSIDE RECORDS SUMMARY | 2024-06-13 14:50 | XMS_ITS | Continuity of Care Document ---
Author Organization [facility] Address [address] [place] [address] Phone Care Team Providers Care Bench Assembly Inspector Name Role Phone Avery Underwood MD [...] 2019 Lami/Discectomy, Lumbar HNP Office/Outpatient Visit,[facility] 2019 Advance Directives Directive Yes / No Effective Date File Name No Information Encounters Encounter Description Practice Location Reason(s) For Visit Diagnoses Date Provider Providers Copied on Encounter [facility], [address], [place], [id number], [place] tel:[phone] [facility] No Information 0 Yasmine Smart er. [facility], [address] [place] [address], [address], [place], [id number] , [place]. tel:[phone] [facility], [address], [place], [address], [place] tel:[phone] [place] Encounter for follow-up examination after completed treatment for conditions other than malignant neoplasm 0 Underwood Berry er. [facility], [address] [place] [address], [address], [place], [address] , [place]. [phone] Referring Provider: Mile Ni GreenCloud [address] [place] [address], [address]. tel:[phone] [facility], [address], [place], [address], [place] tel:[phone] [place] Encounter for follow-up examination after completed treatment for conditions other than malignant neoplasm 0 Yasmine Berry er. [facility], [address], [address], [place], [address] , [place]. [phone] Referring Provider: Mile Ni GreenCloud [address] [place], [address]. tel:[phone] [facility], [address], [place], [address], [place] tel:[phone] [place] Encounter for other specified surgical aftercare 0 Magnus Isi. [facility], [address], [place], [address], [place]. tel:[phone] Referring Provider: Mile Ni GreenCloud [address] [place], [address]. tel:[phone] [facility], [address], [place], [address], [place] tel:[phone] No Information May-1 2-202 0 Magnus Isi. [facility], [address], [place], [address], [place]. tel:[phone] Referring Provider: Mile Ni GreenCloud [address] [place] [address], [address]. tel:[phone] [facility], [address], [place], [address], [place] tel:[phone] No Information May-0 6-202 0 Yasmine Smart . [facility], [address] [place] [address], [address], [place], [address] , [place]. tel:[phone] Referring Provider: Mile Ni GreenCloud [address] [place] [address], [address]. tel:[phone] [facility], [address], [place], [address], [place] tel:[phone] [facility] Encounter for other specified surgical aftercare Sep-3 0-202 0 Magnus Isi. [facility], [address], [place], [address], [place]. tel:[phone] Referring Provider: Mile Ni GreenCloud [address] [place] [address], [address]. tel:[phone] [facility], [address], [place], [address], [place] tel:[phone] No Information Sep-2 2-202 0 Magnustamy Snowden. [facility], [address], [place], [address], [place]. [phone] Referring Provider: Mile Ni, [address], [address]. tel:[phone] [facility], [address], [place], [address], [place] tel:[phone] No Information Sep-2 0 Yasmine gallego. [facility], [address], [address], [facility] [place], [address] , [place]. [phone] Referring Provider: Mile Ni, [employer] [address] [place] [address], [address]. tel:[phone] Office/Outpat ient Visit,[facility], [address], [place], [address], [place] tel:[phone] [facility] Other intervertebral disc displacement, lumbar regionRadiculop athy, lumbar region Sep- 0 Magnus Snowden. [facility], [address], [place], [address], [place]. [phone] Referring Provider: Mile Ni, [employer] [address] [place] [address], [address]. tel:[phone] Family History Family Member Type Diagnosis Age At Onset No Information Payers Payer name Insurance type Covered alliance party ID Ruchi alonzo(s) [employer] [id number] Social History Type Description Quantity Date Captured [...]
== END 2024-06-13 14:49 | disposition home or self-care (01) ==
LOC: WOUND 14:48
PROVIDERS: PCP Internal Medicine; Visit Provider Physician Assistant
DX: E11.621 Type 2 diabetes mellitus with foot ulcer (principal); E11.40 Type 2 diabetes mellitus with diabetic neuropathy, unspecified; L97.512 Non-pressure chronic ulcer of other part of right foot with fat layer exposed; A52.16 Charcot's arthropathy (tabetic); Z89.411 Acquired absence of right great toe; Z79.4 Long term (current) use of insulin
CPT/HCPCS: 97597

== ENCOUNTER 2024-07-04 14:44 | Outpatient (CLI) | payer BC, SELFPAY ==
--- OUTSIDE RECORDS SUMMARY | 2024-07-04 14:46 | XMS_ITS | Clinical Summary ---
Author Organization [facility] Address [address] [place] [address] [place] [address] Care Team Providers Care Circus Agent Name Role Phone Alondra Mathew MD Primary Care Provider Linden Conrad MD Unavailable [phone] Allergies Active Allergy Reactions Criticality Noted Date [...] AM CDT Legal Sex Female 3:51 PM LOCAL DELIVERY TRUCK DRIVER Gender Identity Female 01/12/2023 9:49 AM CDT [...] COMPREHENSIVE METABOLIC PANEL Routine 07/31/2021 3:50 PM LOCAL DELIVERY TRUCK DRIVER Hyperlipidemia, unspecified [ICD-10-CM] Other secondary hypertension [ICD-10-CM] from Last 3 Months or Most Recently Relevant to Health Maintenance Results * (ABNORMAL) Comprehensive metabolic panel (07/31/2021 3:50 PM LOCAL DELIVERY TRUCK DRIVER) Sodium 137 136 - 145 mmol/L 07/31/2021 11:49 PM LOCAL DELIVERY TRUCK DRIVER [facility] Potassium 4.0 3.5 - 5.0 mmol/L 07/31/2021 11:49 PM LOCAL DELIVERY TRUCK DRIVER [facility] Chloride 104 98 - 107 mmol/L 07/31/2021 11:49 PM LOCAL DELIVERY TRUCK DRIVER [facility] Carbon Dioxide (CO2) 23 22 - 31 mmol/L 07/31/2021 11:49 PM LOCAL DELIVERY TRUCK DRIVER [facility] Anion Gap 10 5 - 18 mmol/L 07/31/2021 11:49 PM LOCAL DELIVERY TRUCK DRIVER [facility] Urea Nitrogen 20 8 - 22 mg/dL 07/31/2021 11:49 PM LOCAL DELIVERY TRUCK DRIVER [facility] Creatinine 1.08 0.60 - 1.10 mg/dL 07/31/2021 11:49 PM LOCAL DELIVERY TRUCK DRIVER [facility] Calcium 9.0 8.5 - 10.5 mg/dL 07/31/2021 11:49 PM LOCAL DELIVERY TRUCK DRIVER [facility] Glucose 262(H) 70 - 125 mg/dL 07/31/2021 11:49 PM LOCAL DELIVERY TRUCK DRIVER [facility] Alkaline Phosphatase 130(H) 45 - 120 U/L 07/31/2021 11:49 PM LOCAL DELIVERY TRUCK DRIVER [facility] AST 39 0 - 40 U/L 07/31/2021 11:49 PM LOCAL DELIVERY TRUCK DRIVER [facility] ALT 46(H) 0 - 45 U/L 07/31/2021 11:49 PM LOCAL DELIVERY TRUCK DRIVER [facility] Protein Total 7.2 6.0 - 8.0 g/dL 07/31/2021 11:49 PM LOCAL DELIVERY TRUCK DRIVER [facility] Albumin 3.8 3.5 - 5.0 g/dL 07/31/2021 11:49 PM LOCAL DELIVERY TRUCK DRIVER [facility] Bilirubin Total 0.6 0.0 - 1.0 mg/dL 07/31/2021 11:49 PM LOCAL DELIVERY TRUCK DRIVER [facility] GFR Estimate 67 >60 mL/min/1.7 3m2 07/31/2021 11:49 PM LOCAL DELIVERY TRUCK DRIVER [facility] Comment:As of March 01, 2021, eGFR is calculated by the CKD-EPI creatinine equation, without race adjustment. eGFR can be influenced by muscle mass, exercise, and diet. The reported eGFR is an estimation only and is only applicable if the renal function is stable. Blood BLOOD SPECIMEN / Unknown Client Draw / Unknown 07/31/2021 3:50 PM LOCAL DELIVERY TRUCK DRIVER 07/31/2021 10:19 PM LOCAL DELIVERY TRUCK DRIVER us Josy Acuña MD LAB - BLOOD ORDERABLES Fi nal Result [facility] [address] [address], [facility] [phone] from Last 3 Months or Most Recently Relevant to Health Maintenance Insurance [facility] CHO[facility] Care Teams Circus Agent Relationship Specialty Start Date End Date Alondra Mathew MD [facility] & [address] [address] PCP - General 01/12/23 Linden Conrad MD [address] [place] [id number] Assigned Heart and Vascular Provider 01/22/23
--- OUTSIDE RECORDS SUMMARY | 2024-07-04 14:46 | XMS_ITS | Continuity of Care Document ---
Author Organization [facility] Address [address] [place] [address] Phone Care Team Providers Care Sanitary Inspector Name Role Phone Avery Underwood MD [...] - [place] 2019 Lami/Discectomy, Lumbar HNP Office/Outpatient Visit,[facility] 2019 Advance Directives Directive Yes / No Effective Date File Name No Information Encounters Encounter Description Practice Location Reason(s) For Visit Diagnoses Date Provider Providers Copied on Encounter [facility], [address], [place], [id number], [place] tel:[phone] [facility] No Information [address] [facility], [address] [place] [address], [address], [place], [place], [address] , [place]. tel:[phone] [facility], [address], [place], [place], [address], [place] tel:[phone] [facility] Encounter for follow-up examination after completed treatment for conditions other than malignant neoplasm [address] [facility], [address] [place] [address], [address], [place], [place], [address] , [place]. [phone] Referring Provider: Mile Ni [employer] [address] [place] [address], [address]. tel:[phone] [facility], [address], [place], [address], [place] tel:[phone] [facility] Encounter for follow-up examination after completed treatment for conditions other than malignant neoplasm [address] [facility], [address], [address], [place], [address] , [place]. [phone] Referring Provider: Mile Ni [employer] [address] [place], [address]. tel:[phone] [facility], [address], [place], [address], [place] tel:[phone] [facility] Encounter for other specified surgical aftercare [address] [facility], [address], [facility] [place], [address], [place]. tel:[phone] Referring Provider: Mile Ni [employer] [address] [place], [address]. tel:[phone] [facility], [address], [place], [address], [place] tel:[phone] [facility] No Information May-1 2-[address] [facility], [address], [facility] [place], [address], [place]. tel:[phone] Referring Provider: Mile Ni [employer] [address] [place] [address], [address]. tel:[phone] [facility], [address], [place], [address], [place] tel:[phone] [facility] No Information May-0 6-[address] [facility], [address] [place] [address], [address], [place], [address] , [place]. tel:[phone] Referring Provider: Mile Ni [employer] [address] [place] [address], [address]. tel:[phone] [facility], [address], [place], [address], [place] tel:[phone] [facility] Encounter for other specified surgical aftercare Sep-3 0-[address] [facility], [address], [place], [address], [place]. tel:[phone] Referring Provider: Mile Ni [employer] [address] [place] [address], [address]. tel:[phone] [facility], [address], [place], [address], [place] tel:[phone] [facility] No Information Sep-2 2-[address] [facility], [address], [place], [address], [place]. [phone] Referring Provider: Mile iN, [employer] [address], [address]. tel:[phone] [facility], [address], [place], [address], [place] tel:[phone] [facility] No Information Sep-[address] [facility], [address], [address], [facility] [place], [address] , [place]. [phone] Referring Provider: Mile Ni, [employer] [address] [place] [address], [address]. tel:[phone] Office/Outpat ient Visit,[facility], [address], [facility], [address], [place] tel:[phone] [facility] Other intervertebral disc displacement, lumbar regionRadiculop athy, lumbar region Sep- [address] [facility], [address], [place], [address], [place]. [phone] Referring Provider: Mile Ni, [employer] [address] [place] [address], [address]. tel:[phone] Family History Family Member Type Diagnosis Age At Onset No Information Payers Payer name Insurance type Covered democrat ID Ruchi alonzo(s) [employer] [id number] Social History Type Description Quantity Date Captured [...]
--- OUTSIDE RECORDS SUMMARY | 2024-07-04 14:46 | XMS_ITS | Referral Summary ---
Author Organization [facility] Address [facility] [place] [address] Care Team Providers Care Maintenance Electrician Name Role Phone Alondra Mathew MD Primary Care Provider Linden Conrad MD Unavailable [phone] Allergies Active Allergy Reactions Criticality Noted Date [...] AM CDT Legal Sex Female 3:51 PM TAWER Gender Identity Female 01/12/2023 9:49 AM CDT Sexual Orientation Straight 01/12/2023 9: 49 AM CDT Plan of Treatment Not on file Procedures Procedure Name Priority Date/Time Associated Diagnosis Comments COMPREHENSIVE METABOLIC PANEL Routine 07/31/2021 3:50 PM TAWER Hyperlipidemia, unspecified [ICD-10-CM] Other secondary hypertension [ICD-10-CM] from Last 3 Months or Most Recently Relevant to Health Maintenance Results * (ABNORMAL) Comprehensive metabolic panel (07/31/2021 3:50 PM TAWER) Sodium 137 136 - 145 mmol/L 07/31/2021 11:49 PM TAWER [facility] Potassium 4.0 3.5 - 5.0 mmol/L 07/31/2021 11:49 PM TAWER [facility] Chloride 104 98 - 107 mmol/L 07/31/2021 11:49 PM TAWER [facility] Carbon Dioxide (CO2) 23 22 - 31 mmol/L 07/31/2021 11:49 PM TAWER [facility] Anion Gap 10 5 - 18 mmol/L 07/31/2021 11:49 PM TAWER [facility] Urea Nitrogen 20 8 - 22 mg/dL 07/31/2021 11:49 PM TAWER [facility] Creatinine 1.08 0.60 - 1.10 mg/dL 07/31/2021 11:49 PM TAWER [facility] Calcium 9.0 8.5 - 10.5 mg/dL 07/31/2021 11:49 PM TAWER [facility] Glucose 262(H) 70 - 125 mg/dL 07/31/2021 11:49 PM TAWER [facility] Alkaline Phosphatase 130(H) 45 - 120 U/L 07/31/2021 11:49 PM TAWER [facility] AST 39 0 - 40 U/L 07/31/2021 11:49 PM TAWER [facility] ALT 46(H) 0 - 45 U/L 07/31/2021 11:49 PM TAWER [facility] Protein Total 7.2 6.0 - 8.0 g/dL 07/31/2021 11:49 PM TAWER [facility] Albumin 3.8 3.5 - 5.0 g/dL 07/31/2021 11:49 PM TAWER [facility] Bilirubin Total 0.6 0.0 - 1.0 mg/dL 07/31/2021 11:49 PM TAWER [facility] GFR Estimate 67 >60 mL/min/1.7 3m2 07/31/2021 11:49 PM TAWER [facility] Comment:As of March 01, 2021, eGFR is calculated by the CKD-EPI creatinine equation, without race adjustment. eGFR can be influenced by muscle mass, exercise, and diet. The reported eGFR is an estimation only and is only applicable if the renal function is stable. Blood BLOOD SPECIMEN / Unknown Client Draw / Unknown 07/31/2021 3:50 PM TAWER 07/31/2021 10:19 PM TAWER us Josy Acuña MD LAB - BLOOD ORDERABLES Fi nal Result [facility] [address] [place] [address], [facility] [phone] from Last 3 Months or Most Recently Relevant to Health Maintenance Insurance [facility] CHOICE Care Teams Maintenance Electrician Relationship Specialty Start Date End Date Alondra Mathew MD [facility] & [address] [address] PCP - General 01/12/23 Linden Conrad MD [address] [place] [id number] Assigned Heart and Vascular Provider 01/22/23
== END 2024-07-04 14:45 | disposition home or self-care (01) ==
LOC: WOUND 14:44
PROVIDERS: PCP Internal Medicine; Visit Provider Surgery
DX: E11.621 Type 2 diabetes mellitus with foot ulcer (principal); E11.40 Type 2 diabetes mellitus with diabetic neuropathy, unspecified; L97.512 Non-pressure chronic ulcer of other part of right foot with fat layer exposed; Z89.411 Acquired absence of right great toe; Z79.84 Long term (current) use of oral hypoglycemic drugs
CPT/HCPCS: 97597

== ENCOUNTER 2024-07-04 15:40 | Emergency (ER) | payer BC, SELFPAY ==
[2024-07-04 15:48] VITALS: BP 152/106; PULSE 88; RESP 16; TEMP 36.7; O2SAT 98; BMI 39.3
--- NOTE | 2024-07-04 15:59 | ED.GIBLEED ---
HPI - GI Bleed General Time Seen by Provider: 16:25 Date Seen: 07/04/24 Chief complaint: GI Bleed Stated complaint: Sent by [facility] for poss GI bleed Time Seen by Provider: 07/04/24 15:58 Source: patient, RN notes reviewed and old records reviewed Mode of arrival: ambulatory Limitations: no limitations History of Present Illness HPI Narrative: 39-year-old female who comes in today with rectal bleeding. Patient notes some she had some lower abdominal cramping and passed a semi formed stool a couple days ago, since then has had blood mixed with her stool when she has a bowel movement. No rectal pain, some abdominal cramping. No fever, chills, nausea, vomiting. Was lightheaded earlier and so when she called clinic they advised her to come the emergency department. No chest pain or shortness of breath pain 8, no dyspnea on exertion. Related Data Home Medications ?Medication ?Instructions ?Recorded ?Confirmed aspirin 81 mg capsule 81 mg PO QDAY 08/26/22 05/07/24 multivitamin 1 tab PO QAM 12/16/22 05/07/24 magnesium glycinate 100 mg (as 400 mg PO QDAY 02/14/23 05/07/24 glycinate) tablet diclofenac sodium 1 % topical gel 2 g topical QID PRN 01/17/24 05/07/24 amitriptyline 25 mg tablet 75 mg PO DAILY 02/09/24 05/07/24 meloxicam 15 mg tablet 15 mg PO DAILY 05/07/24 05/07/24 pregabalin 300 mg capsule 300 mg PO DAILY 05/07/24 ubrogepant 100 mg tablet (Ubrelvy) mg PO 05/07/24 05/07/24 Previous Rx's ?Medication ?Instructions ?Recorded benzonatate 200 mg capsule 200 mg PO TID PRN cough #20 caps 01/23/24 empagliflozin 25 mg tablet 25 mg PO QAM #90 tabs 02/09/24 semaglutide 0.25 mg or 0.5 mg (2 0.5 mg (0.736 mL) subcut QWEEK 4 04/02/24 mg/3 mL) subcutaneous pen injector weeks #2.944 mL (Ozempic) doxycycline hyclate 100 mg capsule 100 mg PO BID #14 caps 04/04/24 bupropion HCl 150 mg 24 hr tablet, 150 mg PO DAILY #90 tabs 05/07/24 extended release bupropion HCl 300 mg 24 hr tablet, 300 mg PO DAILY #90 tabs 05/07/24 extended release escitalopram oxalate 20 mg tablet 20 mg PO DAILY #90 tabs 05/07/24 losartan 25 mg tablet 25 mg PO DAILY #90 tabs 05/07/24 metformin 500 mg tablet 500 mg PO BIDWMEAL #180 tabs 05/07/24 ondansetron HCl 4 mg tablet 4 mg PO Q8H PRN nausea with 05/31/24 migraines #20 tabs dextroamphetamine-amphetamine 20 20 mg PO QDAY #30 tabs 06/19/24 mg tablet (Adderall) dextroamphetamine-amphetamine ER 30 mg PO QAM #30 caps 06/20/24 30 mg 24hr capsule,extend release (Adderall XR) Allergies Allergy/AdvReac Type Severity Reaction Status Date / Time sulfamethoxazole (From Allergy Mild Unknown Verified 07/04/24 16:58 Sulfamethoxazole-Trimethoprim) trimethoprim (From Allergy Mild Unknown Verified 07/04/24 16:58 Sulfamethoxazole-Trimethoprim) azithromycin Allergy Unknown Verified 07/04/24 16:58 fluconazole Allergy Unknown Verified 07/04/24 16:58 vancomycin Allergy Unknown Verified 07/04/24 16:58 [facility] Medical History (Updated 07/04/24 @ 17:12 by Bebo Schrader MD) History of deep venous thrombosis (2013) ?Z86.718 - Personal history of other venous thrombosis and embolism (ICD-10) Surgical History (Updated 02/09/24 @ 16:09 by Alondra Mathew MD) History of tonsillectomy and adenoidectomy (1993) ?Z90.89 - Acquired absence of other organs (ICD-10) History of lumbosacral spine surgery (2019) ?Z98.890 - Other specified postprocedural states (ICD-10) History of bone marrow transplant (1996) ?Z94.81 - Bone marrow transplant status (ICD-10) Family History (Updated 06/17/22 @ 12:41 by Yolanda Carney) Paternal Grandfather Diabetes Paternal Grandmother Diabetes Father Pancreatic cancer Social History Smoking Status: Former smoker Do you use any of these nicotine containing products: Vaping Products Second hand tobacco smoke exposure: No How often do you have a drink containing alcohol: monthly or less How many standard drinks containing alcohol do you have on a typical day: 1 or 2 AUDIT-C Alcohol total score: 1 Non-prescribed substance use: denies use Exam Narrative: Exam Narrative: General: Well-developed and well-nourished, no acute distress Head: Atraumatic and normocephalic Eyes: Pupils are equal reactive, extraocular motions intact, conjunctiva clear ENT: External nose and ears are normal, posterior pharynx without erythema or exudate Neck: No midline cervical tenderness, full spontaneous range of motion the neck, trachea midline, no adenopathy Heart: Regular rate and rhythm no murmurs or thrills Lungs: Clear to auscultation bilaterally without wheezes or crackles Abdomen: Soft, nontender, nondistended with active bowel sounds Musculoskeletal: No tenderness, deformity, or edema Neurologic: Awake, alert, and oriented x3, no gross focal neurologic deficits, cranial nerves intact as tested Psych: Mood and affect are appropriate Skin: No rashes : External hemorrhoid with a area of clot Const: Vital Signs, click to edit/add: Vital Signs - 24 hr 07/04/24 15:48 07/04/24 16:12 07/04/24 17:46 Temperature 98.0 F Pulse Rate [Pulse Oximeter] 88 70 Pulse Rate [orthos tatic lying] 82 Pulse Rate [orthos tatic sitting] 91 Pulse Rate [orthos tatic standing] 95 Respiratory Rate 16 16 Blood Pressure [Ri t Upper Arm] 152/106 H 135/78 Blood Pressure [or thostatic lying] 153/98 H Blood Pressure [or thostatic sitting] 150/105 H Blood Pressure [or thostatic standing ] 149/109 H Pulse Oximetry 98 97 Oxygen Delivery Me thod Room Air Room Air Course Course ED Course: Patient seen and examined, presents with lower abdominal cramping and bright red blood when passing stools. No blood when not stooling. On exam here she has an external hemorrhoid with a small clot on it however no active bleeding. This may be the source of her bleeding but given her abdominal cramping, concern for possible colitis or diverticulitis. Patient has no bleeding between stooling and is finally stable. CBC is ordered along with CT abdomen and pelvis. Reevaluation(s) Time of Reevaluation #1: 17:03 Reevaluation #1: Labs and pill interpreted by me with normal CBC including normal hemoglobin. Time of Reevaluation #2: 17:10 Reevaluation #2: CT scan independently interpreted by me negative for acute intra-abdominal findings. Patient likely has a rectal fissure, discussed treatment for this, she already has loose stool so would not add a stool softener. Follow up with primary care in 1 week, consider surgery or GI consultation if symptoms persist. Time of Reevaluation #3: 18:00 Reevaluation #3: Reviewed radiology interpretation of CT scan which agrees way initial interpretation, stable for discharge. Vital Signs Vital signs: Initial Vital Signs Temperature 98.0 F 07/04/24 15:48 Temperature Source Temporal Artery Scan 07/04/24 15:48 Pulse Rate 88 07/04/24 15:48 Respiratory Rate 16 07/04/24 15:48 Blood Pressure 152/106 H 07/04/24 15:48 Blood Pressure Mean 121 H 07/04/24 15:48 Blood Pressure Position Sitting 07/04/24 15:48 Pulse Oximetry 98 07/04/24 15:48 Oxygen Delivery Method Room Air 07/04/24 15:48 Vital Signs Temperature 98.0 F 07/04/24 15:48 Pulse Rate 88 07/04/24 15:48 Respiratory Rate 16 07/04/24 15:48 Blood Pressure 152/106 H 07/04/24 15:48 Pulse Oximetry 98 07/04/24 15:48 Oxygen Delivery Method Room Air 07/04/24 15:48 Temperature 98.0 F 07/04/24 15:48 Pulse Rate 70 07/04/24 17:46 Respiratory Rate 16 07/04/24 17:46 Blood Pressure 135/78 07/04/24 17:46 Pulse Oximetry 97 07/04/24 17:46 Oxygen Delivery Method Room Air 07/04/24 17:46 MDM - GI Bleed Lab Data Labs: Lab Results 07/04/24 07/04/24 Range/Units 16:05 16:38 WBC 6.49 (4.50-11.00) K/uL RBC 4.87 (4.00-5.20) m/uL Hgb 13.5 (12.0-16.0) gm/dL Hct 41.3 (33.0-51.0) % MCV 85 (80-100) fL MCH 28 (26-34) pg MCHC 33 (32-36) gm/dL RDW Coeff of Madai 14.0 (11.5-15.5) % Plt Count 188 (140-440) K/uL Neut % (Auto) 50.2 (42.0-72.0) % Lymph % (Auto) 36.1 (20-44) % Hodgeman % (Auto) 8.5 (0.0-11.0) % Eos % (Auto) 4.3 (0.0-7.0) % Baso % (Auto) 0.6 (0.0-3.0) % Neut # (Auto) 3.26 (1.7-7.0) K/uL Lymph # (Auto) 2.34 (0.90-2.90) K/uL Hodgeman # (Auto) 0.60 (0.00-0.90) K/UL Eos # (Auto) 0.28 (0.00-0.50) K/uL Baso # (Auto) 0.04 (0.00-0.30) K/uL Abs Immat Gran (auto) 0.02 (0.00-0.30) K/uL Imm/Tot Granulo (auto) 0.3 % POC Creatinine 1.2 (0.6-1.3) mg/dl Discharge Plan Discharge Clinical Impression: Bright red rectal bleeding, Anal fissure Instructions: Rectal Bleeding (ED), Anal Fissure (ED) Additional Instructions: Maintain soft stools, start taking Colace if your stools start becoming too firm. Follow-up with your primary care doctor in 1 week if needed Activity Level: No Restrictions Discharge Diet: Regular Prescriptions: No Action multivitamin Tablet 1 tab PO QAM magnesium glycinate 100 mg tablet 400 mg PO QDAY benzonatate 200 mg capsule 200 mg PO TID PRN (Reason: cough) Qty: 20 0RF aspirin 81 mg capsule 81 mg PO QDAY diclofenac sodium 1 % gel 2 g topical QID PRN amitriptyline 25 mg tablet 75 mg PO DAILY empagliflozin 25 mg tablet 25 mg PO QAM Qty: 90 3RF pregabalin 300 mg capsule 300 mg PO DAILY meloxicam 15 mg tablet 15 mg PO DAILY Ubrelvy 100 mg tablet PO metformin 500 mg tablet 500 mg PO BIDWMEAL Qty: 180 3RF losartan 25 mg tablet 25 mg PO DAILY Qty: 90 3RF bupropion HCl 150 mg tablet extended release 24 hr 150 mg PO DAILY Qty: 90 3RF bupropion HCl 300 mg tablet extended release 24 hr 300 mg PO DAILY Qty: 90 3RF escitalopram oxalate 20 mg tablet 20 mg PO DAILY Qty: 90 3RF Ozempic 0.25 mg or 0.5 mg (2 mg/3 mL) pen injector 0.5 mg subcut QWEEK 28 Days Qty: 2.944 3RF doxycycline hyclate 100 mg capsule 100 mg PO BID Qty: 14 0RF ondansetron HCl 4 mg tablet 4 mg PO Q8H PRN (Reason: nausea with migraines) Qty: 20 3RF dextroamphetamine-amphetamine [Adderall] 20 mg tablet 20 mg PO QDAY Qty: 30 0RF dextroamphetamine-amphetamine [Adderall XR] 30 mg capsule,extended release 24hr 30 mg PO QAM Qty: 30 0RF Follow Up/Referrals: Alondra Mathew MD [Primary Care Provider] - Stand Alone Forms: [facility] Info Instructions
[2024-07-04 16:12] VITALS: BP 149/109; BP 150/105; BP 153/98; PULSE 82; PULSE 91; PULSE 95
[2024-07-04 16:18] LABS: Basophils Absolute Auto 0.04 K/uL (0.00-0.30); Basophils Percent Auto 0.6 % (0.0-3.0); Eosinophils Absolute Auto 0.28 K/uL (0.00-0.50); Eosinophils Percent Auto 4.3 % (0.0-7.0); Hematocrit 41.3 % (33.0-51.0); Hemoglobin* 13.5 gm/dL (12.0-16.0); Immature Granulocytes Abs Auto 0.02 K/uL (0.00-0.30); Immature Granulocytes Pct Auto 0.3 %; Lymphocytes Absolute Auto 2.34 K/uL (0.90-2.90); Lymphocytes Percent Auto 36.1 % (20-44); Mean Corpuscular HGB Conc 33 gm/dL (32-36); Mean Corpuscular Hemoglobin 28 pg (26-34); Mean Corpuscular Volume 85 fL (80-100); Monocytes Percent Auto 8.5 % (0.0-11.0); Neutrophils Absolute Auto 3.26 K/uL (1.7-7.0); Neutrophils Percent Auto 50.2 % (42.0-72.0); Platelet Count* 188 K/uL (140-440); Red Blood Count 4.87 m/uL (4.00-5.20); White Blood Count* 6.49 K/uL (4.50-11.00)
[2024-07-04 16:27] LABS: Slide Review Reflex No
--- NOTE | 2024-07-04 16:28 | CRLHL7_ITS ---
For Patients: As a result of the 21st Century Cures Act, medical imaging exams and procedure reports are released immediately into your electronic medical record. You may view this report before your referring provider. If you have questions, please contact your health care provider. INDICATION: Lower abdominal cramping. Blood in stool. History of leukemia. COMPARISON: 10/14/2021 CT of the abdomen and pelvis TECHNIQUE: CT of the abdomen and pelvis with intravenous contrast (143 milliliters Isovue 370). FINDINGS: Lung bases: Few punctate calcified granulomata in the left lower lobe. No pleural effusion. Liver: Smooth hepatic contour. Borderline low attenuation of the liver possibly representing hepatic steatosis. Gallbladder and biliary tree: Unremarkable CT appearance. Spleen: Similar splenomegaly measuring 14.9 centimeters in the axial plane. Pancreas: Normal. Adrenal glands: Normal. Kidneys and ureters: No hydroureteronephrosis. No suspicious renal lesions are identified. Bladder: Unremarkable CT appearance. Visualized reproductive organs: Unremarkable CT appearance. Gastrointestinal tract: No focal abnormally dilated loops of bowel. Normal appendix. Peritoneal cavity: No free fluid or free air. Lymph nodes: No enlarged abdominal or pelvic lymph nodes by CT size criteria. Vessels: No abdominal aortic aneurysm. Abdominal and pelvic wall: Normal. Bones: There are osseous degenerative changes. A well-defined lucent and sclerotic 12 millimeter lesion in the left intertrochanteric femur is unchanged since the prior exam and probably benign such as a fibro-osseous lesion (4/107). There is diffuse idiopathic skeletal hyperostosis. There is chronic mild anterior vertebral body wedging centered at the thoracolumbar junction. IMPRESSION: 1. No acute findings in the abdomen or pelvis. 2. Similar splenomegaly measuring 14.9 centimeters in the axial plane. 3. Borderline low attenuation of the liver possibly representing hepatic steatosis. Please note that all CT scans at this facility use dose modulation, iterative reconstruction, and/or weight-based dosing when appropriate to reduce radiation dose to as low as reasonably achievable. Dictated by José Miguel Cuellar MD @ 07/04/2024 5:59:36 PM (Electronically Signed)
--- OUTSIDE RECORDS SUMMARY | 2024-07-04 16:36 | XMS_ITS | Referral Summary ---
Author Organization [place] Address [facility] [place] [address] Care Team Providers Care Cota Name Role Phone Alondra Mathew MD Primary Care Provider Linden Conrad MD Unavailable [phone] Allergies Active Allergy Reactions Criticality Noted Date [...] AM CDT Legal Sex Female 3:51 PM [employer]ER Gender Identity Female 01/12/2023 9:49 AM CDT Sexual Orientation Straight 01/12/2023 9: 49 AM CDT Plan of Treatment Not on file Procedures Procedure Name Priority Date/Time Associated Diagnosis Comments COMPREHENSIVE METABOLIC PANEL Routine 07/31/2021 3:50 PM [employer] Hyperlipidemia, unspecified [ICD-10-CM] Other secondary hypertension [ICD-10-CM] from Last 3 Months or Most Recently Relevant to Health Maintenance Results * (ABNORMAL) Comprehensive metabolic panel (07/31/2021 3:50 PM [employer] ATT[employer]ER) Sodium 137 136 - 145 mmol/L 07/31/2021 11:49 PM [employer] ATTACHER [facility] Potassium 4.0 3.5 - 5.0 mmol/L 07/31/2021 11:49 PM [employer] ATT[employer]ER [facility] Chloride 104 98 - 107 mmol/L 07/31/2021 11:49 PM [employer] [facility] Carbon Dioxide (CO2) 23 22 - 31 mmol/L 07/31/2021 11:49 PM [employer] [facility] Anion Gap 10 5 - 18 mmol/L 07/31/2021 11:49 PM [employer] [facility] Urea Nitrogen 20 8 - 22 mg/dL 07/31/2021 11:49 PM [employer] [facility] Creatinine 1.08 0.60 - 1.10 mg/dL 07/31/2021 11:49 PM [employer] ATT[employer] [facility] Calcium 9.0 8.5 - 10.5 mg/dL 07/31/2021 11:49 PM [employer] [facility] Glucose 262(H) 70 - 125 mg/dL 07/31/2021 11:49 PM [employer] [facility] Alkaline Phosphatase 130(H) 45 - 120 U/L 07/31/2021 11:49 PM [employer] ATT[employer]ER [facility] AST 39 0 - 40 U/L 07/31/2021 11:49 PM [employer] ATT[employer]ER [facility] ALT 46(H) 0 - 45 U/L 07/31/2021 11:49 PM [employer] ATT[employer]ER [facility] Protein Total 7.2 6.0 - 8.0 g/dL 07/31/2021 11:49 PM [employer] ATT[employer] [facility] Albumin 3.8 3.5 - 5.0 g/dL 07/31/2021 11:49 PM [employer] [facility] Bilirubin Total 0.6 0.0 - 1.0 mg/dL 07/31/2021 11:49 PM [employer] ATT[employer] [facility] GFR Estimate 67 >60 mL/min/1.7 3m2 07/31/2021 11:49 PM [employer] ATT[employer] [facility] Comment:As of March 01, 2021, eGFR is calculated by the CKD-EPI creatinine equation, without race adjustment. eGFR can be influenced by muscle mass, exercise, and diet. The reported eGFR is an estimation only and is only applicable if the renal function is stable. Blood BLOOD SPECIMEN / Unknown Client Draw / Unknown 07/31/2021 3:50 PM [employer] ATT[employer]ER 07/31/2021 10:19 PM [employer] ATT[employer]ER us Josy Acuña MD LAB - BLOOD ORDERABLES Fi nal Result [facility] [address] [place] [address], [facility] [phone] from Last 3 Months or Most Recently Relevant to Health Maintenance Insurance [facility] CHOICE Care Teams Cota Relationship Specialty Start Date End Date Alondra Mathew MD [facility] & [address] [address] PCP - General 01/12/23 Linden Conrad MD [address] [place] [id number] Assigned Heart and Vascular Provider 01/22/23
--- OUTSIDE RECORDS SUMMARY | 2024-07-04 16:36 | XMS_ITS | Clinical Summary ---
Author Organization [place] Address [address] [place] [address] [place] [address] Care Team Providers Care Food Analyst Name Role Phone Alondra Mathew MD Primary Care Provider Linden Conrad MD Unavailable [phone] Allergies Active Allergy Reactions Criticality Noted Date [...] AM CDT Legal Sex Female 3:51 PM [employer] Gender Identity Female 01/12/2023 9:49 AM CDT [...] COMPREHENSIVE METABOLIC PANEL Routine 07/31/2021 3:50 PM [employer] Hyperlipidemia, unspecified [ICD-10-CM] Other secondary hypertension [ICD-10-CM] from Last 3 Months or Most Recently Relevant to Health Maintenance Results * (ABNORMAL) Comprehensive metabolic panel (07/31/2021 3:50 PM [employer]) Sodium 137 136 - 145 mmol/L 07/31/2021 11:49 PM [employer] [facility] Potassium 4.0 3.5 - 5.0 mmol/L 07/31/2021 11:49 PM [employer] [facility] Chloride 104 98 - 107 mmol/L 07/31/2021 11:49 PM [employer] [facility] Carbon Dioxide (CO2) 23 22 - 31 mmol/L 07/31/2021 11:49 PM [employer] [facility] Anion Gap 10 5 - 18 mmol/L 07/31/2021 11:49 PM [employer] [facility] Urea Nitrogen 20 8 - 22 mg/dL 07/31/2021 11:49 PM [employer] [facility] Creatinine 1.08 0.60 - 1.10 mg/dL 07/31/2021 11:49 PM [employer] [facility] Calcium 9.0 8.5 - 10.5 mg/dL 07/31/2021 11:49 PM [employer] [facility] Glucose 262(H) 70 - 125 mg/dL 07/31/2021 11:49 PM [employer] LAB[employer] [facility] Alkaline Phosphatase 130(H) 45 - 120 U/L 07/31/2021 11:49 PM [employer] LAB[employer]ER [facility] AST 39 0 - 40 U/L 07/31/2021 11:49 PM [employer] LAB[employer]ER [facility] ALT 46(H) 0 - 45 U/L 07/31/2021 11:49 PM [employer] LAB[employer] [facility] Protein Total 7.2 6.0 - 8.0 g/dL 07/31/2021 11:49 PM [employer] LAB[employer] [facility] Albumin 3.8 3.5 - 5.0 g/dL 07/31/2021 11:49 PM [employer] [facility] Bilirubin Total 0.6 0.0 - 1.0 mg/dL 07/31/2021 11:49 PM [employer] [facility] GFR Estimate 67 >60 mL/min/1.7 3m2 07/31/2021 11:49 PM [employer] [facility] Comment:As of March 01, 2021, eGFR is calculated by the CKD-EPI creatinine equation, without race adjustment. eGFR can be influenced by muscle mass, exercise, and diet. The reported eGFR is an estimation only and is only applicable if the renal function is stable. Blood BLOOD SPECIMEN / Unknown Client Draw / Unknown 07/31/2021 3:50 PM [employer]ER 07/31/2021 10:19 PM [employer]ER us Josy Acuña MD LAB - BLOOD ORDERABLES Fi nal Result [facility] [address] [address], [facility] [phone] from Last 3 Months or Most Recently Relevant to Health Maintenance Insurance [facility] [place] [id number] Care Teams Food Analyst Relationship Specialty Start Date End Date Alondra Mathew MD [facility] & [address] [address] PCP - General 01/12/23 Linden Conrad MD [address] [place] [address] Assigned Heart and Vascular Provider 01/22/23
--- OUTSIDE RECORDS SUMMARY | 2024-07-04 16:36 | XMS_ITS | Continuity of Care Document ---
Author Organization [facility] Address [address] [place] [address] Phone Care Team Providers Care Tip Puncher Name Role Phone Avery Underwood MD Unavailable [...] - [place] 2019 Lami/Discectomy, Lumbar HNP Office/Outpatient Visit,[facility] [place] Advance Directives Directive Yes / No Effective Date File Name No Information Encounters Encounter Description Practice Location Reason(s) For Visit Diagnoses Date Provider Providers Copied on Encounter [facility], [address], [place], [id number], [place] tel:[phone] [facility] No Information 0 Yasmine Smart er. [facility], [address] [place] [address], [address], [place], [address] , [place]. tel:[phone] [facility], [address], [place], [address], [place] tel:[phone] [facility] Encounter for follow-up examination after completed treatment for conditions other than malignant neoplasm 0 Underwood Berry er. [facility], [address] [place] [address], [address], [place], [address] , [place]. [phone] Referring Provider: Mile Ni [employer] [address] [place] [address], [address]. tel:[phone] [facility], [address], [place], [address], [place] tel:[phone] [facility] Encounter for follow-up examination after completed treatment for conditions other than malignant neoplasm 0 Yasmine Berry er. [facility], [address], [address], [place], [address] , [place]. [phone] Referring Provider: Mile Ni [employer] [address] [place], [address]. tel:[phone] [facility], [address], [place], [address], [place] tel:[phone] [facility] Encounter for other specified surgical aftercare 0 Magnus Isi. [facility], [address], [place], [address], [place]. tel:[phone] Referring Provider: Mile Ni [employer] [address] [place], [address]. tel:[phone] [facility], [address], [place], [address], [place] tel:[phone] [facility] No Information May-1 2-202 0 Magnus Isi. [facility], [address], [place], [address], [place]. tel:[phone] Referring Provider: Mile Ni [employer] [address] [place] [address], [address]. tel:[phone] [facility], [address], [place], [address], [place] tel:[phone] [facility] No Information May-0 6-202 0 Yasmine Smart . [facility], [address] [place] [address], [address], [place], [address] , [place]. tel:[phone] Referring Provider: Mile Ni [employer] [address] [place] [address], [address]. tel:[phone] [facility], [address], [place], [address], [place] tel:[phone] [facility] - [facility] Encounter for other specified surgical aftercare Sep-3 0-202 0 Magnus Isi. [facility], [address], [place], [address], [place]. tel:[phone] Referring Provider: Mile Ni [employer] [address] [place] [address], [address]. tel:[phone] [facility], [address], [place], [address], [place] tel:[phone] [facility] No Information Sep-2 2-202 0 Magnustamy Snowden. [facility], [address], [place], [address], [place]. [phone] Referring Provider: Mile Ni, [employer] [address], [address]. tel:[phone] [facility], [address], [place], [address], [place] tel:[phone] [facility] No Information Sep-2 0 Yasmine gallego. [facility], [address], [address], [facility] [place], [address] , [place]. [phone] Referring Provider: Mile Ni, [employer] [address] [place] [address], [address]. tel:[phone] Office/Outpat ient Visit,[facility], [facility], [address], [facility], [address], [place] tel:[phone] [facility] - [facility] Other intervertebral disc displacement, lumbar regionRadiculop athy, lumbar region Sep- 0 Magnus Snowden. [facility], [address], [facility] [place], [address], [place]. [phone] Referring Provider: Mile Ni, [employer] [address] [place] [address], [address]. tel:[phone] Family History Family Member Type Diagnosis Age At Onset No Information Payers Payer name Insurance type Covered republican ID Ruchi alonzo(s) Undertone [id number] Social History Type Description Quantity Date Captured [...]
[2024-07-04 16:39] LABS: Creatinine, Point-of-Care* 1.2 mg/dl (0.6-1.3)
[2024-07-04 17:46] VITALS: BP 135/78; PULSE 70; RESP 16; O2SAT 97
== END 2024-07-04 18:07 | disposition home or self-care (01) ==
PROVIDERS: Emergency Provider Family Medicine; PCP Internal Medicine
DX: K60.2 Anal fissure, unspecified (principal); K62.5 Hemorrhage of anus and rectum
CPT/HCPCS: 36415; 74177; 82565; 85025; 99284; Q9967

== ENCOUNTER 2024-07-18 14:42 | Outpatient (CLI) | payer BC, SELFPAY ==
--- OUTSIDE RECORDS SUMMARY | 2024-07-18 14:44 | XMS_ITS | Referral Summary ---
Author Organization [facility] Address [facility] [place] [address] Care Team Providers Care Natural Resource Specialist Name Role Phone Alondra Mathew MD Primary Care Provider Linden Conrad MD Unavailable [phone] Allergies Active Allergy Reactions Criticality Noted Date [...] AM CDT Legal Sex Female 3:51 PM PRACTICE DIRECTOR Gender Identity Female 01/12/2023 9:49 AM CDT Sexual Orientation Straight 01/12/2023 9: 49 AM CDT Plan of Treatment Not on file Procedures Procedure Name Priority Date/Time Associated Diagnosis Comments COMPREHENSIVE METABOLIC PANEL Routine 07/31/2021 3:50 PM PRACTICE DIRECTOR Hyperlipidemia, unspecified [ICD-10-CM] Other secondary hypertension [ICD-10-CM] from Last 3 Months or Most Recently Relevant to Health Maintenance Results * (ABNORMAL) Comprehensive metabolic panel (07/31/2021 3:50 PM PRACTICE DIRECTOR) Sodium 137 136 - 145 mmol/L 07/31/2021 11:49 PM PRACTICE DIRECTOR [facility] Potassium 4.0 3.5 - 5.0 mmol/L 07/31/2021 11:49 PM PRACTICE DIRECTOR [facility] Chloride 104 98 - 107 mmol/L 07/31/2021 11:49 PM PRACTICE DIRECTOR [facility] Carbon Dioxide (CO2) 23 22 - 31 mmol/L 07/31/2021 11:49 PM PRACTICE DIRECTOR [facility] Anion Gap 10 5 - 18 mmol/L 07/31/2021 11:49 PM PRACTICE DIRECTOR [facility] Urea Nitrogen 20 8 - 22 mg/dL 07/31/2021 11:49 PM PRACTICE DIRECTOR [facility] Creatinine 1.08 0.60 - 1.10 mg/dL 07/31/2021 11:49 PM PRACTICE DIRECTOR [facility] Calcium 9.0 8.5 - 10.5 mg/dL 07/31/2021 11:49 PM PRACTICE DIRECTOR [facility] Glucose 262(H) 70 - 125 mg/dL 07/31/2021 11:49 PM PRACTICE DIRECTOR [facility] Alkaline Phosphatase 130(H) 45 - 120 U/L 07/31/2021 11:49 PM PRACTICE DIRECTOR [facility] AST 39 0 - 40 U/L 07/31/2021 11:49 PM PRACTICE DIRECTOR [facility] ALT 46(H) 0 - 45 U/L 07/31/2021 11:49 PM PRACTICE DIRECTOR [facility] Protein Total 7.2 6.0 - 8.0 g/dL 07/31/2021 11:49 PM PRACTICE DIRECTOR [facility] Albumin 3.8 3.5 - 5.0 g/dL 07/31/2021 11:49 PM PRACTICE DIRECTOR [facility] Bilirubin Total 0.6 0.0 - 1.0 mg/dL 07/31/2021 11:49 PM PRACTICE DIRECTOR [facility] GFR Estimate 67 >60 mL/min/1.7 3m2 07/31/2021 11:49 PM PRACTICE DIRECTOR [facility] Comment:As of March 01, 2021, eGFR is calculated by the CKD-EPI creatinine equation, without race adjustment. eGFR can be influenced by muscle mass, exercise, and diet. The reported eGFR is an estimation only and is only applicable if the renal function is stable. Blood BLOOD SPECIMEN / Unknown Client Draw / Unknown 07/31/2021 3:50 PM PRACTICE DIRECTOR 07/31/2021 10:19 PM PRACTICE DIRECTOR us Josy Acuña MD LAB - BLOOD ORDERABLES Fi nal Result [facility] [address] [place] [address], [facility] [phone] from Last 3 Months or Most Recently Relevant to Health Maintenance Insurance [facility] CHOICE Care Teams Natural Resource Specialist Relationship Specialty Start Date End Date Alondra Mathew MD [facility] & [address] [address] PCP - General 01/12/23 Linden Conrad MD [address] [place] [id number] Assigned Heart and Vascular Provider 01/22/23
--- OUTSIDE RECORDS SUMMARY | 2024-07-18 14:44 | XMS_ITS | Clinical Summary ---
Author Organization [facility] Address [address] [place] [address] [place] [address] Care Team Providers Care Environmental Aid Name Role Phone Alondra Mathew MD Primary Care Provider [phone] Linden Conrad MD Unavailable [phone] Allergies Active Allergy Reactions Criticality Noted Date [...] AM CDT Legal Sex Female 3:51 PM CHEMICAL CELL CHANGER Gender Identity Female 01/12/2023 9:49 AM CDT [...] COMPREHENSIVE METABOLIC PANEL Routine 07/31/2021 3:50 PM CHEMICAL CELL CHANGER Hyperlipidemia, unspecified [ICD-10-CM] Other secondary hypertension [ICD-10-CM] from Last 3 Months or Most Recently Relevant to Health Maintenance Results * (ABNORMAL) Comprehensive metabolic panel (07/31/2021 3:50 PM CHEMICAL CELL CHANGER) Sodium 137 136 - 145 mmol/L 07/31/2021 11:49 PM CHEMICAL CELL CHANGER [facility] Potassium 4.0 3.5 - 5.0 mmol/L 07/31/2021 11:49 PM CHEMICAL CELL CHANGER [facility] Chloride 104 98 - 107 mmol/L 07/31/2021 11:49 PM CHEMICAL CELL CHANGER [facility] Carbon Dioxide (CO2) 23 22 - 31 mmol/L 07/31/2021 11:49 PM CHEMICAL CELL CHANGER [facility] Anion Gap 10 5 - 18 mmol/L 07/31/2021 11:49 PM CHEMICAL CELL CHANGER [facility] Urea Nitrogen 20 8 - 22 mg/dL 07/31/2021 11:49 PM CHEMICAL CELL CHANGER [facility] Creatinine 1.08 0.60 - 1.10 mg/dL 07/31/2021 11:49 PM CHEMICAL CELL CHANGER [facility] Calcium 9.0 8.5 - 10.5 mg/dL 07/31/2021 11:49 PM CHEMICAL CELL CHANGER [facility] Glucose 262(H) 70 - 125 mg/dL 07/31/2021 11:49 PM CHEMICAL CELL CHANGER [facility] Alkaline Phosphatase 130(H) 45 - 120 U/L 07/31/2021 11:49 PM CHEMICAL CELL CHANGER [facility] AST 39 0 - 40 U/L 07/31/2021 11:49 PM CHEMICAL CELL CHANGER [facility] ALT 46(H) 0 - 45 U/L 07/31/2021 11:49 PM CHEMICAL CELL CHANGER [facility] Protein Total 7.2 6.0 - 8.0 g/dL 07/31/2021 11:49 PM CHEMICAL CELL CHANGER [facility] Albumin 3.8 3.5 - 5.0 g/dL 07/31/2021 11:49 PM CHEMICAL CELL CHANGER [facility] Bilirubin Total 0.6 0.0 - 1.0 mg/dL 07/31/2021 11:49 PM CHEMICAL CELL CHANGER [facility] GFR Estimate 67 >60 mL/min/1.7 3m2 07/31/2021 11:49 PM CHEMICAL CELL CHANGER [facility] Comment:As of March 01, 2021, eGFR is calculated by the CKD-EPI creatinine equation, without race adjustment. eGFR can be influenced by muscle mass, exercise, and diet. The reported eGFR is an estimation only and is only applicable if the renal function is stable. Blood BLOOD SPECIMEN / Unknown Client Draw / Unknown 07/31/2021 3:50 PM CHEMICAL CELL CHANGER 07/31/2021 10:19 PM CHEMICAL CELL CHANGER us Josy Acuña MD LAB - BLOOD ORDERABLES Fi nal Result [facility] [address] [address], [facility] [phone] from Last 3 Months or Most Recently Relevant to Health Maintenance Insurance [facility] CHOICE Care Teams Environmental Aid Relationship Specialty Start Date End Date Alondra Mathew MD [facility] & [address] [address] PCP - General 01/12/23 Linden Conrad MD [address] [place] [address] Assigned Heart and Vascular Provider 01/22/23
--- OUTSIDE RECORDS SUMMARY | 2024-07-18 14:44 | XMS_ITS | Continuity of Care Document ---
Author Organization [facility] Address [address] [place] [address] Phone Care Team Providers Care Web Worker Name Role Phone Avery Underwood MD Unavailable [...] - [place] 2019 Lami/Discectomy, Lumbar HNP Office/Outpatient Visit,[facility] 2019 Advance Directives Directive Yes / No Effective Date File Name No Information Encounters Encounter Description Practice Location Reason(s) For Visit Diagnoses Date Provider Providers Copied on Encounter [facility], [address], [place], [id number], [place] tel:[phone] [facility] No Information 0 Yasmine Smart er. [facility], [address] [place] [address], [address], [place], [address] , [place]. tel:[phone] [facility], [address], [place], [address], [place] tel:[phone] [facility] Encounter for follow-up examination after completed treatment for conditions other than malignant neoplasm 0 Underwood Berry er. [facility], [address] [place] [address], [address], [place], [place], [address] , [place]. [phone] Referring Provider: Mile Ni Bambisa [address] [place] [address], [address]. tel:[phone] [facility], [address], [place], [address], [place] tel:[phone] [facility] Encounter for follow-up examination after completed treatment for conditions other than malignant neoplasm 0 Yasmine Berry er. [facility], [address], [address], [place], [address] , [place]. [phone] Referring Provider: Mile Ni Bambisa [address] [place], [address]. tel:[phone] [facility], [address], [place], [address], [place] tel:[phone] [facility] Encounter for other specified surgical aftercare 0 Magnus Isi. [facility], [address], [place], [address], [place]. tel:[phone] Referring Provider: Mile Ni Bambisa [address] [place], [address]. tel:[phone] [facility], [address], [place], [address], [place] tel:[phone] [facility] No Information May-1 2-202 0 Magnus Isi. [facility], [address], [facility], [address], [place]. tel:[phone] Referring Provider: Mile Ni Bambisa [address] [place] [address], [address]. tel:[phone] [facility], [address], [place], [address], [place] tel:[phone] [facility] No Information May-0 6-202 0 Yasmine Smart . [facility], [address] [place] [address], [address], [place], [address] , [place]. tel:[phone] Referring Provider: Mile Ni Bambisa [address] [place] [address], [address]. tel:[phone] [facility], [address], [place], [address], [place] tel:[phone] [facility] Encounter for other specified surgical aftercare Sep-3 0-202 0 Magnus Isi. [facility], [address], [place], [address], [place]. tel:[phone] Referring Provider: Mile Ni Bambisa [address] [place] [address], [address]. tel:[phone] [facility], [address], [place], [address], [place] tel:[phone] [facility] No Information Sep-2 2-202 0 Magnustamy Snowden. [facility], [address], [place], [address], [place]. [phone] Referring Provider: Mile Ni, [employer] [address], [address]. tel:[phone] [facility], [address], [place], [address], [place] tel:[phone] [facility] No Information Sep-2 0 Yasmine gallego. [facility], [address], [address], [facility] [place], [address] , [place]. [phone] Referring Provider: Mile Ni, Bamb[address] [place] [address], [address]. tel:[phone] Office/Outpat ient Visit,[facility], [facility], [address], [facility] [place], [address], [place] tel:[phone] [facility] - [facility] Other intervertebral disc displacement, lumbar regionRadiculop athy, lumbar region Sep- 0 Magnus Snowden. [facility], [address], [facility] [place], [address], [place]. [phone] Referring Provider: Mile Ni, Bamb[address] [place] [address], [address]. tel:[phone] Family History Family Member Type Diagnosis Age At Onset No Information Payers Payer name Insurance type Covered alliance party ID Ruchi alonzo(s) [employer] [id number] Social History Type Description Quantity Date Captured [...]
== END 2024-07-18 14:43 | disposition home or self-care (01) ==
LOC: WOUND 14:42
PROVIDERS: PCP Internal Medicine; Visit Provider Physician Assistant
DX: E11.621 Type 2 diabetes mellitus with foot ulcer (principal); E11.40 Type 2 diabetes mellitus with diabetic neuropathy, unspecified; L97.522 Non-pressure chronic ulcer of other part of left foot with fat layer exposed; L97.512 Non-pressure chronic ulcer of other part of right foot with fat layer exposed; Z89.411 Acquired absence of right great toe; L03.116 Cellulitis of left lower limb; Z79.84 Long term (current) use of oral hypoglycemic drugs; B95.61 Methicillin susceptible Staphylococcus aureus infection as the cause of diseases classified elsewhere
CPT/HCPCS: 11042; 87070; 87186; 97597

== ENCOUNTER 2024-07-25 14:35 | Outpatient (CLI) | payer BC, SELFPAY ==
--- OUTSIDE RECORDS SUMMARY | 2024-07-25 14:38 | XMS_ITS | Referral Summary ---
Author Organization [facility] Address [address] [place] [address] [place] [address] Care Team Providers Care Drop Shipment Clerk Name Role Phone Alondra Mathew MD Primary Care Provider Linden Conrad MD Unavailable [phone] Allergies Active Allergy Reactions Criticality Noted Date [...] AM CDT Legal Sex Female 3:51 PM PLASTIC EYE TECHNICIAN Gender Identity Female 01/12/2023 9:49 AM CDT Sexual Orientation Straight 01/12/2023 9: 49 AM CDT Plan of Treatment Not on file Procedures Procedure Name Priority Date/Time Associated Diagnosis Comments COMPREHENSIVE METABOLIC PANEL Routine 07/31/2021 3:50 PM PLASTIC EYE TECHNICIAN Hyperlipidemia, unspecified [ICD-10-CM] Other secondary hypertension [ICD-10-CM] from Last 3 Months or Most Recently Relevant to Health Maintenance Results * (ABNORMAL) Comprehensive metabolic panel (07/31/2021 3:50 PM PLASTIC EYE TECHNICIAN) Sodium 137 136 - 145 mmol/L 07/31/2021 11:49 PM PLASTIC EYE TECHNICIAN [facility] Potassium 4.0 3.5 - 5.0 mmol/L 07/31/2021 11:49 PM PLASTIC EYE TECHNICIAN [facility] Chloride 104 98 - 107 mmol/L 07/31/2021 11:49 PM PLASTIC EYE TECHNICIAN [facility] Carbon Dioxide (CO2) 23 22 - 31 mmol/L 07/31/2021 11:49 PM PLASTIC EYE TECHNICIAN [facility] Anion Gap 10 5 - 18 mmol/L 07/31/2021 11:49 PM PLASTIC EYE TECHNICIAN [facility] Urea Nitrogen 20 8 - 22 mg/dL 07/31/2021 11:49 PM PLASTIC EYE TECHNICIAN [facility] Creatinine 1.08 0.60 - 1.10 mg/dL 07/31/2021 11:49 PM PLASTIC EYE TECHNICIAN [facility] Calcium 9.0 8.5 - 10.5 mg/dL 07/31/2021 11:49 PM PLASTIC EYE TECHNICIAN [facility] Glucose 262(H) 70 - 125 mg/dL 07/31/2021 11:49 PM PLASTIC EYE TECHNICIAN [facility] Alkaline Phosphatase 130(H) 45 - 120 U/L 07/31/2021 11:49 PM PLASTIC EYE TECHNICIAN [facility] AST 39 0 - 40 U/L 07/31/2021 11:49 PM PLASTIC EYE TECHNICIAN [facility] ALT 46(H) 0 - 45 U/L 07/31/2021 11:49 PM PLASTIC EYE TECHNICIAN [facility] Protein Total 7.2 6.0 - 8.0 g/dL 07/31/2021 11:49 PM PLASTIC EYE TECHNICIAN [facility] Albumin 3.8 3.5 - 5.0 g/dL 07/31/2021 11:49 PM PLASTIC EYE TECHNICIAN [facility] Bilirubin Total 0.6 0.0 - 1.0 mg/dL 07/31/2021 11:49 PM PLASTIC EYE TECHNICIAN [facility] GFR Estimate 67 >60 mL/min/1.7 3m2 07/31/2021 11:49 PM PLASTIC EYE TECHNICIAN [facility] Comment:As of March 01, 2021, eGFR is calculated by the CKD-EPI creatinine equation, without race adjustment. eGFR can be influenced by muscle mass, exercise, and diet. The reported eGFR is an estimation only and is only applicable if the renal function is stable. Blood BLOOD SPECIMEN / Unknown Client Draw / Unknown 07/31/2021 3:50 PM PLASTIC EYE TECHNICIAN 07/31/2021 10:19 PM PLASTIC EYE TECHNICIAN us Josy Acuña MD LAB - BLOOD ORDERABLES Fi nal Result [facility] [address] [place] [address], [facility] [phone] from Last 3 Months or Most Recently Relevant to Health Maintenance Insurance [facility] CHOICE Care Teams Drop Shipment Clerk Relationship Specialty Start Date End Date Alondra Mathew MD [facility] & [address] [address] PCP - General 01/12/23 Linden Conrad MD [address] [place] [id number] Assigned Heart and Vascular Provider 01/22/23
--- OUTSIDE RECORDS SUMMARY | 2024-07-25 14:38 | XMS_ITS | Clinical Summary ---
Author Organization [facility] Address [address] [place] [address] [place] [address] Care Team Providers Care Irrigating Pump Operator Name Role Phone Alondra Mathew MD Primary Care Provider Linden Conrad MD Unavailable [phone] Allergies Active Allergy Reactions Criticality Noted Date [...] AM CDT Legal Sex Female 3:51 PM HEMATOLOGIST ONCOLOGIST Gender Identity Female 01/12/2023 9:49 AM CDT [...] COMPREHENSIVE METABOLIC PANEL Routine 07/31/2021 3:50 PM HEMATOLOGIST ONCOLOGIST Hyperlipidemia, unspecified [ICD-10-CM] Other secondary hypertension [ICD-10-CM] from Last 3 Months or Most Recently Relevant to Health Maintenance Results * (ABNORMAL) Comprehensive metabolic panel (07/31/2021 3:50 PM HEMATOLOGIST ONCOLOGIST) Sodium 137 136 - 145 mmol/L 07/31/2021 11:49 PM HEMATOLOGIST ONCOLOGIST [facility] Potassium 4.0 3.5 - 5.0 mmol/L 07/31/2021 11:49 PM HEMATOLOGIST ONCOLOGIST [facility] Chloride 104 98 - 107 mmol/L 07/31/2021 11:49 PM HEMATOLOGIST ONCOLOGIST [facility] Carbon Dioxide (CO2) 23 22 - 31 mmol/L 07/31/2021 11:49 PM HEMATOLOGIST ONCOLOGIST [facility] Anion Gap 10 5 - 18 mmol/L 07/31/2021 11:49 PM HEMATOLOGIST ONCOLOGIST [facility] Urea Nitrogen 20 8 - 22 mg/dL 07/31/2021 11:49 PM HEMATOLOGIST ONCOLOGIST [facility] Creatinine 1.08 0.60 - 1.10 mg/dL 07/31/2021 11:49 PM HEMATOLOGIST ONCOLOGIST [facility] Calcium 9.0 8.5 - 10.5 mg/dL 07/31/2021 11:49 PM HEMATOLOGIST ONCOLOGIST [facility] Glucose 262(H) 70 - 125 mg/dL 07/31/2021 11:49 PM HEMATOLOGIST ONCOLOGIST [facility] Alkaline Phosphatase 130(H) 45 - 120 U/L 07/31/2021 11:49 PM HEMATOLOGIST ONCOLOGIST [facility] AST 39 0 - 40 U/L 07/31/2021 11:49 PM HEMATOLOGIST ONCOLOGIST [facility] ALT 46(H) 0 - 45 U/L 07/31/2021 11:49 PM HEMATOLOGIST ONCOLOGIST [facility] Protein Total 7.2 6.0 - 8.0 g/dL 07/31/2021 11:49 PM HEMATOLOGIST ONCOLOGIST [facility] Albumin 3.8 3.5 - 5.0 g/dL 07/31/2021 11:49 PM HEMATOLOGIST ONCOLOGIST [facility] Bilirubin Total 0.6 0.0 - 1.0 mg/dL 07/31/2021 11:49 PM HEMATOLOGIST ONCOLOGIST [facility] GFR Estimate 67 >60 mL/min/1.7 3m2 07/31/2021 11:49 PM HEMATOLOGIST ONCOLOGIST [facility] Comment:As of March 01, 2021, eGFR is calculated by the CKD-EPI creatinine equation, without race adjustment. eGFR can be influenced by muscle mass, exercise, and diet. The reported eGFR is an estimation only and is only applicable if the renal function is stable. Blood BLOOD SPECIMEN / Unknown Client Draw / Unknown 07/31/2021 3:50 PM HEMATOLOGIST ONCOLOGIST 07/31/2021 10:19 PM HEMATOLOGIST ONCOLOGIST us Josy Acuña MD LAB - BLOOD ORDERABLES Fi nal Result [facility] [address] [address], [facility] [phone] from Last 3 Months or Most Recently Relevant to Health Maintenance Insurance [facility] CHOICE Care Teams Irrigating Pump Operator Relationship Specialty Start Date End Date Alondra Mathew MD [facility] & [address] [address] PCP - General 01/12/23 Linden Conrad MD [address] [place] [address] Assigned Heart and Vascular Provider 01/22/23
--- OUTSIDE RECORDS SUMMARY | 2024-07-25 14:38 | XMS_ITS | Continuity of Care Document ---
Author Organization [facility] Address [address] [place] [address] Phone Care Team Providers Care Dairy Farmworker Name Role Phone Avery Underwood MD Unavailable [...] - PA 2019 Lami/Discectomy, Lumbar HNP Office/Outpatient Visit,New, Mod 2019 Advance Directives Directive Yes / No Effective Date File Name No Information Encounters Encounter Description Practice Location Reason(s) For Visit Diagnoses Date Provider Providers Copied on Encounter [facility], [address], [place], [place], [id number], [place] tel:[phone] [facility] No Information 0 Yasmine Smart er. [facility], [address] [place] [address], [address], [place], [place], [id number] , [place]. tel:[phone] [facility], [address], [place], [place], [id number], [place] tel:[phone] [facility] Encounter for follow-up examination after completed treatment for conditions other than malignant neoplasm 0 Underwoodned Omeroph er. [facility], [address] [place] [address], [address], [place], [place], [id number] , [place]. [phone] Referring Provider: Mile Ni [employer] [address], [address]. tel:[phone] [facility], [address], [place], [id number], [place] tel:[phone] [facility] Encounter for follow-up examination after completed treatment for conditions other than malignant neoplasm 0 Underwood Berry er. [facility], [address] [place] [address], [address], [place], [place], [id number] , [place]. [phone] Referring Provider: Mile Ni Play[employer]fter [facility] [address] [place] [address], [address]. tel:[phone] [facility], [address], [place], [place], [id number], [place] tel:[phone] [facility] Encounter for other specified surgical aftercare Oct-2 1-202 0 Magnus Isi. [facility], [address] [place] [address] [address], [facility] [place], [address], [place]. tel:[phone] Referring Provider: Mile Ni, [employer] [address] [place], [address]. tel:[phone] [facility], [address], [place], [place], [id number], [place] tel:[phone] [facility] No Information Oct-1 2-202 0 Magnus Isi. [facility], [address] [place] [address] [address], [facility] [place], [address], [place]. tel:[phone] Referring Provider: Mile Ni [employer] [address] [place], [address]. tel:[phone] [facility], [address], [place], [id number], [place] tel:[phone] [facility] No Information May-0 6-202 0 Yasmine Smart lashonda. [facility], [address], [address], [facility] [place], [id number] , [place]. tel:[phone] Referring Provider: Mile Ni [employer] [address] [place], [address]. tel:[phone] [facility], [address], [place], [id number], [place] tel:[phone] [facility] Encounter for other specified surgical aftercare Sep-3 0-202 0 Magnus Isi. [facility], [address] [place] [address] [address], [facility] [place], [address], [place]. tel:[phone] Referring Provider: Mile Ni [employer] [address] [place], [address]. tel:[phone] [facility], [address], [place], [place], [id number], [place] tel:[phone] [facility] No Information Sep-2 0 Magnus Snowden. [facility], [address], [place], [address], [place]. [phone] Referring Provider: Mile Ni, [employer] [address] [place] [address], [address]. tel:[phone] [facility], [address], [place], [id number], [place] tel:[phone] [facility] No Information Sep-2 0 Yasmine gallego. [facility], [address] [place] [address], [address], [place], [place], [id number] , [place]. [phone] Referring Provider: Mile Ni, [employer] [address] [place] [address], [address]. tel:[phone] Office/Outpat ient Visit,[facility], [address], [facility] [place], [id number], [place] tel:[phone] [facility] Other intervertebral disc displacement, lumbar regionRadiculop athy, lumbar region Sep-1 0 Magnus Snowden. [facility], [address], [place], [address], [place]. [phone] Referring Provider: Mile Ni, [employer] [address] [place] [address], [address]. tel:[phone] Family History Family Member Type Diagnosis Age At Onset No Information Payers Payer name Insurance type Covered constitution party ID Ruchi alonzo(s[facility] [id number] Social History Type Description Quantity Date Captured [...]
== END 2024-07-25 14:36 | disposition home or self-care (01) ==
LOC: WOUND 14:35
PROVIDERS: PCP Internal Medicine; Visit Provider Surgery
DX: E11.621 Type 2 diabetes mellitus with foot ulcer (principal); E11.40 Type 2 diabetes mellitus with diabetic neuropathy, unspecified; L97.522 Non-pressure chronic ulcer of other part of left foot with fat layer exposed; L97.512 Non-pressure chronic ulcer of other part of right foot with fat layer exposed; Z89.411 Acquired absence of right great toe; Z79.4 Long term (current) use of insulin; Z79.84 Long term (current) use of oral hypoglycemic drugs; F17.200 Nicotine dependence, unspecified, uncomplicated
CPT/HCPCS: 97597

== ENCOUNTER 2024-08-01 14:42 | Outpatient (CLI) | payer BC, SELFPAY | END 2024-08-01 14:43 | disposition home or self-care (01) | LOC: WOUND 14:42 | PROVIDERS: PCP Internal Medicine; Visit Provider Surgery | DX: E11.621 Type 2 diabetes mellitus with foot ulcer (principal); E11.40 Type 2 diabetes mellitus with diabetic neuropathy, unspecified; L97.522 Non-pressure chronic ulcer of other part of left foot with fat layer exposed; L03.116 Cellulitis of left lower limb; F17.200 Nicotine dependence, unspecified, uncomplicated; Z79.84 Long term (current) use of oral hypoglycemic drugs | CPT/HCPCS: 87070; 87186; 97597; G0463 ==

== ENCOUNTER 2024-08-09 09:36 | Outpatient (CLI) | payer BC, SELFPAY ==
--- NOTE | 2024-08-09 10:45 | CRLHL7_ITS ---
For Patients: As a result of the Cures Act, medical imaging exams and procedure reports are released immediately into your electronic medical record. You may view this report before your referring provider. If you have questions, please contact your health care provider. Indication: 2 diabetes mellitus with diabetic neuropathy Technique: Right foot 3 views Comparison: 04/04/2024 Findings: Large plantar calcaneal spur. Smaller posterior calcaneal spur. Great toe amputation again noted. Multiple chronic ossicles adjacent to the 2nd MTP joint and 3rd MTP joint with chronic deformity of the 2nd metatarsal head. No acute periostitis or cortical destruction. No acute fracture. Impression: No evidence of acute osteomyelitis. Dictated by Marv Dotson MD @ 08/09/2024 12:36:35 PM (Electronically Signed)
--- NOTE | 2024-08-09 11:00 | CRLHL7_ITS ---
For Patients: As a result of the Cures Act, medical imaging exams and procedure reports are released immediately into your electronic medical record. You may view this report before your referring provider. If you have questions, please contact your health care provider. Indication: 2 diabetes mellitus with diabetic neuropathy Technique: Left foot 3 views Comparison: None Findings: Plantar and posterior calcaneal spurs. Dorsal osseous protuberance arising from the distal talus measuring 9.5 millimeters. Soft tissue swelling about the great toe. No cortical destruction or periostitis. No fracture. Midfoot alignment normal. Vascular calcifications. Impression: No evidence of acute osteomyelitis. Dictated by Marv Dotson MD @ 08/09/2024 12:38:28 PM (Electronically Signed)
[2024-08-09 11:23] LABS: Basophils Absolute Auto 0.04 K/uL (0.00-0.30); Basophils Percent Auto 0.9 % (0.0-3.0); Eosinophils Percent Auto 7.1 % (0.0-7.0); Hematocrit 38.7 % (33.0-51.0); Hemoglobin* 12.6 gm/dL (12.0-16.0); Immature Granulocytes Abs Auto 0.03 K/uL (0.00-0.30); Immature Granulocytes Pct Auto 0.6 %; Lymphocytes Absolute Auto 1.96 K/uL (0.90-2.90); Lymphocytes Percent Auto 42.4 % (20-44); Mean Corpuscular HGB Conc 33 gm/dL (32-36); Mean Corpuscular Hemoglobin 28 pg (26-34); Mean Corpuscular Volume 87 fL (80-100); Monocytes Percent Auto 6.3 % (0.0-11.0); Neutrophils Absolute Auto 1.97 K/uL (1.7-7.0); Neutrophils Percent Auto 42.7 % (42.0-72.0); Platelet Count* 135 K/uL (140-440); Red Blood Count 4.46 m/uL (4.00-5.20); White Blood Count* 4.62 K/uL (4.50-11.00)
[2024-08-09 11:24] LABS: Slide Review Reflex No
[2024-08-09 11:29] LABS: Albumin* 3.9 g/dL (3.3-5.0); Chloride* 102 mmol/L (96-114)
[2024-08-09 11:30] LABS: Potassium* 4.6 mmol/L (3.6-5.1); Sodium* 136 mmol/L (135-149)
[2024-08-09 11:32] LABS: Creatinine* 1.1 mg/dL (0.5-1.5); Estimated Glomerular Filt Rate 66 ml/min
[2024-08-09 11:33] LABS: Alanine Aminotransferase* 40 U/L (4-35); Alkaline Phosphatase* 111 U/L (40-150); Anion Gap 9 mEq/L (7-15); Aspartate Amino Transferase* 34 U/L (12-35); Bilirubin Total* 0.5 mg/dL (0.1-1.5); Blood Urea Nitrogen* 20 mg/dL (5-24); Carbon Dioxide* 25 mmol/L (20-32); Glucose* 280 mg/dL (60-115); Total Protein* 6.8 g/dL (6.0-8.3)
[2024-08-09 11:35] LABS: C Reactive Protein* 1.2 mg/dL (0.5-1.0)
[2024-08-09 11:35] LABS: Creatinine Urine 68.5 mg/dL
[2024-08-09 11:40] LABS: Microalbumin Creatinine Ratio 10 mg/g (0-30); Microalbumin Urine < 1 mg/dL
[2024-08-09 11:42] LABS: Hemoglobin A1C* 9.3 % (0-5.6)
[2024-08-09 12:32] LABS: Erythrocyte SedimentationRate* 12 mm/hr (2-20)
== END 2024-08-09 09:37 | disposition home or self-care (01) ==
PROVIDERS: PCP Internal Medicine; Visit Provider Nurse Practitioner Family
DX: E11.621 Type 2 diabetes mellitus with foot ulcer (principal); E11.40 Type 2 diabetes mellitus with diabetic neuropathy, unspecified; L97.522 Non-pressure chronic ulcer of other part of left foot with fat layer exposed; L97.512 Non-pressure chronic ulcer of other part of right foot with fat layer exposed; L03.116 Cellulitis of left lower limb; Z89.411 Acquired absence of right great toe; C92.01 Acute myeloblastic leukemia, in remission; Z94.81 Bone marrow transplant status; Z79.84 Long term (current) use of oral hypoglycemic drugs
CPT/HCPCS: 11042; 36415; 73630; 80053; 82043; 82570; 83036; 85025; 85651; 86140; G0463

== ENCOUNTER 2024-08-16 14:21 | Outpatient (CLI) | payer BC, SELFPAY | END 2024-08-16 14:22 | disposition home or self-care (01) | LOC: WOUND 14:21 | PROVIDERS: PCP Internal Medicine; Visit Provider Nurse Practitioner Family | DX: E11.621 Type 2 diabetes mellitus with foot ulcer (principal); E11.40 Type 2 diabetes mellitus with diabetic neuropathy, unspecified; L97.528 Non-pressure chronic ulcer of other part of left foot with other specified severity; L97.512 Non-pressure chronic ulcer of other part of right foot with fat layer exposed; Z89.411 Acquired absence of right great toe; Z79.4 Long term (current) use of insulin; Z79.84 Long term (current) use of oral hypoglycemic drugs | CPT/HCPCS: 11042 ==

== ENCOUNTER 2024-08-16 17:04 | Observation (INO) | payer BC, SELFPAY ==
[2024-08-16] VITALS (10 sets, daily range): BP systolic 135–163; BP diastolic 99–111; PULSE 90–105; RESP 18–20; TEMP 36.7–37.1; O2SAT 85–98; BMI 40.9; BMI 41.0
--- NOTE | 2024-08-16 17:24 | CRLHL7_ITS ---
For Patients: As a result of the Century Cures Act, medical imaging exams and procedure reports are released immediately into your electronic medical record. You may view this report before your referring provider. If you have questions, please contact your health care provider. INDICATION: Shortness of breath, tachycardia. TECHNIQUE: CT chest PE was acquired with 100 cc Omnipaque 350 IV contrast. COMPARISON: None. FINDINGS: Heart and vasculature: Contrast opacification of the pulmonary arterial tree is adequate. Acute multifocal pulmonary emboli involving the bilateral upper, bilateral lower, and right middle lobar/segmental/subsegmental pulmonary arteries. Heart size is normal. Thoracic aorta and pulmonary artery are normal in caliber. Lungs and pleura: Multifocal right upper and left lower lobe nodular ground-glass consolidation. No pleural effusions, pleural thickening, or pneumothorax. Lymph nodes/mediastinum: No mediastinal, hilar, or axillary adenopathy. Chest wall: No masses. Upper abdomen: No acute or significant findings. Bones: Unremarkable for age. IMPRESSION: Acute multifocal pulmonary emboli involving the bilateral upper, bilateral lower, and right middle lobar/segmental/subsegmental pulmonary arteries. No definite CT evidence of right heart strain. Multifocal right upper and left lower lobe nodular ground-glass consolidation, likely infectious/inflammatory in etiology. Case discussed with Dr. Barahona at 6:56 p.m. on 08/16/2024. Please note that all CT scans at this facility use dose modulation, iterative reconstruction, and/or weight-based dosing when appropriate to reduce radiation dose to as low as reasonably achievable. Dictated by Rich Garcai MD @ 08/16/2024 6:54:33 PM (Electronically Signed)
--- NOTE | 2024-08-16 17:31 | ED_ITS ---
HPI - General Adult General Date Seen: 08/16/24 Chief complaint: Shortness of Breath/Dyspnea Stated complaint: SOB Time Seen by Provider: 08/16/24 17:06 Source: patient and other History of Present Illness HPI narrative: Patient is a 39-year-old female sent here on the recommendation of her primary doctor for evaluation of shortness of breath. She was seen in clinic today for unrelated matters, but noted to be short of breath with exertion there. She says she has been short of breath since about Tuesday, did not have problems with breathing prior to that. She notes no cough or fever. She says she has some burning pain in her lungs in the back when she was short of breath but no other chest pain or back pain. She denies any lower extremity swelling or pain. She does have chronic ulcers on the bottom of both feet which are being followed by wound clinic. Sats were noted to be 90-93% in clinic and she was noted to be mildly tachycardic although it is not uncommon for her to be mildly tachycardic. She is not short of breath at rest. She does have a history of DVT in 2014, this was unprovoked. She was maintained on anticoagulation for period of time but has been off it for a very long time. No recent travel but activity has been curtailed secondary to her ulcers. She vapes nicotine, denies other substances. Related Data Home Medications ?Medication ?Instructions ?Recorded ?Confirmed aspirin 81 mg capsule 81 mg PO QDAY 08/26/22 08/16/24 multivitamin 1 tab PO QAM 12/16/22 08/16/24 meloxicam 15 mg tablet 15 mg PO DAILY 05/07/24 08/16/24 pregabalin 300 mg capsule 300 mg PO DAILY 05/07/24 08/16/24 ubrogepant 100 mg tablet (Ubrelvy) 100 mg PO PRN 05/07/24 08/16/24 amitriptyline 25 mg tablet 100 mg PO DAILY 08/16/24 08/16/24 ondansetron HCl 4 mg tablet 8 mg PO Q8H PRN nausea with 08/16/24 08/16/24 migraines Previous Rx's ?Medication ?Instructions ?Recorded empagliflozin 25 mg tablet 25 mg PO QAM #90 tabs 02/09/24 bupropion HCl 150 mg 24 hr tablet, 150 mg PO DAILY #90 tabs 05/07/24 extended release bupropion HCl 300 mg 24 hr tablet, 300 mg PO DAILY #90 tabs 05/07/24 extended release escitalopram oxalate 20 mg tablet 20 mg PO DAILY #90 tabs 05/07/24 losartan 25 mg tablet 25 mg PO DAILY #90 tabs 05/07/24 metformin 500 mg tablet 500 mg PO BIDWMEAL #180 tabs 05/07/24 dextroamphetamine-amphetamine 20 20 mg PO QDAY #30 tabs 06/19/24 mg tablet (Adderall) dextroamphetamine-amphetamine ER 30 mg PO QAM #30 caps 06/20/24 30 mg 24hr capsule,extend release (Adderall XR) semaglutide 0.25 mg or 0.5 mg (2 0.5 mg (0.736 mL) subcut QWEEK 4 08/07/24 mg/3 mL) subcutaneous pen injector weeks #2.944 mL (Ozempic) Allergies Allergy/AdvReac Type Severity Reaction Status Date / Time sulfamethoxazole (From Allergy Mild Unknown Verified 08/16/24 17:18 Sulfamethoxazole-Trimethoprim) trimethoprim (From Allergy Mild Unknown Verified 08/16/24 17:18 Sulfamethoxazole-Trimethoprim) azithromycin Allergy Unknown Verified 08/16/24 17:18 fluconazole Allergy Unknown Verified 08/16/24 17:18 vancomycin Allergy Unknown Verified 08/16/24 17:18 Review of Systems Status of ROS: Reports: 10 or more systems reviewed and unremarkable except as noted in History and below [facility] Medical History History of deep venous thrombosis (2013) ?Z86.718 - Personal history of other venous thrombosis and embolism (ICD-10) Surgical History History of tonsillectomy and adenoidectomy (1993) ?Z90.89 - Acquired absence of other organs (ICD-10) History of lumbosacral spine surgery (2019) ?Z98.890 - Other specified postprocedural states (ICD-10) History of bone marrow transplant (1996) ?Z94.81 - Bone marrow transplant status (ICD-10) Family History Paternal Grandfather Diabetes Paternal Grandmother Diabetes Father Pancreatic cancer Social History Smoking Status: Current every day smoker Do you use any of these nicotine containing products: Vaping Products Second hand tobacco smoke exposure: No How often do you have a drink containing alcohol: monthly or less How many standard drinks containing alcohol do you have on a typical day: 1 or 2 AUDIT-C Alcohol total score: 1 Non-prescribed substance use: denies use Exam Narrative: Exam Narrative: Vital signs reviewed In general, alert, nontoxic woman, breathing easily. She is significantly overweight. Head: Normocephalic, atraumatic. Eyes: Sclera clear. Pupils equal and reactive. ENT: Mucous membranes moist. Neck: Supple without adenopathy. Heart: Regular rate and rhythm without obvious murmur. Heart sounds are distant. Lungs: Clear. No increased work of breathing, crackles or wheezes. Breath sounds are quiet. This is likely in part due to body habitus. Abdomen: Soft, nontender to palpation. Extremities: Well perfused, pulses intact. No significant edema. She has a boot on the left foot, this was not removed. Neurologic: Alert, conversant. Speech fluent, face symmetric. Moves all extremities equally. Skin: Warm, dry well perfused. Affect: Normal. Const: Vital Signs, click to edit/add: Vital Signs - 24 hr 08/16/24 17:08 08/16/24 18:30 08/16/24 19:08 Temperature 98.0 F Pulse Rate 90 Pulse Rate [Pulse Oximeter] 105 H Respiratory Rate 18 Blood Pressure 163/111 H Blood Pressure [Ri ght Upper Arm] 150/106 H Pulse Oximetry 95 85 L 94 Oxygen Delivery Me thod Room Air Room Air Documenting provider has reviewed patient's vital signs: yes Course Course ED Course: Given history of DVT, recent relative immobility and hypoxia with tachycardia I had elected to just go to CT scan. I have also ordered an EKG, will check for heart failure, anemia, pneumonia, pleural effusion, pneumothorax, etcetera with lab and CT scan. She is comfortable at this time, I do not hear any wheezing. Labs are notable for a normal white blood cell count of 5.7, hemoglobin of 13. Platelets very slightly low 125. Metabolic panel unremarkable aside from an elevated glucose of 394. CRP mildly elevated at 2. BNP mildly elevated at 11 40. Troponin was negative. COVID influenza and RSV were negative. CT scan by my review showed diffuse PE throughout without evidence of saddle embolus. Final radiology read of multifocal PE in all segments no evidence of heart strain. There was some evidence of right upper and left lower lobe nodular ground-glass consolidation which was noted to be likely infectious or inflammatory. I do not see any evidence clinically of a pulmonary infection or indication for antibiotics at this time. I did order an ultrasound of her legs to check for residual clot, she previously was maintained on Xarelto so will restart that. At rest her oxygenation is okay but with ambulation she oxygen needs in the mid to lower 80s. As a result, I do not think it would be appropriate to discharge her at this time. She will be admitted for anticoagulation and hopefully will improve in terms of oxygenation or could have home oxygen arranged. She is agreeable with that plan. Vital Signs Vital signs: Initial Vital Signs Temperature 98.0 F 08/16/24 17:08 Temperature Source Temporal Artery Scan 08/16/24 17:08 Pulse Rate 105 H 08/16/24 17:08 Respiratory Rate 18 08/16/24 17:08 Blood Pressure 150/106 H 08/16/24 17:08 Blood Pressure Mean 120 H 08/16/24 17:08 Blood Pressure Position Sitting 08/16/24 17:08 Pulse Oximetry 95 08/16/24 17:08 Oxygen Delivery Method Room Air 08/16/24 17:08 Vital Signs Temperature 98.0 F 08/16/24 17:08 Pulse Rate 105 H 08/16/24 17:08 Respiratory Rate 18 08/16/24 17:08 Blood Pressure 150/106 H 08/16/24 17:08 Pulse Oximetry 95 08/16/24 17:08 Oxygen Delivery Method Room Air 08/16/24 17:08 Temperature 98.0 F 08/16/24 17:08 Pulse Rate 90 08/16/24 19:08 Respiratory Rate 18 08/16/24 17:08 Blood Pressure 163/111 H 08/16/24 19:08 Pulse Oximetry 94 08/16/24 19:08 Oxygen Delivery Method Room Air 08/16/24 18:30 Medications Administered Medications: Discontinued Medications Generic Name Dose Route Start Last Admin Trade Name Freq PRN Reason Stop Dose Admin Sodium Chloride 500 mls @ 500 mls/hr 08/16/24 17:23 08/16/24 19:33 0.9 % Sodium Chloride 500 Ml IV 08/16/24 18:22 Infused .Q1H ONE Infusion Medical Decision Making Lab Data Labs: Lab Results 08/16/24 08/16/24 08/16/24 Range/Units 17:24 17:29 17:37 WBC 5.69 (4.50-11.00) K/uL RBC 4.55 (4.00-5.20) m/uL Hgb 13.0 (12.0-16.0) gm/dL Hct 40.0 (33.0-51.0) % MCV 88 (80-100) fL MCH 29 (26-34) pg MCHC 33 (32-36) gm/dL RDW Coeff of Madai 14.9 (11.5-15.5) % Plt Count 125 L (140-440) K/uL Neut % (Auto) 53.8 (42.0-72.0) % Lymph % (Auto) 31.6 (20-44) % [place] % (Auto) 8.1 (0.0-11.0) % Eos % (Auto) 4.7 (0.0-7.0) % Baso % (Auto) 1.1 (0.0-3.0) % Neut # (Auto) 3.06 (1.7-7.0) K/uL Lymph # (Auto) 1.80 (0.90-2.90) K/uL [place] # (Auto) 0.50 (0.00-0.90) K/UL Eos # (Auto) 0.27 (0.00-0.50) K/uL Baso # (Auto) 0.06 (0.00-0.30) K/uL Abs Immat Gran (auto) 0.04 (0.00-0.30) K/uL Imm/Tot Granulo (auto) 0.7 % Sodium 134 L (135-149) mmol/L Potassium 4.0 (3.6-5.1) mmol/L Chloride 102 (96-114) mmol/L Carbon Dioxide 23 (20-32) mmol/L Anion Gap 9 (7-15) mEq/L BUN 17 (5-24) mg/dL Creatinine 1.0 (0.5-1.5) mg/dL Estimated Creat Clear 90.79 Estimated GFR 74 ml/min Glucose 394 H* (60-115) mg/dL Calcium 9.1 (8.4-10.6) mg/dL C-Reactive Protein 2.0 H (0.5-1.0) mg/dL NT-Pro-B Natriuret Pep 1140 pg/mL SARS-CoV-2 (PCR) Negative SARS-CoV-2 (Negative) Influenza Type A (PCR) Negative PCR FLU A (Negative) Influenza Type B (PCR) Negative PCR FLU B (Negative) RSV (PCR) Negative PCR RSV (Negative) POC Troponin I 0.01 (0.01-0.04) ng/ml Imaging Data CT scan - chest: Attestation: I have reviewed the pertinent imaging results. Radiologist's impression: Patient: DIALLO LI Facility: [facility] Site . Site : 1985 Study: CT-Chest Angio PE 95CC ISOVUE 370-08/16/2024 6:04:57 PM Ordering Physician: Arianne Duncan Final Report: INDICATION: Shortness of breath, tachycardia. TECHNIQUE: CT chest PE was acquired with 100 cc Omnipaque 350 IV contrast. COMPARISON: None. FINDINGS: Heart and vasculature: Contrast opacification of the pulmonary arterial tree is adequate. Acute multifocal pulmonary emboli involving the bilateral upper, bilateral lower, and right middle lobar/segmental/subsegmental pulmonary arteries. Heart size is normal. Thoracic aorta and pulmonary artery are normal in caliber. Lungs and pleura: Multifocal right upper and left lower lobe nodular ground- glass consolidation. No pleural effusions, pleural thickening, or pneumothorax. Lymph nodes/mediastinum: No mediastinal, hilar, or axillary adenopathy. Chest wall: No masses. Upper abdomen: No acute or significant findings. Bones: Unremarkable for age. IMPRESSION: Acute multifocal pulmonary emboli involving the bilateral upper, bilateral lower, and right middle lobar/segmental/subsegmental pulmonary arteries. No definite CT evidence of right heart strain. Multifocal right upper and left lower lobe nodular ground-glass consolidation, likely infectious/inflammatory in etiology. Case discussed with Dr. Barahona at 6:56 p.m. on 08/16/2024. Please note that all CT scans at this facility use dose modulation, iterative reconstruction, and/or weight-based dosing when appropriate to reduce radiation dose to as low as reasonably achievable. Dictated by Rich Garcia MD @ 08/16/2024 6:54:33 PM Discharge Plan Discharge Clinical Impression: Pulmonary embolism, Hypoxia Patient Disposition: Admitted As Observation Condition: Stable
[2024-08-16 17:52] LABS: Troponin, Point-of-Care* 0.01 ng/ml (0.01-0.04)
[2024-08-16 17:58] LABS: Basophils Absolute Auto 0.06 K/uL (0.00-0.30); Basophils Percent Auto 1.1 % (0.0-3.0); Eosinophils Absolute Auto 0.27 K/uL (0.00-0.50); Eosinophils Percent Auto 4.7 % (0.0-7.0); Immature Granulocytes Abs Auto 0.04 K/uL (0.00-0.30); Immature Granulocytes Pct Auto 0.7 %; Lymphocytes Percent Auto 31.6 % (20-44); Mean Corpuscular HGB Conc 33 gm/dL (32-36); Mean Corpuscular Hemoglobin 29 pg (26-34); Mean Corpuscular Volume 88 fL (80-100); Monocytes Percent Auto 8.1 % (0.0-11.0); Neutrophils Absolute Auto 3.06 K/uL (1.7-7.0); Neutrophils Percent Auto 53.8 % (42.0-72.0); Platelet Count* 125 K/uL (140-440); RDW Coefficient of Variation % 14.9 % (11.5-15.5); Red Blood Count 4.55 m/uL (4.00-5.20); White Blood Count* 5.69 K/uL (4.50-11.00)
[2024-08-16 18:02] LABS: Slide Review Reflex No
[2024-08-16] MEDS: 0.9 % SODIUM CHLORIDE 500 ML 500 ML IV (18:32)
[2024-08-16 18:35] LABS: PCR FLU A Negative PCR FLU A (Negative); PCR FLU B Negative PCR FLU B (Negative); PCR RSV Negative PCR RSV (Negative); SARS PCR* Negative SARS-CoV-2 (Negative)
[2024-08-16 18:45] LABS: Chloride* 102 mmol/L (96-114); Sodium* 134 mmol/L (135-149)
[2024-08-16 18:48] LABS: Est. Creatinine Clearance* 90.79; Estimated Glomerular Filt Rate 74 ml/min
[2024-08-16 18:49] LABS: Anion Gap 9 mEq/L (7-15); Blood Urea Nitrogen* 17 mg/dL (5-24); Calcium* 9.1 mg/dL (8.4-10.6); Carbon Dioxide* 23 mmol/L (20-32)
[2024-08-16 18:52] LABS: Glucose* 394 mg/dL (60-115)
--- NOTE | 2024-08-16 18:56 | CRLHL7_ITS ---
For Patients: As a result of the Century Cures Act, medical imaging exams and procedure reports are released immediately into your electronic medical record. You may view this report before your referring provider. If you have questions, please contact your health care provider. INDICATION: Shortness of breath and pulmonary embolism. TECHNIQUE: Ultrasound venous duplex bilateral lower extremity. Compression venous exam was performed using christianson-scale, color Doppler, and spectral Doppler analysis. COMPARISON: None. FINDINGS: Deep veins: Sonographic imaging demonstrates chronic appearing nonocclusive thrombus within the right femoral vein distally extending to the right popliteal vein. The remainder of the right common femoral, deep femoral, and superficial femoral veins appear to be fully compressible with normal color Doppler blood flow. There is acute appearing thrombus within the left peroneal and posterior tibial veins of the calf. The remainder of the left lower extremity deep veins demonstrate normal compressibility with normal color Doppler blood flow. Superficial veins: Greater saphenous veins fully compressible. IMPRESSION: 1. Acute appearing DVT within the left peroneal and posterior tibial veins of the calf. 2. Chronic appearing nonocclusive thrombus within the right femoral vein distally extending to the right popliteal vein. Findings were relayed to provider Dr. Barahona by Dr. Breaux via telephone on 08/16/2024 at 9:39 p.m. [employer]. Dictated by Roland Breaux MD @ 08/16/2024 9:35:44 PM (Electronically Signed)
[2024-08-16 19:07] LABS: NT Pro B Type NatriureticPept* 1140 pg/mL
[2024-08-16] MEDS: RIVAROXABAN 10 MG TABLET 15 MG PO (20:15)
--- NOTE | 2024-08-16 20:32 | PM.IMHP1 ---
Hospitalist- H&P: HPI History of Present Illness Date Seen: 08/16/24 Chief complaint: SOB Narrative: Elvira Burden is a 39 year old woman presents to the emergency department for evaluation of increasing dyspnea with exertion. She saw her primary care physician, Dr. Saleh, today for routine follow-up and informed her physician of her symptoms. Her physician recommend that she come to the emergency department promptly for further assessment. Prior to 4-5 days ago she states she was in her usual health. Started about 4-5 days ago she started noticing increasing dyspnea with exertion. At times has a sense of burning sensation in her back when she does have the dyspnea. Denies chest, back, neck, arm, epigastric heaviness, pressure, tightness, pain. Denies syncope or near-syncope. Denies diaphoresis or palpitations. Aware that her heart rate is higher than usual during this time frame as well. Denies new onset edema of lower extremities. Denies cough. Denies upper lower respiratory tract symptoms aside from the dyspnea with exertion. Denies fevers, rigors, diaphoresis. No recent trauma, injury, travel. History of unprovoked deep venous thrombosis of right lower extremity in 2014 for which she was treated with anticoagulation for about a year. Initially treated with subcutaneous heparin, later switched to oral warfarin, then switch to rivaroxaban. Her primary care physician stopped her anticoagulation and switch her to aspirin 81 mg daily since that time. Does have a rather remarkable family history positive for venous thromboembolism. Maternal grandfather from a pulmonary embolism which he acquired after a total knee arthroplasty. Her father had pancreatic cancer and in consequence of an acute pulmonary embolism as well. Her paternal aunt about 5 weeks ago from an unprovoked pulmonary embolism, without warning. This was discovered on autopsy only. About 4 months ago patient was started on meloxicam because of discomfort in association with her Charcot feet. Review of Systems Status of ROS: Reports: 10 or more systems reviewed and unremarkable except as noted in History and below [facility] Medical History (Updated 08/16/24 @ 21:00 by Jesús Silva MD) Diabetic ulcer of both feet associated with type 2 diabetes mellitus ?E11.621 - Type 2 diabetes mellitus with foot ulcer (ICD-10) ?L97.519 - Non-pressure chronic ulcer of other part of right foot with unspecified severity (ICD-10) ?L97.529 - Non-pressure chronic ulcer of other part of left foot with unspecified severity (ICD-10) Depression ?F32.A - Depression, unspecified (ICD-10) Diabetic neuropathy ?E11.40 - Type 2 diabetes mellitus with diabetic neuropathy, unspecified (ICD-10) Migraine with aura ?G43.109 - Migraine with aura, not intractable, without status migrainosus (ICD-10) Morbid obesity with body mass index (BMI) of 40.0 to 44.9 in adult ?E66.01 - Morbid (severe) obesity due to excess calories (ICD-10) ?Z68.41 - Body mass index [BMI] 40.0-44.9, adult (ICD-10) Nicotine dependence ?F17.200 - Nicotine dependence, unspecified, uncomplicated (ICD-10) Type 2 diabetes mellitus ?E11.9 - Type 2 diabetes mellitus without complications (ICD-10) Essential hypertension ?I10 - Essential (primary) hypertension (ICD-10) Lymphedema of right lower extremity ?I89.0 - Lymphedema, not elsewhere classified (ICD-10) Influenza vaccination declined ?Z28.21 - Immunization not carried out because of patient refusal (ICD-10) COVID-19 vaccination declined ?Z28.21 - Immunization not carried out because of patient refusal (ICD-10) Microalbuminuria due to type 2 diabetes mellitus ?E11.29 - Type 2 diabetes mellitus with other diabetic kidney complication (ICD-10) ?R80.9 - Proteinuria, unspecified (ICD-10) Anxiety ?F41.9 - Anxiety disorder, unspecified (ICD-10) ADHD ?F90.9 - Attention-deficit hyperactivity disorder, unspecified type (ICD-10) Dissociation ?F44.9 - Dissociative and conversion disorder, unspecified (ICD-10) Insomnia ?G47.00 - Insomnia, unspecified (ICD-10) History of eating disorder ?Z86.59 - Personal history of other mental and behavioral disorders (ICD-10) History of acute myeloid leukemia ?Z85.6 - Personal history of leukemia (ICD-10) History of deep venous thrombosis (2013) ?Z86.718 - Personal history of other venous thrombosis and embolism (ICD-10) Surgical History History of amputation of right great toe (10/02/21) ?Z89.411 - Acquired absence of right great toe (ICD-10) History of tonsillectomy and adenoidectomy (1993) ?Z90.89 - Acquired absence of other organs (ICD-10) History of lumbosacral spine surgery (2019) ?Z98.890 - Other specified postprocedural states (ICD-10) History of bone marrow transplant (1996) ?Z94.81 - Bone marrow transplant status (ICD-10) Family History Paternal Grandfather Diabetes Paternal Grandmother Diabetes Father Pancreatic cancer Social History Smoking Status: Current every day smoker Do you use any of these nicotine containing products: Vaping Products Second hand tobacco smoke exposure: No How often do you have a drink containing alcohol: monthly or less How many standard drinks containing alcohol do you have on a typical day: 1 or 2 AUDIT-C Alcohol total score: 1 Non-prescribed substance use: denies use Meds Home Medications and Allergies Home Medications ?Medication ?Instructions ?Recorded ?Confirmed ?Type aspirin 81 mg capsule 81 mg PO QDAY 08/26/22 08/16/24 History multivitamin 1 tab PO QAM 12/16/22 08/16/24 History meloxicam 15 mg tablet 15 mg PO DAILY 05/07/24 08/16/24 History pregabalin 300 mg capsule 300 mg PO DAILY 05/07/24 08/16/24 History ubrogepant 100 mg tablet (Ubrelvy) 100 mg PO PRN 05/07/24 08/16/24 History amitriptyline 25 mg tablet 100 mg PO DAILY 08/16/24 08/16/24 History ondansetron HCl 4 mg tablet 8 mg PO Q8H PRN nausea with 08/16/24 08/16/24 History migraines Allergies Allergy/AdvReac Type Severity Reaction Status Date / Time sulfamethoxazole (From Allergy Mild Unknown Verified 08/16/24 17:18 Sulfamethoxazole-Trimethoprim) trimethoprim (From Allergy Mild Unknown Verified 08/16/24 17:18 Sulfamethoxazole-Trimethoprim) azithromycin Allergy Unknown Verified 08/16/24 17:18 fluconazole Allergy Unknown Verified 08/16/24 17:18 vancomycin Allergy Unknown Verified 08/16/24 17:18 Exam Narrative: Exam Narrative: I examine her in the emergency department. Appears comfortable and in no acute distress. Vision and hearing are adequate. Alert and oriented x4. Friendly, articulate, cooperative. Resting room air oxygen saturations 92-94%. Room air oxygen saturations dropped into the low to mid 80s with minimal exertion. Room air oxygen saturations recover after about 5 minutes of rest after exertion. External auditory canals are clear. Tympanic membranes normal. Midline nasal septum. Dentition in fair repair. Buccal mucosa is moist. No icterus. Conjugate gaze. Cranial nerves 3-12 grossly normal. Midline trachea. Neck is supple. No JVD or hepatojugular reflux. No carotid bruits. No head neck lymphadenopathy. Lungs are clear to auscultation. Heart tones with regular rhythm, normal S1-S2. PMI not laterally displaced. Abdomen is obese with active bowel sounds, soft, nontender. Bilateral lower extremity edema/lymphedema. Independent transfer station and gait. Const: Vital Signs, click to edit/add: Vital Signs - 24 hr 08/16/24 17:08 08/16/24 18:30 08/16/24 19:08 Temperature 98.0 F Pulse Rate 90 Pulse Rate [Pulse Oximeter] 105 H Respiratory Rate 18 Blood Pressure 163/111 H Blood Pressure [Ri ght Upper Arm] 150/106 H Pulse Oximetry 95 85 L 94 Oxygen Delivery Me thod Room Air Room Air Hospitalist - H&P: Result Labs Labs: Short CBC 08/16/24 Range/Units 17:37 WBC 5.69 (4.50-11.00) K/uL Hgb 13.0 (12.0-16.0) gm/dL Hct 40.0 (33.0-51.0) % Plt Count 125 L (140-440) K/uL BMP 08/16/24 17:37 Sodium 134 L Potassium 4.0 Chloride 102 Carbon Dioxide 23 BUN 17 Creatinine 1.0 Glucose 394 H* Calcium 9.1 Imaging Left foot x-ray: Radiologist's impression: Findings: Plantar and posterior calcaneal spurs. Dorsal osseous protuberance arising from the distal talus measuring 9.5 millimeters. Soft tissue swelling about the great toe. No cortical destruction or periostitis. No fracture. Midfoot alignment normal. Vascular calcifications. Impression: No evidence of acute osteomyelitis. Right foot x-ray: Radiologist's impression: Findings: Large plantar calcaneal spur. Smaller posterior calcaneal spur. Great toe amputation again noted. Multiple chronic ossicles adjacent to the 2nd MTP joint and 3rd MTP joint with chronic deformity of the 2nd metatarsal head. No acute periostitis or cortical destruction. No acute fracture. Impression: No evidence of acute osteomyelitis. CT scan - chest: Radiologist's impression: FINDINGS: Heart and vasculature: Contrast opacification of the pulmonary arterial tree is adequate. Acute multifocal pulmonary emboli involving the bilateral upper, bilateral lower, and right middle lobar/segmental/subsegmental pulmonary arteries. Heart size is normal. Thoracic aorta and pulmonary artery are normal in caliber. Lungs and pleura: Multifocal right upper and left lower lobe nodular ground-glass consolidation. No pleural effusions, pleural thickening, or pneumothorax. Lymph nodes/mediastinum: No mediastinal, hilar, or axillary adenopathy. Chest wall: No masses. Upper abdomen: No acute or significant findings. Bones: Unremarkable for age. IMPRESSION: Acute multifocal pulmonary emboli involving the bilateral upper, bilateral lower, and right middle lobar/segmental/subsegmental pulmonary arteries. No definite CT evidence of right heart strain. Assessment and Plan Assessment and plan (1) Pulmonary embolism: Problem comment: -08/16/2024, 4-5 day history of dyspnea on exertion -CT scan 08/16/2024: Acute multifocal pulmonary emboli involving the bilateral upper, bilateral lower, and right middle lobar/segmental/subsegmental pulmonary arteries. No definite CT evidence of right heart strain. -rivaroxaban 20 mg orally twice daily for 21 days then 15 mg orally once daily -seemingly unprovoked pulmonary emboli with large burden diagnosed 08/16/2024, although has been on meloxicam for the past 4 months which is stopped on 08/16/2024 -would benefit from Hematology consultation and consideration of possible lifelong anticoagulation Status: Acute (2) Hypoxia: Problem comment: -08/16/2024: No hypoxia at rest but becomes hypoxic with oxygen saturations in the low to mid 80s with minimal exertion -monitor her overnight with oxygen saturation monitoring, telemetry, repeat ECG, serial troponin I, echocardiogram Status: Acute (3) Morbid obesity with body mass index (BMI) of 40.0 to 44.9 in adult: Problem comment: -it is possible that this may be playing into her dyspnea with exertion as well as hypoxia with exertion Status: Acute (4) Type 2 diabetes mellitus: Problem comment: Dxed 2014 -sliding scale insulin plus her usual treatment efforts while in hospital Status: Acute (5) Diabetic ulcer of both feet associated with type 2 diabetes mellitus: Problem comment: Follows with [facility] Status: Acute (6) Nicotine dependence: Problem comment: Vapes daily -strongly advise patient to take measures to discontinue exposure to tobacco Status: Acute (7) Essential hypertension: Problem comment: On losartan since around 2018 Status: Acute Plan 1. Reviewed impression and recommendations with patient. 2. Answered her questions are satisfaction. 3. Continue with other supportive efforts. 4. Initiate acetaminophen 650 mg p.o. q.i.d. instead of the meloxicam which she has been taking. 5. Answered patient's questions are satisfaction. 6. Patient agreeable to above stated plans and recommendations. Total Time Spent Total Time Spent: 70 minutes
[2024-08-16] MEDS: ACETAMINOPHEN 325 MG TABLET 650 MG PO (21:48)
[2024-08-16] MEDS: SODIUM CHLORIDE 0.9 % (FLUSH) 10 ML SYRINGE 5 ML IVF (21:49)
[2024-08-16] MEDS: INSULIN ASPART 100 UNIT/ML SUBCUT (22:23)
[2024-08-17 03:00] VITALS: BP 149/102; PULSE 86; RESP 16; TEMP 36.4; O2SAT 90
[2024-08-17 06:26] LABS: HCO3 VBG 26 mmol/L (21-28); Hematocrit 37.2 % (33.0-51.0); Hemoglobin* 12.1 gm/dL (12.0-16.0); Mean Corpuscular HGB Conc 33 gm/dL (32-36); Mean Corpuscular Hemoglobin 29 pg (26-34); Mean Corpuscular Volume 88 fL (80-100); PCO2 VBG 41 mmHG (40-50); PO2 VBG 54.7 mmHG (25-47); Platelet Count* 112 K/uL (140-440); Red Blood Count 4.24 m/uL (4.00-5.20)
[2024-08-17 06:37] LABS: Slide Review Reflex No
--- NOTE | 2024-08-17 06:39 | PC.NURSE ---
End of shift: Pt arrived to the unit @ 2108 via wheelchair, accompanied by mother. Pt AxOx4, pleasant, and cooperative. Pt denies pain throughout the shift. Pt stated SOB with exertion present but ?feeling an improvement.? Pt is indep in room. Continent of the bladder. Pt is resting comfortably with call light in reach. ?
[2024-08-17 06:56] LABS: C Reactive Protein* 1.6 mg/dL (0.5-1.0)
[2024-08-17 07:00] VITALS: BP 165/119; PULSE 85; RESP 17; TEMP 36.7; O2SAT 85
[2024-08-17 07:11] LABS: Procalcitonin* 0.07 ng/mL (<0.50)
[2024-08-17 07:18] LABS: NT Pro B Type NatriureticPept* 613 pg/mL; Troponin I* < 0.01 ng/mL (0.01-0.04)
[2024-08-17 08:16] VITALS: BP 144/103; PULSE 84; RESP 17; O2SAT 93
[2024-08-17 08:30] VITALS: PULSE 84; RESP 16; O2SAT 93
[2024-08-17] MEDS: ASPIRIN 81 MG TABLET EC PO (09:19)
[2024-08-17] MEDS: METFORMIN 500 MG TABLET PO (09:19)
[2024-08-17] MEDS: SODIUM CHLORIDE 0.9 % (FLUSH) 10 ML SYRINGE 5 ML IVF (09:20)
[2024-08-17] MEDS: LOSARTAN POTASSIUM 50 MG TABLET 25 MG PO (09:20)
[2024-08-17] MEDS: ESCITALOPRAM 10 MG TABLET 20 MG PO (09:20)
[2024-08-17] MEDS: EMPAGLIFLOZIN 25 MG TABLET PO (09:20)
[2024-08-17] MEDS: buPROPion XL 150 MG TABLET 450 MG PO (09:27)
[2024-08-17] MEDS: APIXABAN 5 MG TABLET 10 MG PO (09:27)
[2024-08-17] MEDS: PREGABALIN 100 MG CAPSULE 200 MG PO (09:28)
[2024-08-17] MEDS: PROPRANOLOL 20 MG TABLET PO (09:28)
[2024-08-17] MEDS: INSULIN ASPART 100 UNIT/ML SUBCUT ×2 (10:36→13:15)
[2024-08-17] MEDS: PERFLUTREN LIPID MICROSPHERES 2 ML VIAL IVP (11:15)
--- NOTE | 2024-08-17 11:53 | PM.DS1 ---
DS: Providers Provider Date Seen: 08/17/24 Date of admission: 08/16/24 21:01 Primary care physician: Alondra Mathew MD Admitting Clinician: Jesús Silva MD Consults: RT Attending Physician on discharge: Ilana Huggins MD Date of Discharge: 08/17/24 DS: Diagnosis Discharge Diagnosis (1) Pulmonary embolism: Status: Acute Problem details: - 08/16/2024: presented to ER with 4-5 day history of dyspnea on exertion - CT scan in ER: acute multifocal PEs involving the bilateral upper, lower, and right middle lobar/segmental/subsegmental pulmonary arteries, no definite R heart strain - discharging home on Eliquis - h/o RLE DVT, now has acute LLE DVT - previously negative Hematology workup, will need lifelong anticoagulation given recurrent clot (2) DVT (deep venous thrombosis): Status: Acute Problem details: - LLE, 08/16/24 (3) HFrEF (heart failure with reduced ejection fraction): Status: Acute Problem details: - new diagnosis during stay (4) Thrombocytopenia: Status: Acute Problem details: - 08/09/24: platelets 135 - 08/16/24: platelets 125 - 08/17/24: platelets 112 - no evidence of acute bleeding, close interval CBC (5) Long QT interval: Status: Acute Problem details: - noted on EKG and telemetry - recommend decreased dose of Amitriptyline, close PCP f/u (6) Hypoxia: Status: Acute Problem details: - 08/16/2024: No hypoxia at rest but becomes hypoxic with oxygen saturations in the low to mid 80s with minimal exertion - seen by RT during stay, did not require supplemental oxygen upon discharge - recommend outpatient sleep study (7) Type 2 diabetes mellitus: Status: Acute Problem details: - Dxed 2014 - A1C 9.3 08/14 - on Metformin, Empagliflozin, Semaglutide - close outpatient f/u with PCP (8) Diabetic ulcer of both feet associated with type 2 diabetes mellitus: Status: Acute Problem details: - continue f/u with wound clinic (9) Nicotine dependence: Status: Acute Problem details: - Vapes daily - strongly advise patient to take measures to discontinue exposure to tobacco (10) Essential hypertension: Status: Acute Problem details: - On losartan since around 2017 DS: Summary Hospital Course Hospital Course: Elvira was admitted to the hospital on 08/16 for B PEs and a new LLE DVT. Initiated on Eliquis for anticoagulation, discharging on this (likely lifelong; h/o RLE DVT). She was hypoxic in the Emergency Department, this improved during stay. She was seen by RT who did not find a need for home oxygen upon discharge. TTE performed on 08/17: awaiting formal Cardiology read, fuel technician read results as EF of 40%. Will discuss GDMT titration with PCP. Other notable findings during stay: - QTc of 479-508 on EKG, no other abnormalities on telemetry. Recommend decreasing Amitriptyline from 100mg -->50mg with close interval EKG - mild thrombocytopenia without evidence of bleeding PCP requests upon discharge: - CBC and EKG during posthospital visit, discuss medication changes for new diagnosis of HFrEF Status at Discharge Functional status at discharge: independent ambulation Time Spent with Patient Time attestation: Total time spent providing and/or coordinating discharge services: Exam Narrative: Exam Narrative: GEN: Alert and oriented, laying comfortably in bed HEENT: EOMIs bilaterally, no scleral icterus CV: RRR, No concerning murmurs R: LCTA bilaterally without concerning wheezing Ext: Nonpitting edema LLE, + varicosities RLE, wounds not formally examined Skin: No concerning skin lesions or rashes on exposed skin Neuro: No focal deficits or resting tremor Psych: Appropriate Const: Vital Signs, click to edit/add: Vital Signs - 24 hr 08/16/24 17:08 08/16/24 18:30 08/16/24 19:08 Temperature 98.0 F Pulse Rate 90 Pulse Rate [Pulse Oximeter] 105 H Respiratory Rate 18 Blood Pressure 163/111 H Blood Pressure [Le ft Arm] Blood Pressure [Ri ght Arm] Blood Pressure [Ri ght Upper Arm] 150/106 H Pulse Oximetry 95 85 L 94 Oxygen Delivery Me thod Room Air Room Air Oxygen Flow Rate 08/16/24 19:30 08/16/24 20:30 08/16/24 21:00 Temperature Pulse Rate 93 100 98 Pulse Rate [Pulse Oximeter] Respiratory Rate 20 Blood Pressure 135/99 H Blood Pressure [Le ft Arm] Blood Pressure [Ri ght Arm] Blood Pressure [Ri ght Upper Arm] Pulse Oximetry 97 93 94 Oxygen Delivery Me thod Oxygen Flow Rate 08/16/24 21:01 08/16/24 21:54 08/16/24 21:54 Temperature 98.3 F Pulse Rate 97 Pulse Rate [Pulse Oximeter] 95 Respiratory Rate 18 Blood Pressure Blood Pressure [Le ft Arm] 153/109 H Blood Pressure [Ri ght Arm] Blood Pressure [Ri ght Upper Arm] Pulse Oximetry 95 98 Oxygen Delivery Me thod Room Air Room Air Oxygen Flow Rate 08/16/24 22:33 08/16/24 23:00 08/16/24 23:00 Temperature 98.7 F Pulse Rate 92 Pulse Rate [Pulse Oximeter] 91 Respiratory Rate 18 18 Blood Pressure Blood Pressure [Le ft Arm] 135/100 H Blood Pressure [Ri ght Arm] Blood Pressure [Ri ght Upper Arm] Pulse Oximetry 94 94 Oxygen Delivery Me thod Room Air Room Air Oxygen Flow Rate 08/17/24 03:00 08/17/24 07:00 08/17/24 07:00 Temperature 97.6 F 98.0 F Pulse Rate Pulse Rate [Pulse Oximeter] 86 85 85 Respiratory Rate 16 17 17 Blood Pressure Blood Pressure [Le ft Arm] 149/102 H 165/119 H Blood Pressure [Ri ght Arm] Blood Pressure [Ri ght Upper Arm] Pulse Oximetry 90 85 L Oxygen Delivery Me thod Room Air Room Air Oxygen Flow Rate 08/17/24 08:16 08/17/24 08:30 08/17/24 08:30 Temperature Pulse Rate 84 Pulse Rate [Pulse Oximeter] 84 Respiratory Rate 17 16 Blood Pressure Blood Pressure [Le ft Arm] Blood Pressure [Ri ght Arm] 144/103 H Blood Pressure [Ri ght Upper Arm] Pulse Oximetry 93 93 Oxygen Delivery Me thod Nasal Cannula Room Air Oxygen Flow Rate 1 DS: Data Data Completed and Pending Labs on day of discharge: Labs from last 24 hours 08/17/24 08/17/24 08/16/24 08:15 05:39 17:37 WBC 5.80 5.69 RBC 4.24 4.55 Hgb 12.1 13.0 Hct 37.2 40.0 MCV 88 88 MCH 29 29 MCHC 33 33 RDW Coeff of Madai 14.9 Plt Count 112 L 125 L Neut % (Auto) 53.8 Lymph % (Auto) 31.6 [place] % (Auto) 8.1 Eos % (Auto) 4.7 Baso % (Auto) 1.1 Neut # (Auto) 3.06 Lymph # (Auto) 1.80 [place] # (Auto) 0.50 Eos # (Auto) 0.27 Baso # (Auto) 0.06 Abs Immat Gran (auto) 0.04 Imm/Tot Granulo (auto) 0.7 VBG pH 7.410 VBG pCO2 41 VBG pO2 54.7 H VBG HCO3 26 Sodium 134 L Potassium 4.0 Chloride 102 Carbon Dioxide 23 Anion Gap 9 BUN 17 Creatinine 1.0 Estimated Creat Clear 90.79 Estimated GFR 74 Glucose 394 H* Lactate 1.0 Calcium 9.1 Troponin I < 0.01 L C-Reactive Protein 1.6 H 2.0 H NT-Pro-B Natriuret Pep 613 1140 Procalcitonin 0.07 TSH 1.690 SARS-CoV-2 (PCR) Influenza Type A (PCR) Influenza Type B (PCR) RSV (PCR) Lab Acknowledgement Test Added POC Troponin I 08/16/24 08/16/24 17:29 17:24 WBC RBC Hgb Hct MCV MCH MCHC RDW Coeff of Madai Plt Count Neut % (Auto) Lymph % (Auto) [place] % (Auto) Eos % (Auto) Baso % (Auto) Neut # (Auto) Lymph # (Auto) [place] # (Auto) Eos # (Auto) Baso # (Auto) Abs Immat Gran (auto) Imm/Tot Granulo (auto) VBG pH VBG pCO2 VBG pO2 VBG HCO3 Sodium Potassium Chloride Carbon Dioxide Anion Gap BUN Creatinine Estimated Creat Clear Estimated GFR Glucose Lactate Calcium Troponin I C-Reactive Protein NT-Pro-B Natriuret Pep Procalcitonin TSH SARS-CoV-2 (PCR) Negative SARS-CoV-2 Influenza Type A (PCR) Negative PCR FLU A Influenza Type B (PCR) Negative PCR FLU B RSV (PCR) Negative PCR RSV Lab Acknowledgement POC Troponin I 0.01 Discharge Plan Discharge Disposition: Home, Self-Care Date of Admission: 08/16/24 21:01 Attending Provider on Discharge: Ilana Huggins Primary Care Provider: Alondra Mathew Condition: Stable Anticipated Discharge Date/Time: 08/17/24 13:00 Discharge Medications: New amitriptyline 50 mg tablet 50 mg PO QHS Qty: 30 0RF Eliquis 5 mg Tablet 10 mg PO BID Qty: 60 0RF Rx Instructions: TWO tablets BID x6 days; on August 24 change to ONE tablet BID Continued multivitamin Tablet 1 tab PO QAM ondansetron HCl 4 mg tablet 8 mg PO Q8H PRN (Reason: nausea with migraines) aspirin 81 mg capsule 81 mg PO DAILY empagliflozin 25 mg tablet 25 mg PO QAM Qty: 90 3RF meloxicam 15 mg tablet 15 mg PO DAILY Ubrelvy 100 mg tablet 100 mg PO Q2H PRN metformin 500 mg tablet 500 mg PO BIDWMEAL Qty: 180 3RF losartan 25 mg tablet 25 mg PO DAILY Qty: 90 3RF bupropion HCl 150 mg tablet extended release 24 hr 150 mg PO DAILY Qty: 90 3RF Patient Comments: TOTAL DOSE = 450MG DAILY bupropion HCl 300 mg tablet extended release 24 hr 300 mg PO DAILY Qty: 90 3RF Patient Comments: TOTAL DOSE = 450MG DAILY escitalopram oxalate 20 mg tablet 20 mg PO DAILY Qty: 90 3RF propranolol 10 mg tablet 20 mg PO BID dextroamphetamine-amphetamine [Adderall] 20 mg tablet 20 mg PO DAILY@1400 dextroamphetamine-amphetamine [Adderall XR] 30 mg capsule,extended release 24hr 30 mg PO QAM Qty: 30 0RF Ozempic 0.25 mg or 0.5 mg (2 mg/3 mL) pen injector 0.5 mg subcut QWEEK 28 Days Qty: 2.944 1RF Patient Comments: MONDAYS Discontinued amitriptyline 100 mg tablet 100 mg PO HS Discharge Orders: Discharge Order (Routine); Ordered 08/17/24 Ordered By: Ilana Huggins Patient Education: Amitriptyline (By mouth), Apixaban (By mouth), Pulmonary Embolism (DC), Venous Thromboembolism (DC) Additional Instructions: Findings during stay: You have blood clots in both lungs + your left leg. Your QT segment was prolonged on EKG (we recommend DECREASING your Amitriptyline to decrease risk of a concerning heart rhythm). Your cardiac function was below normal on Echocardiogram (congestive heart failure). Platelets slightly below normal. Medication changes: 1. Eliquis (blood thinner) at the pharmacy; take 10mg (TWO tablets) twice/day for one week, then start 5mg (ONE tablet) twice/day on August 24. 2. DECREASE Amitriptyline to 50mg at night. 3. Talk with Dr. Mathew about medication changes for heart failure. You should have an EKG and bloodwork at your f/u appointment. Activity Level: Activity as Tolerated Discharge Diet: Diabetic Follow Up Appointments: Alondra Mathew MD [Primary Care Provider] - 08/27/24 10:00 am ([facility] for follow up with PCP) Forms: [employer] Info Instructions
--- NOTE | 2024-08-17 13:18 | NUTR.NU ---
RDN with diet education related to diabetic diet and new heart failure diagnosis. RDN attempted to visit with patient, however she was not available. Patient discharged before RDN could visit.
--- NOTE | 2024-08-17 16:51 | PC.NURSE ---
Nursing Care Hours: [id number] Pt this shift calm and cooperative, alert and oriented. No c/o pain. LS clear. While laying supine and semi fowlers, spO2 85%. little improvement with sitting up. 1L O2 started via NC for about 20 min, then titrate to 0.5L for 20min. Sats maintaining above 93%. Titrate to RA and pt remained above 91%. No cough or SOB at rest. SOB with exertion. ECHO done with [employer], card writer hand assist. Pt independent in the room. Insulin given per sliding scale. BBB and prolong QT noted on tele, updated hospitalist that QT has extended since yesterdays read. Discharge discussed with pt. All questions and concerns addressed.
== END 2024-08-17 13:35 | disposition home or self-care (01) ==
LOC: ED 19:52 → MEDSURG 21:03
PROVIDERS: Admitting Provider Internal Medicine; Emergency Provider Emergency Medicine; PCP Internal Medicine; Visit Provider Internal Medicine
DX: I26.99 Other pulmonary embolism without acute cor pulmonale (principal); I82.402 Acute embolism and thrombosis of unspecified deep veins of left lower extremity; D69.6 Thrombocytopenia, unspecified; R94.31 Abnormal electrocardiogram [ECG] [EKG]; I50.20 Unspecified systolic (congestive) heart failure; R09.02 Hypoxemia; R00.0 Tachycardia, unspecified; I10 Essential (primary) hypertension; E11.51 Type 2 diabetes mellitus with diabetic peripheral angiopathy without gangrene; E11.621 Type 2 diabetes mellitus with foot ulcer; L97.519 Non-pressure chronic ulcer of other part of right foot with unspecified severity; L97.529 Non-pressure chronic ulcer of other part of left foot with unspecified severity; E66.01 Morbid (severe) obesity due to excess calories; Z68.41 Body mass index [BMI] 40.0-44.9, adult; F17.200 Nicotine dependence, unspecified, uncomplicated; Z79.84 Long term (current) use of oral hypoglycemic drugs; Z79.82 Long term (current) use of aspirin
CPT/HCPCS: 36415; 71275; 80048; 82803; 82962; 83605; 83880; 84145; 84443; 84484; 85025; 85027; 86140; 87631; 93005; 93306; 93970; 96360; 96372; 99284; 99285; G0378; A9270; J7030; Q9957; Q9967

== ENCOUNTER 2024-08-29 14:43 | Outpatient (CLI) | payer BC, SELFPAY | END 2024-08-29 14:44 | disposition home or self-care (01) | LOC: WOUND 14:43 | PROVIDERS: PCP Internal Medicine; Visit Provider Surgery | DX: E11.621 Type 2 diabetes mellitus with foot ulcer (principal); E11.40 Type 2 diabetes mellitus with diabetic neuropathy, unspecified; L97.522 Non-pressure chronic ulcer of other part of left foot with fat layer exposed; Z79.4 Long term (current) use of insulin; Z79.84 Long term (current) use of oral hypoglycemic drugs | CPT/HCPCS: 97597 ==

== ENCOUNTER 2024-09-12 13:50 | Outpatient (CLI) | payer BC, SELFPAY ==
[2024-09-12 15:20] LABS: Basophils Absolute Auto 0.03 K/uL (0.00-0.30); Basophils Percent Auto 0.4 % (0.0-3.0); Eosinophils Absolute Auto 0.14 K/uL (0.00-0.50); Hematocrit 38.1 % (33.0-51.0); Hemoglobin* 12.5 gm/dL (12.0-16.0); Immature Granulocytes Abs Auto 0.06 K/uL (0.00-0.30); Immature Granulocytes Pct Auto 0.9 %; Lymphocytes Absolute Auto 1.98 K/uL (0.90-2.90); Lymphocytes Percent Auto 28.1 % (20-44); Mean Corpuscular HGB Conc 33 gm/dL (32-36); Mean Corpuscular Hemoglobin 29 pg (26-34); Mean Corpuscular Volume 88 fL (80-100); Monocytes Percent Auto 11.8 % (0.0-11.0); Neutrophils Absolute Auto 4.01 K/uL (1.7-7.0); Neutrophils Percent Auto 56.8 % (42.0-72.0); Platelet Count* 175 K/uL (140-440); RDW Coefficient of Variation % 14.4 % (11.5-15.5); Red Blood Count 4.35 m/uL (4.00-5.20); White Blood Count* 7.05 K/uL (4.50-11.00)
[2024-09-12 15:24] LABS: Slide Review Reflex No
[2024-09-12 15:58] LABS: C Reactive Protein* 5.2 mg/dL (0.5-1.0)
== END 2024-09-12 13:51 | disposition home or self-care (01) ==
LOC: WOUND 13:50
PROVIDERS: PCP Internal Medicine; Visit Provider Surgery
DX: E11.621 Type 2 diabetes mellitus with foot ulcer (principal); E11.40 Type 2 diabetes mellitus with diabetic neuropathy, unspecified; L97.512 Non-pressure chronic ulcer of other part of right foot with fat layer exposed; L97.522 Non-pressure chronic ulcer of other part of left foot with fat layer exposed; F17.200 Nicotine dependence, unspecified, uncomplicated; Z89.411 Acquired absence of right great toe; Z79.4 Long term (current) use of insulin; Z79.84 Long term (current) use of oral hypoglycemic drugs
CPT/HCPCS: 11042; 36415; 85025; 86140; 87070; 87186; G0463

== ENCOUNTER 2024-09-12 14:51 | Outpatient (CLI) | payer BC, SELFPAY ==
--- NOTE | 2024-09-12 15:00 | XR_ITS ---
Patient: DIALLO LI Facility:?[facility] RIS Patient ID:?[id number] Site Patient ID:?[id number]. Site :?1986 Study:?XRay-Extremity Right FOOT 3V-09/12/2024 3:06:52 PM Ordering Physician:DAYDAY Final Report: INDICATION: Chronic ulcer, not otherwise described. COMPARISON: 08/09/2024 TECHNIQUE: Views: 3 FINDINGS: Redemonstration of amputation of the right great toe. Chronic unchanged deformity of the 2nd and 3rd metatarsal heads and periarticular heterotopic ossification related to the 2nd and 3rd metatarsophalangeal joints. Posterior calcaneal spurs are again noted as well. Shallow soft tissue ulcer along the medial aspect of the right 1st metatarsal head, demonstrated best on the dorsoplantar radiograph. This measures a proximally 1.9 cm and 0.3 cm in depth. Nonspecific dorsal forefoot soft tissue swelling is new compared to the prior exam, consistent with cellulitis. Clinical correlation is recommended. IMPRESSION: Shallow soft tissue ulcer along the medial aspect of the right 1st metatarsal head as described above. Nonspecific dorsal forefoot soft tissue swelling is new compared to the prior exam, consistent with cellulitis. Clinical correlation is recommended. No sign of osteomyelitis. Dictated by Mario Arevalo MD @ 09/13/2024 5:04:42 PM Signed by:?Mario Arevalo MD @09/13/2024 5:04:42 PM (Electronic Signature)
== END 2024-09-12 14:52 | disposition home or self-care (01) ==
LOC: RAD 14:52
PROVIDERS: PCP Internal Medicine; Visit Provider Surgery
DX: L97.505 Non-pressure chronic ulcer of other part of unspecified foot with muscle involvement without evidence of necrosis (principal)
CPT/HCPCS: 73630

== ENCOUNTER 2024-09-24 20:54 | Outpatient (CLI) | payer BC, SELFPAY | END 2024-09-24 20:55 | disposition home or self-care (01) | PROVIDERS: PCP Internal Medicine; Visit Provider Internal Medicine | DX: G47.33 Obstructive sleep apnea (adult) (pediatric) (principal); E66.9 Obesity, unspecified | CPT/HCPCS: 95810 ==

== ENCOUNTER 2024-09-28 08:16 | Outpatient (CLI) | payer BC, SELFPAY | END 2024-09-28 08:17 | disposition home or self-care (01) | LOC: WOUND 08:16 | PROVIDERS: PCP Internal Medicine; Visit Provider Physician Assistant Surgical | DX: E11.621 Type 2 diabetes mellitus with foot ulcer (principal); E11.40 Type 2 diabetes mellitus with diabetic neuropathy, unspecified; L97.522 Non-pressure chronic ulcer of other part of left foot with fat layer exposed; L97.512 Non-pressure chronic ulcer of other part of right foot with fat layer exposed; Z89.411 Acquired absence of right great toe; Z79.4 Long term (current) use of insulin; Z79.84 Long term (current) use of oral hypoglycemic drugs | CPT/HCPCS: 11042 ==

== ENCOUNTER 2024-10-03 13:20 | Outpatient (CLI) | payer BC, SELFPAY | END 2024-10-03 13:21 | disposition home or self-care (01) | LOC: WOUND 13:20 | PROVIDERS: PCP Internal Medicine; Visit Provider Surgery | DX: E11.621 Type 2 diabetes mellitus with foot ulcer (principal); E11.40 Type 2 diabetes mellitus with diabetic neuropathy, unspecified; L97.512 Non-pressure chronic ulcer of other part of right foot with fat layer exposed; Z89.411 Acquired absence of right great toe; Z79.4 Long term (current) use of insulin; Z79.84 Long term (current) use of oral hypoglycemic drugs | CPT/HCPCS: 97597 ==

== ENCOUNTER 2024-10-10 14:46 | Outpatient (CLI) | payer BC, SELFPAY | END 2024-10-10 14:47 | disposition home or self-care (01) | LOC: WOUND 14:46 | PROVIDERS: PCP Internal Medicine; Visit Provider Surgery | DX: E11.621 Type 2 diabetes mellitus with foot ulcer (principal); E11.40 Type 2 diabetes mellitus with diabetic neuropathy, unspecified; L97.512 Non-pressure chronic ulcer of other part of right foot with fat layer exposed; Z89.411 Acquired absence of right great toe; Z79.4 Long term (current) use of insulin; Z79.84 Long term (current) use of oral hypoglycemic drugs; F17.200 Nicotine dependence, unspecified, uncomplicated | CPT/HCPCS: 97597 ==

== ENCOUNTER 2024-10-17 14:48 | Outpatient (CLI) | payer BC, SELFPAY | END 2024-10-17 14:49 | disposition home or self-care (01) | LOC: WOUND 14:48 | PROVIDERS: PCP Internal Medicine; Visit Provider Surgery | DX: E11.621 Type 2 diabetes mellitus with foot ulcer (principal); E11.40 Type 2 diabetes mellitus with diabetic neuropathy, unspecified; L97.512 Non-pressure chronic ulcer of other part of right foot with fat layer exposed; Z89.411 Acquired absence of right great toe; Z79.4 Long term (current) use of insulin; Z79.84 Long term (current) use of oral hypoglycemic drugs | CPT/HCPCS: 97597 ==

== ENCOUNTER 2024-10-25 15:02 | Outpatient (CLI) | payer MEDICAID, SELFPAY | END 2024-10-25 15:03 | disposition home or self-care (01) | PROVIDERS: PCP Internal Medicine; Visit Provider Nurse Practitioner Family | DX: E11.621 Type 2 diabetes mellitus with foot ulcer (principal); E11.40 Type 2 diabetes mellitus with diabetic neuropathy, unspecified; L97.512 Non-pressure chronic ulcer of other part of right foot with fat layer exposed; L97.522 Non-pressure chronic ulcer of other part of left foot with fat layer exposed; Z89.411 Acquired absence of right great toe; Z79.4 Long term (current) use of insulin; Z79.84 Long term (current) use of oral hypoglycemic drugs | CPT/HCPCS: 11042 ==

== ENCOUNTER 2024-10-31 14:43 | Outpatient (CLI) | payer MEDICAID, SELFPAY | END 2024-10-31 14:44 | disposition home or self-care (01) | LOC: WOUND 14:43 | PROVIDERS: PCP Internal Medicine; Visit Provider Surgery | DX: E11.621 Type 2 diabetes mellitus with foot ulcer (principal); E11.40 Type 2 diabetes mellitus with diabetic neuropathy, unspecified; L97.522 Non-pressure chronic ulcer of other part of left foot with fat layer exposed; L97.512 Non-pressure chronic ulcer of other part of right foot with fat layer exposed; Z79.4 Long term (current) use of insulin; Z79.84 Long term (current) use of oral hypoglycemic drugs; F17.200 Nicotine dependence, unspecified, uncomplicated; Z89.411 Acquired absence of right great toe | CPT/HCPCS: 11042; 87070; 87186; 97597 ==

== ENCOUNTER 2024-11-14 14:44 | Outpatient (CLI) | payer MEDICAID, SELFPAY | END 2024-11-14 14:45 | disposition home or self-care (01) | LOC: WOUND 14:44 | PROVIDERS: PCP Internal Medicine; Visit Provider Family Medicine | DX: E11.621 Type 2 diabetes mellitus with foot ulcer (principal); E11.40 Type 2 diabetes mellitus with diabetic neuropathy, unspecified; L97.522 Non-pressure chronic ulcer of other part of left foot with fat layer exposed; L97.512 Non-pressure chronic ulcer of other part of right foot with fat layer exposed; Z89.411 Acquired absence of right great toe; Z79.84 Long term (current) use of oral hypoglycemic drugs | CPT/HCPCS: 11042 ==

== ENCOUNTER 2024-11-21 14:37 | Outpatient (CLI) | payer MEDICAID, SELFPAY | END 2024-11-21 14:38 | disposition home or self-care (01) | PROVIDERS: PCP Internal Medicine; Visit Provider Surgery | DX: E11.621 Type 2 diabetes mellitus with foot ulcer (principal); E11.40 Type 2 diabetes mellitus with diabetic neuropathy, unspecified; L97.522 Non-pressure chronic ulcer of other part of left foot with fat layer exposed; L97.512 Non-pressure chronic ulcer of other part of right foot with fat layer exposed; Z89.411 Acquired absence of right great toe; Z79.4 Long term (current) use of insulin; Z79.84 Long term (current) use of oral hypoglycemic drugs | CPT/HCPCS: 15275; Q4121 ==

== ENCOUNTER 2024-11-25 22:51 | Emergency (ER) | payer MEDICAID, SELFPAY ==
--- OUTSIDE RECORDS SUMMARY | 2024-11-25 22:53 | XMS_ITS | Patient Health Record ---
Author Organization [facility] S Address [address] [facility] [address] [place], [place] [address] Care Team Providers Care Delivery Analyst Name Role Phone Josy Acuña Primary Care Provider Allergies Allergen (clinical drug ingredient) Drug/Non Drug Allergy documented on EMR Reaction Allergy Type Onset Date Status sulfamethoxazole / trimethoprim Bactrim rash Drug Allergy Active fluconazole Fluconazole rash Drug Allergy Act dayna vancomycin Vancomycin HCl unknown Drug Allergy A ctive azithromycin Zithromax rash Drug Allergy Acti ve Reason For Referral No Information Medications Medication SIG (Take, Route, Frequency, Duration) Notes Start Date End Date Status Aspirin 81 MG 1 tab PO QD Acti ve Ativan 0.5 MG 1 tablet at bedtime as needed Orally Once a day Active metFORMIN HCl 500 MG 1 tablet with a lópez l Orally twice a day Active SUMAtriptan Succinate 25 MG 1 tablet at least 2 hours between doses as needed Orally Twice a day uncertain dose Active Lyrica 100 MG 1 capsule Orally twice a day 07/31/2021 Active Jardiance 10 MG 1 tablet Orally Once a day Active Ozempic (0.25 or 0.5 MG/DOSE) 2 MG/1.5ML as directed Subcutaneous once a week 0.5 mg 1 pen with needles 07/31/2021 Active glipiZIDE 10 MG 2 tab orally twice per day Active Wellbutrin XL 150 MG 1 tablet in the morning Orally Once a day takes a total of 450 mg daily Active Losartan Potassium 25 MG 1 tablet Orally Once a day for 30 day(s) Active Ondansetron HCl 4 MG 1 tablet Orally Onc e a day uncertain dose Active Lexapro 10 MG 1 1/2 tab orally once a day Active Multivitamin - 1 tablet Orally Once a day Active Wellbutrin XL 300 MG 1 tab(s) orally every 24 hours takes a total of 450 mg daily Active Immunizations Vaccine Route Administration Date Status Comme nts Td (7 yrs and Older) Unknown 01/01/1998 Administered Td (7 yrs and Older) Unknown 11/19/2020 Administered Polio (History Only) Unknown 08/18/1998 Administered Polio (History Only) Unknown 09/25/1998 Administered Pneumococcal 23 Adult Unknown 08/18/1998 Administered Pneumococcal 23 Adult Unknown 08/24/2016 Administered MMR Unknown 08/03/1999 Administered HPV (Gardasil 9) Unknown 01/30/2007 Administered Hepatitis B through 19 yrs Unknown 08/18/1998 Adm inistered Hepatitis B through 19 yrs Unknown 09/25/1998 Adm inistered Hepatitis B through 19 yrs Unknown 02/26/1999 Adm inistered Covid Vaccine (Pfizer) Unknown 05/15/2021 Administered Social History Tobacco Use: Social History Observation Description Date Details (start date - stop date) Current Smoker NA - NA Tobacco Status Question Answer Notes I am: current every day smoker Do you use other forms of tobacco? No Problems Problem Type SNOMED Code ICD Code Onset Dates Problem Status W/U Status Risk Notes Problem 559354868 Anxiety and depression (F41.8) Active confirmed Problem Type II diabetes mellitus without complication (667746364) Controlled diabetes mellitus (E11.9) Active confirmed Problem 55262697 Other hyperlipidemia (E78.4) Active confirmed Problem 500877345 Pulmonary nodules (R91.8) Active confirmed tiny indeterminate lung nodules seen on CT done at [facility], no specific followup needed since she is at low risk for primary lung cancer Problem 809957541 Morbid (severe) obesity due to excess calories (E66.01) Active confirmed Problem 54362758 Gallbladder sludge (K82.8) Active confirmed Problem 04095771 Other secondary hypertension (I15.8) Active confirmed Problem 075516892 Chronic migraine without aura without status migrainosus, not intractable (G43.709) Active confirmed Problem 28759732 Hyperlipidemia, unspecified hyperlipidemia type (E78.5) Active confirmed Problem 05018252 Type 2 diabetes mellitus with diabetic polyneuropathy, without long-term current use of insulin (E11.42) Active confirmed Problem 267321236 History of leukemia (Z85.6) Active confirmed Problem 932647967 Ulcer of foot, chronic, right, with unspecified severity (L97.519) Active confirmed Plan Of Treatment No Information Insurance Providers Payer Name Payer Address Payer Phone Subscriber Number Group Number Insured Name Patient Relationship to Insured Coverage Start Date Coverage End Date [facility] [address] [place] [address] [id number] Elvira Burden Self - patient is the insured 1 Medical (General) History Medical History History ICD Code Diabetes Type Depression Anxiety Diabetic Neuropathy DVT Strain of lumbar region NOS Irregular menstruation Obesity 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
--- OUTSIDE RECORDS SUMMARY | 2024-11-25 22:53 | XMS_ITS | Clinical Summary ---
Author Organization [facility] Address [address] [place] [address] Care Team Providers Care Base Filler Operator Name Role Phone Alondra Mathew MD Primary Care Provider [phone] Allergies Active Allergy Reactions Criticality Noted Date Comments Adhesive Tape-Silicones Rash Unknown 08/31/2019 Sulfamethoxazole-Trimet hoprim Rash Unknown 02/13/2014 Fluconazole Rash Unknown 04/08/2003 Pollen Extracts Runny Nose 07/28/2020 Itchy watery eyes Vancomycin Other - Describe In Comment Field Unknown 04/08/2003 Other reaction(s): Red Man's Syndrome Azithromycin Hepatic Dysfunction Unknown 02/13/2014 Medications blood-glucose meterIndication s:Controlled type 2 diabetes mellitus without complication, without long-term current use of insulin (HC) Dispense meter, test strips, lancets covered by pt ins. E11.9 NIDDM type II - Test 1 time/day 1 Device 8 Active TRUE METRIX GLUCOSE TEST STRIP stripIndication s:Controlled type 2 diabetes mellitus without complication, without long-term current use of insulin (HC) USE TO TEST ONCE DAILY 100 Strip 9 Active SUMAtriptan (IMITREX) 100 mg tabletIndicatio ns:Migraine syndrome Take 1 tablet by mouth 2 times daily if needed for Migraine. 10 tablet 3 0 Active multivitamin folic acid 0.4 mg Take 1 tablet by mouth once daily. Active aspirin chewable 81 mg chewable tabletIndicatio ns:Hypertension ,Controlled type 2 diabetes mellitus without complication, without long-term current use of insulin (HC) HOLD ASA FOR 72 HOURS FOLLOWING SPINE SURGERY. 10 tablet 0 Active pregabalin (LYRICA) 200 mg capsuleIndicati ons:Diabetic peripheral neuropathy (HC) Take 1 Capsule (200 mg) by mouth 2 times daily. 60 Capsule 2 1 Active empagliflozin (Jardiance) 10 mg tabletIndicatio ns:Controlled type 2 diabetes mellitus without complication, without long-term current use of insulin (HC) Take 10 mg by mouth once daily. 90 Tablet 3 1 Active glipiZIDE (GLUCOTROL) 10 mg tabletIndicatio ns:Controlled type 2 diabetes mellitus without complication, without long-term current use of insulin (HC) Take 2 Tablets (20 mg) by mouth 2 times daily before meals. Take 30 minutes before the meal. 360 Tablet 3 1 Active losartan (COZAAR) 25 mg tabletIndicatio ns:Hypertension , unspecified type Take 1 Tablet (25 mg) by mouth once daily. 90 tablet. 3 1 Active LORazepam (ATIVAN) 0.5 mg tabIndications: Anxiety Take 1 Tablet (0.5 mg) by mouth every 6 hours if needed for Anxiety. 30 tablet. 2 1 Active metFORMIN (GLUCOPHAGE XR) 500 mg Extended-Releas e tabletIndicatio ns:Controlled type 2 diabetes mellitus without complication, without long-term current use of insulin (HC) Take 1 Tablet (500 mg) by mouth 2 times daily with meals. 120 Tablet 1 Active escitalopram oxalate (LEXAPRO) 20 mg tabletIndicatio ns:Moderate episode of recurrent major depressive disorder (HC),Anxiety Take 1.5 tablets by mouth every morning. 45 Tablet 1 Active buPROPion (WELLBUTRIN XL) 300 mg Extended-Releas e tabletIndicatio ns:Moderate episode of recurrent major depressive disorder (HC),Anxiety Take 1 tablet by mouth once daily. 30 Tablet 1 Active buPROPion (WELLBUTRIN XL) 150 mg Extended-Releas e tabletIndicatio ns:Moderate episode of recurrent major depressive disorder (HC),Anxiety Take 1 tablet by mouth every morning. Take with 300 mg tablet for a total of 450 mg daily. 30 Tablet 1 Active ciprofloxacin HCl (CIPRO) 750 mg tablet Take 1 Tablet by mouth 2 times daily. 2 Active semaglutide (Ozempic) 2 mg/1.5 mL (0.25mg or 0.5mg doses) pen Inject 0.5 mg subcutaneous once weekly. 1 Active ondansetron (ZOFRAN) 4 mg tabletIndicatio ns:Osteomyeliti s of great toe of right foot (HC) Take 2 Tablets (8 mg) by mouth 2 times daily. 20 Tablet 2 Active dextroamphetami ne-amphetamine (ADDERALL XR) 30 mg Extended-Releas e capsule Take 30 mg by mouth. Active pseudoephedrine (SUDAFED) 30 mg tabletIndicatio ns:Nasal sinus congestion Take 2 Tablets (60 mg) by mouth every 6 hours if needed for Nasal Congestion. 30 Tablet 4 Active guaiFENesin 400 mg tabletIndicatio ns:Cough, unspecified type Take 1 Tablet (400 mg) by mouth every 4 hours. 20 Tablet 4 Active doxycycline 100 mg capsule Take 100 mg by mouth two times daily. 4 Active durable medical equipment (DME)Indication s:Diabetic ulcer of right midfoot associated with type 2 diabetes mellitus, with fat layer exposed (HC),Type 2 diabetes mellitus with Charcot's joint of right foot (HC),Diabetic peripheral neuropathy (HC) SQUARED TOE POST OP SHOE, MEDIUM, REF: [phone] 4 Active durable medical equipment (DME)Indication s:Diabetic ulcer of right midfoot associated with type 2 diabetes mellitus, with fat layer exposed (HC) SQUARED TOE POST OP SHOE, MEDIUM 1 Each 4 Active durable medical equipment (DME)Indication s:Type 2 diabetes mellitus with Charcot's joint of right foot (HC),Diabetic ulcer of right midfoot associated with type 2 diabetes mellitus, with fat layer exposed (HC),Diabetic peripheral neuropathy (HC) [phone] Squared Toe Post Op Shoe, M 1 Each 4 Active Active Problems Problem Noted Date Diagnosed Date Wound drainage 05/27/2020 Lumbosacral disc herniation 05/27/2020 Lumbar disc herniation with radiculopathy 2019 Weakness 05/12/2020 Anxiety 05/12/2020 Elevated liver function tests 07/25/2018 Creatinine elevation 07/25/2018 Diabetic peripheral neuropathy 07/17/2018 Controlled type 2 diabetes m ellitus without complication, without long-term current use of insulin 07/17/2018 Hypertension 07/17/2018 HTN (hypertension) Diabetes mellitus type 2 in obese History of leukemia Overview (05/07/2020): age 12 Immunizations Immunization Administration Dates Next Due HIB PRP-T (ActHIB,Hiberix) 08/18/1998 HPV 9 (Gardasil 9) 01/30/2007 Hepatitis B (Peds) 02/26/1999,09/25/1998, 998 Hepatitis B, Unspecified 02/26/1999,08/18/1998 Human Papilloma Virus Vaccine 03/18/2010, 007 Inactivated Polio Vaccine 09/25/1998,08/18/1998 Influenza Virus, Unspecified 06/30/2016, 05/21/2015,06/06/2014,2002,08/17/2001,08/05/2000,05/30/1998 Influenza, IIV3 (Age >=3 years) 08/31/19 03,08/17/2001,08/05/2000,1997 Influenza, IIV4 05/04/2019,07/17/2018,06/30/2016 MMR 08/03/1999 Pneumococcal Poly,23-Valent (Pneumovax) 08/24/2016,08/18/1998 Pneumococcal conj 13-Valent (Prevnar 13) 08/24/2016 Polio Virus, Unspecified 09/25/1998,08/18/1998 TD, UNSPECIFIED 01/01/1998 Td (Age >=7 Years) 11/19/2020,01/01/1998 Tdap 03/18/2010 Family History Medical History Relation Name Comments Diabetes Paternal Aunt 3 paternal aun ts with diabetes Diabetes Paternal Grandfather Diabetes Paternal Grandmother Relation Name Status Comments Father Mother Alive Paternal Aunt Paternal Grandfather Paternal Grandmother Social History Tobacco Use Types Packs/Day Years Used Date Smoking Tobacco: Former Cigarettes 0.3 10.3 0 10/06/2007 - 02/09/2018 Smokeless Tobacco: Never Tobacco Cessation:Counseling Given: Yes Comments:~1 pack per week Alcohol Use Standard Drinks/Week Comments Yes 0 (1 standard drink = 0.6 oz pur e alcohol) rare , maybe up to 1-2/yr PHQ-2 Answer Date Recorded PHQ-2 TOTAL SCORE 6 11/19/2020 Social Connections Answer Date Recorded Frequency of Communication with Friends and Fami ly Not on file 08/17/2021 Financial Resource Strain Answer Date R ecorded Difficulty of Paying Living Expenses Not on file 08/17/2021 Difficulty of Paying Living Expenses Not on file 08/17/2021 Interpersonal Safety Answer Date Record ed Are you being hit, kicked, p ushed or yelled at (see row info)? No 01/19/2024 Interpersonal Safety Abuse 12 - 18 Not on file 01/19/2024 Interpersonal Safety Ambulatory Vulnerability No t on file 01/19/2024 Comments No Sex and Gender Information Value Date Recorded Sex Assigned at Female 12/26/2020 10:36 AM CDT Legal Sex Female 2:49 PM SEATING UPHOLSTERER Gender Identity Female 12/26/2020 10:36 AM CDT Sexual Orientation Straight 12/26/2020 10 :36 AM CDT Obstetrics History Last Filed Vital Signs Vital Sign Reading Time Taken Comments Blood Pressure 145/89 01/19/2024 9:07 PM CDT Pulse 110 04/26/2024 2:00 PM CDT Temperature 37.1 C (98.8 F) 01/19/2024 7:23 PM CDT Respiratory Rate 18 01/19/2024 9:22 PM CDT Oxygen Saturation 98% 04/26/2024 2:00 PM CDT Inhaled Oxygen Concentration - - Weight 137.9 kg (304 lb) 04/26/2024 2:00 PM CDT Height 182.9 cm (6') 01/19/2024 7:23 PM CDT Body Mass Index 41.23 01/19/2024 7:23 PM CDT Plan of Treatment Health Maintenance Due Date Last Done Comments HIV for age 15-65 2001 Pap test for age 21-65 07/28/2021 6 (Completed outside of [facility]) Depression screening for age 12+ 11/19/2021 11/19/2020, 01/03/2020, 01/01/2020, Additional history exists BMI (ht and wt on same day) for age 18+ 10/01/2022 10/01/2021, 04/30/2020, 05/04/2019, Additional history exists COVID-19 vaccine series ( season) 2024 05/15/2021 Influenza Vaccine (Season Ended) 2025 05/04/2019, 07/17/2018, 06/30/2016, Additional history exists Tetanus booster 11/19/2030 11/19/2020, 02/20, 01/01/1998, Additional history exists Pneumococcal series for age 6-49 (3 of 3 - PCV20 or PCV21) 2036 08/24/2016, 08/24/2016, 08/18/1998 Tdap Completed 07/24/2016 (Comp leted outside of [facility]), 03/18/2010 Hepatitis C screening for ag e 18-79 Completed 07/25/2018 Procedures Procedure Name Priority Date/Time Associated Diagnosis Comments ANTI HCV Routine 07/25/2018 4:20 PM SEATING UPHOLSTERER Elevated liver function tests from Last 3 Months or Most Recently Relevant to Health Maintenance Results * ANTI HCV (07/25/2018 4:20 PM SEATING UPHOLSTERER) HEPATITIS C ANTIBODY Non-React dayna Non-React dayna 07/26/2018 6:01 PM SEATING UPHOLSTERER [facility] Comment:Antibodies to HCV no t detected; does not exclude the possibility of exposure to HCV. Blood BLOOD SPECIMEN / Unknown Venipuncture / Unknown 07/25/2018 4:20 PM SEATING UPHOLSTERER 07/25/2018 4:21 PM SEATING UPHOLSTERER us Esperanza LEÓN SEND OUTS Fin al Result [facility] [address] [place] [address], [place] from Last 3 Months or Most Recently Relevant to Health Maintenance Insurance Advance Directives * Full Code (Latest Code Status on File) Date Activated Date Inactivated Comments 07/29/2020 2:15 PM 07/30/2020 2:29 AM Question Answer Comments Code Status Discussion: Not Discussed * Full Code Date Activated Date Inactivated Comments 07/29/2020 2:15 PM 07/29/2020 2:15 PM Question Answer Comments Code Status Discussion: Not Discussed * Full Code Date Activated Date Inactivated Comments 05/27/2020 4:27 PM 05/28/2020 3:10 PM Question Answer Comments Code Status Discussion: Per Existing Order * Full Code Date Activated Date Inactivated Comments 05/12/2020 8:56 AM 05/13/2020 1:39 PM Question Answer Comments Code Status Discussion: Not Discussed Care Teams Base Filler Operator Relationship Specialty Start Date End Date Alondra Mathew MD [address] [place] [address] PCP - General Internal Medicine 08/12/23
--- OUTSIDE RECORDS SUMMARY | 2024-11-25 22:53 | XMS_ITS | Clinical Summary ---
Author Organization [facility] Address [address] [place] [address] Care Team Providers Care Seating Upholsterer Name Role Phone Alondra Mathew MD Primary Care Provider Allergies Active Allergy Reactions Criticality Noted Date [...] AM CDT Legal Sex Female 3:51 PM PRIMARY MILL ROLLER Gender Identity Female 01/12/2023 9:49 AM CDT Sexual Orientation Straight 01/12/2023 9: 49 AM CDT Plan of Treatment Upcoming Encounters Date Type Department Care Team (Late st Contact Info) Description 01/25/2025 9:00 AM CDT Office Visit [address] [phone] Edith Martin, CHARLENE [address] [facility] [address] [place] [address] Health Maintenance Due Date Last Done Comments A1C 1986 ADVANCE CARE PLANNING 1986 ANNUAL REVIEW OF HM ORDERS 1986 DIABETIC FOOT EXAM 1986 EYE EXAM 1986 MICROALBUMIN 1986 YEARLY PREVENTIVE VISIT 1989 HIV SCREENING 2001 HEPATITIS C SCREENING 2004 PAP 2007 HPV IMMUNIZATION (3 - 3-dose series) 06/10/2010 03/18/2010, 01/30/2007 BMP 07/31/2022 07/31/2021 LIPID 07/31/2022 07/31/2021 COVID-19 Vaccine (3 - season) 2024 06/05/2021, 05/15/2021 INFLUENZA VACCINE (#1) 2024 9, 07/17/2018, 06/30/2016, Additional history exists PHQ-2 (once per calendar year) 2024 DTAP/TDAP/TD IMMUNIZATION (4 - Td or Tdap) 11/19/2030 11/19/2020, 03/18/2010, 01/01/1998, Additional history exists Pneumococcal Vaccine: Pediatrics (0 to 5 Years) and At-Risk Patients (6 to 49 Years) (3 of 3 - PCV20 or PCV21) 2036 08/24/2016, 08/24/2016, 08/18/1998 ZOSTER IMMUNIZATION (1 of 2) 2036 HEPATITIS B IMMUNIZATION Completed 999, 09/25/1998, 08/18/1998 MENINGITIS IMMUNIZATION Aged Out No l onger eligible based on patient's age to complete this topic Procedures Procedure Name Priority Date/Time Associated Diagnosis Comments LIPID REFLEX TO DIRECT LDL PANEL Routine 07/31/2021 3:50 PM PRIMARY MILL ROLLER Hyperlipidemia, unspecified [ICD-10-CM] Other secondary hypertension [ICD-10-CM] COMPREHENSIVE METABOLIC PANEL Routine 07/31/2021 3:50 PM PRIMARY MILL ROLLER Hyperlipidemia, unspecified [ICD-10-CM] Other secondary hypertension [ICD-10-CM] from Last 3 Months or Most Recently Relevant to Health Maintenance Results * (ABNORMAL) Lipid panel reflex to direct LDL (07/31/2021 3:50 PM PRIMARY MILL ROLLER) Cholesterol 159 <=199 mg/dL 08/01/2021 12:06 AM PRIMARY MILL ROLLER [facility] Triglycerides 551(H) <=149 mg/dL 08/01/2021 12:06 AM PRIMARY MILL ROLLER [facility] Direct Measure HDL 25(L) >=50 mg/dL 08/01/2021 12:06 AM PRIMARY MILL ROLLER [facility] Comment: HDL Cholesterol Reference Range: 0-2 years: No reference ranges established for patients under 2 years old at [facility] for lipid analytes. 2-8 years: Greater than 45 mg/dL 18 years and older: Female: Greater than or equal to 50 mg/dL Male: Greater than or equal to 40 mg/dL LDL Cholesterol Calculated 08/01/2021 12:06 AM [facility] Comment:Cannot estimate LDL when triglyceride exceeds 400 mg/dL Patient Fasting > 8hrs? Unknown 08/01/2021 12:06 AM PRIMARY MILL ROLLER [facility] Blood BLOOD SPECIMEN / Unknown Client Draw / Unknown 07/31/2021 3:50 PM PRIMARY MILL ROLLER 07/31/2021 10:19 PM PRIMARY MILL ROLLER us Josy Acuña MD LAB - BLOOD ORDERABLES Fi nal Result [facility] [id number] [place] [address] * (ABNORMAL) Comprehensive metabolic panel (07/31/2021 3:50 PM PRIMARY MILL ROLLER) Sodium 137 136 - 145 mmol/L 07/31/2021 11:49 PM PRIMARY MILL ROLLER [facility] Potassium 4.0 3.5 - 5.0 mmol/L 07/31/2021 11:49 PM PRIMARY MILL ROLLER [facility] Chloride 104 98 - 107 mmol/L 07/31/2021 11:49 PM PRIMARY MILL ROLLER [facility] Carbon Dioxide (CO2) 23 22 - 31 mmol/L 07/31/2021 11:49 PM PRIMARY MILL ROLLER [facility] Anion Gap 10 5 - 18 mmol/L 07/31/2021 11:49 PM PRIMARY MILL ROLLER [facility] Urea Nitrogen 20 8 - 22 mg/dL 07/31/2021 11:49 PM PRIMARY MILL ROLLER [facility] Creatinine 1.08 0.60 - 1.10 mg/dL 07/31/2021 11:49 PM PRIMARY MILL ROLLER [facility] Calcium 9.0 8.5 - 10.5 mg/dL 07/31/2021 11:49 PM [facility] Glucose 262(H) 70 - 125 mg/dL 07/31/2021 11:49 PM PRIMARY MILL ROLLER [facility] Alkaline Phosphatase 130(H) 45 - 120 U/L 07/31/2021 11:49 PM PRIMARY MILL ROLLER [facility] AST 39 0 - 40 U/L 07/31/2021 11:49 PM PRIMARY MILL ROLLER [facility] ALT 46(H) 0 - 45 U/L 07/31/2021 11:49 PM PRIMARY MILL ROLLER [facility] Protein Total 7.2 6.0 - 8.0 g/dL 07/31/2021 11:49 PM PRIMARY MILL ROLLER [facility] Albumin 3.8 3.5 - 5.0 g/dL 07/31/2021 11:49 PM PRIMARY MILL ROLLER [facility] Bilirubin Total 0.6 0.0 - 1.0 mg/dL 07/31/2021 11:49 PM PRIMARY MILL ROLLER [facility] GFR Estimate 67 >60 mL/min/1.7 3m2 07/31/2021 11:49 PM PRIMARY MILL ROLLER [facility] Comment:As of March 01, 2021, eGFR is calculated by the CKD-EPI creatinine equation, without race adjustment. eGFR can be influenced by muscle mass, exercise, and diet. The reported eGFR is an estimation only and is only applicable if the renal function is stable. Blood BLOOD SPECIMEN / Unknown Client Draw / Unknown 07/31/2021 3:50 PM PRIMARY MILL ROLLER 07/31/2021 10:19 PM PRIMARY MILL ROLLER us Josy Acuña MD LAB - BLOOD ORDERABLES Fi nal Result [facility] [address] [place] [address], [facility] [phone] from Last 3 Months or Most Recently Relevant to Health Maintenance Insurance [address] [facility] [id number] [facility] Care Teams Seating Upholsterer Relationship Specialty Start Date End Date Alondra Mathew MD [address] [address] PCP - General 01/12/23
[2024-11-25 22:55] VITALS: BP 165/97; PULSE 103; RESP 16; TEMP 36.1; O2SAT 98; BMI 39.6
--- NOTE | 2024-11-25 23:45 | CRLHL7_ITS ---
For Patients: As a result of the Century Cures Act, medical imaging exams and procedure reports are released immediately into your electronic medical record. You may view this report before your referring provider. If you have questions, please contact your health care provider. Indication: Right leg pain and swelling, history of DVT Technique: DVT ultrasound of the right lower extremity. Grayscale and color Doppler imaging utilized. Duplex/spectral analysis used. Compression and augmentation as clinically warranted. Comparison: DVT ultrasound performed 08/16/2024 Findings: No acute thrombus visualized. Chronic thrombus in the right femoral and popliteal vein again noted. Soft tissue edema. Impression: Soft tissue edema and findings of chronic thrombus again noted, no acute DVT visualized. Dictated by Meng Hunter MD @ 11/26/2024 1:53:59 AM (Electronically Signed)
--- NOTE | 2024-11-26 00:03 | ED_ITS ---
HPI - General Adult General Time Seen by Provider: 00:03 Date Seen: 11/26/24 Chief complaint: Extremity Pain/Injury, Lower Stated complaint: possible blood clot right leg Time Seen by Provider: 11/25/24 23:57 Source: patient, RN notes reviewed and old records reviewed Mode of arrival: ambulatory Limitations: no limitations History of Present Illness HPI narrative: 31-year-old female who comes in today with right leg pain. Patient has history of DVT in the right leg about 10 years ago, subsequently developed a clot in the left leg with pulmonary embolism couple months ago and has been on Eliquis since then. Notes waxing and waning swelling in the right leg but worse than usual for the last 2 days, also with a painful area of the medial calf. She also notes some burning pain between the 1st and 2nd metatarsals. Prior amputation of the right great toe. No injury or trauma, reports compliance with anticoagulation. Related Data Home Medications ?Medication ?Instructions ?Recorded ?Confirmed aspirin 81 mg capsule 81 mg PO DAILY 08/26/22 11/12/24 multivitamin 1 tab PO QAM 12/16/22 11/12/24 ubrogepant 100 mg tablet (Ubrelvy) 100 mg PO Q2H PRN 05/07/24 11/12/24 ondansetron HCl 4 mg tablet 8 mg PO Q8H PRN nausea with 08/16/24 11/12/24 migraines propranolol 10 mg tablet 20 mg PO BID 08/17/24 11/12/24 ondansetron HCl 8 mg tablet 8 mg PO Q8H PRN 11/12/24 11/12/24 pregabalin 200 mg capsule 200 mg PO BID 11/12/24 11/12/24 Previous Rx's ?Medication ?Instructions ?Recorded bupropion HCl 150 mg 24 hr tablet, 150 mg PO DAILY #90 tabs 05/07/24 extended release bupropion HCl 300 mg 24 hr tablet, 300 mg PO DAILY #90 tabs 05/07/24 extended release losartan 25 mg tablet 25 mg PO DAILY #90 tabs 05/07/24 metformin 500 mg tablet 500 mg PO BIDWMEAL #180 tabs 05/07/24 amitriptyline 50 mg tablet 50 mg PO QHS #30 tabs 08/17/24 apixaban 5 mg tablet (Eliquis) 5 mg PO BID #180 tabs 09/28/24 benzonatate 200 mg capsule 200 mg PO BID-TID PRN cough #30 10/29/24 caps escitalopram oxalate 20 mg tablet 40 mg (2 x 20 mg) PO DAILY #180 10/29/24 tabs levofloxacin 500 mg tablet 500 mg PO Q24H #7 tabs 10/31/24 dextroamphetamine-amphetamine 20 20 mg PO DAILY@1400 #30 tabs 11/06/24 mg tablet (Adderall) dextroamphetamine-amphetamine ER 30 mg PO QAM #30 caps 11/06/24 30 mg 24hr capsule,extend release (Adderall XR) semaglutide 1 mg/dose (4 mg/3 mL) 1 mg (0.75 mL) subcut QWEEK 4 11/06/24 subcutaneous pen injector weeks #3 mL empagliflozin 25 mg tablet 25 mg PO QAM #90 tabs 11/07/24 clonazepam 1 mg tablet 1 mg PO BID PRN anxiety #30 tabs 11/08/24 Allergies Allergy/AdvReac Type Severity Reaction Status Date / Time sulfamethoxazole (From Allergy Mild Unknown Verified 11/12/24 10:01 Sulfamethoxazole-Trimethoprim) trimethoprim (From Allergy Mild Unknown Verified 11/12/24 10:01 Sulfamethoxazole-Trimethoprim) azithromycin Allergy Unknown Verified 11/12/24 10:01 fluconazole Allergy Unknown Verified 11/12/24 10:01 vancomycin Allergy Unknown Verified 11/12/24 10:01 [facility] Medical History (Updated 11/26/24 @ 02:00 by Bebo Schrader MD) History of eating disorder ?Z86.59 - Personal history of other mental and behavioral disorders (ICD-10) History of deep venous thrombosis (2013) ?Z86.718 - Personal history of other venous thrombosis and embolism (ICD-10) Surgical History (Updated 08/24/24 @ 00:00 by Teja Gonzales) History of amputation of right great toe (10/02/21) ?Z89.411 - Acquired absence of right great toe (ICD-10) History of tonsillectomy and adenoidectomy (1993) ?Z90.89 - Acquired absence of other organs (ICD-10) History of lumbosacral spine surgery (2019) ?Z98.890 - Other specified postprocedural states (ICD-10) History of bone marrow transplant (1996) ?Z94.81 - Bone marrow transplant status (ICD-10) Family History Paternal Grandfather Diabetes Paternal Grandmother Diabetes Father Pancreatic cancer Social History What is your current living situation?: I presently have a place to live Problems where you live: no known problems Problems where you live details: NA In the past 12 months, utilities in danger of being shut off: no In past 12 months, lack of transportation kept you from medical appts, meetings, work, or getting things needed for daily living: no In the past 12 mos, have been you worried that your food would run out before you had money to buy more?: never true In the past 12 mos, the food you bought just didn't last and you didn't have money to buy more?: never true Highest level of school completed/degree received: some college, no degree Smoking Status: Current every day smoker Do you use any of these nicotine containing products: Vaping Products Second hand tobacco smoke exposure: No How often do you have a drink containing alcohol: monthly or less How many standard drinks containing alcohol do you have on a typical day: 1 or 2 AUDIT-C Alcohol total score: 1 Non-prescribed substance use: denies use Caffeine: Yes How often does anyone, including family, friends and others, physically hurt you : never How often does anyone, including family, friends and others, insult or talk down to you: never How often does anyone, including family, friends and others, threaten you with harm: never How often does anyone, including family, friends and others, scream or curse at you: never service: No Exam Narrative: Exam Narrative: General: Well-developed and well-nourished, no acute distress Head: Atraumatic and normocephalic Eyes: Pupils are equal reactive, extraocular motions intact, conjunctiva clear ENT: External nose and ears are normal, posterior pharynx without erythema or exudate Neck: No midline cervical tenderness, full spontaneous range of motion the neck, trachea midline, no adenopathy Heart: Tachycardic but regular Lungs: Clear to auscultation bilaterally without wheezes or crackles Abdomen: Soft, nontender, nondistended with active bowel sounds Musculoskeletal: Swelling of the right lower leg, quarter-size area of tenderness of the medial calf with some palpable cord in this area, anterior to this are some prominent varicosities. No redness, warmth, or tracking erythema of the right foot and patient's area pain. Neurologic: Awake, alert, and oriented x3, no gross focal neurologic deficits, cranial nerves intact as tested Psych: Mood and affect are appropriate Skin: No rashes Const: Vital Signs, click to edit/add: Vital Signs - 24 hr 11/25/24 22:55 Temperature 97.0 F L Pulse Rate [Left P ulse Oximeter] 103 H Respiratory Rate 16 Blood Pressure [Ri ght Upper Arm] 165/97 H Pulse Oximetry 98 Oxygen Delivery Me thod Room Air Course Course ED Course: Reviewed prior records, patient history of DVT in then more recently in July pulmonary embolism and DVT, currently on apixaban. Patient presents today with swelling of the right leg as well as a localized area of tenderness of the right medial calf. This seems quite superficial and may represent SVT or tender ezio icose veins. With history of DVT, ultrasound is ordered. She also has some burning pain between the 1st and 2nd metatarsals on the right, this seems more consistent with neuropathic pain in the distribution of the deep peroneal nerve. No fever or chills, no redness or warmth to the foot to suggest cellulitis or infection from amputation wound. Reevaluation(s) Time of Reevaluation #1: 01:58 Reevaluation #1: Reviewed radiology interpretation ultrasound is negative for acute thrombus, chronic thrombus is noted along with soft tissue edema. Patient stable for discharge with outpatient follow-up. No shortness of breath or cough to suggest pulmonary edema, nor orthopnea. Vital Signs Vital signs: Initial Vital Signs Temperature 97.0 F L 11/25/24 22:55 Temperature Source Temporal Artery Scan 11/25/24 22:55 Pulse Rate 103 H 11/25/24 22:55 Pulse Rhythm Regular 11/25/24 22:55 Respiratory Rate 16 11/25/24 22:55 Blood Pressure 165/97 H 11/25/24 22:55 Blood Pressure Mean 119 H 11/25/24 22:55 Blood Pressure Position Sitting 11/25/24 22:55 Pulse Oximetry 98 11/25/24 22:55 Oxygen Delivery Method Room Air 11/25/24 22:55 Vital Signs Temperature 97.0 F L 11/25/24 22:55 Pulse Rate 103 H 11/25/24 22:55 Respiratory Rate 16 11/25/24 22:55 Blood Pressure 165/97 H 11/25/24 22:55 Pulse Oximetry 98 11/25/24 22:55 Oxygen Delivery Method Room Air 11/25/24 22:55 Temperature 97.0 F L 11/25/24 22:55 Pulse Rate 103 H 11/25/24 22:55 Respiratory Rate 16 11/25/24 22:55 Blood Pressure 165/97 H 11/25/24 22:55 Pulse Oximetry 98 11/25/24 22:55 Oxygen Delivery Method Room Air 11/25/24 22:55 Discharge Plan Discharge Clinical Impression: Chronic deep vein thrombosis (DVT), Edema of right lower extremity Patient Disposition: Home, Self-Care Condition: Stable Instructions: Deep Vein Thrombosis (ED), Edema (ED) Additional Instructions: Elevate leg as much as possible Activity as tolerated Low-sodium diet Follow-up with your primary care doctor this week Prescriptions: No Action multivitamin Tablet 1 tab PO QAM ondansetron HCl 4 mg tablet 8 mg PO Q8H PRN (Reason: nausea with migraines) ondansetron HCl 8 mg tablet 8 mg PO Q8H PRN pregabalin 200 mg capsule 200 mg PO BID aspirin 81 mg capsule 81 mg PO DAILY Ubrelvy 100 mg tablet 100 mg PO Q2H PRN metformin 500 mg tablet 500 mg PO BIDWMEAL Qty: 180 3RF losartan 25 mg tablet 25 mg PO DAILY Qty: 90 3RF bupropion HCl 150 mg tablet extended release 24 hr 150 mg PO DAILY Qty: 90 3RF Patient Comments: TOTAL DOSE = 450MG DAILY bupropion HCl 300 mg tablet extended release 24 hr 300 mg PO DAILY Qty: 90 3RF Patient Comments: TOTAL DOSE = 450MG DAILY propranolol 10 mg tablet 20 mg PO BID amitriptyline 50 mg tablet 50 mg PO QHS Qty: 30 0RF Eliquis 5 mg tablet 5 mg PO BID Qty: 180 0RF escitalopram oxalate 20 mg tablet 40 mg PO DAILY Qty: 180 3RF benzonatate 200 mg capsule 200 mg PO BID-TID PRN (Reason: cough) Qty: 30 0RF levofloxacin 500 mg tablet 500 mg PO Q24H Qty: 7 0RF dextroamphetamine-amphetamine [Adderall XR] 30 mg capsule,extended release 24hr 30 mg PO QAM Qty: 30 0RF dextroamphetamine-amphetamine [Adderall] 20 mg tablet 20 mg PO DAILY@1400 Qty: 30 0RF semaglutide 1 mg/dose (4 mg/3 mL) pen injector 1 mg subcut QWEEK 28 Days Qty: 3 1RF Patient Comments: MONDAYS empagliflozin 25 mg tablet 25 mg PO QAM Qty: 90 0RF clonazepam 1 mg tablet 1 mg PO BID PRN (Reason: anxiety) Qty: 30 1RF Follow Up/Referrals: Alondra Mathew MD [Primary Care Provider] - [facility] Inst[facility]
--- OUTSIDE RECORDS SUMMARY | 2024-11-26 01:38 | XMS_ITS | Clinical Summary ---
Author Organization [facility] Address [address] [place] [address] Care Team Providers Care Airplane Mechanic Apprentice Name Role Phone Alondra Mathew MD Primary Care Provider [phone] Allergies Active Allergy Reactions Criticality Noted Date [...] SQUARED TOE POST OP SHOE, MEDIUM, REF: [phone] 4 Active durable medical equipment (DME)Indication s:Diabetic [...] fat layer exposed (HC),Diabetic peripheral neuropathy (HC) [phone] Squared Toe Post Op Shoe, M 1 [...] AM CDT Legal Sex Female 2:49 PM RECEIVING MANAGER Gender Identity Female 12/26/2020 10:36 AM CDT [...] age 21-65 07/28/2021 6 (Completed outside of [facility]) Depression screening for age 12+ 11/19/2021 11/19/2020, [...] Tdap Completed 07/24/2016 (Comp leted outside of [facility]), 03/18/2010 Hepatitis C screening for ag e 18-79 Completed 07/25/2018 Procedures Procedure Name Priority Date/Time Associated Diagnosis Comments ANTI HCV Routine 07/25/2018 4:20 PM RECEIVING MANAGER Elevated liver function tests from Last 3 Months or Most Recently Relevant to Health Maintenance Results * ANTI HCV (07/25/2018 4:20 PM RECEIVING MANAGER) HEPATITIS C ANTIBODY Non-React dayna Non-React dayna 07/26/2018 6:01 PM RECEIVING MANAGER [facility] Comment:Antibodies to HCV no t detected; does not exclude the possibility of exposure to HCV. Blood BLOOD SPECIMEN / Unknown Venipuncture / Unknown 07/25/2018 4:20 PM RECEIVING MANAGER 07/25/2018 4:21 PM RECEIVING MANAGER us Esperanza LEÓN SEND OUTS Fin al Result [facility] [address] [place] [address], [place] from Last 3 Months or Most Recently Relevant to [place] [id number] Advance Directives * Full Code (Latest Code [...] Code Status Discussion: Not Discussed Care Teams Airplane Mechanic Apprentice Relationship Specialty Start Date End Date Alondra Mathew MD [address] [place] [id number] PCP - General Internal Medicine 08/12/23
--- OUTSIDE RECORDS SUMMARY | 2024-11-26 01:39 | XMS_ITS | Clinical Summary ---
Author Organization [facility] Address [address] [place] [address] Care Team Providers Care Lay Out And Detail Drafter Name Role Phone Alondra Mathew MD Primary Care Provider [phone] Allergies Active Allergy Reactions Criticality Noted Date [...] AM CDT Legal Sex Female 3:51 PM RFID ENGINEER Gender Identity Female 01/12/2023 9:49 AM CDT Sexual Orientation Straight 01/12/2023 9: 49 AM CDT Plan of Treatment Upcoming Encounters Date Type Department Care Team (Late st Contact Info) Description 01/25/2025 9:00 AM CDT Office Visit [address] [id number] Edith Martin, CHARLENE [address] [facility] [address] [place] [address] Health Maintenance Due Date Last Done Comments [...] DIRECT LDL PANEL Routine 07/31/2021 3:50 PM RFID ENGINEER Hyperlipidemia, unspecified [ICD-10-CM] Other secondary hypertension [ICD-10-CM] COMPREHENSIVE METABOLIC PANEL Routine 07/31/2021 3:50 PM RFID ENGINEER Hyperlipidemia, unspecified [ICD-10-CM] Other secondary hypertension [ICD-10-CM] from Last 3 Months or Most Recently Relevant to Health Maintenance Results * (ABNORMAL) Lipid panel reflex to direct LDL (07/31/2021 3:50 PM RFID ENGINEER) Cholesterol 159 <=199 mg/dL 08/01/2021 12:06 AM RFID ENGINEER [facility] Triglycerides 551(H) <=149 mg/dL 08/01/2021 12:06 AM RFID ENGINEER [facility] Direct Measure HDL 25(L) >=50 mg/dL 08/01/2021 12:06 AM RFID ENGINEER [facility] Comment: HDL Cholesterol Reference Range: 0-2 years: No reference ranges established for patients under 2 years old at [facility] for lipid analytes. 2-8 years: Greater than 45 mg/dL 18 years and older: Female: Greater than or equal to 50 mg/dL Male: Greater than or equal to 40 mg/dL LDL Cholesterol Calculated 08/01/2021 12:06 AM [facility] Comment:Cannot estimate LDL when triglyceride exceeds 400 mg/dL Patient Fasting > 8hrs? Unknown 08/01/2021 12:06 AM RFID ENGINEER [facility] Blood BLOOD SPECIMEN / Unknown Client Draw / Unknown 07/31/2021 3:50 PM RFID ENGINEER 07/31/2021 10:19 PM RFID ENGINEER us Josy Acuña MD LAB - BLOOD ORDERABLES Fi nal Result [facility] [id number] [place] [address] * (ABNORMAL) Comprehensive metabolic panel (07/31/2021 3:50 PM RFID ENGINEER) Sodium 137 136 - 145 mmol/L 07/31/2021 11:49 PM RFID ENGINEER [facility] Potassium 4.0 3.5 - 5.0 mmol/L 07/31/2021 11:49 PM RFID ENGINEER [facility] Chloride 104 98 - 107 mmol/L 07/31/2021 11:49 PM RFID ENGINEER [facility] Carbon Dioxide (CO2) 23 22 - 31 mmol/L 07/31/2021 11:49 PM RFID ENGINEER [facility] Anion Gap 10 5 - 18 mmol/L 07/31/2021 11:49 PM RFID ENGINEER [facility] Urea Nitrogen 20 8 - 22 mg/dL 07/31/2021 11:49 PM RFID ENGINEER [facility] Creatinine 1.08 0.60 - 1.10 mg/dL 07/31/2021 11:49 PM RFID ENGINEER [facility] Calcium 9.0 8.5 - 10.5 mg/dL 07/31/2021 11:49 PM [facility] Glucose 262(H) 70 - 125 mg/dL 07/31/2021 11:49 PM RFID ENGINEER [facility] Alkaline Phosphatase 130(H) 45 - 120 U/L 07/31/2021 11:49 PM RFID ENGINEER [facility] AST 39 0 - 40 U/L 07/31/2021 11:49 PM RFID ENGINEER [facility] ALT 46(H) 0 - 45 U/L 07/31/2021 11:49 PM RFID ENGINEER [facility] Protein Total 7.2 6.0 - 8.0 g/dL 07/31/2021 11:49 PM RFID ENGINEER [facility] Albumin 3.8 3.5 - 5.0 g/dL 07/31/2021 11:49 PM RFID ENGINEER [facility] Bilirubin Total 0.6 0.0 - 1.0 mg/dL 07/31/2021 11:49 PM RFID ENGINEER [facility] GFR Estimate 67 >60 mL/min/1.7 3m2 07/31/2021 11:49 PM RFID ENGINEER [facility] Comment:As of March 01, 2021, eGFR is calculated by the CKD-EPI creatinine equation, without race adjustment. eGFR can be influenced by muscle mass, exercise, and diet. The reported eGFR is an estimation only and is only applicable if the renal function is stable. Blood BLOOD SPECIMEN / Unknown Client Draw / Unknown 07/31/2021 3:50 PM RFID ENGINEER 07/31/2021 10:19 PM RFID ENGINEER us Josy Acuña MD LAB - BLOOD ORDERABLES Fi nal Result [facility] [address] [place] [address], [facility] [phone] from Last 3 Months or Most Recently Relevant to Health Maintenance Insurance [id number] [facility] [id number] [facility] Care Teams Lay Out And Detail Drafter Relationship Specialty Start Date End Date Alondra Mathew MD [address] [address] PCP - General 01/12/23
--- OUTSIDE RECORDS SUMMARY | 2024-11-26 01:39 | XMS_ITS | Patient Health Record ---
Author Organization [facility] Address [address] [facility] [address] [place], [place] [address] Care Team Providers Care Coating Manager Name Role Phone Josy Acuña Primary Care [...] Problem Status W/U Status Risk Notes Problem [id number] Anxiety and depression (F41.8) Active confirmed Problem Type II diabetes mellitus without complication (522149216) Controlled diabetes mellitus (E11.9) Active confirmed Problem 60846462 Other hyperlipidemia (E78.4) Active confirmed Problem 634335910 Pulmonary nodules (R91.8) Active confirmed tiny indeterminate lung nodules seen on CT done at [facility], no specific followup needed since she is at low risk for primary lung cancer Problem 947250666 Morbid (severe) obesity due to excess calories (E66.01) Active confirmed Problem 26050231 Gallbladder sludge (K82.8) Active confirmed Problem 92892664 Other secondary hypertension (I15.8) Active confirmed Problem 707724624 Chronic migraine without aura without status migrainosus, not intractable (G43.709) Active confirmed Problem 72937526 Hyperlipidemia, unspecified hyperlipidemia type (E78.5) Active confirmed Problem 22805959 Type 2 diabetes mellitus with diabetic polyneuropathy, without long-term current use of insulin (E11.42) Active confirmed Problem 587277704 History of leukemia (Z85.6) Active confirmed Problem 276040537 Ulcer of foot, chronic, right, with unspecified severity (L97.519) Active confirmed Plan Of Treatment No Information Insurance Providers Payer Name Payer Address Payer Phone Subscriber Number Group Number Insured Name Patient Relationship to Insured Coverage Start Date Coverage End Date [facility] [address] [place] [phone] [id number] Elvira Burden Self - patient is the [...]
== END 2024-11-26 02:12 | disposition home or self-care (01) ==
PROVIDERS: Emergency Provider Family Medicine; PCP Internal Medicine
DX: I82.501 Chronic embolism and thrombosis of unspecified deep veins of right lower extremity (principal); R60.9 Edema, unspecified
CPT/HCPCS: 93971; 99283; 99284

== ENCOUNTER 2024-11-27 13:47 | Outpatient (CLI) | payer MEDICAID, SELFPAY ==
[2024-11-27 15:05] LABS: Basophils Percent Auto 0.2 % (0.0-3.0); Eosinophils Percent Auto 1.5 % (0.0-7.0); Hematocrit 39.1 % (33.0-51.0); Hemoglobin* 12.5 gm/dL (12.0-16.0); Immature Granulocytes Pct Auto 1.2 %; Lymphocytes Percent Auto 13.2 % (20-44); Mean Corpuscular HGB Conc 32 gm/dL (32-36); Mean Corpuscular Hemoglobin 29 pg (26-34); Mean Corpuscular Volume 90 fL (80-100); Monocytes Percent Auto 8.4 % (0.0-11.0); Neutrophils Percent Auto 75.5 % (42.0-72.0); Platelet Count* 192 K/uL (140-440); RDW Coefficient of Variation % 14.4 % (11.5-15.5); Red Blood Count 4.36 m/uL (4.00-5.20); White Blood Count* 12.96 K/uL (4.50-11.00)
[2024-11-27 15:12] LABS: Slide Review Reflex No
[2024-11-27 16:56] LABS: Uric Acid* 6.5 mg/dL (2.2-8.4)
[2024-11-27 17:15] LABS: C Reactive Protein* 22.7 mg/dL (0.5-1.0)
[2024-11-27 19:35] LABS: Erythrocyte SedimentationRate* 69 mm/hr (2-20)
== END 2024-11-27 13:48 | disposition home or self-care (01) ==
LOC: WOUND 13:47
PROVIDERS: PCP Internal Medicine; Visit Provider Nurse Practitioner Family
DX: E11.621 Type 2 diabetes mellitus with foot ulcer (principal); E11.40 Type 2 diabetes mellitus with diabetic neuropathy, unspecified; L97.512 Non-pressure chronic ulcer of other part of right foot with fat layer exposed; L97.522 Non-pressure chronic ulcer of other part of left foot with fat layer exposed; A52.16 Charcot's arthropathy (tabetic); I89.0 Lymphedema, not elsewhere classified; Z89.411 Acquired absence of right great toe; Z86.718 Personal history of other venous thrombosis and embolism; Z79.01 Long term (current) use of anticoagulants; C92.01 Acute myeloblastic leukemia, in remission; Z94.81 Bone marrow transplant status; Z79.4 Long term (current) use of insulin; Z79.84 Long term (current) use of oral hypoglycemic drugs
CPT/HCPCS: 36415; 73630; 84550; 85025; 85651; 86140; G0463

== ENCOUNTER 2024-11-28 12:38 | Outpatient (CLI) | payer MEDICAID, SELFPAY | END 2024-11-28 12:39 | disposition home or self-care (01) | LOC: WOUND 12:38 | PROVIDERS: PCP Internal Medicine; Visit Provider Surgery | DX: E11.621 Type 2 diabetes mellitus with foot ulcer (principal); E11.40 Type 2 diabetes mellitus with diabetic neuropathy, unspecified; I89.0 Lymphedema, not elsewhere classified; L97.512 Non-pressure chronic ulcer of other part of right foot with fat layer exposed; Z89.411 Acquired absence of right great toe; Z79.4 Long term (current) use of insulin; I50.20 Unspecified systolic (congestive) heart failure; Z79.01 Long term (current) use of anticoagulants; C92.01 Acute myeloblastic leukemia, in remission; Z94.81 Bone marrow transplant status; Z86.718 Personal history of other venous thrombosis and embolism | CPT/HCPCS: 80053; 80061; 82043; 82570; 87070; 87186; 97597; G0463 ==

== ENCOUNTER 2024-11-28 13:55 | Inpatient (IN) | payer MEDICAID, SELFPAY ==
[2024-11-28] VITALS (8 sets, daily range): BP systolic 101–121; BP diastolic 62–80; PULSE 84–92; RESP 16–18; TEMP 36.8–38.2; O2SAT 93–98; BMI 40.8
--- NOTE | 2024-11-28 14:31 | PM.IMHP1 ---
Assessment and Plan Assessment and plan (1) Diabetic ulcer of right foot associated with diabetes mellitus due to underlying condition, with muscle involvement without evidence of necrosis: Problem comment: -Podiatry to see this evening. NPO - getting fluid bolus. Reviewed labs, ECG - can go to the OR -blood and wound cultures obtained -starting ertapenem 1 gram q 24 -extent of infection (bone) to be determined at time of surgery. Status: Acute (2) Type 2 diabetes mellitus: Problem comment: Dxed 2014, on Metformin, Empagliflozin, Semaglutide -will cover with SSI while inhouse. Status: Acute (3) Diabetic neuropathy: Problem comment: On Lyrica since around 2018 for painful diabetic neuropathy, [facility] neurologist (Dr. Justin Reed) increased amitriptyline 12/13 Status: Acute (4) Morbid obesity with body mass index (BMI) of 40.0 to 44.9 in adult: Status: Acute (5) Nicotine dependence: Problem comment: Status: Acute (6) Chronic deep vein thrombosis (DVT): Status: Acute (7) Obstructive sleep apnea: Problem comment: Mild LARRY dxed by PSG here 09/24/24 (AHI 6.2), during REM sleep it is severe LARRY with oxygen desaturations (AHI 61.6) Status: Acute (8) History of deep venous thrombosis: Problem comment: Right lower leg, 12/2013. Unprovoked per [facility] record. LLE DVT with bilateral PE 08/14, now on life-long apixaban/Eliquis Status: Acute (9) History of pulmonary embolism: Problem comment: extensive bilateral PE 08/14, now on life-long apixaban/Eliquis Status: Acute (10) Essential hypertension: Problem comment: On losartan since around 2017 Status: Acute Hospitalist- H&P: HPI History of Present Illness Date Seen: 11/28/24 Chief complaint: diabetic foot ulcer Narrative: ADMISSION HISTORY AND PHYSICAL - HOSPITALIST Chief Complaint: worsening right foot diabetic ulcer HPI: 39 y/o with long standing type 2 DM, recurrent diabetic foot ulcers (s/p right toe amputation in 2023) presents with acute worsening of the right foot ulcer she has been managing with the wound clinic. In fact today she was seeing Dr. Keane who noted increasing swelling across the dorsum of the right foot, worsening erythema and tense fluctuant soft tissue across the 1st MTP joint. Dr. Keane debrided this area in wound care but felt she needed further exploration and IV antibiotics. Elvira had been in the ED the day before and started on Augmentin. She had a slight leukocytosis and an elevated CRP @ 22.7. Today her WBC count has improved but her CRP is increasing to 23.9. She is a direct admit from the wound care clinic with a temp of 99 this morning and worsening swelling. CODE STATUS: FULL CODE EMERGENCY CONTACT PLAN: I've updated the PFSH, medications and allergies in the Expanse tabs. INVESTIGATIONS: LABS/MICRO/ECG/IMAGING White count is 8.54 which is down from 12.96 yesterday. Normal hemoglobin, normal platelets. Her electrolytes are reassuring. Her initial glucose this morning was 240. Her A1c is 9.6 Lactate is normal Uric acid on the 8th was normal LFTs are normal Negative hCG CRP as described above 22.7 up to 23.9 2 blood cultures are pending RIGHT FOOT (11/27/24) 1. Status post amputation of the phalanges of the great toe. 2. Chronic arthrosis and deformity of the 2nd and 3rd MTP joints, unchanged. 3. No acute bone destruction or tracking soft tissue gas. Soft tissue swelling is present dorsally. RIGHT LOWER EXTREMITY DOPPLER (11/25/24) Soft tissue edema and findings of chronic thrombus again noted, no acute DVT visualized. REVIEW OF SYSTEMS: 12-point ROS completed with patient and negative unless otherwise stated in HPI or below. PHYSICAL EXAM: CONSTITUTIONAL: Conversive, good historian. A/O. Knows setting and context. GENERAL: Well-developed and above ideal body weight, in no respiratory distress. VITAL SIGNS: see record. HEENT: Sclerae are anicteric. No petechiae. CARDIAC: rhythm is regular. There is no S3 or rub. No harsh murmurs. Extremities show trace edema with symmetrical pulses. PULM: good air entry with no wheeze. NEURO: Speech is fluent. A brief neurologic exam is negative. Right Foot: 1st MTP joint (previously phalanges amputated) - three discrete areas of skin breakdown; tense, beefy/oozing. No necrotic material present SKIN: No rashes, petechiae, concerning changes PSYCHIATRIC: Euthymic. admission photos (s/p debridement by wound care clinic this morning) day prior to admission 11/27/24 ADMIT TO [facility]: FLOOR CARE DVT: continue eliquis GI: PO intake Time spent: Today I spent 75 minutes seeing the patient, discussing the patient with ER staff, reviewing Expanse and EPIC notes/diagnostics, discussing the care plan with our care time that includes social work, PT/OT, pharmacy, RT, longterm and documenting my impressions and plan in the medical record. MEDICAL NECESSITY FOR HOSPITALIZATION Anticipated midnights in the hospital: 2+ Admitting diagnosis: complicated cellulitis with likely surgical debridement and concern for osteomyelitis. Risk of morbidity and mortality: moderate Acuity is characterized as high and reflected in: severe disease, obesity, smoking, poor controlled diabetes. This patient will require hospital services as outlined in the assessment and plan in order to stabilize and be safely discharged to a lower level of care. Because of the risk and acuity as described above, this patient cannot be managed at a lower level of care. LENGTH OF STAY: 2 IP ? Anticipated LOS>2 midnights due to acuity of clinical presentation requiring inpatient level of care [facility] Medical History (Updated 11/28/24 @ 16:53 by Helena Rodrigues MD) COVID-19 vaccination declined ?Z28.21 - Immunization not carried out because of patient refusal (ICD-10) Influenza vaccination declined ?Z28.21 - Immunization not carried out because of patient refusal (ICD-10) History of eating disorder ?Z86.59 - Personal history of other mental and behavioral disorders (ICD-10) History of deep venous thrombosis (2013) ?Z86.718 - Personal history of other venous thrombosis and embolism (ICD-10) Surgical History (Updated 08/24/24 @ 00:00 by Teja Gonzales) History of amputation of right great toe (10/02/21) ?Z89.411 - Acquired absence of right great toe (ICD-10) History of tonsillectomy and adenoidectomy (1993) ?Z90.89 - Acquired absence of other organs (ICD-10) History of lumbosacral spine surgery (2019) ?Z98.890 - Other specified postprocedural states (ICD-10) History of bone marrow transplant (1996) ?Z94.81 - Bone marrow transplant status (ICD-10) Family History Paternal Grandfather Diabetes Paternal Grandmother Diabetes Father Pancreatic cancer Social History What is your current living situation?: I presently have a place to live Problems where you live: no known problems Problems where you live details: none In the past 12 months, utilities in danger of being shut off: no In past 12 months, lack of transportation kept you from medical appts, meetings, work, or getting things needed for daily living: no In the past 12 mos, have been you worried that your food would run out before you had money to buy more?: never true In the past 12 mos, the food you bought just didn't last and you didn't have money to buy more?: never true Highest level of school completed/degree received: Associate degree: occupational, technical, vocational program Smoking Status: Current every day smoker Do you use any of these nicotine containing products: Vaping Products Second hand tobacco smoke exposure: No How often do you have a drink containing alcohol: never How many standard drinks containing alcohol do you have on a typical day: 1 or 2 AUDIT-C Alcohol total score: 0 Non-prescribed substance use: denies use Caffeine: Yes (2-3 of soda) How often does anyone, including family, friends and others, physically hurt you: never How often does anyone, including family, friends and others, insult or talk down to you: never How often does anyone, including family, friends and others, threaten you with harm: never How often does anyone, including family, friends and others, scream or curse at you: never service: No Meds Home Medications and Allergies Home Medications ?Medication ?Instructions ?Recorded ?Confirmed ?Type aspirin 81 mg capsule 81 mg PO DAILY 08/26/22 11/28/24 History multivitamin 1 tab PO QAM 12/16/22 11/28/24 History ubrogepant 100 mg tablet (Ubrelvy) 100 mg PO Q2H PRN 05/07/24 11/28/24 History ondansetron HCl 4 mg tablet 8 mg PO Q8H PRN nausea with 08/16/24 11/28/24 History migraines propranolol 10 mg tablet 20 mg PO BID 08/17/24 11/28/24 History pregabalin 200 mg capsule 200 mg PO BID 11/12/24 11/28/24 History amoxicillin 500 mg-potassium 1 tab PO BID 11/28/24 11/28/24 History clavulanate 125 mg tablet (Augmentin) Allergies Allergy/AdvReac Type Severity Reaction Status Date / Time sulfamethoxazole (From Allergy Mild Unknown Verified 11/28/24 14:01 Sulfamethoxazole-Trimethoprim) trimethoprim (From Allergy Mild Unknown Verified 11/28/24 14:01 Sulfamethoxazole-Trimethoprim) azithromycin Allergy Unknown Verified 11/28/24 14:01 fluconazole Allergy Unknown Verified 11/28/24 14:01 vancomycin Allergy Unknown Verified 11/28/24 14:01 Exam Const: Vital Signs, click to edit/add: Vital Signs - 24 hr 11/28/24 14:13 Temperature 99.3 F Pulse Rate [Pulse Oximeter] 92 Respiratory Rate 16 Blood Pressure [Ri ght Arm] 121/73 Pulse Oximetry 98 Oxygen Delivery Me thod Room Air
[2024-11-28 15:07] LABS: Lactate* 1.2 mmol/L (0.5-1.9)
[2024-11-28 15:38] LABS: Basophils Absolute Auto 0.02 K/uL (0.00-0.30); Basophils Percent Auto 0.2 % (0.0-3.0); Eosinophils Absolute Auto 0.15 K/uL (0.00-0.50); Eosinophils Percent Auto 1.8 % (0.0-7.0); Hematocrit 37.2 % (33.0-51.0); Immature Granulocytes Pct Auto 1.2 %; Mean Corpuscular HGB Conc 32 gm/dL (32-36); Mean Corpuscular Hemoglobin 29 pg (26-34); Mean Corpuscular Volume 89 fL (80-100); Monocytes Percent Auto 7.5 % (0.0-11.0); Neutrophils Percent Auto 76.3 % (42.0-72.0); Platelet Count* 178 K/uL (140-440); RDW Coefficient of Variation % 14.5 % (11.5-15.5); White Blood Count* 8.54 K/uL (4.50-11.00)
[2024-11-28 15:50] LABS: Slide Review Reflex No
[2024-11-28 15:58] LABS: C Reactive Protein* 23.9 mg/dL (0.5-1.0)
[2024-11-28] MEDS: clonazePAM 0.5 MG TABLET 1 MG PO (16:18)
[2024-11-28 16:28] LABS: HCG Qualitative Serum* Negative (Negative)
[2024-11-28] MEDS: ERTAPENEM 1 GM in 0.9 % SODIUM CHLORIDE Mini-bag 100 ML IVPB (16:30)
[2024-11-28] MEDS: LACTATED RINGERS 1000 ML 1,000 ML 500 ML IV (16:31)
--- NOTE | 2024-11-28 17:22 | P.PODCN_ITS ---
HPI - Podiatry Data of Consult Time Seen by Provider: 17:00 Date Seen: 11/28/24 Consult date: 11/28/24 Requesting physician: Helena Rodrigues MD Primary care provider: Alondra Mathew MD Consult Narrative Reason for consult: right diabetic foot infection Narrative: Elvira Burden is a 39 year old female well known to me admitted for right diabetic foot infection by the wound care center. She is seen bedside today. An apparent abscess had formed over the amputation site and ulceration. This worsened over last few days and necessitated admission. From H and P today: 39 y/o with long standing type 2 DM, recurrent diabetic foot ulcers (s/p right toe amputation in 2023) presents with acute worsening of the right foot ulcer she has been managing with the wound clinic. In fact today she was seeing Dr. Keane who noted increasing swelling across the dorsum of the right foot, worsening erythema and tense fluctuant soft tissue across the 1st MTP joint. Dr. Keane debrided this area in wound care but felt she needed further exploration and IV antibiotics. Elvira had been in the ED the day before and started on Augmentin. She had a slight leukocytosis and an elevated CRP @ 22.7. Today her WBC count has improved but her CRP is increasing to 23.9. She is a direct admit from the wound care clinic with a temp of 99 this morning and worsening swelling. cc:: CC: Víctor Delaney MD Review of Systems Status of ROS: Reports: 10 or more systems reviewed and unremarkable except as noted in History and below [facility] Medical History (Updated 11/28/24 @ 16:53 by Helena Rodrigues MD) COVID-19 vaccination declined ?Z28.21 - Immunization not carried out because of patient refusal (ICD-10) Influenza vaccination declined ?Z28.21 - Immunization not carried out because of patient refusal (ICD-10) History of eating disorder ?Z86.59 - Personal history of other mental and behavioral disorders (ICD-10) History of deep venous thrombosis (2013) ?Z86.718 - Personal history of other venous thrombosis and embolism (ICD-10) Surgical History (Updated 08/24/24 @ 00:00 by [facility]) History of amputation of right great toe (10/02/21) ?Z89.411 - Acquired absence of right great toe (ICD-10) History of tonsillectomy and adenoidectomy (1993) ?Z90.89 - Acquired absence of other organs (ICD-10) History of lumbosacral spine surgery (2019) ?Z98.890 - Other specified postprocedural states (ICD-10) History of bone marrow transplant (1996) ?Z94.81 - Bone marrow transplant status (ICD-10) Family History Paternal Grandfather Diabetes Paternal Grandmother Diabetes Father Pancreatic cancer Social History What is your current living situation?: I presently have a place to live Problems where you live: no known problems Problems where you live details: none In the past 12 months, utilities in danger of being shut off: no In past 12 months, lack of transportation kept you from medical appts, meetings, work, or getting things needed for daily living: no In the past 12 mos, have been you worried that your food would run out before you had money to buy more?: never true In the past 12 mos, the food you bought just didn't last and you didn't have money to buy more?: never true Highest level of school completed/degree received: Associate degree: occupational, technical, vocational program Smoking Status: Current every day smoker Do you use any of these nicotine containing products: Vaping Products Second hand tobacco smoke exposure: No How often do you have a drink containing alcohol: never How many standard drinks containing alcohol do you have on a typical day: 1 or 2 AUDIT-C Alcohol total score: 0 Non-prescribed substance use: denies use Caffeine: Yes (2-3 of soda) How often does anyone, including family, friends and others, physically hurt you : never How often does anyone, including family, friends and others, insult or talk down to you: never How often does anyone, including family, friends and others, threaten you with harm: never How often does anyone, including family, friends and others, scream or curse at you: never service: No Exam Narrative: Exam Narrative: General: No distress Vascular: Palpable pedal pulses bilateral. Neuro: Diminished sensation to light touch bilateral. Musculoskeletal: Abscess right great toe. Left great toe partial amputation. Muscle strength 5/5 all quadrants. Derm: 2 open wounds to the medial distal and medial dorsal 1st metatarsal head right foot. Purulent drainage from both. There is severe necrotic tissue primarily to the dorsal medial wound. There is follow odor from the wound. The 2 wounds do communicate when probed. Wound does probe close to the 1st metatarsal head but there is a soft endpoint. No proximal extension along the plantar arch. Erythema is primarily to the medial and dorsal foot. X-ray: No evidence of osteomyelitis. There is severe Charcot changes of the 2nd 3rd metatarsophalangeal joints. No evidence for gas in the soft tissues. Wound clinic culture: Strep agalactiae, MSSA WBC 12.96 yesterday down to 8.54 today ESR 69 CRP 23.9 Hemoglobin A1c 9.6 Assessment: Right diabetic foot infection, right Charcot foot, possible underlying osteomyelitis Plan: She has a severe limb-threatening right foot infection. She is in need of surgical debridement. Ideally we get an MRI prior to surgery but unfortunately the MRI is not available until morning. I do not feel that her foot can weight and that we will lose healthy tissue to further infection if we do. I recommend that we proceed with surgery to debride the area as fully as necessary. She is on Eliquis and will have to deal with some excess bleeding but again cannot wait at this time. She is in agreement with proceeding with surgery. Reviewed the procedure, recovery, expectation potential complications. She understands that this will be staged procedure she will need of further surgical intervention. Anticipate probable partial 1st metatarsal resection at a later date. Written consent was obtained all questions were answered. We will proceed with I and D of the right foot under MAC anesthetic this evening. Const: Vital Signs, click to edit/add: Vital Signs - 24 hr 11/28/24 14:13 Temperature 99.3 F Pulse Rate [Pulse Oximeter] 92 Respiratory Rate 16 Blood Pressure [Ri ght Arm] 121/73 Pulse Oximetry 98 Oxygen Delivery Me thod Room Air Nail Debridement Qualifies If: Qualifiers If:: A patient qualifies for nail debridement if they have: 1 class A finding (Q7) 2 class B findings (Q8) OR 1 class B & 2 class C findings in addition to a primary condition (Q9)
[2024-11-28] MEDS: BUPIVACAINE 0.25% 30 ML INJECTION (18:20)
--- NOTE | 2024-11-28 19:00 | W.PODPROC_ITS ---
Date of Procedure: 11/28/24 Surgeon: Fernando Ramos DPM Pre-op Diagnosis: 1. Right diabetic foot infection with abscess Post-op Diagnosis: 1. Right diabetic foot infection with abscess Type of Procedure: I and D right foot Indications: Severe right foot diabetic infection necessitating surgical debridement to control the infection. I reviewed the procedure, recovery, expectation potential complications with Elvira. These include but not limited to: Poor wound healing, need for additional surgery, continued infection, possible amputation. She understands risks written consent obtained. Site marked. Procedure Description: Patient brought the operating room placed supine position on operating table. IV sedation was initiated local anesthetic injected in the right foot. She was prepped and draped in sterile fashion. Standard time-out protocol followed. The right foot was exsanguinated the tourniquet inflated to 250 mm Hg. Linear incision was made between the 2 large open wounds. There is abscess in between the 2 wounds. The purulent or drainage noted and followed. The abscess pocket was identified and debrided with a Versajet back to healthy bleeding margins. All necrotic tissue was removed using the Versajet. The abscess did not extend proximal along fascial planes. First metatarsal head was mostly covered with a small pinpoint open area. No purulence from this area. Wound was thoroughly irrigated normal sterile saline. Tourniquet was released and all bleeding vessels were cauterized. Tissue over the bone and the head excellent viability and bleeding. Sterile wet-to-dry dressing was used to pack the wound open. Sterile dressing applied. Was transferred from [place] to [facility] with vital signs stable. Anesthesia: MAC Hemostasis: ankle Estimated blood loss (mL): 5 Specimens: other (Wound culture sent for aerobic and anaerobic sensitivities.) Disposition: floor
--- NOTE | 2024-11-28 19:09 | P.ANES_ITS ---
Anesthesia Charges Start Date/Time Anesthesia Start Date: 11/28/24 Anesthesia Start Time: 18:11 Stop Date/Time Anesthesia Stop Date: 11/28/24 Anesthesia Stop Time: 19:05 Summary Emergency: SENIOR INVESTMENT ANALYST Coding CPT Codes CPT Codes: ANESTH LOWER LEG SURGERY - 39860 ([id number]) P3 - PATIENT W/SEVERE SYS DISEASE, QZ - SENIOR INVESTMENT ANALYST SVC W/O CLINICAL DIRECTOR BY Additional Codes: Summary - Emergency: SENIOR INVESTMENT ANALYST ([id number])
--- NOTE | 2024-11-28 19:09 | W.ANESCHARGE ---
Anesthesia Charges Start Date/Time Anesthesia Start Date: 11/28/24 Anesthesia Start Time: 18:11 Stop Date/Time Anesthesia Stop Date: 11/28/24 Anesthesia Stop Time: 19:05 Summary Emergency: DOCUMENT IMAGING MANAGER Coding CPT Codes CPT Codes: ANESTH LOWER LEG SURGERY - 74664 ([id number]) P3 - PATIENT W/SEVERE SYS DISEASE, QZ - DOCUMENT IMAGING MANAGER SVC W/O TRAVEL COTA BY Additional Codes: Summary - Emergency: DOCUMENT IMAGING MANAGER ([id number])
[2024-11-28] MEDS: ACETAMINOPHEN 325 MG TABLET 650 MG PO (20:22)
[2024-11-28] MEDS: PROPRANOLOL 20 MG TABLET PO (20:23)
[2024-11-28] MEDS: METFORMIN 500 MG TABLET PO (20:23)
[2024-11-28] MEDS: AMITRIPTYLINE 25 MG TABLET 50 MG PO (20:24)
[2024-11-28] MEDS: PREGABALIN 100 MG CAPSULE 200 MG PO (20:30)
[2024-11-28] MEDS: SODIUM CHLORIDE 0.9 % (FLUSH) 10 ML SYRINGE 5 ML IVF (20:31)
[2024-11-28] MEDS: OXYCODONE 5 MG TABLET PO (22:19)
[2024-11-28] MEDS: ENOXAPARIN 40 MG/0.4 ML INJ SUBCUT (22:24)
--- NOTE | 2024-11-28 22:42 | PC.NURSE ---
Pt pleasant to care for. VSS. Afebrile. Pain in right foot and leg is controlled with PRN medications. Independent in room. Tolerating heel touch weight bearing. Surgical dressing remains clean, dry, intact.
[2024-11-29 03:00] VITALS: BP 121/78; PULSE 80; RESP 16; TEMP 36.7; O2SAT 92
--- NOTE | 2024-11-29 06:56 | W.PM.PODPN ---
Podiatry-PN: Subj Subjective Time Seen by Provider: 06:45 Date Seen: 11/29/24 Interval history: Patient seen bedside this a.m. following I and D last evening. She is doing well without complaints. She states the pain that she was feeling previously is gone. Exam Narrative: Exam Narrative: General: No distress Vascular: Palpable pedal pulses Neuro: Diminished sensation to light touch. Musculoskeletal: Absent right great toe. Muscle strength normal. Derm: Large open wound to the medial 1st metatarsal head with no new areas of necrosis. No purulence. Erythema is decreased. Edema is decreased. Assessment: S/P I and D right foot POD#1, diabetic foot infection right Plan:VASHE moistened wet-to-dry dressing applied to the right wound. Nursing to do PM with a dry change. MRI today. Plan for return to OR for partial 1st metatarsal resection and primary closure on Tuesday. Const: Vital Signs, click to edit/add: Vital Signs - 24 hr 11/28/24 14:13 11/28/24 15:00 11/28/24 19:00 Temperature 99.3 F 100.8 F H 98.2 F Pulse Rate Pulse Rate [Pulse Oximeter] 92 92 92 Respiratory Rate 16 18 18 Blood Pressure Blood Pressure [Ri ght Arm] 121/73 116/77 116/80 Pulse Oximetry 98 96 93 Oxygen Delivery Me thod Room Air Room Air Room Air 11/28/24 19:00 11/28/24 19:15 11/28/24 19:15 Temperature 98.2 F Pulse Rate 92 86 Pulse Rate [Pulse Oximeter] Respiratory Rate 18 18 Blood Pressure 116/80 112/66 Blood Pressure [Ri ght Arm] 112/66 Pulse Oximetry 93 94 Oxygen Delivery Ca thod Room Air Room Air 11/28/24 19:30 11/28/24 19:30 11/28/24 19:45 Temperature 98.5 F 98.5 F Pulse Rate 86 Pulse Rate [Pulse Oximeter] 86 85 Respiratory Rate 18 18 18 Blood Pressure 101/64 Blood Pressure [Ri ght Arm] 101/64 102/69 Pulse Oximetry 93 93 98 Oxygen Delivery Ca thod Room Air Room Air Room Air 11/28/24 19:45 11/28/24 20:00 11/28/24 20:00 Temperature Pulse Rate 85 84 Pulse Rate [Pulse Oximeter] Respiratory Rate 18 18 Blood Pressure 102/69 106/62 Blood Pressure [Ri ght Arm] 106/62 Pulse Oximetry 98 98 Oxygen Delivery Me thod Room Air Room Air 11/28/24 23:00 11/29/24 03:00 Temperature 98.0 F Pulse Rate Pulse Rate [Pulse Oximeter] 80 Respiratory Rate 18 16 Blood Pressure Blood Pressure [Ri ght Arm] 121/78 Pulse Oximetry 92 Oxygen Delivery Me thod Room Air Documenting provider has reviewed patient's vital signs: yes Podiatry-PN: Obj Labs Labs: Laboratory Results - last 24 hr 11/28/24 11/28/24 11/28/24 14:50 14:50 14:50 WBC 8.54 RBC 4.20 Hgb 12.0 Hct 37.2 MCV 89 MCH 29 MCHC 32 RDW Coeff of Madai 14.5 Plt Count 178 Neut % (Auto) 76.3 H Lymph % (Auto) 13.0 L [place] % (Auto) 7.5 Eos % (Auto) 1.8 Baso % (Auto) 0.2 Neut # (Auto) 6.50 Lymph # (Auto) 1.10 [place] # (Auto) 0.60 Eos # (Auto) 0.15 Baso # (Auto) 0.02 Abs Immat Gran (auto) 0.10 Imm/Tot Granulo (auto) 1.2 Lactate 1.2 C-Reactive Protein 23.9 H HCG, Qual Negative Lab Acknowledgement Test Added Test Added Test Added
[2024-11-29 07:00] VITALS: BP 139/84; PULSE 80; RESP 20; TEMP 36.7; O2SAT 94
--- NOTE | 2024-11-29 07:22 | PC.NURSE ---
[id number]: Pt alert, oriented and vitally stable. Afebrile. Pt up independently, heel touch weight bear, tolerates well. Pt in bed, appears to be resting, call light within reach. ?
[2024-11-29] MEDS: METFORMIN 500 MG TABLET PO ×2 (09:26→17:43)
[2024-11-29] MEDS: buPROPion XL 150 MG TABLET 300 MG PO (09:26)
[2024-11-29] MEDS: ACETAMINOPHEN 325 MG TABLET 650 MG PO ×2 (09:27→16:19)
[2024-11-29] MEDS: EMPAGLIFLOZIN 25 MG TABLET PO (09:28)
[2024-11-29] MEDS: PREGABALIN 100 MG CAPSULE 200 MG PO ×2 (09:28→20:22)
[2024-11-29] MEDS: PROPRANOLOL 20 MG TABLET PO ×2 (09:28→20:22)
[2024-11-29] MEDS: LOSARTAN POTASSIUM 50 MG TABLET 25 MG PO (09:28)
[2024-11-29] MEDS: buPROPion XL 150 MG TABLET PO (09:32)
[2024-11-29] MEDS: SODIUM CHLORIDE 0.9 % (FLUSH) 10 ML SYRINGE 5 ML IVF ×2 (09:32→20:24)
[2024-11-29] MEDS: ESCITALOPRAM 10 MG TABLET 40 MG PO (09:37)
--- NOTE | 2024-11-29 10:07 | P.IMPN_ITS ---
Assessment and Plan Assessment and plan (1) Diabetic ulcer of right foot associated with diabetes mellitus due to underlying condition, with muscle involvement without evidence of necrosis: Problem comment: - Podiatry to see this evening. NPO - getting fluid bolus. Reviewed labs, ECG - can go to the OR - blood and wound cultures pending - on ertapenem 1 gram daily (11/28) - extent of infection (bone) to be determined at time of surgery Status: Acute (2) Type 2 diabetes mellitus: Problem comment: - Dxed 2014, on Metformin, Empagliflozin, Semaglutide, A1C 9.6 on 11/28/24 - will cover with SSI while inhouse. Status: Acute (3) Diabetic neuropathy: Problem comment: - on Lyrica since around 2018 for painful diabetic neuropathy, [facility] neurologist (Dr. Justin Reed) increased amitriptyline 12/13 Status: Acute (4) Obstructive sleep apnea: Problem comment: - Mild LARRY dxed by PSG here 09/24/24 (AHI 6.2), during REM sleep it is severe LARRY with oxygen desaturations (AHI 61.6) Status: Acute (5) History of deep venous thrombosis: Problem comment: - Right lower leg, 12/2013. Unprovoked per [facility] record - LLE DVT with bilateral PE 08/14, now on life-long apixaban/Eliquis - on treatment dose Lovenox given risk (will hold 11/30 pm for 12/01 surgery) Status: Acute (6) History of pulmonary embolism: Problem comment: - extensive bilateral PE 08/14, now on life-long apixaban/Eliquis Status: Acute (7) Essential hypertension: Problem comment: - losartan since around 2017, age appropriate control Status: Acute Plan - per above (IV abx, return to OR 12/01, BG management) - home with partner when medically stable Subjective Date Seen: 11/29/24 Interval history: Elvira was admitted to the hospital on 11/28/24 from the wound care clinic for an abscess and 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 Comorbidities include DM2 with neuropathy, LARRY, h/o recurrent DVT and PE, essential HTN. She had an I&D with Dr. Ramos of Podiatry last night, intraoperative cultures pending. Plans to return to OR for closure on 12/01/24. On Ertapenem, WBC down from 12.9 -->8.5 today. Tmax 100.8 / in the afternoon. This morning, no concerns for hospitalist team. Exam Narrative: Exam Narrative: GEN: Alert and oriented, nontoxic HEENT: EOMIs bilaterally, no scleral icterus CV: RRR, No concerning murmurs R: LCTA bilaterally without concerning wheezing Ext: RLE wound is covered, not formally examined (seen by Podiatry prior to my visit) Skin: No other concerning skin lesions or rashes on exposed skin Neuro: No focal deficits or resting tremor Psych: Appropriate Const: Vital Signs, click to edit/add: Vital Signs - 24 hr 11/28/24 14:13 11/28/24 15:00 11/28/24 19:00 Temperature 99.3 F 100.8 F H 98.2 F Pulse Rate Pulse Rate [Pulse Oximeter] 92 92 92 Respiratory Rate 16 18 18 Blood Pressure Blood Pressure [Ri ght Arm] 121/73 116/77 116/80 Pulse Oximetry 98 96 93 Oxygen Delivery Me thod Room Air Room Air Room Air 11/28/24 19:00 11/28/24 19:15 11/28/24 19:15 Temperature 98.2 F Pulse Rate 92 86 Pulse Rate [Pulse Oximeter] Respiratory Rate 18 18 Blood Pressure 116/80 112/66 Blood Pressure [Ri ght Arm] 112/66 Pulse Oximetry 93 94 [facility] 11/28/24 19:30 11/28/24 19:30 11/28/24 19:45 Temperature 98.5 F 98.5 F Pulse Rate 86 Pulse Rate [Pulse Oximeter] 86 85 Respiratory Rate 18 18 18 Blood Pressure 101/64 Blood Pressure [Ri ght Arm] 101/64 102/69 Pulse Oximetry 93 93 98 [facility] Room Air Room Air 11/28/24 19:45 11/28/24 20:00 11/28/24 20:00 Temperature Pulse Rate 85 84 Pulse Rate [Pulse Oximeter] Respiratory Rate 18 18 Blood Pressure 102/69 106/62 Blood Pressure [Ri ght Arm] 106/62 Pulse Oximetry 98 98 [facility] Room Air 11/28/24 23:00 11/29/24 03:00 11/29/24 07:00 Temperature 98.0 F 98.0 F Pulse Rate Pulse Rate [Pulse Oximeter] 80 80 Respiratory Rate 18 16 20 Blood Pressure Blood Pressure [Ri ght Arm] 121/78 139/84 Pulse Oximetry 92 94 Oxygen Delivery Me thod Room Air Room Air Labs Labs: Laboratory Results - last 24 hr 11/28/24 11/28/24 11/28/24 14:50 14:50 14:50 WBC 8.54 RBC 4.20 Hgb 12.0 Hct 37.2 MCV 89 MCH 29 MCHC 32 RDW Coeff of Madai 14.5 Plt Count 178 Neut % (Auto) 76.3 H Lymph % (Auto) 13.0 L [place] % (Auto) 7.5 Eos % (Auto) 1.8 Baso % (Auto) 0.2 Neut # (Auto) 6.50 Lymph # (Auto) 1.10 [place] # (Auto) 0.60 Eos # (Auto) 0.15 Baso # (Auto) 0.02 Abs Immat Gran (auto) 0.10 Imm/Tot Granulo (auto) 1.2 Lactate 1.2 C-Reactive Protein 23.9 H HCG, Qual Negative Lab Acknowledgement Test Added Test Added Test Added
[2024-11-29 10:58] VITALS: BMI 40.7
[2024-11-29 11:39] VITALS: BP 124/82; PULSE 82; RESP 16; TEMP 37.1; O2SAT 94
[2024-11-29] MEDS: INSULIN ASPART 100 UNIT/ML SUBCUT ×3 (12:15→20:23)
--- NOTE | 2024-11-29 13:22 | PC.NURSE ---
End Of Shift Note: Patient has been up and about in her room. Has received tylenol for pain. Also states that Dr. Ramos was in early this am before I got her and did change her dressing. Otherwise will continue to monitor until next shift arrives.
[2024-11-29 15:45] VITALS: BP 120/75; PULSE 82; RESP 16; TEMP 36.1; O2SAT 92
[2024-11-29] MEDS: OXYCODONE 5 MG TABLET PO ×2 (16:19→20:22)
[2024-11-29] MEDS: ERTAPENEM 1 GM in 0.9 % SODIUM CHLORIDE Mini-bag 100 ML IVPB (16:20)
--- NOTE | 2024-11-29 18:07 | PC.NURSE ---
end of shift. pt has been pleasant. she had right foot pain and asked for pain meds. she got po pain meds with relief SL is patent. IV antibiotics given. and flushed after. she is eating, drinking and voiding with no problems. BS was 169 and she got po and SQ meds.
[2024-11-29 19:00] VITALS: BP 121/74; PULSE 85; RESP 16; TEMP 36.9; O2SAT 94
[2024-11-29] MEDS: AMITRIPTYLINE 25 MG TABLET 50 MG PO (20:22)
[2024-11-29] MEDS: ENOXAPARIN 40 MG/0.4 ML INJ SUBCUT (20:23)
[2024-11-29] MEDS: ENOXAPARIN 100 MG/ML INJ SUBCUT (20:23)
[2024-11-29 22:40] VITALS: BP 115/68; PULSE 88; RESP 16; TEMP 37.7; O2SAT 95
[2024-11-30] VITALS (7 sets, daily range): BP systolic 114–144; BP diastolic 76–86; PULSE 68–88; RESP 16–20; TEMP 36.1–37.3; O2SAT 93–97
[2024-11-30] MEDS: ACETAMINOPHEN 325 MG TABLET 650 MG PO ×4 (03:02→22:41)
--- NOTE | 2024-11-30 04:36 | PC.NURSE ---
Shift note: Pt is pleasant and cooperate with treatment and care. Patient is independent in room. Alert and oriented. Pain level has been minimal, rated between 2 and 6. Dressing to right and left big toe changed at 2100. Blood sugar checked at were 171 and 193 at 2100 and 0200 respectively. Vitally stable. Patient had adequate sleep.
[2024-11-30 06:19] LABS: Basophils Absolute Auto 0.03 K/uL (0.00-0.30); Basophils Percent Auto 0.6 % (0.0-3.0); Eosinophils Absolute Auto 0.25 K/uL (0.00-0.50); Eosinophils Percent Auto 4.7 % (0.0-7.0); Hematocrit 33.2 % (33.0-51.0); Hemoglobin* 10.6 gm/dL (12.0-16.0); Immature Granulocytes Abs Auto 0.09 K/uL (0.00-0.30); Immature Granulocytes Pct Auto 1.7 %; Lymphocytes Absolute Auto 2.21 K/uL (0.90-2.90); Lymphocytes Percent Auto 41.5 % (20-44); Mean Corpuscular HGB Conc 32 gm/dL (32-36); Mean Corpuscular Hemoglobin 29 pg (26-34); Mean Corpuscular Volume 91 fL (80-100); Monocytes Percent Auto 8.6 % (0.0-11.0); Neutrophils Absolute Auto 2.29 K/uL (1.7-7.0); Neutrophils Percent Auto 42.9 % (42.0-72.0); Platelet Count* 164 K/uL (140-440); RDW Coefficient of Variation % 14.4 % (11.5-15.5); Red Blood Count 3.65 m/uL (4.00-5.20); White Blood Count* 5.33 K/uL (4.50-11.00)
[2024-11-30 06:34] LABS: Slide Review Reflex Yes
[2024-11-30 06:40] LABS: Chloride* 102 mmol/L (96-114); Potassium* 3.9 mmol/L (3.6-5.1); Sodium* 134 mmol/L (135-149)
[2024-11-30 06:44] LABS: Anion Gap 9 mEq/L (7-15); Blood Urea Nitrogen* 21 mg/dL (5-24); Calcium* 8.7 mg/dL (8.4-10.6); Carbon Dioxide* 23 mmol/L (20-32); Est. Creatinine Clearance* 90.79; Estimated Glomerular Filt Rate 74 ml/min; Glucose* 234 mg/dL (60-115)
[2024-11-30 07:01] LABS: C Reactive Protein* 13.3 mg/dL (0.5-1.0)
[2024-11-30 07:22] LABS: Slide Review Acceptable Review (Acceptable)
--- NOTE | 2024-11-30 07:35 | PM.IMPN1 ---
Assessment and Plan Assessment and plan (1) Diabetic ulcer of right foot associated with diabetes mellitus due to underlying condition, with muscle involvement without evidence of necrosis: Problem comment: - Podiatry following, s/p I&D 11/28/24 - blood cultures negative, intraoperative cultures growing GPC - on ertapenem 1 gram daily (11/28) Status: Acute (2) Type 2 diabetes mellitus: Problem comment: - Dxed 2014, on Metformin, Empagliflozin, Semaglutide, A1C 9.6 on 11/28/24 - covering with SSI Status: Acute (3) Diabetic neuropathy: Problem comment: - on Lyrica since around 2018 for painful diabetic neuropathy, [facility] neurologist (Dr. Justin Reed) increased amitriptyline 12/13 Status: Acute (4) Obstructive sleep apnea: Problem comment: - Mild LARRY dxed by PSG here 09/24/24 (AHI 6.2), during REM sleep it is severe LARRY with oxygen desaturations (AHI 61.6) Status: Acute (5) History of deep venous thrombosis: Problem comment: - Right lower leg, 12/2013. Unprovoked per [facility] record, LLE DVT with bilateral PE 08/14, now on life-long apixaban/Eliquis - on treatment dose Lovenox given risk (will hold 11/30 pm for 12/01 surgery) Status: Acute (6) History of pulmonary embolism: Problem comment: - extensive bilateral PE 08/14, now on life-long apixaban/Eliquis Status: Acute (7) Essential hypertension: Problem comment: - losartan since around 2017 Status: Acute Plan - per above (IV abx, await culture, Podiatry f/u) Subjective Date Seen: 11/30/24 Interval history: Elvira was admitted to the hospital on 11/28/24 from the wound care clinic for an abscess and 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 Comorbidities include DM2 with neuropathy, LARRY, h/o recurrent DVT and PE, essential HTN. She had an I&D with Dr. Ramos of Podiatry 11/28, intraoperative cultures growing GPC. On Ertapenem (11/28), Tm 99.9 over past 24 hours (was 100.8 on admission). Plans to return to OR for closure on 12/01/24. This morning, Elvira has no concerns for hospitalist team. She is on treatment dose Lovenox given h/o recurrent DVT/PE, will hold this evening's dose. Exam Narrative: Exam Narrative: GEN: Alert and oriented, sitting comfortably in bedside chair and having breakfast HEENT: Normal external ears, EOMIs bilaterally, no scleral icterus CV: RRR, No concerning murmurs R: LCTA bilaterally without concerning wheezing Ext: RLE wrapped and not formally examined, no concerning edema Skin: No concerning skin lesions or rashes on exposed skin Neuro: Nonfocal Psych: Appropriate Const: Vital Signs, click to edit/add: Vital Signs - 24 hr 11/29/24 11:39 11/29/24 15:45 11/29/24 15:45 Temperature 98.7 F 97.0 F L Pulse Rate [Pulse Oximeter] 82 82 82 Respiratory Rate 16 16 16 Blood Pressure [Ri ght Arm] 124/82 120/75 Pulse Oximetry 94 92 Oxygen Delivery Me thod Room Air Room Air 11/29/24 19:00 11/29/24 22:40 11/29/24 22:40 Temperature 98.5 F 99.9 F H Pulse Rate [Pulse Oximeter] 85 88 88 Respiratory Rate 16 16 16 Blood Pressure [Ri ght Arm] 121/74 115/68 Pulse Oximetry 94 95 Oxygen Delivery Me thod Room Air Room Air 11/30/24 02:56 Temperature 99.2 F Pulse Rate [Pulse Oximeter] 84 Respiratory Rate 16 Blood Pressure [Ri ght Arm] 124/80 Pulse Oximetry 93 Oxygen Delivery Me thod Room Air Labs Labs: Laboratory Results - last 24 hr 11/30/24 05:45 WBC 5.33 RBC 3.65 L Hgb 10.6 L Hct 33.2 MCV 91 MCH 29 MCHC 32 RDW Coeff of Madai 14.4 Plt Count 164 Neut % (Auto) 42.9 Lymph % (Auto) 41.5 [place] % (Auto) 8.6 Eos % (Auto) 4.7 Baso % (Auto) 0.6 Neut # (Auto) 2.29 Lymph # (Auto) 2.21 [place] # (Auto) 0.50 Eos # (Auto) 0.25 Baso # (Auto) 0.03 Abs Immat Gran (auto) 0.09 Imm/Tot Granulo (auto) 1.7 Diff Slide Review Acceptable Review Sodium 134 L Potassium 3.9 Chloride 102 Carbon Dioxide 23 Anion Gap 9 BUN 21 Creatinine 1.0 Estimated Creat Clear 90.79 Estimated GFR 74 Glucose 234 H Calcium 8.7 C-Reactive Protein 13.3 H
--- NOTE | 2024-11-30 09:06 | P.PODPN_ITS ---
Podiatry-PN: Subj Subjective Date Seen: 11/30/24 Interval history: Patient seen bedside this a.m.. She has no complaints. No longer having any pain. Exam Narrative: Exam Narrative: General: No distress Vascular: Palpable pedal pulses Neuro: Diminished sensation. msk: Absent great toe right foot. Muscle strength 5/5. Derm: Large open wound medial 1st met head area. No new necrosis. Erythema resolving. Edema has nearly resolved. No purulence. Wound culture: MSSA Assessment: S/P I and D right foot POD#1, diabetic foot infection right Plan:VASHE moistened wet-to-dry dressing applied to the right wound. Nursing to do PM with a dry change. Plan for return to OR for partial 1st metatarsal resection and delayed closure tomorrow, Tuesday, at 7:30 a.m.. I reviewed the procedure, recovery, expectations and potential complications. Resection of the metatarsal should provide surgical cure of any underlying osteomyelitis. Plan for long-term oral antibiotics outpatient. Anticipate Tuesday discharge. Const: Vital Signs, click to edit/add: Vital Signs - 24 hr 11/29/24 11:39 11/29/24 15:45 11/29/24 15:45 Temperature 98.7 F 97.0 F L Pulse Rate [Pulse Oximeter] 82 82 82 Respiratory Rate 16 16 16 Blood Pressure [Ri ght Arm] 124/82 120/75 Pulse Oximetry 94 92 Oxygen Delivery Me thod Room Air Room Air 11/29/24 19:00 11/29/24 22:40 11/29/24 22:40 Temperature 98.5 F 99.9 F H Pulse Rate [Pulse Oximeter] 85 88 88 Respiratory Rate 16 16 16 Blood Pressure [Ri ght Arm] 121/74 115/68 Pulse Oximetry 94 95 Oxygen Delivery Me thod Room Air Room Air 11/30/24 02:56 11/30/24 08:45 Temperature 99.2 F 97.0 F L Pulse Rate [Pulse Oximeter] 84 82 Respiratory Rate 16 18 Blood Pressure [Ri ght Arm] 124/80 144/86 H Pulse Oximetry 93 97 Oxygen Delivery Me thod Room Air Room Air Podiatry-PN: Obj Labs Labs: Laboratory Results - last 24 hr 11/30/24 05:45 WBC 5.33 RBC 3.65 L Hgb 10.6 L Hct 33.2 MCV 91 MCH 29 MCHC 32 RDW Coeff of Madai 14.4 Plt Count 164 Neut % (Auto) 42.9 Lymph % (Auto) 41.5 [place] % (Auto) 8.6 Eos % (Auto) 4.7 Baso % (Auto) 0.6 Neut # (Auto) 2.29 Lymph # (Auto) 2.21 [place] # (Auto) 0.50 Eos # (Auto) 0.25 Baso # (Auto) 0.03 Abs Immat Gran (auto) 0.09 Imm/Tot Granulo (auto) 1.7 Diff Slide Review Acceptable Review Sodium 134 L Potassium 3.9 Chloride 102 Carbon Dioxide 23 Anion Gap 9 BUN 21 Creatinine 1.0 Estimated Creat Clear 90.79 Estimated GFR 74 Glucose 234 H Calcium 8.7 C-Reactive Protein 13.3 H
[2024-11-30] MEDS: PREGABALIN 100 MG CAPSULE 200 MG PO ×2 (09:39→21:29)
[2024-11-30] MEDS: ESCITALOPRAM 10 MG TABLET 40 MG PO (09:40)
[2024-11-30] MEDS: buPROPion XL 150 MG TABLET 300 MG PO (09:40)
[2024-11-30] MEDS: EMPAGLIFLOZIN 25 MG TABLET PO (09:41)
[2024-11-30] MEDS: PROPRANOLOL 20 MG TABLET PO ×2 (09:41→21:29)
[2024-11-30] MEDS: LOSARTAN POTASSIUM 50 MG TABLET 25 MG PO (09:41)
[2024-11-30] MEDS: ENOXAPARIN 40 MG/0.4 ML INJ SUBCUT (09:42)
[2024-11-30] MEDS: ENOXAPARIN 100 MG/ML INJ SUBCUT (09:43)
[2024-11-30] MEDS: INSULIN ASPART 100 UNIT/ML SUBCUT ×2 (09:44→21:30)
[2024-11-30] MEDS: buPROPion XL 150 MG TABLET PO (09:46)
[2024-11-30] MEDS: METFORMIN 500 MG TABLET PO ×2 (09:46→18:18)
[2024-11-30] MEDS: SODIUM CHLORIDE 0.9 % (FLUSH) 10 ML SYRINGE 5 ML IVF ×3 (09:48→21:29)
--- NOTE | 2024-11-30 12:08 | PC.SOCIAL ---
Social work consult: Met with pt who had questions about whether or not she would qualify for short or long-term disability and this worker explained that she would not due to not working right now and short and long-term disability are through a person's employer. transmission worker did provide her with the phone number for [employer] because the pt shared that if she continues to have issues with ulcers on her feet she may not be able to return to work ever and may need to file/apply for social security disability. Pt was thankful for the information. Social work to follow-up as needed.
[2024-11-30] MEDS: OXYCODONE 5 MG TABLET PO ×3 (13:32→22:41)
--- NOTE | 2024-11-30 15:30 | PC.NURSE ---
The patient is pleasant and cooperative with cares. VSS, WNL. Reported moderate pain in R metatarsal which was cleansed and redressed by Dr Ramos this AM. Oxy given for pain management PRN. No lunch ordered by the patient. Showered this afternoon. To OR tomorrow AM. IV abx to infuse this afternoon. Abida SOTO BSN
[2024-11-30] MEDS: ERTAPENEM 1 GM in 0.9 % SODIUM CHLORIDE Mini-bag 100 ML IVPB (16:09)
[2024-11-30] MEDS: AMITRIPTYLINE 25 MG TABLET 50 MG PO (21:29)
[2024-11-30] MEDS: SENNOSIDES/DOCUSATE TABLET 1 TAB PO (21:29)
[2024-11-30] MEDS: MELATONIN 3 MG TABLET 6 MG PO (22:41)
[2024-12-01] VITALS (23 sets, daily range): BP systolic 120–139; BP diastolic 64–95; PULSE 73–90; RESP 12–20; TEMP 36.4–37.9; O2SAT 94–100
--- NOTE | 2024-12-01 05:32 | PC.NURSE ---
[id number]: Patient pleasant and cooperative. Independent in room. Patient tolerated dressing changes to L. great toe and R. great toe well. Pain managed with elevation and PRN medications. NPO @0000 for sx @4033. Afebrile.
[2024-12-01 06:58] LABS: Basophils Absolute Auto 0.03 K/uL (0.00-0.30); Basophils Percent Auto 0.7 % (0.0-3.0); Eosinophils Absolute Auto 0.26 K/uL (0.00-0.50); Eosinophils Percent Auto 5.8 % (0.0-7.0); Hematocrit 34.3 % (33.0-51.0); Immature Granulocytes Abs Auto 0.09 K/uL (0.00-0.30); Lymphocytes Absolute Auto 1.83 K/uL (0.90-2.90); Lymphocytes Percent Auto 40.5 % (20-44); Mean Corpuscular HGB Conc 32 gm/dL (32-36); Mean Corpuscular Hemoglobin 29 pg (26-34); Mean Corpuscular Volume 90 fL (80-100); Monocytes Percent Auto 8.2 % (0.0-11.0); Neutrophils Absolute Auto 1.94 K/uL (1.7-7.0); Neutrophils Percent Auto 42.8 % (42.0-72.0); Platelet Count* 188 K/uL (140-440); Red Blood Count 3.81 m/uL (4.00-5.20); White Blood Count* 4.52 K/uL (4.50-11.00)
[2024-12-01 07:06] LABS: Slide Review Reflex No
[2024-12-01 07:09] LABS: Chloride* 102 mmol/L (96-114); Potassium* 3.9 mmol/L (3.6-5.1); Sodium* 136 mmol/L (135-149)
[2024-12-01 07:11] LABS: Blood Urea Nitrogen* 20 mg/dL (5-24); Est. Creatinine Clearance* 90.79; Estimated Glomerular Filt Rate 74 ml/min
[2024-12-01 07:13] LABS: Anion Gap 8 mEq/L (7-15); Calcium* 8.9 mg/dL (8.4-10.6); Carbon Dioxide* 26 mmol/L (20-32); Glucose* 150 mg/dL (60-115)
[2024-12-01] MEDS: BUPIVACAINE 0.25% 30 ML INJECTION ×2 (07:25→08:20)
--- NOTE | 2024-12-01 08:48 | W.PM.PODPROC ---
Date of Procedure: 12/01/24 Surgeon: Fernando Ramos DPM Pre-op Diagnosis: 1. Open wound right foot Post-op Diagnosis: 1. Open wound right foot Type of Procedure: 1. Partial 1st metatarsal resection right 2. Delayed closure right open wound Indications: Patient had I and D of abscessed area with wide debridement of the right foot. Infection has resolved and revisional surgery necessary. I reviewed the procedure, recovery, expectation potential complications. These include but not limited to: Poor wound healing, continued infection, potential need for future surgery, deep venous thrombosis, pulmonary embolism possible . She understands risks written consent was obtained. Site marked. Procedure Description: Patient brought the operating room placed supine position on operating table. She has agreed to a local anesthetic. 30 mL of 0.25% Marcaine plain were injected into the right foot. She was prepped and draped in sterile fashion. Standard time-out protocol followed. Right foot was exsanguinated the tourniquet inflated. The wound was ellipsed obtaining healthy fresh margins. Incision was extended proximal along the metatarsal shaft. Small amount necrotic tissue excised. The metatarsal was exposed and a sagittal saw used to transect proximal to the metatarsal neck. Metatarsal head and distal shaft was sent to pathology. Sesamoids were isolated and removed. Small pocket of purulence was noted distally but was well contained with no further extension. No necrotic tissue. The area was fully irrigated normal sterile saline. Tourniquet was released and all bleeding vessels cauterized. Using multiple retention sutures with 3-0 nylon closure of the entire wound was obtained. Sterile dressing was applied. She tolerated the procedure well and was transferred from [place] to [facility] with vital signs stable. Anesthesia: local Hemostasis: ankle Estimated blood loss (mL): 10 Specimens: specimen obtained, sent to pathology Disposition: floor
[2024-12-01] MEDS: INSULIN ASPART 100 UNIT/ML SUBCUT ×4 (09:50→21:46)
[2024-12-01] MEDS: METFORMIN 500 MG TABLET PO ×2 (09:50→18:05)
[2024-12-01] MEDS: ESCITALOPRAM 10 MG TABLET 40 MG PO (09:51)
[2024-12-01] MEDS: buPROPion XL 150 MG TABLET 300 MG PO (09:51)
[2024-12-01] MEDS: LOSARTAN POTASSIUM 50 MG TABLET 25 MG PO (09:51)
[2024-12-01] MEDS: PREGABALIN 100 MG CAPSULE 200 MG PO ×2 (09:52→21:32)
[2024-12-01] MEDS: EMPAGLIFLOZIN 25 MG TABLET PO (09:52)
[2024-12-01] MEDS: PROPRANOLOL 20 MG TABLET PO ×2 (09:53→21:28)
[2024-12-01] MEDS: buPROPion XL 150 MG TABLET PO (10:09)
[2024-12-01] MEDS: SODIUM CHLORIDE 0.9 % (FLUSH) 10 ML SYRINGE 5 ML IVF ×2 (10:09→21:32)
--- NOTE | 2024-12-01 12:24 | PM.IMPN1 ---
Assessment and Plan Assessment and plan (1) Diabetic ulcer of right foot associated with diabetes mellitus due to underlying condition, with muscle involvement without evidence of necrosis: Problem comment: - Podiatry following, s/p I&D 11/28/24 and delayed closure 12/01 - blood cultures negative, intraoperative cultures + MSSA - on ertapenem 1 gram daily (11/28), will narrow to oral Doxycycline upon d/c Status: Acute (2) Type 2 diabetes mellitus: Problem comment: - Dxed 2014, on Metformin, Empagliflozin, Semaglutide, A1C 9.6 on 11/28/24 - covering with SSI during stay, will discuss adding insulin to regimen with PCP upon f/u Status: Acute (3) Diabetic neuropathy: Problem comment: - on Lyrica since around 2018 for painful diabetic neuropathy, [facility] neurologist (Dr. Justin Reed) increased amitriptyline 12/13 Status: Acute (4) Obstructive sleep apnea: Problem comment: - Mild LARRY dxed by PSG here 09/24/24 (AHI 6.2), during REM sleep it is severe LARRY with oxygen desaturations (AHI 61.6) Status: Acute (5) History of deep venous thrombosis: Problem comment: - Right lower leg, 12/2013. Unprovoked per [facility] record, LLE DVT with bilateral PE 08/14, now on life-long apixaban/Eliquis - on treatment dose Lovenox given risk (will hold 11/30 pm for 12/01 surgery) Status: Acute (6) History of pulmonary embolism: Problem comment: - extensive bilateral PE 08/14, now on life-long apixaban/Eliquis, restarting Eliquis 12/01 postoperatively Status: Acute (7) Essential hypertension: Problem comment: - losartan since around 2017 Status: Acute Plan - per above - home tomorrow on Doxycycline Subjective Date Seen: 12/01/24 Interval history: Elvira was admitted to the hospital on 11/28/24 from the wound care clinic for an abscess and 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 Admission temperature 100.8 Comorbidities include DM2 with neuropathy, LARRY, h/o recurrent DVT and PE, essential HTN. Post I&D with Dr. Ramos of Podiatry 11/28, intraoperative cultures + for MSSA. On Ertapenem (11/28), will d/c on Doxycycline. This morning (12/01) had partial 1st metarsal resection and delayed closure with Dr. Ramos, plans to d/c tomorrow after wound care. Elvira is seen after procedure, feeling well and tolerating po intake. No concerns for hospitalist team. Exam Narrative: Exam Narrative: GEN: Alert and oriented, sitting comfortably in bed HEENT: EOMIs bilaterally, no scleral icterus CV: RRR, No concerning murmurs R: LCTA bilaterally without concerning wheezing Ext: RLE covered and not formally examined Neuro: Nonfocal Psych: Appropriate Const: Vital Signs, click to edit/add: Vital Signs - 24 hr 11/30/24 13:09 11/30/24 13:31 11/30/24 15:55 Temperature 99.2 F 99.2 F 98.6 F Pulse Rate Pulse Rate [Pulse Oximeter] 88 68 Respiratory Rate 16 18 Blood Pressure Blood Pressure [Ri ght Arm] 114/83 119/83 Pulse Oximetry 95 96 Oxygen Delivery Me thod Room Air Room Air 11/30/24 18:18 11/30/24 22:44 12/01/24 04:40 Temperature 97.3 F L 98.6 F 97.8 F Pulse Rate Pulse Rate [Pulse Oximeter] 81 80 76 Respiratory Rate 20 16 18 Blood Pressure Blood Pressure [Ri ght Arm] 132/80 126/76 121/84 Pulse Oximetry 93 94 95 Oxygen Delivery Me thod Room Air Room Air Room Air 12/01/24 07:25 12/01/24 07:30 12/01/24 07:35 Temperature Pulse Rate 79 77 77 Pulse Rate [Pulse Oximeter] Respiratory Rate 18 18 16 Blood Pressure 133/82 130/87 130/85 Blood Pressure [Ri ght Arm] Pulse Oximetry 98 100 100 Oxygen Delivery Me thod 12/01/24 07:40 12/01/24 07:45 12/01/24 07:50 Temperature Pulse Rate 75 75 73 Pulse Rate [Pulse Oximeter] Respiratory Rate 14 14 14 Blood Pressure 128/87 130/91 H 120/86 Blood Pressure [Ri ght Arm] Pulse Oximetry 100 99 99 Oxygen Delivery Me thod 12/01/24 07:55 12/01/24 08:00 12/01/24 08:05 Temperature Pulse Rate 74 74 74 Pulse Rate [Pulse Oximeter] Respiratory Rate 12 12 12 Blood Pressure 120/80 129/85 121/83 Blood Pressure [Ri ght Arm] Pulse Oximetry 98 99 98 Oxygen Delivery Nd thod 12/01/24 08:10 12/01/24 08:15 12/01/24 08:20 Temperature Pulse Rate 75 73 74 Pulse Rate [Pulse Oximeter] Respiratory Rate 14 14 14 Blood Pressure 125/83 132/92 H 130/91 H Blood Pressure [Ri ght Arm] Pulse Oximetry 97 96 95 Oxygen Delivery Nd thod 12/01/24 08:25 12/01/24 08:30 12/01/24 08:35 Temperature Pulse Rate 73 76 73 Pulse Rate [Pulse Oximeter] Respiratory Rate 14 16 14 Blood Pressure 129/91 H 126/91 H 133/92 H Blood Pressure [Ri ght Arm] Pulse Oximetry 95 97 96 Oxygen Delivery Nd thod 12/01/24 09:00 12/01/24 09:00 Temperature 97.5 F L Pulse Rate Pulse Rate [Pulse Oximeter] 75 75 Respiratory Rate 18 18 Blood Pressure Blood Pressure [Ri ght Arm] 133/95 H Pulse Oximetry 97 Oxygen Delivery Me thod Room Air Labs Labs: Laboratory Results - last 24 hr 12/01/24 05:48 WBC 4.52 RBC 3.81 L Hgb 11.0 L Hct 34.3 MCV 90 MCH 29 MCHC 32 RDW Coeff of Madai 14.0 Plt Count 188 Neut % (Auto) 42.8 Lymph % (Auto) 40.5 [place] % (Auto) 8.2 Eos % (Auto) 5.8 Baso % (Auto) 0.7 Neut # (Auto) 1.94 Lymph # (Auto) 1.83 [place] # (Auto) 0.40 Eos # (Auto) 0.26 Baso # (Auto) 0.03 Abs Immat Gran (auto) 0.09 Imm/Tot Granulo (auto) 2.0 Sodium 136 Potassium 3.9 Chloride 102 Carbon Dioxide 26 Anion Gap 8 BUN 20 Creatinine 1.0 Estimated Creat Clear 90.79 Estimated GFR 74 Glucose 150 H Calcium 8.9 C-Reactive Protein 6.0 H
[2024-12-01] MEDS: OXYCODONE 5 MG TABLET PO ×2 (13:00→22:11)
[2024-12-01] MEDS: ACETAMINOPHEN 325 MG TABLET 650 MG PO ×2 (18:05→23:18)
[2024-12-01] MEDS: APIXABAN 5 MG TABLET PO (21:28)
[2024-12-01] MEDS: DOXYCYCLINE HYCLATE 100 MG PO (21:28)
[2024-12-01] MEDS: AMITRIPTYLINE 25 MG TABLET 50 MG PO (21:29)
--- NOTE | 2024-12-01 23:13 | PC.NURSE ---
Patient remains alert and orientedx4. Up in chair with SBA with walker. Surgical site and dressing intact with no drainage noted. Pain effectively managed by PRN pain medications. Noted to have a low grade temp that was treated with cold compress. Other vital signs stable.
[2024-12-02 02:51] VITALS: BP 136/83; PULSE 82; RESP 16; TEMP 36.4; O2SAT 93
[2024-12-02] MEDS: ACETAMINOPHEN 325 MG TABLET 650 MG PO ×2 (03:00→08:56)
[2024-12-02] MEDS: OXYCODONE 5 MG TABLET PO (03:00)
--- NOTE | 2024-12-02 06:33 | PC.NURSE ---
[id number]: Patient pleasant and cooperative. Tylenol administered for temp of 100.2. Temp came down to 97.6. PRN Oxycodone x1 for pain. Dressings to L. great toe and R. great toe C/D/I. Independent in room.
[2024-12-02 07:00] VITALS: BP 132/81; PULSE 88; RESP 16; TEMP 36.6; O2SAT 95
--- NOTE | 2024-12-02 08:22 | P.PODPN_ITS ---
Podiatry-PN: Subj Subjective Time Seen by Provider: 08:00 Date Seen: 12/02/24 Interval history: Patient seen bedside this a.m. postop day 1 partial 1st metatarsal resection with delayed closure. She is doing well without complaints. Exam Narrative: Exam Narrative: General: No distress Vascular: Palpable pedal pulses Neuro: Diminished sensation to light touch Msk: Absent partial 1st ray Derm: Minimal erythema along the incision line. Edema greatly reduced. No drainage. No purulence. No fluctuance. incision well coapted with sutures i ntact. Wound culture: MSSA Assessment: S/p partial 1st metatarsal resection with delayed closure postop day 1. Plan: Sterile dressing change performed. Incision is looking excellent. Recommend discharge home. Heel weight-bearing in surgical shoe. Ideally she would use crutches, cane or walker to assist with heel weight-bearing ambulation. Follow-up with Dr. Ramos on Tuesday afternoon or Tuesday at the [facility] in [place]. My staff will contact the patient on Tuesday to set up the appointment. Dressing changes are not necessary the dressing should remain clean dry intact. Const: Vital Signs, click to edit/add: Vital Signs - 24 hr 12/01/24 08:25 12/01/24 08:30 12/01/24 08:35 Temperature Pulse Rate 73 76 73 Pulse Rate [Pulse Oximeter] Pulse Rate [Right Dorsalis Pedis] Respiratory Rate 14 16 14 Blood Pressure 129/91 H 126/91 H 133/92 H Blood Pressure [Ri ght Arm] Pulse Oximetry 95 97 96 Oxygen Delivery Me thod 12/01/24 09:00 12/01/24 09:00 12/01/24 12:30 Temperature 97.5 F L 98 F Pulse Rate Pulse Rate [Pulse Oximeter] 75 75 80 Pulse Rate [Right Dorsalis Pedis] Respiratory Rate 18 18 18 Blood Pressure Blood Pressure [Ri ght Arm] 133/95 H 139/94 H Pulse Oximetry 97 98 [facility] Room Air 12/01/24 15:00 12/01/24 15:16 12/01/24 19:37 Temperature 98.8 F 99.8 F H Pulse Rate Pulse Rate [Pulse Oximeter] 86 Pulse Rate [Right Dorsalis Pedis] 90 Respiratory Rate 20 19 20 Blood Pressure Blood Pressure [Ri ght Arm] 127/64 130/87 Pulse Oximetry 95 94 Oxygen Delivery Me thod Room Air Room Air 12/01/24 23:15 12/01/24 23:18 12/02/24 02:51 Temperature 100.2 F H 100.2 F H 97.6 F Pulse Rate Pulse Rate [Pulse Oximeter] 80 82 Pulse Rate [Right Dorsalis Pedis] Respiratory Rate 16 16 Blood Pressure Blood Pressure [Ri ght Arm] 137/85 136/83 Pulse Oximetry 95 93 Oxygen Delivery Me thod Room Air Room Air
--- NOTE | 2024-12-02 08:41 | PM.DS1 ---
DS: Providers Provider Date Seen: 12/02/24 Date of admission: 11/28/24 13:55 Primary care physician: Alondra Mathew MD Admitting Clinician: Víctor Delaney MD Consults: SW, Podiatry Attending Physician on discharge: Ilana Huggins MD Date of Discharge: 12/02/24 DS: Diagnosis Discharge Diagnosis (1) Diabetic ulcer of right foot associated with diabetes mellitus due to underlying condition, with muscle involvement without evidence of necrosis: Status: Acute Problem details: - Podiatry followed during stay, s/p I&D 11/28/24 and delayed closure 12/01 - blood cultures negative, intraoperative cultures + MSSA - treated with ertapenem 1 gram daily (11/28), narrowed to oral Doxycycline upon d/c given culture results (2) Type 2 diabetes mellitus: Status: Acute Problem details: - Dxed 2014, on Metformin, Empagliflozin, Semaglutide, A1C 9.6 on 11/28/24 - covered with SSI during stay, will discuss adding insulin to regimen with PCP upon f/u (3) Diabetic neuropathy: Status: Acute Problem details: - on Lyrica since around 2018 for painful diabetic neuropathy, [facility] neurologist (Dr. Justin Reed) increased amitriptyline 12/13 (4) Obstructive sleep apnea: Status: Acute Problem details: - Mild LARRY dxed by PSG here 09/24/24 (AHI 6.2), during REM sleep it is severe LARRY with oxygen desaturations (AHI 61.6) (5) History of deep venous thrombosis: Status: Acute Problem details: - Right lower leg, 12/2013. 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 Admission temperature 100.8, admission WBC 12.9 with PMN predominance. Comorbidities include DM2 with neuropathy, LARRY, h/o recurrent DVT and PE, essential HTN. Required 3-5 U of SSI daily during stay; recent A1C >9, will discuss insulin with PCP upon f/u. 11/28: I&D with Dr. Ramos of Podiatry, intraoperative cultures + for MSSA 12/01: Partial 1st metatarsal resection and delayed closure with Dr. Ramos Treated with Ertapenem during stay (11/28), will d/c on Doxycycline. Patient was medically appropriate for d/c home on 12/02/24. Status at Discharge Functional status at discharge: independent ambulation Overall status at discharge: patient is progressing back to baseline Time Spent with Patient Time attestation: Total time spent providing and/or coordinating discharge services: Time spent: Greater than 30 minutes Exam Narrative: Exam Narrative: GEN: Alert and oriented, sitting comfortably in bedside chair HEENT: EOMIs bilaterally, no scleral icterus Ext: RLE covered, had dressing change with Podiatry this morning Psych: Appropriate Const: Vital Signs, click to edit/add: Vital Signs - 24 hr 12/01/24 09:00 12/01/24 09:00 12/01/24 12:30 Temperature 97.5 F L 98 F Pulse Rate [Pulse Oximeter] 75 75 80 Pulse Rate [Right Dorsalis Pedis] Respiratory Rate 18 18 18 Blood Pressure [Ri ght Arm] 133/95 H 139/94 H Pulse Oximetry 97 98 Oxygen Delivery Me thod Room Air Room Air 12/01/24 15:00 12/01/24 15:16 12/01/24 19:37 Temperature 98.8 F 99.8 F H Pulse Rate [Pulse Oximeter] 86 Pulse Rate [Right Dorsalis Pedis] 90 Respiratory Rate 20 19 20 Blood Pressure [Ri ght Arm] 127/64 130/87 Pulse Oximetry 95 94 Oxygen Delivery Me thod Room Air Room Air 12/01/24 23:15 12/01/24 23:18 12/02/24 02:51 Temperature 100.2 F H 100.2 F H 97.6 F Pulse Rate [Pulse Oximeter] 80 82 Pulse Rate [Right Dorsalis Pedis] Respiratory Rate 16 16 Blood Pressure [Ri ght Arm] 137/85 136/83 Pulse Oximetry 95 93 Oxygen Delivery Me thod Room Air Room Air DS: Data Data Completed and Pending Labs on day of discharge: Preliminary micro results at discharge 11/28/24 15:22 Blood Culture - Preliminary Blood NO GROWTH AFTER 72 HOURS 11/28/24 14:50 Blood Culture - Preliminary Blood NO GROWTH AFTER 72 HOURS Discharge Plan Discharge Disposition: Home, Self-Care Date of Admission: 11/28/24 13:55 Attending Provider on Discharge: Ilana Huggins Consulting Providers: Fernando Ramos Primary Care Provider: Alondra Mathew Condition: Improved Anticipated Discharge Date/Time: 12/02/24 07:20 Discharge Medications: New oxycodone 5 mg Tablet 5 mg PO Q6H PRNQty: 20 0RF doxycycline hyclate 100 mg capsule 100 mg PO BID 14 Days Qty: 28 0RF Continued multivitamin Tablet 1 tab PO QAM ondansetron HCl 4 mg tablet 8 mg PO Q8H PRN (Reason: nausea with migraines) pregabalin 200 mg capsule 200 mg PO BID aspirin 81 mg capsule 81 mg PO DAILY Ubrelvy 100 mg tablet 100 mg PO Q2H PRN metformin 500 mg tablet 500 mg PO BIDWMEAL Qty: 180 3RF losartan 25 mg tablet 25 mg PO DAILY Qty: 90 3RF bupropion HCl 150 mg tablet extended release 24 hr 150 mg PO DAILY Qty: 90 3RF Patient Comments: TOTAL DOSE = 450MG DAILY bupropion HCl 300 mg tablet extended release 24 hr 300 mg PO DAILY Qty: 90 3RF Patient Comments: TOTAL DOSE = 450MG DAILY propranolol 10 mg tablet 20 mg PO BID amitriptyline 50 mg tablet 50 mg PO QHS Qty: 30 0RF Eliquis 5 mg tablet 5 mg PO BID Qty: 180 0RF escitalopram oxalate 20 mg tablet 40 mg PO DAILY Qty: 180 3RF dextroamphetamine-amphetamine [Adderall XR] 30 mg capsule,extended release 24hr 30 mg PO QAM Qty: 30 0RF dextroamphetamine-amphetamine [Adderall] 20 mg tablet 20 mg PO DAILY@1400 Qty: 30 0RF empagliflozin 25 mg tablet 25 mg PO QAM Qty: 90 0RF clonazepam 1 mg tablet 1 mg PO BID PRN (Reason: anxiety) Qty: 30 1RF Discontinued amoxicillin-pot clavulanate [Augmentin] 500-125 mg tablet 1 tab PO BID Discharge Orders: Discharge Order (Routine); Ordered 12/02/24 Ordered By: Ilana Huggins Patient Education: Doxycycline (By mouth), Oxycodone, Rapid Release (By mouth), Crutch Instructions (DC), Deep Sedation (DC), Incision and Drainage (DC) Activity Level: Activity as Tolerated Activity Detail: per Podiatry recommendations Discharge Diet: Diabetic Follow Up Appointments: Alondra Mahtew MD [Primary Care Provider] - 12/10/24 11:00 am () Fernando Ramos DPM [Staff Physician] - (Dr. Ramos's office will call Tuesday with appt) Forms: [employer] Info Instructions
[2024-12-02] MEDS: buPROPion XL 150 MG TABLET PO (08:55)
[2024-12-02] MEDS: buPROPion XL 150 MG TABLET 300 MG PO (08:55)
[2024-12-02] MEDS: DOXYCYCLINE HYCLATE 100 MG PO (08:56)
[2024-12-02] MEDS: LOSARTAN POTASSIUM 50 MG TABLET 25 MG PO (08:56)
[2024-12-02] MEDS: EMPAGLIFLOZIN 25 MG TABLET PO (08:56)
[2024-12-02] MEDS: APIXABAN 5 MG TABLET PO (08:56)
[2024-12-02] MEDS: PREGABALIN 100 MG CAPSULE 200 MG PO (08:56)
[2024-12-02] MEDS: METFORMIN 500 MG TABLET PO (08:56)
[2024-12-02] MEDS: PROPRANOLOL 20 MG TABLET PO (08:56)
--- NOTE | 2024-12-02 11:24 | PC.NURSE ---
Nursing Care Hours: [id number] Pt this shift calm and cooperative, alert and oriented. Pain 10/29, treated with Acetaminophen. Pt pt, Richard changed dressing this AM and instructed pt not to change dressing until f/u appt on 12/04/24. VSS. IV removed. Instructions went over with pt. Valuables returned. Wheeled out to vehicle in stable condition.
== END 2024-12-02 10:22 | disposition home or self-care (01) | DRG 314 ==
PROVIDERS: Family Medicine; Podiatrist; Admitting Provider Family Medicine; PCP Internal Medicine; Visit Provider Family Medicine
PROC: 0J9Q0ZX Drainage of Right Foot Subcutaneous Tissue and Fascia, Open Approach, Diagnostic (ICD-10-PCS; principal; 2024-11-28 18:00)
PROC: 0QTN0ZZ Resection of Right Metatarsal, Open Approach (ICD-10-PCS; principal; 2024-12-01 07:30)
DX: E11.69 Type 2 diabetes mellitus with other specified complication (principal); M86.171 Other acute osteomyelitis, right ankle and foot; E11.621 Type 2 diabetes mellitus with foot ulcer; Z79.84 Long term (current) use of oral hypoglycemic drugs; Z79.85 Long-term (current) use of injectable non-insulin antidiabetic drugs; E11.65 Type 2 diabetes mellitus with hyperglycemia; Z79.4 Long term (current) use of insulin; E11.40 Type 2 diabetes mellitus with diabetic neuropathy, unspecified; E66.01 Morbid (severe) obesity due to excess calories; Z68.41 Body mass index [BMI] 40.0-44.9, adult; F17.210 Nicotine dependence, cigarettes, uncomplicated; L97.515 Non-pressure chronic ulcer of other part of right foot with muscle involvement without evidence of necrosis; L02.611 Cutaneous abscess of right foot; B95.1 Streptococcus, group B, as the cause of diseases classified elsewhere; B95.61 Methicillin susceptible Staphylococcus aureus infection as the cause of diseases classified elsewhere; L03.115 Cellulitis of right lower limb; G47.33 Obstructive sleep apnea (adult) (pediatric); I10 Essential (primary) hypertension; Z86.718 Personal history of other venous thrombosis and embolism; Z79.01 Long term (current) use of anticoagulants; Z86.711 Personal history of pulmonary embolism; Z89.411 Acquired absence of right great toe
CPT/HCPCS: 01470; 36415; 80048; 80053; 80061; 81025; 82043; 82570; 82962; 83605; 84703; 85025; 86140; 87040; 87070; 87075; 87081; 87186; 87205; 88304; 88311; 93005; 97597; 99140; G0463; A9270; J0665; J1335; J1650; J2405; J2704; J3010; J7120

== ENCOUNTER 2024-12-11 20:47 | Outpatient (CLI) | payer MEDICAID, SELFPAY | END 2024-12-11 20:48 | disposition home or self-care (01) | LOC: SLEEP 20:47 | PROVIDERS: PCP Internal Medicine; Visit Provider Internal Medicine | DX: G47.33 Obstructive sleep apnea (adult) (pediatric) (principal); E66.9 Obesity, unspecified | CPT/HCPCS: 95811 ==

== ENCOUNTER 2024-12-17 08:43 | Outpatient (CLI) | payer MEDICAID, SELFPAY ==
[2024-12-17] MEDS: PERFLUTREN LIPID MICROSPHERES 2 ML VIAL IVP (10:25)
== END 2024-12-17 08:44 | disposition home or self-care (01) ==
LOC: RAD 08:44
PROVIDERS: PCP Internal Medicine; Visit Provider Internal Medicine
DX: Z86.711 Personal history of pulmonary embolism (principal)
CPT/HCPCS: 93306; Q9957

== ENCOUNTER 2024-12-19 12:57 | Outpatient (CLI) | payer MEDICAID, SELFPAY | END 2024-12-19 12:58 | disposition home or self-care (01) | LOC: WOUND 12:57 | PROVIDERS: PCP Internal Medicine; Visit Provider Surgery | DX: E11.621 Type 2 diabetes mellitus with foot ulcer (principal); E11.40 Type 2 diabetes mellitus with diabetic neuropathy, unspecified; L97.515 Non-pressure chronic ulcer of other part of right foot with muscle involvement without evidence of necrosis; L97.522 Non-pressure chronic ulcer of other part of left foot with fat layer exposed; Z89.411 Acquired absence of right great toe; Z79.4 Long term (current) use of insulin | CPT/HCPCS: 11042 ==

== ENCOUNTER 2024-12-20 14:19 | Outpatient (CLI) | payer BC, SELFPAY ==
--- NOTE | 2024-12-20 14:30 | MR_ITS ---
EXAM: MRI of the LEFT KNEE, without contrast CLINICAL INFORMATION: Female, 39 years old, with left knee pain. INDICATION: Evaluate for lateral meniscal tear. PRIOR SURGERY: None reported. PLAIN FILMS: Knee radiograph dated 12/13/2024. COMPARISONS: No prior MRIs available. TECHNICAL INFORMATION: Using a 1.5T MR scanner and a localizing surface coil: sagittals: PD, PDFS coronals: PD, STIR axials: PD, T2FS SEDATION: None CONTRAST: None FINDINGS: Knee joint: Effusion: Trace-small left knee effusion. Popliteal cyst: Tiny, unruptured popliteal (Herrera's) cyst. Loose bodies: None. Subcutaneous and extra-articular soft tissues: Unremarkable. Ligaments: ACL: Intact ACL anteromedial and posterolateral bundles, without sprain or tear. PCL: Intact PCL, without acute or chronic injury. MCL: Intact MCL superficial and deep layers, without injury. LCL: Intact LCL, without injury. Posterolateral corner: Mild popliteus tendinopathy without tear. Biceps femoris, iliotibial band, popliteofibular ligament and lateral gastrocnemius are intact. Posteromedial corner: No posteromedial corner soft tissue injury. Semimembranosus, pes anserine tendons and posterior oblique ligament are without injury, tendinopathy or bursitis. Extensor mechanism: Patellar tendon: Intact, without tendinopathy. Quadriceps tendon: Intact, without tendinopathy. Retinacula: Medial and lateral retinacula are intact. Fat pads: Unremarkable infrapatellar Hoffa's, quadriceps and prefemoral fat pads. Medial compartment: Medial meniscus: No articular surface, meniscosynovial junction or root tear. No displacement, extrusion or parameniscal cyst. Medial femoral condyle: No chondromalacia or osteochondral abnormality. Medial tibial plateau: No chondromalacia or osteochondral abnormality. Lateral compartment: Lateral meniscus: Intrasubstance degeneration and fraying of the posterior root, without discrete lateral meniscal tear. Lateral femoral condyle: No chondromalacia or osteochondral abnormality. Lateral tibial plateau: No chondromalacia or osteochondral abnormality. Patellofemoral joint: Patella: Bipartite patella with mild reactive edema along the synchondrosis (coronal STIR series 8 images 5 & 6 and sagittal PDFS series 6 image 20). Overlying mild grade II chondromalacia is present. Trochlea: No chondromalacia or osteochondral abnormality. Proximal tibiofibular joint: Unremarkable, without evidence of ligament sprain injury, joint effusion or adjacent marrow edema. Bones: Approximately 1.7 x 0.9 x 2.6 cm chondroid lesion in the medial aspect of the distal femoral metaphysis (coronal STIR series 8 image 15 and axial PD series 3 image 11). IMPRESSION: 1. Bipartite patella with mild reactive edema along the synchondrosis and mild overlying grade II chondromalacia. 2. Trace -small knee joint effusion with a tiny, unruptured popliteal (Herrera's) cyst. 3. Intrasubstance degeneration fraying of the lateral meniscal posterior root. No discrete medial or lateral meniscal tear. 4. Approximately 1.7 x 0.9 x 2.6 cm enchondroma in the medial aspect of the distal femoral metaphysis. 5. No cruciate or collateral ligament sprain/tear. 6. No osteochondral abnormality of the medial or lateral compartment. BC Electronically signed on 12/21/2024 8:58:00 AM by Cesar Alcala M.D.
== END 2024-12-20 14:20 | disposition home or self-care (01) ==
LOC: MRI 14:20
PROVIDERS: PCP Internal Medicine; Visit Provider Physician Assistant Surgical
DX: M25.562 Pain in left knee (principal); M22.42 Chondromalacia patellae, left knee; M25.462 Effusion, left knee
CPT/HCPCS: 73721

== ENCOUNTER 2025-01-03 10:54 | Outpatient (CLI) | payer BC, SELFPAY | END 2025-01-03 10:55 | disposition home or self-care (01) | LOC: WOUND 10:54 | PROVIDERS: PCP Internal Medicine; Visit Provider Nurse Practitioner Family | DX: E11.621 Type 2 diabetes mellitus with foot ulcer (principal); E11.40 Type 2 diabetes mellitus with diabetic neuropathy, unspecified; L97.516 Non-pressure chronic ulcer of other part of right foot with bone involvement without evidence of necrosis; L97.522 Non-pressure chronic ulcer of other part of left foot with fat layer exposed; Z89.411 Acquired absence of right great toe; F17.200 Nicotine dependence, unspecified, uncomplicated; Z79.84 Long term (current) use of oral hypoglycemic drugs | CPT/HCPCS: 11043; 97597 ==

== ENCOUNTER 2025-01-16 10:28 | Outpatient (CLI) | payer BC, SELFPAY | END 2025-01-16 10:29 | disposition home or self-care (01) | LOC: WOUND 10:28 | PROVIDERS: PCP Internal Medicine; Visit Provider Nurse Practitioner Family | DX: E11.621 Type 2 diabetes mellitus with foot ulcer (principal); E11.40 Type 2 diabetes mellitus with diabetic neuropathy, unspecified; I89.0 Lymphedema, not elsewhere classified; Z89.411 Acquired absence of right great toe; L97.516 Non-pressure chronic ulcer of other part of right foot with bone involvement without evidence of necrosis; L97.522 Non-pressure chronic ulcer of other part of left foot with fat layer exposed; Z79.4 Long term (current) use of insulin; Z79.84 Long term (current) use of oral hypoglycemic drugs; Z86.718 Personal history of other venous thrombosis and embolism; Z79.01 Long term (current) use of anticoagulants | CPT/HCPCS: 11042; 82962; 97597; G0277 ==

== ENCOUNTER 2025-01-18 11:00 | Outpatient (RCR) | payer BC, SELFPAY | END 2025-01-19 23:59 | disposition home or self-care (01) | LOC: WOUND 11:00 | PROVIDERS: PCP Internal Medicine; Visit Provider Nurse Practitioner Family | DX: E11.621 Type 2 diabetes mellitus with foot ulcer (principal); E11.40 Type 2 diabetes mellitus with diabetic neuropathy, unspecified; L97.516 Non-pressure chronic ulcer of other part of right foot with bone involvement without evidence of necrosis; I89.0 Lymphedema, not elsewhere classified; Z79.84 Long term (current) use of oral hypoglycemic drugs; N92.0 Excessive and frequent menstruation with regular cycle | CPT/HCPCS: 82962; 84443; G0277 ==

== ENCOUNTER 2025-01-21 14:46 | Outpatient (CLI) | payer BC, SELFPAY ==
--- NOTE | 2025-01-21 15:00 | CRLHL7_ITS ---
For Patients: As a result of the Century Cures Act, medical imaging exams and procedure reports are released immediately into your electronic medical record. You may view this report before your referring provider. If you have questions, please contact your health care provider. INDICATION: irregular/heavy cycles COMPARISON: None. TECHNIQUE: 2D christianson-scale and color Doppler images were acquired of the pelvis using a transabdominal and transvaginal approach. Transvaginal imaging performed to better visualize the endometrial stripe and ovaries. FINDINGS: Posterior fundal fibroid measures 10 x 7 x 9 millimeters. Posterior lower uterine segment intramural fibroid measures 13 x 6 x 12 millimeters. Submucosal fibroid measures 8 x 7 x 10 millimeters. Uterus measures 8.2 cm in length by 4.1 cm in AP diameter by 5.1 cm in transverse dimension. The endometrial lining measures 7.3 mm in composite thickness. The right ovary measures 1.8 x 1.3 x 1.2 cm in size and the left ovary measures 4.1 x 3.1 x 3.6 cm. The ovaries demonstrate normal arterial and venous blood flow on color Doppler analysis. There are no suspicious fluid collections within the cul-de-sac. Simple left ovarian cyst measures 2.8 x 2.8 x 2.7 cm. IMPRESSION: Multiple uterine fibroids including a 1 cm submucosal fibroid. Endometrial thickness 7.3 millimeters. Simple left ovarian cyst measures 2.8 cm. Dictated by Marv Dotson MD @ 01/22/2025 9:41:35 PM (Electronically Signed)
== END 2025-01-21 14:47 | disposition home or self-care (01) ==
LOC: US 14:46
PROVIDERS: PCP Internal Medicine; Visit Provider Registered Nurse
DX: N92.0 Excessive and frequent menstruation with regular cycle (principal); D25.0 Submucous leiomyoma of uterus; R93.89 Abnormal findings on diagnostic imaging of other specified body structures; N83.202 Unspecified ovarian cyst, left side
CPT/HCPCS: 76830; 76856

== ENCOUNTER 2025-01-30 12:54 | Outpatient (CLI) | payer BC, SELFPAY | END 2025-01-30 12:55 | disposition home or self-care (01) | LOC: WOUND 12:54 | PROVIDERS: PCP Internal Medicine; Visit Provider Nurse Practitioner Family | DX: E11.621 Type 2 diabetes mellitus with foot ulcer (principal); E11.40 Type 2 diabetes mellitus with diabetic neuropathy, unspecified; L97.522 Non-pressure chronic ulcer of other part of left foot with fat layer exposed; L97.516 Non-pressure chronic ulcer of other part of right foot with bone involvement without evidence of necrosis; I89.0 Lymphedema, not elsewhere classified; Z79.4 Long term (current) use of insulin; Z79.84 Long term (current) use of oral hypoglycemic drugs | CPT/HCPCS: 15275; 82962; G0277; Q4151 ==

== ENCOUNTER 2025-02-06 10:59 | Outpatient (CLI) | payer BC, SELFPAY | END 2025-02-06 11:00 | disposition home or self-care (01) | LOC: WOUND 10:59 | PROVIDERS: PCP Internal Medicine; Visit Provider Nurse Practitioner Family | DX: E11.621 Type 2 diabetes mellitus with foot ulcer (principal); E11.40 Type 2 diabetes mellitus with diabetic neuropathy, unspecified; L97.516 Non-pressure chronic ulcer of other part of right foot with bone involvement without evidence of necrosis; L97.522 Non-pressure chronic ulcer of other part of left foot with fat layer exposed; I89.0 Lymphedema, not elsewhere classified; Z89.411 Acquired absence of right great toe; Z79.4 Long term (current) use of insulin; Z79.84 Long term (current) use of oral hypoglycemic drugs | CPT/HCPCS: 15275; 82962; G0277; Q4151 ==

== ENCOUNTER 2025-02-13 10:52 | Outpatient (CLI) | payer BC, SELFPAY | END 2025-02-13 10:53 | disposition home or self-care (01) | LOC: WOUND 10:52 | PROVIDERS: PCP Internal Medicine; Visit Provider Surgery | DX: E11.621 Type 2 diabetes mellitus with foot ulcer (principal); E11.40 Type 2 diabetes mellitus with diabetic neuropathy, unspecified; L97.522 Non-pressure chronic ulcer of other part of left foot with fat layer exposed; L97.516 Non-pressure chronic ulcer of other part of right foot with bone involvement without evidence of necrosis; I89.0 Lymphedema, not elsewhere classified; Z89.411 Acquired absence of right great toe; C92.01 Acute myeloblastic leukemia, in remission; F17.200 Nicotine dependence, unspecified, uncomplicated; Z79.4 Long term (current) use of insulin; Z79.84 Long term (current) use of oral hypoglycemic drugs | CPT/HCPCS: 82962; 87070; 87186; 97597; G0277 ==

== ENCOUNTER 2025-02-15 11:00 | Outpatient (RCR) | payer BC, SELFPAY ==
[2025-01-28 11:59] LABS: Appearance Urine Clear (Clear); Bilirubin Urine Negative (Negative); Blood Urine Negative (Negative); Color Urine Yellow (Yellow); Glucose Urine 3+ (Negative); Ketones Urine Negative (Negative); Leukocyte Esterase Urine Negative (Negative); Nitrite Urine Negative (Negative); Protein Urine Negative (Negative); Specific Gravity Urine <= 1.005 (1.000-1.030); Urobilinogen Urine 0.2 (0.2-1.0); pH Urine 5.5 (5.0-8.5)
[2025-01-28 12:00] LABS: Basophils Absolute Auto 0.03 K/uL (0.00-0.30); Basophils Percent Auto 0.5 % (0.0-3.0); Eosinophils Absolute Auto 0.36 K/uL (0.00-0.50); Eosinophils Percent Auto 6.1 % (0.0-7.0); Hematocrit 38.1 % (33.0-51.0); Hemoglobin* 12.3 gm/dL (12.0-16.0); Immature Granulocytes Abs Auto 0.04 K/uL (0.00-0.30); Immature Granulocytes Pct Auto 0.7 %; Lymphocytes Absolute Auto 2.02 K/uL (0.90-2.90); Lymphocytes Percent Auto 34.1 % (20-44); Mean Corpuscular HGB Conc 32 gm/dL (32-36); Mean Corpuscular Hemoglobin 29 pg (26-34); Mean Corpuscular Volume 89 fL (80-100); Monocytes Percent Auto 8.4 % (0.0-11.0); Neutrophils Absolute Auto 2.98 K/uL (1.7-7.0); Neutrophils Percent Auto 50.2 % (42.0-72.0); Platelet Count* 187 K/uL (140-440); RDW Coefficient of Variation % 14.4 % (11.5-15.5); White Blood Count* 5.93 K/uL (4.50-11.00)
[2025-01-28 12:26] LABS: Slide Review Reflex No
[2025-01-28 12:28] LABS: Chloride* 102 mmol/L (96-114); Potassium* 4.6 mmol/L (3.6-5.1); Sodium* 138 mmol/L (135-149)
[2025-01-28 12:31] LABS: Anion Gap 10 mEq/L (7-15); Blood Urea Nitrogen* 26 mg/dL (5-24); Carbon Dioxide* 26 mmol/L (20-32); Creatinine* 1.1 mg/dL (0.5-1.5); Estimated Glomerular Filt Rate 66 ml/min
[2025-01-28 12:32] LABS: Calcium* 9.1 mg/dL (8.4-10.6)
[2025-01-28 12:41] LABS: Glucose* 429 mg/dL (60-115)
== END 2025-02-18 23:59 | disposition home or self-care (01) ==
LOC: WOUND 11:00
PROVIDERS: PCP Internal Medicine; Visit Provider Physician Assistant
DX: E11.621 Type 2 diabetes mellitus with foot ulcer (principal); E11.40 Type 2 diabetes mellitus with diabetic neuropathy, unspecified; E11.65 Type 2 diabetes mellitus with hyperglycemia; I89.0 Lymphedema, not elsewhere classified; L97.516 Non-pressure chronic ulcer of other part of right foot with bone involvement without evidence of necrosis; L97.522 Non-pressure chronic ulcer of other part of left foot with fat layer exposed; Z89.411 Acquired absence of right great toe; C92.01 Acute myeloblastic leukemia, in remission; I50.20 Unspecified systolic (congestive) heart failure; N92.0 Excessive and frequent menstruation with regular cycle; L29.2 Pruritus vulvae; Z79.84 Long term (current) use of oral hypoglycemic drugs; Z12.4 Encounter for screening for malignant neoplasm of cervix; Z79.01 Long term (current) use of anticoagulants; Z86.718 Personal history of other venous thrombosis and embolism
CPT/HCPCS: 36415; 80048; 81003; 82962; 85025; 87624; 88142; G0277; G0463

== ENCOUNTER 2025-02-20 10:55 | Outpatient (CLI) | payer BC, SELFPAY | END 2025-02-20 10:56 | disposition home or self-care (01) | LOC: WOUND 10:55 | PROVIDERS: PCP Internal Medicine; Visit Provider Surgery | DX: E11.621 Type 2 diabetes mellitus with foot ulcer (principal); E11.40 Type 2 diabetes mellitus with diabetic neuropathy, unspecified; I89.0 Lymphedema, not elsewhere classified; L97.516 Non-pressure chronic ulcer of other part of right foot with bone involvement without evidence of necrosis; L97.522 Non-pressure chronic ulcer of other part of left foot with fat layer exposed; Z89.411 Acquired absence of right great toe; Z86.718 Personal history of other venous thrombosis and embolism; Z79.84 Long term (current) use of oral hypoglycemic drugs | CPT/HCPCS: 15275; 82962; G0277; Q4151 ==

== ENCOUNTER 2025-03-11 07:42 | Day surgery (SDC) | payer BC, SELFPAY ==
[2025-03-11] VITALS (17 sets, daily range): BP systolic 127–152; BP diastolic 77–98; PULSE 77–91; RESP 16–20; TEMP 36.2; O2SAT 95–100; BMI 43.0
[2025-03-11] MEDS: BUPIVACAINE 0.25% 30 ML INJECTION (09:53)
--- NOTE | 2025-03-11 11:08 | W.PM.PODPROC ---
Date of Procedure: 03/11/25 Surgeon: Fernando Raoms DPM Pre-op Diagnosis: Nonhealing ulcer left great toe Post-op Diagnosis: Nonhealing ulcer left great toe Type of Procedure: Arthroplasty IPJ left great toe Indications: Patient has had longstanding nonhealing diabetic ulceration left great toe. Ulceration has been recalcitrant to treatment. She has been doing hyperbaric oxygen without improvement. Recommend surgical intervention for surgical offloading of the ulcer. Reviewed the procedure, recovery, expectations and potential complications. These include but not limited to: Poor wound healing, infection, potential need for future surgery, possible amputation, deep venous thrombosis, pulmonary embolism possible . All questions answered consent obtained. Site marked. Procedure Description: Patient brought in the operating room placed supine position on operating table to time local anesthetic injected into the left foot. She was prepped and draped in sterile fashion. Standard time-out protocol followed. Linear incisions made over the dorsal medial aspect of the IPJ left great toe. The incision was carried down through skin subcutaneous tissues. Linear periosteal capsular incision made in the cyst tissues reflected away from the IPJ. Sagittal saw was used to resect the head of the proximal phalanx. Plantar IPJ sesamoid was then excised. Portions of the medial base of the distal phalanx excised with a rongeur. The wound was thoroughly irrigated normal sterile saline. 0.062 K-wire was introduced in the tip of the toe driven through the distal phalanx and into the proximal phalanx with the arthroplasty site and anatomic alignment. Position checked with C-arm. Wound was irrigated normal sterile saline. Periosteum capsular tissues reapproximated 3-0 Vicryl. Skin closed with 4-0 Prolene. K-wire was bent cut and capped. Sterile dressings applied. Tourniquet released. Normal capillary fill time returned to the digit. She was transferred from OR to same-day surgery with vital signs stable vascular status intact. She is given both written and verbal postop instructions. She is given oxycodone for pain. She will follow up in clinic in 2 days. She is weight-bearing as tolerated to the heel only. Anesthesia: local Hemostasis: ankle Estimated blood loss (mL): 2 Provider Operated C-arm: Healing fluoroscopy operated by Fernando Ramos DPM for arthroplasty left great toe. Eleven C-arm spot images were obtained. Fluoroscopy time was 00:00:10. Specimens: none sent Disposition: same day
== END 2025-03-11 11:27 | disposition home or self-care (01) ==
LOC: OR 07:43
PROVIDERS: PCP Internal Medicine; Visit Provider Podiatrist
PROC: (CPT 28292; principal; 2025-03-11 09:00)
DX: E11.621 Type 2 diabetes mellitus with foot ulcer (principal); L97.522 Non-pressure chronic ulcer of other part of left foot with fat layer exposed
CPT/HCPCS: 28124; 73660; 76000; J0665

== ENCOUNTER 2025-03-13 12:54 | Outpatient (CLI) | payer BC, SELFPAY | END 2025-03-13 12:55 | disposition home or self-care (01) | LOC: WOUND 12:54 | PROVIDERS: PCP Internal Medicine; Visit Provider Surgery | DX: E11.621 Type 2 diabetes mellitus with foot ulcer (principal); E11.40 Type 2 diabetes mellitus with diabetic neuropathy, unspecified; I89.0 Lymphedema, not elsewhere classified; L97.516 Non-pressure chronic ulcer of other part of right foot with bone involvement without evidence of necrosis; Z89.411 Acquired absence of right great toe; Z79.4 Long term (current) use of insulin; Z79.84 Long term (current) use of oral hypoglycemic drugs; Z86.718 Personal history of other venous thrombosis and embolism | CPT/HCPCS: 15275; Q4151 ==

== ENCOUNTER 2025-03-15 11:00 | Outpatient (RCR) | payer BC, SELFPAY ==
[2025-03-19 14:09] LABS: Hematocrit 37.9 % (33.0-51.0); Hemoglobin* 12.2 gm/dL (12.0-16.0); Immature Granulocytes Abs Auto 0.03 K/uL (0.00-0.30); Immature Granulocytes Pct Auto 0.4 %; Lymphocytes Absolute Auto 2.16 K/uL (0.90-2.90); Mean Corpuscular HGB Conc 32 gm/dL (32-36); Mean Corpuscular Hemoglobin 28 pg (26-34); Mean Corpuscular Volume 88 fL (80-100); RDW Coefficient of Variation % 14.2 % (11.5-15.5); Red Blood Count 4.33 m/uL (4.00-5.20); White Blood Count* 7.34 K/uL (4.50-11.00)
[2025-03-19 14:13] LABS: Slide Review Reflex No
== END 2025-03-21 23:59 | disposition home or self-care (01) ==
LOC: WOUND 11:00
PROVIDERS: Nurse Practitioner Family; PCP Internal Medicine; Visit Provider Physician Assistant
DX: E11.621 Type 2 diabetes mellitus with foot ulcer (principal); E11.40 Type 2 diabetes mellitus with diabetic neuropathy, unspecified; I89.0 Lymphedema, not elsewhere classified; L97.516 Non-pressure chronic ulcer of other part of right foot with bone involvement without evidence of necrosis; Z89.411 Acquired absence of right great toe; Z86.718 Personal history of other venous thrombosis and embolism; Z79.01 Long term (current) use of anticoagulants; Z79.84 Long term (current) use of oral hypoglycemic drugs
CPT/HCPCS: 36415; 82962; 85025; 86140; G0277

== ENCOUNTER 2025-03-19 14:18 | Outpatient (CLI) | payer BC, SELFPAY | END 2025-03-19 14:19 | disposition home or self-care (01) | LOC: WOUND 14:18 | PROVIDERS: PCP Internal Medicine; Visit Provider Nurse Practitioner Family | DX: E11.621 Type 2 diabetes mellitus with foot ulcer (principal); E11.40 Type 2 diabetes mellitus with diabetic neuropathy, unspecified; I89.0 Lymphedema, not elsewhere classified; L97.522 Non-pressure chronic ulcer of other part of left foot with fat layer exposed; T81.31XA Disruption of external operation (surgical) wound, not elsewhere classified, initial encounter; Z89.411 Acquired absence of right great toe; F17.200 Nicotine dependence, unspecified, uncomplicated; Z79.4 Long term (current) use of insulin; Z79.84 Long term (current) use of oral hypoglycemic drugs | CPT/HCPCS: G0463 ==

== ENCOUNTER 2025-03-20 10:54 | Outpatient (CLI) | payer BC, SELFPAY | END 2025-03-20 10:55 | disposition home or self-care (01) | LOC: WOUND 10:54 | PROVIDERS: PCP Internal Medicine; Visit Provider Surgery | DX: E11.621 Type 2 diabetes mellitus with foot ulcer (principal); E11.40 Type 2 diabetes mellitus with diabetic neuropathy, unspecified; I89.0 Lymphedema, not elsewhere classified; L97.516 Non-pressure chronic ulcer of other part of right foot with bone involvement without evidence of necrosis; L97.522 Non-pressure chronic ulcer of other part of left foot with fat layer exposed; Z89.411 Acquired absence of right great toe; Z94.81 Bone marrow transplant status; Z86.718 Personal history of other venous thrombosis and embolism; Z79.01 Long term (current) use of anticoagulants; Z79.84 Long term (current) use of oral hypoglycemic drugs | CPT/HCPCS: 15275; 82962; G0277; Q4151 ==

== ENCOUNTER 2025-03-27 10:51 | Outpatient (CLI) | payer MEDICAID, SELFPAY | END 2025-03-27 10:52 | disposition home or self-care (01) | LOC: WOUND 10:51 | PROVIDERS: PCP Internal Medicine; Visit Provider Surgery | DX: E11.621 Type 2 diabetes mellitus with foot ulcer (principal); E11.40 Type 2 diabetes mellitus with diabetic neuropathy, unspecified; I89.0 Lymphedema, not elsewhere classified; L97.516 Non-pressure chronic ulcer of other part of right foot with bone involvement without evidence of necrosis; L97.522 Non-pressure chronic ulcer of other part of left foot with fat layer exposed; Z89.411 Acquired absence of right great toe; Z86.718 Personal history of other venous thrombosis and embolism; Z79.01 Long term (current) use of anticoagulants; Z79.84 Long term (current) use of oral hypoglycemic drugs | CPT/HCPCS: 15275; 82962; G0277; Q4151 ==

== ENCOUNTER 2025-03-28 11:00 | Outpatient (RCR) | payer BC, SELFPAY | END 2025-04-21 23:59 | disposition home or self-care (01) | LOC: WOUND 11:00 | PROVIDERS: PCP Internal Medicine; Visit Provider Nurse Practitioner Family | DX: E11.621 Type 2 diabetes mellitus with foot ulcer (principal); E11.40 Type 2 diabetes mellitus with diabetic neuropathy, unspecified; I89.0 Lymphedema, not elsewhere classified; L97.516 Non-pressure chronic ulcer of other part of right foot with bone involvement without evidence of necrosis; L97.522 Non-pressure chronic ulcer of other part of left foot with fat layer exposed; F17.200 Nicotine dependence, unspecified, uncomplicated; Z89.411 Acquired absence of right great toe; Z79.84 Long term (current) use of oral hypoglycemic drugs; Z86.718 Personal history of other venous thrombosis and embolism; Z79.01 Long term (current) use of anticoagulants | CPT/HCPCS: 82962; G0277 ==

== ENCOUNTER 2025-04-03 12:55 | Outpatient (CLI) | payer MEDICAID, SELFPAY | END 2025-04-03 12:56 | disposition home or self-care (01) | LOC: WOUND 12:55 | PROVIDERS: PCP Internal Medicine; Visit Provider Surgery | DX: E11.621 Type 2 diabetes mellitus with foot ulcer (principal); E11.40 Type 2 diabetes mellitus with diabetic neuropathy, unspecified; I89.0 Lymphedema, not elsewhere classified; L97.516 Non-pressure chronic ulcer of other part of right foot with bone involvement without evidence of necrosis; Z89.411 Acquired absence of right great toe; T81.31XA Disruption of external operation (surgical) wound, not elsewhere classified, initial encounter; C92.01 Acute myeloblastic leukemia, in remission; A52.16 Charcot's arthropathy (tabetic); Z86.718 Personal history of other venous thrombosis and embolism; Z79.01 Long term (current) use of anticoagulants; F17.200 Nicotine dependence, unspecified, uncomplicated; Z79.4 Long term (current) use of insulin; Z79.84 Long term (current) use of oral hypoglycemic drugs | CPT/HCPCS: G0463 ==

== ENCOUNTER 2025-04-09 06:53 | Day surgery (SDC) | payer MEDICAID, SELFPAY ==
[2025-04-09] MEDS: LACTATED RINGERS 1000 ML 1,000 ML 100 ML IV (07:10)
[2025-04-09 07:24] VITALS: BMI 43.7
--- NOTE | 2025-04-09 07:55 | W.PM.H&PU ---
History & Physical Update History & Physical Update H&P Reviewed and patient assessed: The following changes are noted below H&P Updates: Reviewed consent form with patient. Patient currently on day 3 of menstrual cycle. Reports that it is heavy. Discussed with patient that entry into the uterus might be easier but visualization might be more difficult. Additionally, we discussed higher risk of Mirena IUD expulsion given her heavier cycles. Ok to proceed as planned and will troubleshoot as needed.
[2025-04-09 08:05] VITALS: BP 153/100; PULSE 98; RESP 16; TEMP 36; O2SAT 96
[2025-04-09 08:08] LABS: Hemoglobin* 12.7 gm/dL (12.0-16.0)
[2025-04-09] MEDS: INSULIN REGULAR, HUMAN 100 UNIT/ML VIAL 8 UNIT SUBCUT (08:09)
[2025-04-09] MEDS: SODIUM CHLORIDE 0.9 % (FLUSH) 10 ML SYRINGE IVF (08:14)
[2025-04-09] MEDS: LACTATED RINGERS 500 ML 500 ML 100 ML IV (08:14)
--- NOTE | 2025-04-09 08:30 | P.ANES_ITS ---
Anesthesia Charges Start Date/Time Anesthesia Start Date: 04/09/25 Anesthesia Start Time: 08:19 Stop Date/Time Anesthesia Stop Date: 04/09/25 Anesthesia Stop Time: 09:16 Coding CPT Codes CPT Codes: ANESTH SURGERY OF ABDOMEN - 30578 ([id number]) P3 - PATIENT W/SEVERE SYS DISEASE, QX - MANAGER TRANSPORT SVC W/ MD MED DIRECTION, QK - OXYGEN PLANT OPERATOR 2-4 CNCRNT ANES PROC
--- NOTE | 2025-04-09 08:30 | W.ANESCHARGE ---
Anesthesia Charges Start Date/Time Anesthesia Start Date: 04/09/25 Anesthesia Start Time: 08:19 Stop Date/Time Anesthesia Stop Date: 04/09/25 Anesthesia Stop Time: 09:16 Coding CPT Codes CPT Codes: ANESTH SURGERY OF ABDOMEN - 85131 ([id number]) P3 - PATIENT W/SEVERE SYS DISEASE, QX - STRATEGY EXECUTION CONSULTANT SVC W/ MD MED DIRECTION, QK - USABILITY STRATEGIST 2-4 CNCRNT ANES PROC
[2025-04-09] MEDS: LIDOCAINE 1%-EPI 1:100,000 20 ML INFILTRATI (08:46)
[2025-04-09 09:15] VITALS: BP 128/85; PULSE 95; RESP 16; TEMP 36.5; O2SAT 96
--- NOTE | 2025-04-09 09:18 | P.ANES_ITS ---
Anesthesia Charges Start Date/Time Anesthesia Start Date: 04/09/25 Anesthesia Start Time: 08:19 Stop Date/Time Anesthesia Stop Date: 04/09/25 Anesthesia Stop Time: 09:16 Coding CPT Codes CPT Codes: ANESTH SURGERY OF ABDOMEN - 52312 ([id number]) QK - CONTAINER MAKER 2-4 CNCRNT ANES PROC, QX - DIRECTOR BUSINESS TRAVEL SVC W/ MD MED DIRECTION, P3 - PATIENT W/SEVERE SYS DISEASE
--- NOTE | 2025-04-09 09:18 | W.ANESCHARGE ---
Anesthesia Charges Start Date/Time Anesthesia Start Date: 04/09/25 Anesthesia Start Time: 08:19 Stop Date/Time Anesthesia Stop Date: 04/09/25 Anesthesia Stop Time: 09:16 Coding CPT Codes CPT Codes: ANESTH SURGERY OF ABDOMEN - 71722 ([id number]) QK - FAMILY COUNSELOR 2-4 CNCRNT ANES PROC, QX - OUT AND OUT CIGAR MAKER HAND SVC W/ MD MED DIRECTION, P3 - PATIENT W/SEVERE SYS DISEASE
[2025-04-09 09:30] VITALS: BP 129/87; PULSE 93; RESP 16; O2SAT 94
--- NOTE | 2025-04-09 09:32 | W.PM.GYNPROC ---
Procedure Note Time Seen by Provider: 09:32 Date of procedure: 04/09/25 Will [facility] bill your pro fee for this procedure?: Yes Pathology: specimen obtained, sent to pathology (Endometrial curetting, polyps, and fibroids) Procedure Description: Preoperative diagnosis: Elvira is a 40 year-old G0 with endometriosis, dysmenorrhea, menorrhagia. Pelvic ultrasound concerning for endometrial polyps and submucosal fibroids Postoperative diagnosis: Same Procedure: Hysteroscopy, dilation and curettage, polypectomy, myomectomy, Mirena IUD insertion Anesthesia: Conscious sedation with paracervical block. Surgeon:Katherine Roche MD Estimated blood loss: <5 mL Specimen: Endometrial curettings to pathology. Findings: Exam under anesthesia: Cervix palpates normal. Patient is menstruating and small amount of bleeding coming from cervical os. Uterus: anterior position, 6 week size, mobile. Rest of bimanual exam limited due to habitus. On hysteroscopy: Menstrual blood noted. Normal uterine contour. Normal bilateral tubal ostia. Endometrial polyp near right tubal ostia. One small submucosal fibroid and endometrial polyps noted in the posterior aspect of the uterus. Procedure: Elvira was taken to the operating where conscious sedation was found to be adequate. She was placed in the dorsal lithotomy position. An exam under anesthesia was performed with findings stated above. She was then prepped and draped in normal sterile manner. A bivalve metal speculum was placed in the vaginal canal. The cervix and vaginal canal appear normal. A paracervical block was placed using 1% lidocaine with epinephrine: 5 mL injected at the 4 and 8 o'clock positions on the cervix. The anterior lip of the cervix was then grasped with a long tenaculum. The cervix was dilated to Hegar 6. The uterus sounded to 7 cm. The hysteroscope advanced into the uterus and a diagnostic hysteroscopy was performed with findings stated above. Normal saline was used as the insufflation medium. Soft tissue shaver was used to perform polypectomy, myomectomy and global curetting. The uterus and documented a normal appearing uterine cavity at the end of the procedure. Uterus sounds to 8 cm. The IUD is loaded into the insertion tube, inserted to the sounded depth, and the IUD is deployed. Insertion tube was removed. Hysteroscopy was performed to confirm appropriate positioning of the IUD in the uterus. Strings are trimmed to 3 cm. There were no complications with insertion. Fluid deficit at the end of the procedure 85 mL. Total fluid: 790 mL The hysteroscope and tenaculum clamp were removed from the uterus and cervix. Excellent hemostasis noted. Nothing was used for hemostasis. The patient tolerated the procedure well. Sponge, lap and instruments counts were correct at the end of the procedure. The patient was awakened from anesthesia and taken to the recovery area in stable condition. Surgical debrief performed and specimen reviewed at the end of the procedure.
[2025-04-09 09:45] VITALS: BP 133/95; PULSE 92; RESP 16; O2SAT 94
[2025-04-09] MEDS: INSULIN REGULAR, HUMAN 100 UNIT/ML VIAL 10 UNIT SUBCUT (10:10)
[2025-04-09 10:15] VITALS: BP 137/87; PULSE 99; RESP 16; O2SAT 95
--- NOTE | 2025-04-09 10:58 | SUR.OPER ---
PATIENT QUESTIONS ANSWERED SATISFACTORILY PREOPERATIVELY. PATIENT BROUGHT TO OR #1 PER CART. Patient positioned supine on OR #1 bed for the induction. Pt. then moved into the lithotomy position for the procedure.? Final approval of positioning by surgeon.
== END 2025-04-09 10:40 | disposition home or self-care (01) ==
LOC: OR 06:54
PROVIDERS: PCP Internal Medicine; Visit Provider Obstetrics & Gynecology
PROC: 0UDB8ZZ Extraction of Endometrium, Via Natural or Artificial Opening Endoscopic (ICD-10-PCS; CPT 58558; principal; 2025-04-09 08:15)
DX: N92.0 Excessive and frequent menstruation with regular cycle (principal); N94.6 Dysmenorrhea, unspecified; N80.9 Endometriosis, unspecified; N84.0 Polyp of corpus uteri; D25.0 Submucous leiomyoma of uterus; E66.01 Morbid (severe) obesity due to excess calories; Z68.41 Body mass index [BMI] 40.0-44.9, adult; E11.40 Type 2 diabetes mellitus with diabetic neuropathy, unspecified; Z79.84 Long term (current) use of oral hypoglycemic drugs; Z79.85 Long-term (current) use of injectable non-insulin antidiabetic drugs; I10 Essential (primary) hypertension; G47.33 Obstructive sleep apnea (adult) (pediatric)
CPT/HCPCS: 58558; 58300; 00860; 36415; 81025; 82962; 85018; 86850; 86900; 86901; 88305; C1782; J1100; J1815; J2250; J2405; J2704; J3010; J3490; J7120; J7298

== ENCOUNTER 2025-04-17 12:54 | Outpatient (CLI) | payer MEDICAID, SELFPAY ==
[2025-04-17 14:11] LABS: Hematocrit* 37.9 % (33.0-51.0); Hemoglobin* 12.0 gm/dL (12.0-16.0); Immature Granulocytes Abs Auto 0.01 K/uL (0.00-0.30); Immature Granulocytes Pct Auto 0.2 %; Mean Corpuscular HGB Conc 32 gm/dL (32-36); Mean Corpuscular Hemoglobin 28 pg (26-34); Mean Corpuscular Volume 87 fL (80-100); RDW Coefficient of Variation % 14.3 % (11.5-15.5); Red Blood Count* 4.35 m/uL (4.00-5.20); White Blood Count* 5.88 K/uL (4.50-11.00)
--- NOTE | 2025-04-17 14:15 | CRLHL7_ITS ---
For Patients: As a result of the Century Cures Act, medical imaging exams and procedure reports are released immediately into your electronic medical record. You may view this report before your referring provider. If you have questions, please contact your health care provider. Indication: ASSESS FOR OSTEOMYELITIS Technique: Three views left foot Comparison: 08/09/2024 Findings: Periostitis is present about the great toe proximal phalanx. Associated soft tissue swelling noted. Deformity of the distal great toe proximal phalanx noted from probable prior surgery. Midfoot alignment is maintained. Calcaneal spurs. Decreased density within the great toe proximal phalanx also noted. Impression: Radiographic findings are suspicious for osteomyelitis involving the left great toe proximal phalanx. Dictated by Marv Dotson MD @ 04/17/2025 3:53:02 PM (Electronically Signed)
[2025-04-17 14:16] LABS: Lymphocytes Absolute Auto 2.60 K/uL (0.90-2.90); Slide Review Reflex No
== END 2025-04-17 12:55 | disposition home or self-care (01) ==
PROVIDERS: PCP Internal Medicine; Visit Provider Surgery
DX: T81.31XA Disruption of external operation (surgical) wound, not elsewhere classified, initial encounter (principal); E11.621 Type 2 diabetes mellitus with foot ulcer; E11.40 Type 2 diabetes mellitus with diabetic neuropathy, unspecified; L97.516 Non-pressure chronic ulcer of other part of right foot with bone involvement without evidence of necrosis; C92.01 Acute myeloblastic leukemia, in remission; Z89.411 Acquired absence of right great toe; Z86.718 Personal history of other venous thrombosis and embolism; Z79.01 Long term (current) use of anticoagulants; Z79.84 Long term (current) use of oral hypoglycemic drugs
CPT/HCPCS: 36415; 73630; 85025; 86140; G0463

== ENCOUNTER 2025-04-24 12:53 | Outpatient (CLI) | payer BC, SELFPAY | END 2025-04-24 12:54 | disposition home or self-care (01) | LOC: WOUND 12:53 | PROVIDERS: PCP Internal Medicine; Visit Provider Surgery | DX: E11.621 Type 2 diabetes mellitus with foot ulcer (principal); E11.40 Type 2 diabetes mellitus with diabetic neuropathy, unspecified; L97.516 Non-pressure chronic ulcer of other part of right foot with bone involvement without evidence of necrosis; I89.0 Lymphedema, not elsewhere classified; Z89.411 Acquired absence of right great toe; C92.01 Acute myeloblastic leukemia, in remission; F17.200 Nicotine dependence, unspecified, uncomplicated; Z79.84 Long term (current) use of oral hypoglycemic drugs | CPT/HCPCS: 97597 ==

== ENCOUNTER 2025-05-01 12:54 | Outpatient (CLI) | payer BC, SELFPAY | END 2025-05-01 12:55 | disposition home or self-care (01) | LOC: WOUND 12:54 | PROVIDERS: PCP Internal Medicine; Visit Provider Physician Assistant | DX: E11.621 Type 2 diabetes mellitus with foot ulcer (principal); E11.40 Type 2 diabetes mellitus with diabetic neuropathy, unspecified; I89.0 Lymphedema, not elsewhere classified; L97.516 Non-pressure chronic ulcer of other part of right foot with bone involvement without evidence of necrosis; L97.522 Non-pressure chronic ulcer of other part of left foot with fat layer exposed; C92.01 Acute myeloblastic leukemia, in remission; Z86.718 Personal history of other venous thrombosis and embolism; Z79.01 Long term (current) use of anticoagulants; Z79.4 Long term (current) use of insulin; Z79.84 Long term (current) use of oral hypoglycemic drugs; Z89.411 Acquired absence of right great toe | CPT/HCPCS: 97597 ==

== ENCOUNTER 2025-05-08 12:47 | Outpatient (CLI) | payer BC, SELFPAY | END 2025-05-08 12:48 | disposition home or self-care (01) | LOC: WOUND 12:47 | PROVIDERS: PCP Internal Medicine; Visit Provider Surgery | DX: E11.621 Type 2 diabetes mellitus with foot ulcer (principal); E11.40 Type 2 diabetes mellitus with diabetic neuropathy, unspecified; L97.522 Non-pressure chronic ulcer of other part of left foot with fat layer exposed; I89.0 Lymphedema, not elsewhere classified; F17.200 Nicotine dependence, unspecified, uncomplicated; Z89.411 Acquired absence of right great toe; Z79.4 Long term (current) use of insulin; Z79.84 Long term (current) use of oral hypoglycemic drugs; Z94.81 Bone marrow transplant status; Z86.718 Personal history of other venous thrombosis and embolism; Z79.01 Long term (current) use of anticoagulants | CPT/HCPCS: 11042 ==

== ENCOUNTER 2025-05-22 12:55 | Outpatient (CLI) | payer BC, SELFPAY | END 2025-05-22 12:56 | disposition home or self-care (01) | LOC: WOUND 12:55 | PROVIDERS: PCP Internal Medicine; Visit Provider Surgery | DX: E11.621 Type 2 diabetes mellitus with foot ulcer (principal); E11.40 Type 2 diabetes mellitus with diabetic neuropathy, unspecified; I89.0 Lymphedema, not elsewhere classified; L97.521 Non-pressure chronic ulcer of other part of left foot limited to breakdown of skin; A52.16 Charcot's arthropathy (tabetic); F17.200 Nicotine dependence, unspecified, uncomplicated; Z86.718 Personal history of other venous thrombosis and embolism; Z79.01 Long term (current) use of anticoagulants; Z79.4 Long term (current) use of insulin; Z79.84 Long term (current) use of oral hypoglycemic drugs; Z94.81 Bone marrow transplant status | CPT/HCPCS: G0463 ==

== ENCOUNTER 2025-06-05 12:53 | Outpatient (CLI) | payer BC, SELFPAY | END 2025-06-05 12:54 | disposition home or self-care (01) | LOC: WOUND 12:53 | PROVIDERS: PCP Internal Medicine; Visit Provider Surgery | DX: Z09 Encounter for follow-up examination after completed treatment for conditions other than malignant neoplasm (principal); Z86.31 Personal history of diabetic foot ulcer; Z89.412 Acquired absence of left great toe; E11.40 Type 2 diabetes mellitus with diabetic neuropathy, unspecified; I89.0 Lymphedema, not elsewhere classified; A52.16 Charcot's arthropathy (tabetic); F17.200 Nicotine dependence, unspecified, uncomplicated; Z86.718 Personal history of other venous thrombosis and embolism; Z79.01 Long term (current) use of anticoagulants; Z79.4 Long term (current) use of insulin; Z79.84 Long term (current) use of oral hypoglycemic drugs; Z94.81 Bone marrow transplant status | CPT/HCPCS: G0463 ==